=== PATIENT | male | born 1955 | race Asian ===

== ENCOUNTER 2017-01-16 12:06 | Inpatient (IN) | payer OTHER ==
--- NOTE | 2017-01-16 17:04 | HP ---
COWS - Scale Resting Pulse: 1= [place] 81-100 Sweatin= Chills/Flushing Restless Observation: 3= Extraneous Movement Pupil Size: 0= Normal to Room Light Bone or Joint Aches: 2= Severe Diffuse Aches Runny Nose/ Eye Tearin= Nasal Congestion GI Upset > 30mins: 2= Nausea/Diarrhea Tremor Observation: 2= Slight Tremor Visible Yawning Observation: 0= None Anxiety or Irritability: 2=Irritable/Anxious Goose Flesh Skin: 0=Smooth Skin COWS Score: 14 CIWA Score - CIWA Score Nausea/Vomitin-Mild Nausea/No Vomiting Muscle Tremors: 4-Moderate,w/Arms Extend Anxiety: 4-Mod. Anxious/Guarded Agitation: 4-Moderately Restless Paroxysmal Sweats: 1-Minimal Palms Moist Orientation: 3-Disoriented Date>2 days Tacttile Disturbances: 0-None Auditory Disturbances: 0-None Visual Disturbances: 0-None Headache: 1-Very Mild CIWA-Ar Total Score: 18 Admission [facility] - HPI Chief Complaint: withdrawal sx Allergies/Adverse Reactions: Allergies Allergy/AdvReac Type Severity Reaction Status Date / Time No Known Allergies Allergy Verified 01/16/17 17:03 History of Present Illness: 61 years old male with long history of alcohol, xanax, heroin, nicotine dependence hypertension copd and depression is admitted to detox Exam Limitations: No Limitations - Ebola screening Have you traveled outside of the country in the last 21 days: No Have you had contact with anyone from an Ebola affected area: No Have you been sick,other than usual withdrawal symptoms: No Do you have a fever: No - Review of Systems Constitutional: Chills, Changes in sleep, Weight Stable EENT: reports: Blurred Vision (need eye glasses), Other (retina detachment) Respiratory: reports: SOB with Exertion, Productive cough (yellowish greenish) Cardiac: reports: No Symptoms Reported GI: reports: Diarrhea, Nausea, Poor Fluid Intake, Abdominal cramping : reports: No Symptoms Reported Musculoskeletal: reports: Back Pain, Joint Pain, Muscle Pain, Muscle Weakness ( left knee), Neck Pain Integumentary: reports: No Symptoms Reported Neuro: reports: Tremors Endocrine: reports: No Symptoms Reported Hematology: reports: No Symptoms Reported Psychiatric: reports: Judgement Intact, Depressed Other Systems: Reviewed and Negative Patient History - Patient Medical History Hx Anemia: No Hx Asthma: No Hx Chronic Obstructive Pulmonary Disease (COPD): Yes Hx Cancer: No Hx Cardiac Disorders: No Hx Congestive Heart Failure: No Hx Hypertension: Yes Hx Hypercholesterolemia: No Hx Pacemaker: No HX Cerebrovascular Accident: Yes (2012) Hx Seizures: No Hx Dementia: No Hx Diabetes: No Hx Gastrointestinal Disorders: No Hx Liver Disease: No Hx Genitourinary Disorders: No Hx Sexually Transmitted Disorders: No Hx Renal Disease (ESRD): No Hx Thyroid Disease: No Hx Human Immunodeficiency Virus (HIV): No Hx Hepatitis C: Yes Hx Depression: Yes Hx Suicide Attempt: No Hx Bipolar Disorder: No Hx Schizophrenia: No - Patient Surgical History Past Surgical History: Yes Hx Neurologic Surgery: No Hx Cataract Extraction: No Hx Cardiac Surgery: No Hx Lung Surgery: No Hx Breast Surgery: No Hx Breast Biopsy: No Hx Abdominal Surgery: No Hx Appendectomy: No Hx Cholecystectomy: No Hx Genitourinary Surgery: No Hx Orthopedic Surgery: Yes (L knee replacement 2006) Other Surgical History: retinal detachment repair 1998 Anesthesia Reaction: No - PPD History Previous Implant?: Yes Documented Results: Negative w/o proof Implanted On Prior [facility] Admission?: No PPD to be Administered?: Yes - Smoking Cessation Smoking history: Current every day smoker Have you smoked in the past 12 months: Yes Aproximately how many cigarettes per day: 20 Cigars Per Day: 0 Hx Chewing Tobacco Use: No Initiated information on smoking cessation: Yes 'Breaking Loose' booklet given: 01/16/17 - Substance & Tx. History Hx Alcohol Use: Yes Hx Substance Use: Yes Substance Use Type: Alcohol, Heroin, Opiates, Tranquilizers - Substances Abused Heroin Route: Inhalation Frequency: Daily Amount used: 2 bags Age of first use: 28 Date of Last Use: 01/15/17 Alprazolam (Xanax) Route: Oral Frequency: Daily Amount used: 4mg Age of first use: 34 Date of Last Use: 01/15/17 Alcohol Route: Oral Frequency: Daily Amount used: 2 shots whiskey Age of first use: 18 Date of Last Use: 01/13/17 Family Disease History - Family Disease History Family Disease History: Heart Disease: Father (), Mother (), [place] : Brother (ceceased), Other: Father Admission Physical Exam [facility] - Physical General Appearance: Yes: Nourished, Appropriately Dressed, Mild Distress, Tremorous, Irritable, Sweating, Anxious HEENTM: Yes: Hearing grossly Normal, Normal ENT Inspection, Normocephalic, Normal Voice Respiratory: Yes: Chest Non-Tender, No Respiratory Distress, No Accessory Muscle Use, Hyperresonant, Inspiration Neck: Yes: Supple, Trachea in good position Breast: Yes: Breasts Symetrical Cardiology: Yes: Regular Rhythm, S1, S2, Tachycardia Abdominal: Yes: Within Normal Limits Genitourinary: Yes: Within Normal Limits Back: Yes: Normal Inspection Musculoskeletal: Yes: Gait Steady (cane), Back pain, Joint swelling (ankles), Muscle Pain Extremities: Yes: Non-Tender, Tremors, Swelling (both lower extremities) Neurological: Yes: Alert, Normal Response, Depressed Affect Integumentary: Yes: Warm, Clammy Lymphatic: Yes: Within Normal Limits - Diagnostic (1) Hepatitis C carrier Current Visit: Yes Status: Chronic Comment: schedule to treat (2) Low back pain Current Visit: Yes Status: Chronic Comment: referred for interventional evaluation, gentle stretches, topical (3) Nicotine dependence Current Visit: Yes Status: Chronic Comment: counseled cessation - using e cigarette (4) Alcohol dependence with uncomplicated withdrawal Current Visit: Yes Status: Acute (5) Opioid dependence with withdrawal Current Visit: Yes Status: Acute (6) Sedative, hypnotic or anxiolytic dependence with withdrawal, uncomplicated Current Visit: Yes Status: Acute (7) Use of cane as ambulatory aid Current Visit: Yes Status: Chronic (8) Status post stroke Current Visit: Yes Status: Chronic (9) Hypertension Current Visit: Yes Status: Chronic Qualifiers: Hypertension type: essential hypertension Qualified Code(s): I10 - Essential (primary) hypertension (10) COPD (chronic obstructive pulmonary disease) Current Visit: Yes Status: Chronic Qualifiers: COPD type: emphysema Emphysema type: unilateral Qualified Code(s ): J43.0 - 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] (11) BPH (benign prostatic hyperplasia) Current Visit: Yes Status: Acute Qualifiers: Prostatic enlargement morphology: non-nodular Lower urinary tract symptom presence: symptoms present Qualified Code(s): N40.1 - Benign prostatic hyperplasia with lower urinary tract symptoms Cleared for Admission S - Detox or Rehab S Level of Care: Medically Managed Detox Regimen/Protocol: Methadone/Valium
[2017-01-16 17:07] VITALS: BMI 35.4
[2017-01-16] MEDS ORDERED: MAGNESIUM HYDROX 2400MG/30ML ORAL SUSPENSION 30 ML CUP PO PRN (17:28)
[2017-01-16] MEDS ORDERED: diphenhydrAMINE HCL 50 MG CAPSULE PO PRN (17:28)
[2017-01-16] MEDS ORDERED: LOPERAMIDE HCL 2 MG CAPSULE PO PRN (17:28)
[2017-01-16] MEDS ORDERED: ACETAMINOPHEN 325 MG TABLET (FP) PO PRN (17:28)
[2017-01-16] MEDS ORDERED: MAGNESIUM CITRATE 300 ML BOTTLE PO PRN (17:28)
[2017-01-16] MEDS ORDERED: MENTHOL/PHENOL 1 EACH UD MM PRN (17:28)
[2017-01-16] MEDS ORDERED: P-EPHED 60MG/TRIPROLIDI 2.5MG TABLET PO PRN (17:28)
[2017-01-16] MEDS ORDERED: NICOTINE POLACRILEX 4 MG GUM BC PRN (17:28)
[2017-01-16] MEDS ORDERED: MAG HYDROX/AL HYDROX/SIMETH 30 ML UNIT-DOSE CUP PO PRN (17:28)
[2017-01-16] MEDS ORDERED: IBUPROFEN 400 MG TABLET (FP) PO PRN (17:28)
[2017-01-16] MEDS ORDERED: guaiFENesin/D-METHORPHAN HB 10 ML UNIT-DOSE CUPS PO PRN (17:28)
[2017-01-16] MEDS ORDERED: ALBUTEROL SO4 6.7 GM HFA INHALER IH PRN (17:32)
[2017-01-16] MEDS ORDERED: ALBUTEROL SO4 2.5/IPRATROPIUM 0.5 INH SOL 3 ML VIAL.NEB. NEB PRN (17:33)
[2017-01-16] MEDS ORDERED: diazePAM 5 MG TABLET PO ONE (18:00)
[2017-01-16] MEDS ORDERED: METHADONE HCL 10 MG TABLET (FOR DETOX USE ONLY) PO ONE ×2 (18:00→23:00)
[2017-01-16] MEDS: amLODIPine BESYLATE 10 MG TABLET (FP) PO SCH (19:03)
[2017-01-16] MEDS ORDERED: TAMSULOSIN HCL 0.4 MG CAP.ER.24H (FP) PO SCH (22:00)
[2017-01-16] MEDS ORDERED: THIAMINE HCL 100 MG TABLET (FP) PO SCH (22:00)
[2017-01-16] MEDS: cloNIDine HCL 0.1 MG TABLET PO PRN (22:30)
[2017-01-16] MEDS: diazePAM 5 MG TABLET PO SCH (22:30)
[2017-01-16] MEDS: BUDESONIDE/FORMETEROL FUMARATE 80/4.5 mcg INHALER IH SCH (22:32)
[2017-01-16 23:27] LABS: URINE APPEARANCE CLEAR; URINE BILIRUBIN NEGATIVE (NEGATIVE); URINE BLOOD NEGATIVE (NEGATIVE); URINE COLOR YELLOW; URINE GLUCOSE (UA) NEGATIVE (NEGATIVE); URINE KETONE TRACE (NEGATIVE); URINE LEUK ESTERASE NEGATIVE (NEGATIVE); URINE NITRITE NEGATIVE (NEGATIVE); URINE UROBILINOGEN NEGATIVE E.U./dl (0.2-1.0)
[2017-01-16 23:28] LABS: URINE PROTEIN 1+ (NEGATIVE)
[2017-01-16 23:31] LABS: URINE HYALINE CAST 1 /lpf; URINE MUCUS RARE; URINE RBC 5 /hpf (0-3); URINE WBC 1 /hpf (3-5)
[2017-01-17] MEDS: diazePAM 5 MG TABLET PO PRN ×3 (01:37→17:08)
[2017-01-17] MEDS: diazePAM 5 MG TABLET PO SCH ×2 (06:13→14:45)
[2017-01-17] MEDS ORDERED: PRENATAL VITAMINS W/ FOLIC ACID TABLET (FP) PO SCH (10:00)
[2017-01-17] MEDS ORDERED: METHADONE HCL 10 MG TABLET (FOR DETOX USE ONLY) PO SCH (10:00)
[2017-01-17] MEDS ORDERED: NICOTINE 21 MG/24 HOURS TOPICAL PATCH TD SCH (10:00)
[2017-01-17 10:13] LABS: MCH 31.9 pg (25.7-33.7); MCHC 33.8 g/dl (32.0-35.9); MEAN CELL VOLUME 94.6 fl (80-96); MEAN PLT VOLUME 8.9 fl (7.5-11.1); PLATELET COUNT 192 K/MM3 (134-434); RDW 13.7 % (11.9-15.9); WHITE BLOOD COUNT 8.2 K/mm3 (4.0-10.0)
--- NOTE | 2017-01-17 10:29 | PN ---
[facility] CIWA - CIWA Score Nausea/Vomitin Muscle Tremors: 3 Anxiety: 3 Agitation: 3 Paroxysmal Sweats: 3 Orientation: 0-Oriented Tacttile Disturbances: 2-Mild Itch/Numbness/Burn Auditory Disturbances: 0-None Visual Disturbances: 0-None Headache: 0-None Present CIWA-Ar Total Score: 17 [facility] COWS - Scale Resting Pulse: 1= [place] 81-100 Sweatin=Flushed/Facial Moisture Restless Observation: 1= Difficult to Sit Still Pupil Size: 1= Pupils >than Normal Bone or Joint Aches: 2= Severe Diffuse Aches Runny Nose/ Eye Tearin= Nasal Congestion GI Upset > 30mins: 1= Stomach Cramp Tremor Observation of Outstretched Hands: 1= Tremor [place], Not Seen Yawning Observation: 0= None Anxiety or Irritability: 2=Irritable/Anxious Goose Flesh Skin: 0=Smooth Skin COWS Score: 12 S Progress Note (SOAP) Subjective: interrupted sleep sweats, shakes jana knee pains Objective: 01/17/17 10:25 Vital Signs Temperature 98.2 F 01/17/17 09:47 Pulse Rate 81 01/17/17 09:47 Respiratory Rate 16 01/17/17 09:47 Blood Pressure 109/59 01/17/17 09:47 O2 Sat by Pulse Oximetry (%) Laboratory Tests 01/16/17 23:10 Urine Color Yellow Urine Appearance Clear Urine pH 5.0 Ur Specific [place] 1.025 Urine Protein 1+ H Urine Glucose (UA) Negative Urine Ketones Trace H Urine Blood Negative Urine Nitrite Negative Urine Bilirubin Negative Urine Urobilinogen Negative Ur Leukocyte Esterase Negative Urine RBC 5 Urine WBC 1 Ur Epithelial Cells Rare Hyaline Casts 1 Urine Mucus Rare pt aox3 in nad ambualting with cane rt upper ext. weakness jana knee well healed scars Assessment: 01/17/17 10:28 withdrawal sx's Plan: cont. detox increase fluids
[2017-01-17 10:53] LABS: ALBUMIN 4.1 g/dl (3.4-5.0); ANION GAP 8 (8-16); CO2 29 mmol/L (21-32); GLUCOSE,RANDOM 102 mg/dL (74-106); SGOT/AST 23 U/L (15-37); SGPT/ALT 24 U/L (12-78)
[2017-01-17 10:57] LABS: ALK PHOS 73 U/L (45-117); BILIRUBIN,TOTAL 0.5 mg/dL (0.2-1.0); CALCIUM 9.5 mg/dL (8.5-10.1); COCKROFT - GAULT 160.68; CREATININE 0.7 mg/dL (0.7-1.3); TOT PROT 7.2 g/dl (6.4-8.2)
[2017-01-17] MEDS: amLODIPine BESYLATE 10 MG TABLET (FP) PO SCH (10:57)
[2017-01-17] MEDS: cloNIDine HCL 0.1 MG TABLET PO PRN ×2 (10:57→17:08)
[2017-01-17] MEDS: BUDESONIDE/FORMETEROL FUMARATE 80/4.5 mcg INHALER IH SCH (10:58)
[2017-01-17 13:32] VITALS: BP 114/71; PULSE 80; TEMP 97.2
--- NOTE | 2017-01-17 14:03 | CONSULT ---
[facility] Psychiatric Consult - Data Date of interview: 01/17/17 Admission source: [facility] Identifying data: This is one of the multiple admissions to [facility] for this 61 y/o [place]-born male seeking detox treatment for heroin,alcohol and xanax dependence.Patient is ,a father of three,domiciled,unemployed (disabled) and supported on [facility] benefits. Substance Abuse History: - Smoking Cessation. Smoking history: Current every day smoker. Have you smoked in the past 12 months: Yes. Aproximately how many cigarettes per day: 20. Cigars Per Day: 0. Hx Chewing Tobacco Use: No. Initiated information on smoking cessation: Yes. 'Breaking Loose' booklet given : 01/16/17. - Substance & Tx. History. Hx Alcohol Use: Yes. Hx Substance Use : Yes. Substance Use Type: Alcohol, Heroin, Opiates, Tranquilizers. - Substances Abused. Heroin. Route: Inhalation. Frequency: Daily. Amount used: 2 bags. Age of first use: 28. Date of Last Use: 01/15/17. Alprazolam (Xanax). Route: Oral. Frequency: Daily. Amount used: 4mg. Age of first use: 34. Date of Last Use: 01/15/17. Alcohol. Route: Oral. Frequency: Daily. Amount used: 2 shots whiskey. Age of first use: 18. Date of Last Use: 01/13/17. Confirmed by patient. Medical History: Hypertension,BPH (benign prostatic hyperplasia),COPD,hepatitis C,obesity,CVA with right sided weakness (2012) and a history of surgeries ( left knee replacement in 2006 + retinal detachment in 1998). Psychiatric History: Patient reports a history of four psychiatric admissions to [facility].Diagnosed with Bipolar Disorder (self- report).Mr Pulido declares that he " never cares about talking to therapists, social workers or psychiatrists " and prefers to rely on his primary care doctor for scripts (seroquel and xanax).Patient has stopped going to his assigned mental health clinic (name not recalled) in [place], [place].He insists on the continuation of seroquel 200 mg/hs in this hospital course (confirmed by review of recent pharmacy claims : filled script on 12/21/16 @ [facility]).No reported history of suicide attempts. Physical/Sexual Abuse/Trauma History: Patient denies. Mental Status Exam - Mental Status Exam Alert and Oriented to: Time, Place, Person Cognitive Function: Good Patient Appearance: Well Groomed (obese ) Mood: Angry, Hostile, Irritable Affect: Labile Patient Behavior: Inappropriate (cursing at staff and peers; medication-seeking as evidenced by pressuring nurses for xanax and seroquel), Impulsive (can be loud,argumentative for no valid reasons) Speech Pattern: Clear (fluent in [place]; came to [place] age 12) Voice Loudness: Mildly Loud Thought Process: Goal Oriented Thought Disorder: Not Present Hallucinations: Denies Suicidal Ideation: Denies Homicidal Ideation: Denies Insight/Judgement: Poor Sleep: Poorly, Difficulty falling asleep (vociferous about getting seroquel at bedtime) Appetite: Good Gait/Station: Other (right-sided weakness; cane available but patient is seen moving around without that device) Psychiatric Findings - Problem List ([place] 1, 2,3) (1) Alcohol dependence with uncomplicated withdrawal Current Visit: Yes Status: Acute (2) Opioid dependence with withdrawal Current Visit: Yes Status: Acute (3) Sedative, hypnotic or anxiolytic dependence with withdrawal, uncomplicated Current Visit: Yes Status: Acute (4) Nicotine dependence Current Visit: Yes Status: Acute Comment: counseled cessation - using e cigarette (5) Substance induced mood disorder Current Visit: Yes Status: Acute (6) Bipolar disorder Current Visit: Yes Status: Acute Comment: Self-report. (7) BPH (benign prostatic hyperplasia) Current Visit: Yes Status: Chronic Qualifiers: Prostatic enlargement morphology: non-nodular Lower urinary tract symptom presence: symptoms present Qualified Code(s): N40.1 - Benign prostatic hyperplasia with lower urinary tract symptoms (8) COPD (chronic obstructive pulmonary disease) Current Visit: Yes Status: Chronic Qualifiers: COPD type: emphysema Emphysema type: unilateral Qualified Code(s ): J43.0 - 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] (9) Low back pain Current Visit: Yes Status: Chronic Comment: referred for interventional evaluation, gentle stretches, topical (10) degenerative disc disease Current Visit: Yes Status: Chronic Comment: antiinflamamatory diet counceeling done (11) osteoarthritis Current Visit: Yes Status: Chronic Comment: gentle ROM, stretches, topical (12) Hypertension Current Visit: Yes Status: Chronic Qualifiers: Hypertension type: essential hypertension Qualified Code(s): I10 - Essential (primary) hypertension (13) Use of cane as ambulatory aid Current Visit: Yes Status: Chronic - Initial Treatment Plan Initial Treatment Plan: Psychoeducation.Detoxification.Medication : seroquel 100 mg po hs (intentionally reduced as a precaution against oversedation/ accidental falls).Side effects/benefits discussed with the patient.This treatment strategy is presented to Mr Pulido.Made aware of risk for oversedation/ falls,cardiovascular adverse events,abnormal involuntary movements and metabolic syndrome.He reports past/current history of good tolerability and he agrees (verbally) with this careplan.Falls precautions.Observation.
--- NOTE | 2017-01-17 21:36 | DS ---
[facility] Detox Discharge Summary Admission Date: 01/16/17 Discharge Date: 01/17/17 - History Present History: Alcohol Dependence, Opioid Dependence, Sedative Dependence Additional Comments: patient insists to leave the unit refuses to wait face to face with the provider refuses e prescription agrees to follow up with primary care physician agrees to consider aftercare as per counselor arranged Pertinent Past History: WITHDRAWAL SX Laboratory Last Values WBC 8.2 K/mm3 (4.0-10.0) 01/17/17 06:00 RBC 4.49 M/mm3 (4.00-5.60) 01/17/17 06:00 Hgb 14.3 GM/dL (11.7-16.9) 01/17/17 06:00 Hct 42.5 % (35.4-49) 01/17/17 06:00 MCV 94.6 fl (80-96) 01/17/17 06:00 MCHC 33.8 g/dl (32.0-35.9) 01/17/17 06:00 RDW 13.7 % (11.9-15.9) 01/17/17 06:00 Plt Count 192 K/MM3 (134-434) 01/17/17 06:00 MPV 8.9 fl (7.5-11.1) 01/17/17 06:00 Sodium 142 mmol/L (136-145) 01/17/17 06:00 Potassium 3.9 mmol/L (3.5-5.1) 01/17/17 06:00 Chloride 105 mmol/L (98-107) 01/17/17 06:00 Carbon Dioxide 29 mmol/L (21-32) 01/17/17 06:00 Anion Gap 8 (8-16) 01/17/17 06:00 BUN 22 mg/dL (7-18) H 01/17/17 06:00 Creatinine 0.7 mg/dL (0.7-1.3) 01/17/17 06:00 Creat Clearance w eGFR > 60 (>60) 01/17/17 06:00 Random Glucose 102 mg/dL (74-106) 01/17/17 06:00 Calcium 9.5 mg/dL (8.5-10.1) 01/17/17 06:00 Total Bilirubin 0.5 mg/dL (0.2-1.0) 04/25/17 06:00 AST 23 U/L (15-37) D 01/17/17 06:00 ALT 24 U/L (12-78) 01/17/17 06:00 Alkaline Phosphatase 73 U/L (45-117) 01/17/17 06:00 Total Protein 7.2 g/dl (6.4-8.2) 01/17/17 06:00 Albumin 4.1 g/dl (3.4-5.0) 01/17/17 06:00 Urine Color Yellow 01/16/17 23:10 Urine Appearance Clear 01/16/17 23:10 Urine pH 5.0 (5.0-8.0) 01/16/17 23:10 Ur Specific [place] 1.025 (1.001-1.035) 01/16/17 23:10 Urine Protein 1+ (NEGATIVE) H 01/16/17 23:10 Urine Glucose (UA) Negative (NEGATIVE) 01/16/17 23:10 Urine Ketones Trace (NEGATIVE) H 01/16/17 23:10 Urine Blood Negative (NEGATIVE) 01/16/17 23:10 Urine Nitrite Negative (NEGATIVE) 01/16/17 23:10 Urine Bilirubin Negative (NEGATIVE) 01/16/17 23:10 Urine Urobilinogen Negative E.U./dl (0.2-1.0) 01/16/17 23:10 Ur Leukocyte Esterase Negative (NEGATIVE) 01/16/17 23:10 Urine RBC 5 /hpf (0-3) 01/16/17 23:10 Urine WBC 1 /hpf (3-5) 01/16/17 23:10 Ur Epithelial Cells Rare /hpf (FEW) 01/16/17 23:10 Hyaline Casts 1 /lpf 01/16/17 23:10 Urine Mucus Rare 01/16/17 23:10 RPR Titer Nonreactive (NONREACTIVE) 01/17/17 06:00 LAB NOTED - Physical Exam Results Vital Signs: Vital Signs Temperature 97.2 F L 01/17/17 13:32 Pulse Rate 80 01/17/17 13:32 Respiratory Rate 20 01/17/17 13:32 Blood Pressure 114/71 01/17/17 13:32 O2 Sat by Pulse Oximetry (%) Pertinent Admission Physical Exam Findings: WITHDRAWAL SX Laboratory Last Values WBC 8.2 K/mm3 (4.0-10.0) 01/17/17 06:00 RBC 4.49 M/mm3 (4.00-5.60) 01/17/17 06:00 Hgb 14.3 GM/dL (11.7-16.9) 01/17/17 06:00 Hct 42.5 % (35.4-49) 01/17/17 06:00 MCV 94.6 fl (80-96) 01/17/17 06:00 MCHC 33.8 g/dl (32.0-35.9) 01/17/17 06:00 RDW 13.7 % (11.9-15.9) 01/17/17 06:00 Plt Count 192 K/MM3 (134-434) 01/17/17 06:00 MPV 8.9 fl (7.5-11.1) 01/17/17 06:00 Sodium 142 mmol/L (136-145) 01/17/17 06:00 Potassium 3.9 mmol/L (3.5-5.1) 01/17/17 06:00 Chloride 105 mmol/L (98-107) 01/17/17 06:00 Carbon Dioxide 29 mmol/L (21-32) 01/17/17 06:00 Anion Gap 8 (8-16) 01/17/17 06:00 BUN 22 mg/dL (7-18) H 01/17/17 06:00 Creatinine 0.7 mg/dL (0.7-1.3) 01/17/17 06:00 Creat Clearance w eGFR > 60 (>60) 01/17/17 06:00 Random Glucose 102 mg/dL (74-106) 01/17/17 06:00 Calcium 9.5 mg/dL (8.5-10.1) 01/17/17 06:00 Total Bilirubin 0.5 mg/dL (0.2-1.0) 01/17/17 06:00 AST 23 U/L (15-37) D 01/17/17 06:00 ALT 24 U/L (12-78) 01/17/17 06:00 Alkaline Phosphatase 73 U/L (45-117) 01/17/17 06:00 Total Protein 7.2 g/dl (6.4-8.2) 01/17/17 06:00 Albumin 4.1 g/dl (3.4-5.0) 01/17/17 06:00 Urine Color Yellow 01/16/17 23:10 Urine Appearance Clear 01/16/17 23:10 Urine pH 5.0 (5.0-8.0) 01/16/17 23:10 Ur Specific [place] 1.025 (1.001-1.035) 01/16/17 23:10 Urine Protein 1+ (NEGATIVE) H 01/16/17 23:10 Urine Glucose (UA) Negative (NEGATIVE) 01/16/17 23:10 Urine Ketones Trace (NEGATIVE) H 01/16/17 23:10 Urine Blood Negative (NEGATIVE) 01/16/17 23:10 Urine Nitrite Negative (NEGATIVE) 01/16/17 23:10 Urine Bilirubin Negative (NEGATIVE) 01/16/17 23:10 Urine Urobilinogen Negative E.U./dl (0.2-1.0) 01/16/17 23:10 Ur Leukocyte Esterase Negative (NEGATIVE) 01/16/17 23:10 Urine RBC 5 /hpf (0-3) 01/16/17 23:10 Urine WBC 1 /hpf (3-5) 01/16/17 23:10 Ur Epithelial Cells Rare /hpf (FEW) 01/16/17 23:10 Hyaline Casts 1 /lpf 01/16/17 23:10 Urine Mucus Rare 01/16/17 23:10 RPR Titer Nonreactive (NONREACTIVE) 01/17/17 06:00 LAB NOTED - Treatment Hospital Course: Detox Protocol Followed, Responded well - Medication Discharge Medications: Ambulatory Orders Clonidine HCl [Catapres -] 0.2 mg PO BID 01/16/17 Quetiapine Fumarate [Seroquel -] 200 mg PO HS 01/16/17 Tamsulosin HCl [Flomax] 0.4 mg PO DAILY 01/16/17 Quetiapine Fumarate [Seroquel] 100 mg PO HS #30 tablet 01/17/17 - Diagnosis (1) Hepatitis C carrier Status: Chronic (2) Low back pain Status: Chronic (3) Nicotine dependence Status: Acute (4) Alcohol dependence with uncomplicated withdrawal Status: Acute (5) Opioid dependence with withdrawal Status: Acute (6) Sedative, hypnotic or anxiolytic dependence with withdrawal, uncomplicated Status: Acute (7) Use of cane as ambulatory aid Status: Chronic (8) Status post stroke Status: Chronic (9) Hypertension Status: Chronic Qualifiers: Hypertension type: essential hypertension Qualified Code(s): I10 - Essential (primary) hypertension (10) COPD (chronic obstructive pulmonary disease) Status: Chronic Qualifiers: COPD type: emphysema Emphysema type: unilateral Qualified Code(s ): J43.0 - 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] (11) BPH (benign prostatic hyperplasia) Status: Chronic Qualifiers: Prostatic enlargement morphology: non-nodular Lower urinary tract symptom presence: symptoms present Qualified Code(s): N40.1 - Benign prostatic hyperplasia with lower urinary tract symptoms - AMA Did Patient Leave Against Medical Advice: Yes
[2017-01-17] MEDS ORDERED: QUEtiapine FUMARATE 100 MG TABLET (FP) PO SCH (22:00)
--- NOTE | 2017-01-18 08:26 | EKG ---
Test Reason : Blood Pressure : / mmHG Vent. Rate : 088 BPM Atrial Rate : 088 BPM P-R Int : 140 ms QRS Dur : 090 ms QT Int : 352 ms P-R-T Axes : 064 015 011 degrees QTc Int : 425 ms SINUS RHYTHM WITH PREMATURE VENTRICULAR COMPLEXES OTHERWISE NORMAL ECG WHEN COMPARED WITH ECG OF 03-MAY-2012 12:10, PREMATURE VENTRICULAR COMPLEXES ARE NOW PRESENT Confirmed by OPAL WALDROP MD ([id number]) on 01/18/2017 8:26:19 AM Referred By: Confirmed By:OPAL WALDROP MD
[2017-01-18] MEDS ORDERED: diazePAM 5 MG TABLET PO SCH (10:00)
[2017-01-18] MEDS ORDERED: METHADONE HCL 5 MG TABLET (FOR DETOX USE ONLY) PO SCH (10:00)
[2017-01-20] MEDS ORDERED: METHADONE HCL 10 MG TABLET (FOR DETOX USE ONLY) PO SCH (10:00)
[2017-01-20] MEDS ORDERED: diazePAM 5 MG TABLET PO SCH (10:00)
[2017-01-21] MEDS ORDERED: METHADONE HCL 5 MG TABLET (FOR DETOX USE ONLY) PO SCH (06:00)
== END 2017-01-17 18:45 | disposition home or self-care (01) | DRG 773 ==
LOC: YASAS 12:06 → Y6N 17:43
PROVIDERS: ADMIT Internal Medicine Addiction Medicine; ATTEND Internal Medicine Addiction Medicine
PROC: HZ2ZZZZ Detoxification Services for Substance Abuse Treatment (ICD-10-PCS; principal; 2017-01-17)
DX: F11.23 Opioid dependence with withdrawal (principal); F13.230 Sedative, hypnotic or anxiolytic dependence with withdrawal, uncomplicated; F10.230 Alcohol dependence with withdrawal, uncomplicated; F17.210 Nicotine dependence, cigarettes, uncomplicated; I10 Essential (primary) hypertension; N40.0 Benign prostatic hyperplasia without lower urinary tract symptoms; M54.5 Low back pain; G89.29 Other chronic pain; M51.36 Other intervertebral disc degeneration, lumbar region; Z86.73 Personal history of transient ischemic attack (TIA), and cerebral infarction without residual deficits; R26.2 Difficulty in walking, not elsewhere classified; F91.8 Other conduct disorders
CPT/HCPCS: 36415; 80053; 81003; 81015; 85027; 86593; 93005; 93010

== ENCOUNTER 2017-05-11 12:06 | Emergency (ER) | payer OTHER ==
[2017-05-11 12:22] VITALS: TEMP 97.5; BMI 34.0
[2017-05-11 12:39] LABS: MCH 32.6 pg (25.7-33.7); MEAN CELL VOLUME 93.1 fl (80-96); MEAN PLT VOLUME 9.4 fl (7.5-11.1); PLATELET COUNT 244 K/MM3 (134-434); RDW 12.9 % (11.9-15.9); WHITE BLOOD COUNT 9.5 K/mm3 (4.0-10.0)
[2017-05-11 13:18] LABS: ALBUMIN 4.1 g/dl (3.4-5.0); ANION GAP 8 (8-16); BILIRUBIN,TOTAL 0.6 mg/dL (0.2-1.0); CALCIUM 8.9 mg/dL (8.5-10.1); CO2 25 mmol/L (21-32); GLUCOSE,RANDOM 160 mg/dL (74-106); SGPT/ALT 24 U/L (12-78); TOT PROT 7.1 g/dl (6.4-8.2)
[2017-05-11 13:21] LABS: ALK PHOS 60 U/L (45-117); TROPONIN I < 0.02 ng/ml (0.00-0.05)
[2017-05-11 13:25] LABS: CPK 261 IU/L (39-308); SGOT/AST 42 U/L (15-37)
--- NOTE | 2017-05-11 13:25 | PDOC ---
Attending Attestation - Resident Resident Name: Christina South - ED Attending Attestation I have performed the following: I have examined & evaluated the patient, The case was reviewed & discussed with the resident, I agree w/resident's findings & plan, Exceptions are as noted - HPI HPI: 05/11/17 15:20 61y M hx of cva, copd, substance abuse (no recent per patient), htn, sent by EMS for being nonresponsive. Per EMS the pt was found nonresponsive in a parkinglot. The pt was noted to be hypoxic, was nonresponsive and pt was give .4 of narcan with immediate improvement The pt endorses taking percocet, but denies taking anything else including etoh, ivdu. pt denies taking any benzos. pts evaluation unremarkble. vitals noted for mild tachycadia upon arrival and was hypoxic. suspect hypoxia secondary to his copd upon arrival th pt was immediately evaluated labs were obtained ct head was obtained pts labs reviewed an dunremarkable his CT is also negative throughout th stay, the pt was awake, alert, ambulating aruond without any complaints. after sever hours of obsevation, the pt requesting to go home, as we are now past the half life of narcan, I feel that the pt is safe to be discharged warned the apteitn against using opiates and benzos will have the pt fu with his PMD return precautis were discussed. - Physicial Exam PE: 05/11/17 15:25 GENERAL: The patient is awake, alert, and fully oriented, Nontoxic - in no acute distress. HEAD: Normocephalic, atraumatic. EYES: Pupils 3mm and symmetrically reactive, extraocular movements intact, sclera anicteric, conjunctiva clear. ENT: Normal voice, Moist mucous membranes. NECK: Normal range of motion, supple LUNGS: Breath sounds equal, clear to auscultation bilaterally. No wheezes, no rhonchi, no rales. HEART: slightly tachycardic ABDOMEN: Soft, nontender, normoactive bowel sounds. No guarding, no rebound. . No CVA tenderness EXTREMITIES: Normal range of motion, no edema. NEUROLOGICAL: No facial assymetry, Normal speech, moving all 4 extremities spontaneously and symmetrically PSYCH: Normal mood, normal affect. SKIN: Warm, Dry, normal turgor, - Medical Decision Making 05/13/17 16:25 see above Heart Score/ECG Review - ECG Impressions Comment:: 05/11/17 15:26 Twelve-lead EKG was performed and reviewed by me. There is normal sinus rhythm with a heart rate of [address] No ST changes suggestive of acute ischemia
--- NOTE | 2017-05-11 14:57 | PDOC ---
History of Present Illness - General History Source: Patient Exam Limitations: No Limitations <Christina South - Last Filed: 05/11/17 14:57> <Clarence Mckoy - Last Filed: 05/11/17 15:31> - General Chief Complaint: Syncope/Near Syncope Stated Complaint: AMS Time Seen by Provider: 05/11/17 12:08 Past History - Past Medical History Anemia: No Asthma: No Cancer: No Cardiac Disorders: No CVA: Yes (2012) COPD: Yes CHF: No Dementia: No Diabetes: No GI Disorders: No Disorders: No HTN: Yes Hypercholesterolemia: No Kidney Stones: No Liver Disease: No Suicide Attempt (Hx): No Seizures: No Thyroid Disease: No - Surgical History Abdominal Surgery: No Appendectomy: No Cardiac Surgery: No Cholecystectomy: No Lung Surgery: No Neurologic Surgery: No Orthopedic Surgery: Yes (L knee replacement 2006) - Reproductive History Testicular Surgery: No - Psycho/Social/Smoking Cessation Hx Anxiety: Yes Suicidal Ideation: No Smoking History: Current every day smoker Have you smoked in the past 12 months: Yes Number of Cigarettes Smoked Daily: 20 Cigars Per Day: 0 Information on smoking cessation initiated: Yes 'Breaking Loose' booklet given: 01/16/17 Hx Alcohol Use: No Drug/Substance Use Hx: No Substance Use Type: Alcohol, Heroin, Opiates, Tranquilizers Hx Substance Use Treatment: Yes <Christnia South - Last Filed: 05/11/17 14:57> <Clarence Mckoy - Last Filed: 05/11/17 15:31> - Past Medical History Allergies/Adverse Reactions: Allergies Allergy/AdvReac Type Severity Reaction Status Date / Time No Known Allergies Allergy Verified 05/11/17 12:19 Home Medications: Ambulatory Orders Clonidine HCl [Catapres -] 0.2 mg PO BID 01/16/17 Tamsulosin HCl [Flomax] 0.4 mg PO DAILY 01/16/17 Quetiapine Fumarate [Seroquel] 100 mg PO HS #30 tablet 01/17/17 *Physical Exam - Vital Signs Last Vital Signs Temp Pulse Resp BP Pulse Ox 97.5 F L 112 H 24 96/66 87 L 05/11/17 12:10 05/11/17 12:10 05/11/17 12:10 05/11/17 12:10 05/11/17 12:10 <S[place] - Last Filed: 05/11/17 14:57> - Vital Signs Last Vital Signs Temp Pulse Resp BP Pulse Ox 97.5 F L 112 H 24 96/66 87 L 05/11/17 12:10 05/11/17 12:10 05/11/17 12:10 05/11/17 12:10 05/11/17 12:10 <Clarence Mckoy - Last Filed: 05/11/17 15:31> ED Treatment Course - LABORATORY CBC & Chemistry Diagram: 05/11/17 12:22 05/11/17 12:22 - ADDITIONAL ORDERS Additional order review: Laboratory Results 05/11/17 12:22 Sodium 140 Potassium 4.7 D Chloride 107 Carbon Dioxide 25 Anion Gap 8 BUN 20 H Creatinine 1.0 D Creat Clearance w eGFR > 60 Random Glucose 160 H D Calcium 8.9 Total Bilirubin 0.6 AST 42 H D ALT 24 Alkaline Phosphatase 60 Creatine Kinase 261 Creatine Kinase Index 0.6 CK-MB (CK-2) 1.792 Troponin I < 0.02 Total Protein 7.1 Albumin 4.1 05/11/17 12:22 RBC 4.64 MCV 93.1 MCHC 35.0 RDW 12.9 MPV 9.4 - RADIOLOGY Radiology Studies Ordered: Category Date Time Status HEAD CT WITHOUT CONTRAST [CT] Stat CT Scan 05/11/17 12:09 Completed CHEST PA & LAT [RAD] Stat Radiology 05/11/17 12:26 Completed <Christina South - Last Filed: 05/11/17 14:57> - LABORATORY CBC & Chemistry Diagram: 05/11/17 12:22 05/11/17 12:22 - ADDITIONAL ORDERS Additional order review: Laboratory Results 05/11/17 05/11/17 12:22 12:22 Sodium 140 Potassium 4.7 D Chloride 107 Carbon Dioxide 25 Anion Gap 8 BUN 20 H Creatinine 1.0 D Creat Clearance w eGFR > 60 Random Glucose 160 H D Calcium 8.9 Total Bilirubin 0.6 AST 42 H D ALT 24 Alkaline Phosphatase 60 Creatine Kinase 261 Creatine Kinase Index 0.6 CK-MB (CK-2) 1.792 Troponin I < 0.02 Total Protein 7.1 Albumin 4.1 Methadone Screen Negative Barbiturate Screen Negative Phencyclidine Screen Negative Ur Amphetamines Screen Negative MDMA (Ecstasy) Screen Negative Cocaine Screen Negative U Marijuana (THC) Screen Negative 05/11/17 12:22 RBC 4.64 MCV 93.1 MCHC 35.0 RDW 12.9 MPV 9.4 <Clarence Mckoy - Last Filed: 05/11/17 15:31> *DC/Admit/Observation/Transfer <Christina South - Last Filed: 05/11/17 14:57> - Discharge Dispostion Admit: No <Clarence Mckoy - Last Filed: 05/11/17 15:31> Diagnosis at time of Disposition: Opioid dependence Qualifiers: Substance use status: uncomplicated Qualified Code(s): F11.20 - Opioid dependence, uncomplicated - Discharge Dispostion Disposition: HOME Condition at time of disposition: Improved - Referrals Referrals: Vicente Laureano MD [Primary Care Provider] - - Patient Instructions Printed Discharge Instructions: DI for Opioid Addiction Additional Instructions: Return to the emergency department immediately with ANY new, persistent or worsening symptoms. You MUST call and follow up with your doctor tomorrow for further evaluation of your symptoms. Results were discussed with you. Please make sure your doctor reviews the results of your emergency evaluation. If you had any xrays during your visit, it was read preliminarily by myself, a Radiologist will review it and if there are any additional findings we will call you.
--- NOTE | 2017-05-11 15:04 | EKG ---
Test Reason : Blood Pressure : / mmHG Vent. Rate : 113 BPM Atrial Rate : 113 BPM P-R Int : 150 ms QRS Dur : 084 ms QT Int : 328 ms P-R-T Axes : 043 -31 068 degrees QTc Int : 449 ms SINUS TACHYCARDIA LEFT AXIS DEVIATION ABNORMAL ECG WHEN COMPARED WITH ECG OF 16-JAN-2017 18:03, PREMATURE VENTRICULAR COMPLEXES ARE NO LONGER PRESENT QRS AXIS SHIFTED LEFT Confirmed by SHENA OLIVER, JAMES ([id number]) on 05/11/2017 3:03:36 PM Referred By: Confirmed By:JAMES CHATTERJEE MD
[2017-05-11 15:26] LABS: URINE MARIJUANA THC NEGATIVE ng/ml (CUTOFF=50)
[2017-05-11 15:49] VITALS: BP 90/66; PULSE 78
== END 2017-05-11 15:42 | disposition home or self-care (01) ==
LOC: JER 12:06
DX: F11.20 Opioid dependence, uncomplicated (principal); F17.210 Nicotine dependence, cigarettes, uncomplicated; J44.9 Chronic obstructive pulmonary disease, unspecified; I10 Essential (primary) hypertension; Z86.73 Personal history of transient ischemic attack (TIA), and cerebral infarction without residual deficits; Z96.652 Presence of left artificial knee joint
CPT/HCPCS: 36415; 70450-TC; 71020-TC; 80048; 80053; 80307; 82553; 84484; 85027; 93005; 93010; 99285-25

== ENCOUNTER 2018-02-12 11:46 | Observation (INO) | payer OTHER ==
[2018-02-12 12:10] VITALS: BMI 32.6
--- NOTE | 2018-02-12 12:12 | PDOC ---
Attending Attestation - Resident Resident Name: Eugene Sultana - HPI HPI: 02/16/18 01:22 Pt presents to the ED complaining of acute exacerbation of his chronic upper back pain. Patient is a chronic heroin abuser. Denies trauma or other new symptoms. Pain seems to be relieved by drinking large quantities of milk in the ED. - Physicial Exam PE: 02/16/18 01:23 Agree with resident exam. Patient is alert, oriented and ambulatory in the ED. No point tenderness over the spine. Neurologically intact. Abdomen is non tender and non distended. - Medical Decision Making 02/16/18 01:25 Pt presents to the ED complaining of his chronic back pain. Labs show evidence of dehydration with acute rise in his creatinine. Dr. Laureano, patient's PMD, prefers to treat as an outpatient. WIll give IV fluids and reassess.
[2018-02-12] MEDS ORDERED: MAG HYDROX/AL HYDROX/SIMETH -MYLANTA- ORAL SUSPENSION PO ONE (12:42)
--- NOTE | 2018-02-12 13:05 | PDOC ---
History of Present Illness - General Chief Complaint: Back Pain Stated Complaint: LOWER BACK PAIN Time Seen by Provider: 02/12/18 12:07 History Source: Patient Exam Limitations: No Limitations - History of Present Illness Initial Comments: 02/12/18 12:54 The patient is a 62M with a PMH of chronic back pain (on percocet), COPD, CVA, substance abuse who presents to the ER with back pain. The patient states that he has sharp, lumbosacral, sharp pain which does not radiate. The pain has been getting worse. The patient has taken percocet for his pain which he states helped "a little bit". He denies any trauma, saddle anesthesia, fever, chills, and IVDA. Past History - Past Medical History Allergies/Adverse Reactions: Allergies Allergy/AdvReac Type Severity Reaction Status Date / Time No Known Allergies Allergy Verified 02/12/18 12:07 Home Medications: Ambulatory Orders Tamsulosin HCl [Flomax -] 0.8 mg PO DAILY 01/16/17 cloNIDine HCL [Catapres -] 0.2 mg PO BID 01/16/17 Quetiapine Fumarate [Seroquel] 300 mg PO HS 01/14/18 Albuterol Sulfate Inhaler - [Ventolin HFA Inhaler -] 2 inh PO Q4H PRN 01/15/18 Alprazolam [Xanax] 2 mg PO TID 02/12/18 Lisinopril [Prinivil] 20 mg PO DAILY 02/12/18 Meloxicam 7.5 mg PO DAILY 02/12/18 Oxycodone HCl/Acetaminophen [Percocet 10-325 mg Tablet] 1 each PO Q8H PRN Ranitidine HCl [Zantac] 300 mg PO DAILY 02/12/18 Anemia: Yes Asthma: No Cancer: No Cardiac Disorders: No CVA: Yes (2012) COPD: Yes CHF: No Dementia: No Diabetes: No GI Disorders: No Disorders: Yes (BPH - on flomax) HTN: No Hypercholesterolemia: No Kidney Stones: No Liver Disease: No Seizures: No Thyroid Disease: No - Surgical History Abdominal Surgery: No Appendectomy: No Cardiac Surgery: No Cholecystectomy: No Lung Surgery: No Neurologic Surgery: No Orthopedic Surgery: Yes (L knee replacement 2006) - Reproductive History Testicular Surgery: No - Suicide/Smoking/Psychosocial Hx Smoking History: Current every day smoker Have you smoked in the past 12 months: Yes Number of Cigarettes Smoked Daily: 10 Cigars Per Day: 0 Information on smoking cessation initiated: No 'Breaking Loose' booklet given: 02/11/18 Hx Alcohol Use: No Drug/Substance Use Hx: No Substance Use Type: Prescribed (xanax, Percocet) Hx Substance Use Treatment: Yes Review of Systems - Review of Systems Able to Perform ROS?: Yes Comments:: 02/12/18 13:13 GENERAL/CONSTITUTIONAL: No fever or chills. No weakness. HEAD, EYES, EARS, NOSE AND THROAT: No change in vision. No ear pain or discharge. No sore throat. CARDIOVASCULAR: No chest pain, palpitations, or lightheadedness. RESPIRATORY: No cough, wheezing, shortness of breath, or hemoptysis. GASTROINTESTINAL: Positive for indigestion. No nausea, vomiting, diarrhea, constipation, or abdominal pain. GENITOURINARY: No dysuria, frequency, hematuria, or change in urination. MUSCULOSKELETAL: Positive for back pain. No joint or muscle swelling or pain. No neck pain. SKIN: No rash or lesions. NEUROLOGIC: No headache, numbness, tingling, weakness, loss of consciousness, or change in strength/sensation. ENDOCRINE: No increased thirst. No abnormal weight change. HEMATOLOGIC/LYMPHATIC: No anemia, easy bleeding, or history of blood clots. ALLERGIC/IMMUNOLOGIC: No hives or skin allergy. Is the patient limited Brazilian proficient: No *Physical Exam - Vital Signs Last Vital Signs Temp Pulse Resp BP Pulse Ox 97.5 F L 97 H 18 132/67 96 02/12/18 12:07 02/12/18 12:07 02/12/18 12:07 02/12/18 12:07 02/12/18 12:07 - Physical Exam Comments: 02/12/18 13:15 GENERAL: Well developed, well nourished. Awake and alert. No acute distress. HEENT: Normocephalic, atraumatic. Hearing grossly normal. Dry mucous membranes. PERRLA, EOMI. No conjunctival pallor. Sclera are non-icteric. Oropharynx is clear. NECK: Supple. Full ROM. No JVD. Carotid pulses 2+ and symmetric, without bruits. No thyromegaly. No lymphadenopathy. CARDIOVASCULAR: Regular rate and rhythm. No murmurs, rubs, or gallops. Distal pulses are 2+ and symmetric. PULMONARY: No evidence of respiratory distress. Lungs clear to auscultation bilaterally. No wheezing, rales or rhonchi. ABDOMINAL: Soft. Non-tender. Non-distended. No rebound or guarding. No organomegaly. Normoactive bowel sounds. GENITOURINARY: No CVA tenderness bilaterally. MUSCULOSKELETAL: Mild spinal tenderness over LS spine. Normal range of motion at all joints. No bony deformities or tenderness. EXTREMITIES: No cyanosis. No clubbing. No edema. No calf tenderness or swelling. SKIN: Warm and dry. Normal capillary refill. No rashes. No jaundice. NEUROLOGICAL: Alert, awake, appropriate. Cranial nerves 2-12 intact. Normal speech. Gait is ataxic. PSYCHIATRIC: Cooperative. Good eye contact. Appropriate mood and affect. Moderate Sedation - Procedure Monitoring Vital Signs: Vital Signs Temp Pulse Resp BP Pulse Ox 97.5 F L 97 H 18 132/67 96 02/12/18 12:07 02/12/18 12:07 02/12/18 12:07 02/12/18 12:07 02/12/18 12:07 Heart Score/ECG Review #1 General ECG Interpretation: Sinus Rhythm, Normal Rate, Normal Intervals, No acute ischemic changes Compared to previous ECG there are: No significant change 02/12/18 13:52 NSR Vent rate 86 AR 142 QRS 100 QTc 437 Incomplete RBBB No STD or EMILIA No sign of acute ischemic changes. ED Treatment Course - LABORATORY CBC & Chemistry Diagram: 02/12/18 13:50 02/12/18 13:50 - RADIOLOGY Radiology Studies Ordered: Category Date Time Status CHEST X-RAY PORTABLE* [RAD] Stat Radiology 02/12/18 12:45 Ordered SPINE-LUMBAR SACRAL [RAD] Stat Radiology 02/12/18 12:27 Ordered Medical Decision Making - Medical Decision Making 02/12/18 13:53 The patient is a 62M with a PMH of chronic back pain who presents with back pain and indigestion. Pt is requesting multiple cartons of milk. He is ambulating without problems in the ER with a chronic ataxic and wide-based gait. Pending labs and LS spine imaging to r/o occult fracture. 02/12/18 15:16 The patient has a Cr of 1.5 which is increased from 0.7 1 month ago. I have instructed the patient of this and he is requesting to AMA. The patient understands that his GAVI can lead to many comorbidities including . The patient has been ambulating around the ER and yelling at patients and other staff. Will print off AMA form. 02/12/18 15:50 Pt does not want to sign out AMA but is being verbally abusive to staff and other patients. I have instructed him that he needs to stay in his chair and in the hospital. Will add CKMB and renal u/s. 02/12/18 16:24 I have discussed the patient with Dr. Laureano. He knows the patient very well and I have informed him of his new onset GAVI. He states he will f/u outpatient with the patient. 02/12/18 19:31 Pending CK and CKMB. Pt is noted to be ambulating and raising his voice to patient and staff. I have instructed him to stay in his wheelchair. 02/12/18 20:32 Pt is requesting another PCP. Will admit to obs under Dr. Raymundo and I have endorsed the pt to her. *DC/Admit/Observation/Transfer Diagnosis at time of Disposition: Low back pain - Discharge Dispostion Disposition: HOME Condition at time of disposition: Stable Decision to Admit order: Yes - Referrals - Patient Instructions Printed Discharge Instructions: Low Back Pain Additional Instructions: Please follow up with your primary care physician in 2-3 days. Follow up with your pain management doctor. Please return to the ER if you have any signs or symptoms of chest pain, shortness of breath, uncontrollable fever, chills, nausea, vomiting, numbness, tingling, or weakness in any part of your body, changes in vision, or slurred speech. Please return to the ER if symptoms persist, worsen, or new symptoms arise. - Post Discharge Activity
[2018-02-12] MEDS ORDERED: MAG HYDROX/AL HYDROX/SIMETH 30 ML UNIT-DOSE CUP ONE (13:35)
[2018-02-12 13:58] LABS: BASO % 0.9 % (0-2.0); EOS % 0.7 % (0-4.5); HEMATOCRIT 47.6 % (35.4-49); HEMOGLOBIN 15.8 GM/dL (11.7-16.9); LYMPH % 17.3 % (8-40); MCH 31.2 pg (25.7-33.7); MCHC 33.3 g/dl (32.0-35.9); MEAN CELL VOLUME 93.8 fl (80-96); MEAN PLT VOLUME 8.3 fl (7.5-11.1); MONO % 12.6 % (3.8-10.2); NEUT % 68.5 % (42.8-82.8); PLATELET COUNT 190 K/MM3 (134-434); RBC 5.08 M/mm3 (4.00-5.60); RDW 13.7 % (11.9-15.9); WHITE BLOOD COUNT 10.4 K/mm3 (4.0-10.0)
[2018-02-12 14:19] LABS: URINE APPEARANCE SLCLOUDY; URINE BILIRUBIN NEGATIVE (<2.0 mg/dL); URINE COLOR DKYELLOW; URINE GLUCOSE (UA) NEGATIVE (NEGATIVE); URINE KETONE NEGATIVE (NEGATIVE); URINE LEUK ESTERASE NEGATIVE (NEGATIVE); URINE NITRITE NEGATIVE (NEGATIVE); URINE UROBILINOGEN NEGATIVE mg/dL (0.2-1.0)
[2018-02-12 14:23] LABS: URINE PROTEIN 2+ (NEGATIVE)
[2018-02-12 14:35] LABS: URINE HYALINE CAST 1 /lpf; URINE MUCUS RARE; WAXY CAST 3 /lpf
[2018-02-12 14:59] LABS: ALBUMIN 4.5 g/dl (3.4-5.0); ALK PHOS 56 U/L (45-117); ANION GAP 9 (8-16); BILIRUBIN,TOTAL 1.4 mg/dL (0.2-1.0); BLOOD UREA NITROGEN 34 mg/dL (7-18); CALCIUM 9.2 mg/dL (8.5-10.1); CHLORIDE 108 mmol/L (98-107); CO2 23 mmol/L (21-32); CREATININE 1.5 mg/dL (0.7-1.3); GLUCOSE,RANDOM 91 mg/dL (74-106); SGPT/ALT 78 U/L (12-78); SODIUM 140 mmol/L (136-145); TOT PROT 7.5 g/dl (6.4-8.2)
[2018-02-12 15:03] LABS: POTASSIUM 4.8 mmol/L (3.5-5.1)
[2018-02-12 15:04] LABS: SGOT/AST 267 U/L (15-37)
--- NOTE | 2018-02-12 18:04 | EKG ---
Test Reason : Blood Pressure : / mmHG Vent. Rate : 086 BPM Atrial Rate : 086 BPM P-R Int : 142 ms QRS Dur : 100 ms QT Int : 366 ms P-R-T Axes : 036 -35 000 degrees QTc Int : 437 ms NORMAL SINUS RHYTHM LEFT AXIS DEVIATION INCOMPLETE RIGHT BUNDLE BRANCH BLOCK SEPTAL INFARCT (CITED ON OR BEFORE 14-JAN-2018) ABNORMAL ECG WHEN COMPARED WITH ECG OF 14-JAN-2018 21:49, T WAVE VARIATION Confirmed by OPAL WALDROP MD ([id number]) on 02/12/2018 6:04:42 PM Referred By: Confirmed By:OPAL WALDROP MD
[2018-02-12] MEDS ORDERED: diazePAM 2 MG TABLET PO ONE (19:19)
[2018-02-12] MEDS ORDERED: diazePAM 2 MG TABLET ONE (19:54)
[2018-02-12] MEDS ORDERED: SODIUM CHLORIDE 0.9% 1000 ML INFUS.BAG IV ONE (20:22)
[2018-02-12 20:57] LABS: ANION GAP 4 (8-16); BLOOD UREA NITROGEN 31 mg/dL (7-18); CALCIUM 8.4 mg/dL (8.5-10.1); CHLORIDE 107 mmol/L (98-107); CO2 28 mmol/L (21-32); CREATININE 1.1 mg/dL (0.7-1.3); GLUCOSE,RANDOM 142 mg/dL (74-106); SODIUM 139 mmol/L (136-145)
--- NOTE | 2018-02-12 22:44 | HP ---
Admitting History and Physical - Primary Care Physician PCP: Denita Raymundo - Admission Chief Complaint: back pain History of Present Illness: 62M with a PMH of chronic back pain (on percocet), COPD, CVA, substance abuse who presents to the ER with back pain. The patient states that he has sharp, lumbosacral, sharp pain which does not radiate. The pain has been getting worse. The patient has taken percocet for his pain which he states helped "a little bit". 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 Cardiovascular: Yes: HTN Pulmonary: Yes: COPD Hepatobiliary: Yes: Hepatitis C Renal/: Yes: BPH Psych: Yes: Addictions (hx of heroin abuse, alcohol abuse, nicotine dependence) , Bipolar, Depression Musculoskeletal: Yes: Chronic low back pain - Past Surgical History Past Surgical History: Yes: Joint Replacement (b/l knees) - Smoking History Smoking history: Current every day smoker Have you smoked in the past 12 months: Yes Aproximately how many cigarettes per day: 10 - Alcohol/Substance Use Hx Alcohol Use: No Home Medications - Allergies Allergies/Adverse Reactions: Allergies Allergy/AdvReac Type Severity Reaction Status Date / Time No Known Allergies Allergy Verified 02/12/18 12:07 - Home Medications Home Medications: Ambulatory Orders Tamsulosin HCl [Flomax -] 0.8 mg PO DAILY 01/16/17 cloNIDine HCL [Catapres -] 0.2 mg PO BID 01/16/17 Quetiapine Fumarate [Seroquel] 300 mg PO HS 01/14/18 Albuterol Sulfate Inhaler - [Ventolin HFA Inhaler -] 2 inh PO Q4H PRN 01/15/18 Alprazolam [Xanax] 2 mg PO TID 02/12/18 Lisinopril [Prinivil] 20 mg PO DAILY 02/12/18 Meloxicam 7.5 mg PO DAILY 02/12/18 Oxycodone HCl/Acetaminophen [Percocet 10-325 mg Tablet] 1 each PO Q8H PRN Ranitidine HCl [Zantac] 300 mg PO DAILY 02/12/18 Family Disease History - Family Disease History Family Disease History: Heart Disease: Father (), Mother (), [place] : Brother (ceceased), Other: Father Review of Systems - Review of Systems Musculoskeletal: reports: Back Pain Physical Examination Vital Signs: Vital Signs Temperature 98.8 F 02/12/18 22:18 Pulse Rate 89 02/12/18 22:18 Respiratory Rate 15 02/12/18 22:18 Blood Pressure 128/97 02/12/18 22:18 O2 Sat by Pulse Oximetry (%) 95 02/12/18 22:18 Constitutional: Yes: No Distress HENT: Yes: Atraumatic Neck: Yes: Supple Cardiovascular: Yes: Regular Rate and Rhythm Respiratory: Yes: CTA Bilaterally Gastrointestinal: Yes: Normal Bowel Sounds Extremities: Yes: WNL Neurological: Yes: Alert, Oriented Labs: CBC, BMP 02/12/18 13:50 02/12/18 20:20 Imaging - Results X-ray: Report Reviewed Problem List - Problems (1) Rhabdomyolysis Assessment/Plan: on ivf renal consult Code(s): M62.82 - RHABDOMYOLYSIS (2) Low back pain Assessment/Plan: prn pain meds Code(s): M54.5 - LOW BACK PAIN Assessment/Plan Laboratory Tests 02/12/18 02/12/18 02/12/18 13:50 13:50 14:05 WBC 10.4 H D RBC 5.08 Hgb 15.8 D Hct 47.6 MCV 93.8 MCH 31.2 MCHC 33.3 RDW 13.7 Plt Count 190 MPV 8.3 Neutrophils % 68.5 Lymphocytes % 17.3 Monocytes % 12.6 H Eosinophils % 0.7 Basophils % 0.9 Nucleated RBC % 0 Sodium 140 Potassium 4.8 D Chloride 108 H Carbon Dioxide 23 D Anion Gap 9 BUN 34 H D Creatinine 1.5 H D Creat Clearance w eGFR 47.42 Random Glucose 91 D Calcium 9.2 Total Bilirubin 1.4 H D AST 267 H D ALT 78 D Alkaline Phosphatase 56 Creatine Kinase Creatine Kinase Index CK-MB (CK-2) Total Protein 7.5 D Albumin 4.5 D Urine Color Dkyellow Urine Appearance Slcloudy Urine pH 5.0 Ur Specific [place] 1.019 Urine Protein 2+ H Urine Glucose (UA) Negative Urine Ketones Negative Urine Blood 3+ H Urine Nitrite Negative Urine Bilirubin Negative Urine Urobilinogen Negative Ur Leukocyte Esterase Negative Urine WBC (Auto) 1 Urine RBC (Auto) 1 Hyaline Casts 1 Waxy Casts 3 Urine Mucus Rare 0502/12/18 02/12/18 15:27 19:00 20:20 WBC RBC Hgb Hct MCV MCH MCHC RDW Plt Count MPV Neutrophils % Lymphocytes % Monocytes % Eosinophils % Basophils % Nucleated RBC % Sodium 139 Potassium 4.0 Chloride 107 Carbon Dioxide 28 D Anion Gap 4 L BUN 31 H Creatinine 1.1 D Creat Clearance w eGFR Random Glucose 142 H D Calcium 8.4 L Total Bilirubin AST ALT Alkaline Phosphatase Creatine Kinase 13648 H Creatine Kinase Index 1.3 CK-MB (CK-2) Cancelled 176.072 H Total Protein Albumin Urine Color Urine Appearance Urine pH Ur Specific [place] Urine Protein Urine Glucose (UA) Urine Ketones Urine Blood Urine Nitrite Urine Bilirubin Urine Urobilinogen Ur Leukocyte Esterase Urine WBC (Auto) Urine RBC (Auto) Hyaline Casts Waxy Casts Urine Mucus Active Medications Generic Name Dose Route Start Last Admin Trade Name Freq PRN Reason Stop Dose Admin Alprazolam 2 mg 02/13/18 06:00 02/14/18 13:14 Xanax - PO 2 mg TID MATTHEW Administration Clonidine 0.2 mg 02/13/18 10:00 02/14/18 13:09 Catapres - PO 0.2 mg BID MATTHEW Administration Sodium Chloride 1,000 mls @ 100 mls/hr 02/14/18 16:15 02/14/18 17:25 Normal Saline - IV 100 mls/hr ASDIR MATTHEW Administration Lisinopril 20 mg 02/13/18 10:00 02/14/18 13:14 Prinivil PO 20 mg DAILY MATTHEW Administration Oxycodone HCl 10 mg 02/12/18 22:46 02/14/18 13:11 Roxicodone - PO 10 mg Q6H PRN Administration PAIN LEVEL 6-10 Quetiapine Fumarate 300 mg 02/13/18 22:00 02/13/18 21:12 Seroquel - PO 300 mg HS MATTHEW Administration Tamsulosin HCl 0.8 mg 02/13/18 10:00 02/14/18 13:11 Flomax - PO 0.8 mg DAILY MATTHEW Administration patient refusing ivf
[2018-02-13] MEDS: oxyCODONE HCL 5 MG TABLET PO PRN ×2 (06:55→21:12)
[2018-02-13] MEDS: ALPRAZolam 2 MG TABLET PO SCH ×4 (06:55→22:37)
[2018-02-13] MEDS ORDERED: ALPRAZolam 2 MG TABLET ONE ×2 (06:56→14:38)
[2018-02-13] MEDS ORDERED: oxyCODONE HCL 5 MG TABLET ONE (06:56)
[2018-02-13] MEDS ORDERED: SODIUM CHLORIDE 0.9% 1000 ML INFUS.BAG IV ONE ×2 (09:07→11:26)
[2018-02-13] MEDS ORDERED: HALOPERIDOL DECANOATE 100 MG/ML IM ONE (09:07)
[2018-02-13] MEDS ORDERED: HALOPERIDOL LACTATE 5 MG/ML ONE (09:21)
[2018-02-13] MEDS: cloNIDine HCL 0.1 MG TABLET PO SCH ×2 (12:13→22:37)
[2018-02-13] MEDS: LISINOPRIL 20 MG TABLET (FP) PO SCH (13:51)
[2018-02-13] MEDS: TAMSULOSIN HCL 0.4 MG CAP.ER.24H (FP) PO SCH (13:51)
--- NOTE | 2018-02-13 15:32 | PN ---
Progress Note, Physician - Current Medication List Current Medications: Active Medications Alprazolam (Xanax -) 2 mg PO TID [facility] Last Admin: 02/13/18 14:36 Dose: 2 mg Clonidine (Catapres -) 0.2 mg PO BID [facility] Last Admin: 02/13/18 12:13 Dose: 0.2 mg Lisinopril (Prinivil) 20 mg PO DAILY [facility] Last Admin: 02/13/18 13:51 Dose: 20 mg Oxycodone HCl (Roxicodone -) 10 mg PO Q6H PRN PRN Reason: PAIN LEVEL 6-10 Last Admin: 02/13/18 06:55 Dose: 10 mg Quetiapine Fumarate (Seroquel -) 300 mg PO [facility] Tamsulosin HCl (Flomax -) 0.8 mg PO DAILY [facility] Last Admin: 02/13/18 13:51 Dose: 0.8 mg - Objective Vital Signs: Vital Signs Temperature 98.8 F 02/12/18 22:18 Pulse Rate 95 H 02/13/18 04:50 Respiratory Rate 15 02/13/18 04:50 Blood Pressure 148/93 02/13/18 04:50 O2 Sat by Pulse Oximetry (%) 99 02/13/18 04:50 Constitutional: Yes: No Distress HENT: Yes: Atraumatic Neck: Yes: Supple Cardiovascular: Yes: Regular Rate and Rhythm Respiratory: Yes: CTA Bilaterally Gastrointestinal: Yes: Normal Bowel Sounds Extremities: Yes: WNL Edema: No Peripheral Pulses WNL: Yes Neurological: Yes: Alert, Oriented Labs: CBC, BMP 02/12/18 13:50 02/12/18 20:20 Problem List - Problems (1) Rhabdomyolysis Assessment/Plan: still high on ivf renal consult Code(s): M62.82 - RHABDOMYOLYSIS (2) Low back pain Assessment/Plan: prn pain meds Code(s): M54.5 - LOW BACK PAIN
[2018-02-13] MEDS: SODIUM CHLORIDE 1,000 ML IV SCH (16:07)
[2018-02-13] MEDS ORDERED: QUEtiapine FUMARATE 100 MG TABLET (FP) PO SCH (22:00)
[2018-02-14] MEDS: oxyCODONE HCL 5 MG TABLET PO PRN ×3 (06:38→19:01)
[2018-02-14] MEDS: ALPRAZolam 2 MG TABLET PO SCH ×2 (06:38→13:14)
[2018-02-14 07:07] VITALS: PULSE 68
[2018-02-14 11:13] LABS: BASO % 0.6 % (0-2.0); EOS % 3.3 % (0-4.5); HEMATOCRIT 41.8 % (35.4-49); HEMOGLOBIN 13.9 GM/dL (11.7-16.9); LYMPH % 20.7 % (8-40); MCH 31.1 pg (25.7-33.7); MCHC 33.2 g/dl (32.0-35.9); MEAN CELL VOLUME 93.9 fl (80-96); MEAN PLT VOLUME 8.6 fl (7.5-11.1); MONO % 12.7 % (3.8-10.2); NEUT % 62.7 % (42.8-82.8); PLATELET COUNT 143 K/MM3 (134-434); RBC 4.46 M/mm3 (4.00-5.60); RDW 13.9 % (11.9-15.9); WHITE BLOOD COUNT 5.7 K/mm3 (4.0-10.0)
[2018-02-14 11:34] LABS: ANION GAP 5 (8-16); BILIRUBIN,TOTAL 0.6 mg/dL (0.2-1.0); BLOOD UREA NITROGEN 17 mg/dL (7-18); CALCIUM 8.4 mg/dL (8.5-10.1); CHLORIDE 109 mmol/L (98-107); CO2 29 mmol/L (21-32); CREATININE 0.7 mg/dL (0.7-1.3); GLUCOSE,RANDOM 124 mg/dL (74-106); SGPT/ALT 80 U/L (12-78); SODIUM 143 mmol/L (136-145); TOT PROT 5.8 g/dl (6.4-8.2)
[2018-02-14 11:35] LABS: ALK PHOS 45 U/L (45-117)
[2018-02-14 11:45] LABS: POTASSIUM 4.1 mmol/L (3.5-5.1)
[2018-02-14 11:46] LABS: SGOT/AST 161 U/L (15-37)
[2018-02-14] MEDS: cloNIDine HCL 0.1 MG TABLET PO SCH (13:09)
[2018-02-14] MEDS: TAMSULOSIN HCL 0.4 MG CAP.ER.24H (FP) PO SCH (13:11)
[2018-02-14] MEDS: LISINOPRIL 20 MG TABLET (FP) PO SCH (13:14)
--- NOTE | 2018-02-14 13:32 | CONSULT ---
Consult Consult Specialty:: Nephrology Reason for Consultation:: rhabdo and GAVI - History of Present Illness Chief Complaint: back pain History of Present Illness: Pt is a 62 year old male with pmhx of chronic back pain, CVA, COPD, and substance abuse who presents to the ER with back pain. He says the pain was in the lumbosacral area. He was found to have rhabdo and be in GAVI. He says he takes percocet and xanax. He is on meloxicam at home. He is not a great historian. He denied pain in his legs or arms. He says that he takes the percocets and goes to sleep. He denies hematuria or dysuria. He refused to have IV fluids most of the night. I explained his renal failure and he now agrees. He denies shortness of breath. 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 CARE: Yes: CVA Cardio/Vascular: Yes: HTN Pulmonary: Yes: COPD Hepatobiliary: Yes: Hepatitis C Renal/: Yes: BPH Psych: Yes: Addictions (hx of heroin abuse, alcohol abuse, nicotine dependence) , Bipolar, Depression Musculoskeletal: Yes: Chronic low back pain - Past Surgical History Past Surgical History: Yes: Joint Replacement (b/l knees) - Alcohol/Substance Use Hx Alcohol Use: No - Smoking History Smoking history: Current every day smoker Have you smoked in the past 12 months: Yes Aproximately how many cigarettes per day: 10 Home Medications - Allergies Allergies/Adverse Reactions: Allergies Allergy/AdvReac Type Severity Reaction Status Date / Time No Known Allergies Allergy Verified 02/12/18 12:07 - Home Medications Home Medications: Ambulatory Orders Tamsulosin HCl [Flomax -] 0.8 mg PO DAILY 01/16/17 cloNIDine HCL [Catapres -] 0.2 mg PO BID 01/16/17 Quetiapine Fumarate [Seroquel] 300 mg PO HS 01/14/18 Albuterol Sulfate Inhaler - [Ventolin HFA Inhaler -] 2 inh PO Q4H PRN 01/15/18 Alprazolam [Xanax] 2 mg PO TID 02/12/18 Lisinopril [Prinivil] 20 mg PO DAILY 02/12/18 Meloxicam 7.5 mg PO DAILY 02/12/18 Oxycodone HCl/Acetaminophen [Percocet 10-325 mg Tablet] 1 each PO Q8H PRN Ranitidine HCl [Zantac] 300 mg PO DAILY 02/12/18 Family Disease History - Family Disease History Family Disease History: Heart Disease: Father (), Mother (), [place] : Brother (ceceased), Other: Father Review of Systems - Review of Systems Constitutional: reports: Malaise Eyes: reports: No Symptoms HENT: reports: No Symptoms Neck: reports: No Symptoms Cardiovascular: reports: No Symptoms Respiratory: reports: No Symptoms Gastrointestinal: reports: No Symptoms Genitourinary: reports: No Symptoms Musculoskeletal: reports: Back Pain Integumentary: reports: No Symptoms Neurological: reports: No Symptoms Endocrine: reports: No Symptoms Hematology/Lymphatic: reports: No Symptoms Psychiatric: reports: No Symptoms Physical Exam Vital Signs: Vital Signs Temperature 97.4 F L 02/14/18 09:51 Pulse Rate 68 02/14/18 09:51 Respiratory Rate 20 02/14/18 09:51 Blood Pressure 160/93 02/14/18 09:51 O2 Sat by Pulse Oximetry (%) 99 02/14/18 06:00 Constitutional: Yes: Calm Eyes: Yes: Conjunctiva Clear HENT: Yes: Atraumatic Neck: Yes: Supple Cardiovascular: Yes: S1, S2 Respiratory: Yes: CTA Bilaterally Gastrointestinal: Yes: Soft Renal/: Yes: WNL Musculoskeletal: Yes: WNL Edema: No Neurological: Yes: Oriented, Pre-Existing Deficit Labs: CBC, BMP 02/14/18 10:56 02/14/18 10:56 Imaging - Results Ultrasound: Report Reviewed Problem List - Problems (1) GAVI (acute kidney injury) Code(s): N17.9 - ACUTE KIDNEY FAILURE, UNSPECIFIED (2) Rhabdomyolysis Code(s): M62.82 - RHABDOMYOLYSIS (3) Low back pain Code(s): M54.5 - LOW BACK PAIN (4) Nicotine dependence Code(s): F17.200 - NICOTINE DEPENDENCE, UNSPECIFIED, UNCOMPLICATED (5) Opiate dependence Code(s): F11.20 - OPIOID DEPENDENCE, UNCOMPLICATED Qualifiers: Substance use status: uncomplicated Qualified Code(s): F11.20 - Opioid dependence, uncomplicated (6) COPD (chronic obstructive pulmonary disease) Code(s): J44.9 - CHRONIC OBSTRUCTIVE PULMONARY DISEASE, UNSPECIFIED Qualifiers: COPD type: emphysema Emphysema type: unilateral Qualified Code(s): J43.0 - 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] Assessment/Plan Current Medications Generic Name Dose Route Start Last Admin Trade Name Freq PRN Reason Stop Dose Admin Alprazolam 2 mg 02/13/18 06:00 02/14/18 13:14 Xanax - PO 2 mg TID MATTHEW Administration Clonidine 0.2 mg 02/13/18 10:00 02/14/18 13:09 Catapres - PO 0.2 mg BID MATTHEW Administration Sodium Chloride 1,000 mls @ 100 mls/hr 02/13/18 16:00 02/13/18 16:07 Normal Saline - IV 100 mls/hr ASDIR MATTHEW Administration Lisinopril 20 mg 02/13/18 10:00 02/14/18 13:14 Prinivil PO 20 mg DAILY MATTHEW Administration Oxycodone HCl 10 mg 02/12/18 22:46 02/14/18 13:11 Roxicodone - PO 10 mg Q6H PRN Administration PAIN LEVEL 6-10 Quetiapine Fumarate 300 mg 02/13/18 22:00 02/13/18 21:12 Seroquel - PO 300 mg HS MATTHEW Administration Tamsulosin HCl 0.8 mg 02/13/18 10:00 02/14/18 13:11 Flomax - PO 0.8 mg DAILY MATTHEW Administration Laboratory Tests 05/11/17 01/15/18 02/12/18 12:22 07:00 13:50 WBC 10.4 H D Hgb 15.8 D BUN Creatinine 1.0 D 0.7 D Creatine Kinase Urine Protein Urine Blood 02/12/18 02/12/18 02/12/18 13:50 14:05 19:00 WBC Hgb BUN Creatinine 1.5 H D Creatine Kinase 85873 H Urine Protein 2+ H Urine Blood 3+ H 02/12/18 02/13/18 02/14/18 20:20 13:20 10:56 WBC Hgb BUN 31 H 17 D Creatinine 1.1 D 0.7 D Creatine Kinase 20127 H 5416 H Urine Protein Urine Blood 02/14/18 10:56 WBC 5.7 D Hgb BUN Creatinine Creatine Kinase Urine Protein Urine Blood Impression 1. Rhabdo 2. GAVI 3. COPD 4. low back pain 5. arthritis 6. CVA Plan - pt agrees to restart fluids - renal function is improving - cpk is improving - repeat labs in am - repeat ua - unclear why he developed rhabdo, can consider rheum eval
[2018-02-14 15:22] VITALS: BP 131/69; TEMP 97.6
[2018-02-14] MEDS ORDERED: SODIUM CHLORIDE 1,000 ML IV SCH (16:15)
[2018-02-14] MEDS: SODIUM CHLORIDE 1,000 ML IV SCH (16:38)
--- NOTE | 2018-02-14 18:19 | PN ---
Progress Note, Physician - Current Medication List Current Medications: Active Medications Alprazolam (Xanax -) 2 mg PO TID [facility] Last Admin: 02/14/18 13:14 Dose: 2 mg Clonidine (Catapres -) 0.2 mg PO BID [facility] Last Admin: 02/14/18 13:09 Dose: 0.2 mg Sodium Chloride (Normal Saline -) 1,000 mls @ 100 mls/hr IV ASDIR [facility] Last Admin: 02/14/18 17:25 Dose: 100 mls/hr Lisinopril (Prinivil) 20 mg PO DAILY [facility] Last Admin: 02/14/18 13:14 Dose: 20 mg Oxycodone HCl (Roxicodone -) 10 mg PO Q6H PRN PRN Reason: PAIN LEVEL 6-10 Last Admin: 02/14/18 13:11 Dose: 10 mg Quetiapine Fumarate (Seroquel -) 300 mg PO HS [facility] Last Admin: 02/13/18 21:12 Dose: 300 mg Tamsulosin HCl (Flomax -) 0.8 mg PO DAILY [facility] Last Admin: 02/14/18 13:11 Dose: 0.8 mg - Objective Vital Signs: Vital Signs Temperature 97.6 F 02/14/18 15:21 Pulse Rate 68 02/14/18 15:21 Respiratory Rate 20 02/14/18 15:21 Blood Pressure 131/69 02/14/18 15:21 O2 Sat by Pulse Oximetry (%) 92 L 02/14/18 14:00 HENT: Yes: Atraumatic Neck: Yes: Supple Cardiovascular: Yes: Regular Rate and Rhythm Respiratory: Yes: CTA Bilaterally Gastrointestinal: Yes: Normal Bowel Sounds Extremities: Yes: WNL Neurological: Yes: Alert, Oriented Labs: CBC, BMP 02/14/18 10:56 02/14/18 10:56 Problem List - Problems (1) Rhabdomyolysis Assessment/Plan: on ivf renal consult Code(s): M62.82 - RHABDOMYOLYSIS (2) Low back pain Assessment/Plan: prn pain meds Code(s): M54.5 - LOW BACK PAIN
--- NOTE | 2018-02-14 21:32 | DS ---
Physical Examination Vital Signs: Vital Signs Temperature 97.6 F 02/14/18 15:21 Pulse Rate 68 02/14/18 15:21 Respiratory Rate 20 02/14/18 15:21 Blood Pressure 131/69 02/14/18 15:21 O2 Sat by Pulse Oximetry (%) 92 L 02/14/18 14:00 Labs: CBC, BMP 02/14/18 10:56 02/14/18 10:56 Discharge Summary Reason For Visit: LOW BACK PAIN,OPIOID DEPENDENCE Condition: Stable - Instructions Diet, Activity, Other Instructions: Please follow up with your primary care physician in 2-3 days. Follow up with your pain management doctor. Please return to the ER if you have any signs or symptoms of chest pain, shortness of breath, uncontrollable fever, chills, nausea, vomiting, numbness, tingling, or weakness in any part of your body, changes in vision, or slurred speech. Please return to the ER if symptoms persist, worsen, or new symptoms arise. Disposition: AGAINST MEDICAL ADVICE - Home Medications Comprehensive Discharge Medication List: Ambulatory Orders Tamsulosin HCl [Flomax -] 0.8 mg PO DAILY 01/16/17 cloNIDine HCL [Catapres -] 0.2 mg PO BID 01/16/17 Quetiapine Fumarate [Seroquel] 300 mg PO HS 01/14/18 Albuterol Sulfate Inhaler - [Ventolin HFA Inhaler -] 2 inh PO Q4H PRN 01/15/18 Alprazolam [Xanax] 2 mg PO TID 02/12/18 Lisinopril [Prinivil] 20 mg PO DAILY 02/12/18 Meloxicam 7.5 mg PO DAILY 02/12/18 Oxycodone HCl/Acetaminophen [Percocet 10-325 mg Tablet] 1 each PO Q8H PRN Ranitidine HCl [Zantac] 300 mg PO DAILY 02/12/18 ama
== END 2018-02-14 19:39 | disposition left against medical advice (07) ==
LOC: JER 11:46 → JERBED 20:33 → J8W 02-13 17:20
PROVIDERS: ADMIT Internal Medicine; ATTEND Internal Medicine
PROC: 3E023GC Introduction of Other Therapeutic Substance into Muscle, Percutaneous Approach (ICD-10-PCS; principal; 2018-02-12)
PROC: 3E0337Z Introduction of Electrolytic and Water Balance Substance into Peripheral Vein, Percutaneous Approach (ICD-10-PCS; 2018-02-12)
DX: M62.82 Rhabdomyolysis (principal); M54.5 Low back pain; G89.29 Other chronic pain; F11.20 Opioid dependence, uncomplicated; J44.9 Chronic obstructive pulmonary disease, unspecified; D64.9 Anemia, unspecified; N40.0 Benign prostatic hyperplasia without lower urinary tract symptoms; Z86.73 Personal history of transient ischemic attack (TIA), and cerebral infarction without residual deficits; Z96.652 Presence of left artificial knee joint; N17.9 Acute kidney failure, unspecified; F17.200 Nicotine dependence, unspecified, uncomplicated
CPT/HCPCS: 36415; 71045-TC-FY; 72100-TC-FY; 76775-TC; 80048; 80053; 81003; 81015; 82550; 82553; 85025; 93005; 93010; 96372; 97116-GP; 97161-GP; 99284-25; G0378; J0735; J7030

== ENCOUNTER 2018-04-12 12:42 | Emergency (ER) | payer OTHER ==
[2018-04-12 12:52] VITALS: BP 133/87; PULSE 78; TEMP 97.8; BMI 30.4
--- NOTE | 2018-04-12 12:59 | PDOC ---
Attending Attestation - Resident Resident Name: Eugene Sultana - HPI HPI: 04/12/18 13:54 Pt presents to the ED after brought in for apparent syncope in a convienience store. As per paramedics, the patient was conscious but confused on their arrival. He awoke en route to the ED. EMS does not report that they gave narcan or any other medications. Patient is now awake, alert and oriented x 3.
--- NOTE | 2018-04-12 13:03 | PDOC ---
History of Present Illness - General Chief Complaint: Syncope/Near Syncope Stated Complaint: SYNCOPE Time Seen by Provider: 04/12/18 12:59 History Source: Patient, EMS Exam Limitations: No Limitations - History of Present Illness Initial Comments: 04/12/18 13:02 The patient is a 62M with a PMH of chronic back pain (on percocet), COPD, CVA, substance abuse who presents to the ER after having a syncopal episode. The patient states that he went to a [employer]odega, asked for water to take his clonidine, and then had a hot dog and sat down. Per EMS, the patient took his bodega, then had a syncopal episode and was sitting down on the ground. When EMS arrived, he was unable to stand up and was altered. During the ride to the ER, he became alert and oriented. He denies any syncope, CP, SOB, headache, palpitations, nausea, vomiting, lightheadedness, abdominal pain. Past History - Past Medical History Allergies/Adverse Reactions: Allergies Allergy/AdvReac Type Severity Reaction Status Date / Time No Known Allergies Allergy Verified 04/12/18 12:54 Home Medications: Ambulatory Orders Tamsulosin HCl [Flomax -] 0.8 mg PO DAILY 01/16/17 cloNIDine HCL [Catapres -] 0.2 mg PO BID 01/16/17 Quetiapine Fumarate [Seroquel] 300 mg PO HS 01/14/18 Albuterol Sulfate Inhaler - [Ventolin HFA Inhaler -] 2 inh PO Q4H PRN 01/15/18 Alprazolam [Xanax] 2 mg PO TID 02/12/18 Lisinopril [Prinivil] 20 mg PO DAILY 02/12/18 Oxycodone HCl/Acetaminophen [Percocet 10-325 mg Tablet] 1 each PO Q8H PRN Ranitidine HCl [Zantac] 300 mg PO DAILY 02/12/18 Anemia: Yes Asthma: No Cancer: No Cardiac Disorders: No CVA: Yes (2012) COPD: Yes CHF: No Dementia: No Diabetes: No GI Disorders: No Disorders: Yes (BPH - on flomax) HTN: No Hypercholesterolemia: No Kidney Stones: No Liver Disease: No Seizures: No Thyroid Disease: No - Surgical History Abdominal Surgery: No Appendectomy: No Cardiac Surgery: No Cholecystectomy: No Lung Surgery: No Neurologic Surgery: No Orthopedic Surgery: Yes (L knee replacement 2006) - Reproductive History Testicular Surgery: No - Suicide/Smoking/Psychosocial Hx Smoking History: Current every day smoker Have you smoked in the past 12 months: Yes Number of Cigarettes Smoked Daily: 10 Cigars Per Day: 0 Information on smoking cessation initiated: No 'Breaking Loose' booklet given: 02/11/18 Hx Alcohol Use: No Drug/Substance Use Hx: No Substance Use Type: Prescribed (xanax, Percocet) Hx Substance Use Treatment: Yes Review of Systems - Review of Systems Able to Perform ROS?: Yes Comments:: 04/12/18 13:32 GENERAL/CONSTITUTIONAL: No fever or chills. No weakness. HEAD, EYES, EARS, NOSE AND THROAT: No change in vision. No ear pain or discharge. No sore throat. CARDIOVASCULAR: No chest pain, palpitations, or lightheadedness. RESPIRATORY: No cough, wheezing, shortness of breath, or hemoptysis. GASTROINTESTINAL: No nausea, vomiting, diarrhea, constipation, or abdominal pain. GENITOURINARY: No dysuria, frequency, hematuria, or change in urination. MUSCULOSKELETAL: No joint or muscle swelling or pain. No neck or back pain. SKIN: No rash or lesions. NEUROLOGIC: Positive for syncope (per EMS). No headache, numbness, tingling, weakness, or change in strength/sensation. ENDOCRINE: No increased thirst. No abnormal weight change. HEMATOLOGIC/LYMPHATIC: No anemia, easy bleeding, or history of blood clots. ALLERGIC/IMMUNOLOGIC: No hives or skin allergy. Is the patient limited Moldovan proficient: No *Physical Exam - Vital Signs Last Vital Signs Temp Pulse Resp BP Pulse Ox 97.8 F 78 18 133/87 97 04/12/18 12:50 04/12/18 12:50 04/12/18 12:50 04/12/18 12:50 04/12/18 12:50 - Physical Exam Comments: 04/12/18 13:35 GENERAL: Well developed, well nourished. Awake and alert. No acute distress. HEENT: Normocephalic, atraumatic. Hearing grossly normal. Moist mucous membranes. PERRLA, EOMI. No conjunctival pallor. Sclera are non-icteric. NECK: Supple. Full ROM. No JVD. CARDIOVASCULAR: Regular rate and rhythm. No murmurs, rubs, or gallops. Distal pulses are 2+ and symmetric. PULMONARY: No evidence of respiratory distress. Lungs clear to auscultation bilaterally. No wheezing, rales or rhonchi. ABDOMINAL: Soft. Non-tender. Non-distended. No rebound or guarding. GENITOURINARY: No CVA tenderness bilaterally. MUSCULOSKELETAL: Normal range of motion at all joints. No bony deformities or tenderness. EXTREMITIES: No cyanosis. No clubbing. No edema. No calf tenderness or swelling. SKIN: Warm and dry. Normal capillary refill. No rashes. No jaundice. NEUROLOGICAL: Alert, awake, appropriate. Cranial nerves 2-12 intact. No deficits to light touch and temperature in face, upper extremities and lower extremities. 5/5 strength in deltoids, biceps, triceps, quadriceps, hamstrings, and gastrocnemius. Normal speech. Gait is normal without ataxia. PSYCHIATRIC: Cooperative. Good eye contact. Appropriate mood and affect. Heart Score/ECG Review #1 General ECG Interpretation: Sinus Rhythm, Normal Rate, Normal Intervals, No acute ischemic changes Compared to previous ECG there are: No significant change 04/12/18 13:42 NSR vent rate 82 W[place] 146 QRS 96 QTc 427 No STD or EMILIA No signs of acute ischemia. Medical Decision Making - Medical Decision Making 04/12/18 13:43 The patient is a 62M with a PMH of substance abuse, CVA, who presents to the ER after having a possible syncopal episode. EKG does not reveal any signs of acute ischemia or arrhythmias. Will order basic labs including troponin to r/o causes of cardiac, neurogenic, and vascular origins of syncope. Pt signed AMA forms after discussing reasons that he could have syncopized. Pt still desires leaving AMA. *DC/Admit/Observation/Transfer Diagnosis at time of Disposition: Syncope and collapse - Discharge Dispostion Disposition: AGAINST MEDICAL ADVICE Decision to Admit order: No - Referrals - Patient Instructions - Post Discharge Activity
--- NOTE | 2018-04-12 16:33 | EKG ---
Test Reason : Blood Pressure : / mmHG Vent. Rate : 082 BPM Atrial Rate : 082 BPM P-R Int : 146 ms QRS Dur : 096 ms QT Int : 366 ms P-R-T Axes : 040 -33 012 degrees QTc Int : 427 ms NORMAL SINUS RHYTHM LEFT AXIS DEVIATION INCOMPLETE RIGHT BUNDLE BRANCH BLOCK ABNORMAL ECG WHEN COMPARED WITH ECG OF 12-FEB-2018 12:16, CRITERIA FOR SEPTAL INFARCT ARE NO LONGER PRESENT Confirmed by SHENA OLIVER, JAMES ([id number]) on 04/12/2018 4:33:00 PM Referred By: Confirmed By:JAMES CHATTERJEE MD
== END 2018-04-12 14:00 | disposition left against medical advice (07) ==
LOC: JER 12:42
DX: R55 Syncope and collapse (principal); M54.5 Low back pain; G89.29 Other chronic pain; J45.909 Unspecified asthma, uncomplicated; N40.0 Benign prostatic hyperplasia without lower urinary tract symptoms
CPT/HCPCS: 93005; 93010; 99282-25

== ENCOUNTER 2018-07-14 11:09 | Inpatient (IN) | payer OTHER ==
--- NOTE | 2018-07-14 12:28 | HP ---
COWS - Scale Resting Pulse: 1= IN 81-100 Sweatin= Chills/Flushing Restless Observation: 1= Difficult to Sit Still Pupil Size: 0= Normal to Room Light Bone or Joint Aches: 2= Severe Diffuse Aches Runny Nose/ Eye Tearin= Nasal Congestion GI Upset > 30mins: 1= Stomach Cramp Tremor Observation: 2= Slight Tremor Visible Yawning Observation: 2= >3x During Session Anxiety or Irritability: 2=Irritable/Anxious Goose Flesh Skin: 0=Smooth Skin COWS Score: 13 Admission ROS BHS - HPI Chief Complaint: I want to clean up, please help me, please, I need help Allergies/Adverse Reactions: Allergies Allergy/AdvReac Type Severity Reaction Status Date / Time No Known Allergies Allergy Verified 07/14/18 11:23 History of Present Illness: 63 yo gentleman here for detox from heroin - patient is prescribed percocet and xanax, history of overdose, history of syncope, denies seizures. Patient needed to be given narcan while here due to somnolence, became more alert. Denies drinking alcohol. Restless, pacing, yawning, irritable after given narcan by inhalation. Noted urine tox + methadone - states he took a 'sip' of a friends' methadone but does not do this usually. Exam Limitations: Clinical Condition - Ebola screening Have you traveled outside of the country in the last 21 days: No (N) Have you had contact with anyone from an Ebola affected area: No Have you been sick,other than usual withdrawal symptoms: No Do you have a fever: No - Review of Systems Constitutional: Changes in sleep, Weakness EENT: reports: Blurred Vision, Hearing Loss, Nose Congestion Respiratory: reports: No Symptoms reported Cardiac: reports: No Symptoms Reported GI: reports: Nausea, Poor Appetite, Indigestion : reports: Frequency Musculoskeletal: reports: Back Pain, Joint Pain, Muscle Pain Integumentary: reports: No Symptoms Reported Neuro: reports: Headache Endocrine: reports: No Symptoms Reported Hematology: reports: No Symptoms Reported Psychiatric: reports: Agitated, Anxious Other Systems: Reviewed and Negative Patient History - Patient Medical History Hx Anemia: Yes Hx Asthma: No Hx Chronic Obstructive Pulmonary Disease (COPD): Yes Hx Cancer: No Hx Cardiac Disorders: No Hx Congestive Heart Failure: No Hx Hypertension: Yes Hx Hypercholesterolemia: No Hx Pacemaker: No HX Cerebrovascular Accident: Yes (2012) Hx Seizures: No (syncope) Hx Dementia: No Hx Diabetes: No Hx Gastrointestinal Disorders: No Hx Liver Disease: No Hx Genitourinary Disorders: Yes (BPH) Hx Sexually Transmitted Disorders: No Hx Renal Disease (ESRD): No Hx Thyroid Disease: No Hx Human Immunodeficiency Virus (HIV): No Hx Hepatitis C: Yes Hx Depression: Yes (with anxiety - Rx xanax - sees psych) Hx Suicide Attempt: No Hx Bipolar Disorder: Yes Hx Schizophrenia: No Other Medical History: osteoarthritis, back pain - Patient Surgical History Past Surgical History: No Hx Neurologic Surgery: No Hx Cataract Extraction: No Hx Cardiac Surgery: No Hx Lung Surgery: No Hx Breast Surgery: No Hx Breast Biopsy: No Hx Abdominal Surgery: Yes (hernia repair) Hx Appendectomy: Yes (04/2018) Hx Cholecystectomy: No Hx Genitourinary Surgery: No Hx Orthopedic Surgery: Yes (bilateral knee replacement 2006, 2014) Other Surgical History: retinal detachment repair 1998 Anesthesia Reaction: No - PPD History Previous Implant?: Yes Documented Results: Negative w/proof Implanted On Prior [facility] Admission?: Yes Date: 01/16/18 PPD to be Administered?: No - Reproductive History Patient is a Female of Child Bearing Age (11 -55 yrs old): No (male) - Smoking Cessation Smoking history: Current every day smoker Have you smoked in the past 12 months: Yes Aproximately how many cigarettes per day: 20 Cigars Per Day: 0 Hx Chewing Tobacco Use: No Initiated information on smoking cessation: Yes 'Breaking Loose' booklet given: 07/14/18 (give on floor) - Substance & Tx. History Hx Alcohol Use: Yes Hx Substance Use: Yes Substance Use Type: Alcohol, Tranquilizers Hx Substance Use Treatment: Yes (detox, rehab) - Substances Abused Heroin Route: Inhalation Frequency: 3-6 times per week Amount used: 2 Bags Age of first use: 35 Date of Last Use: 07/14/18 Alprazolam (Xanax) Route: Oral Frequency: 3-6 times per week Amount used: 2-3 2MG TABLETS Age of first use: 35 (prescribed) Date of Last Use: 07/12/18 Oxycontin Route: Oral Frequency: Daily Amount used: 10 MG three times a day Age of first use: 34 (prescribed) Date of Last Use: 07/11/18 Family Disease History - Family Disease History Family Disease History: Heart Disease: Father (), Mother (), [place] : Brother (ceceased), Other: Father Admission Physical Exam S - Vital Signs Vital Signs: Vital Signs - 24 hr 07/14/18 11:21 Temperature 97.1 F L Pulse Rate 91 H Respiratory 20 Rate Blood Pressure 125/64 - Physical General Appearance: Yes: Nourished, Appropriately Dressed, Moderate Distress, Irritable, Anxious HEENTM: Yes: Normocephalic, Normal Voice, Pharynx Normal, Hearing Decreased, Nasal Congestion Respiratory: Yes: Normal Breath Sounds, No Respiratory Distress Neck: Yes: No masses,lesions,Nodules, Supple Breast: Yes: Breast Exam Deferred Cardiology: Yes: Regular Rhythm, Regular Rate Abdominal: Yes: Soft Genitourinary: Yes: Frequency Back: Yes: Normal Inspection, Other (mild kyphosis) Musculoskeletal: Yes: full range of Motion, Back pain, Muscle Pain, Other ( healed scars both knees) Extremities: Yes: Normal Inspection, Non-Tender, Other (right hand deformity - chronic arthritis) Neurological: Yes: Normal Mood/Affect, Other (mild right sided weakness) Integumentary: Yes: Normal Color, Warm Lymphatic: Yes: Within Normal Limits - Diagnostic (1) Opioid dependence with withdrawal Current Visit: Yes Status: Chronic (2) Nicotine dependence Current Visit: Yes Status: Chronic (3) Varicose veins of bilateral lower extremities with pain Current Visit: Yes Status: Chronic (4) BPH (benign prostatic hyperplasia) Current Visit: Yes Status: Chronic Qualifiers: Lower urinary tract symptom presence: symptoms present (5) COPD (chronic obstructive pulmonary disease) Current Visit: Yes Status: Chronic Qualifiers: COPD type: emphysema Emphysema type: unilateral Qualified Code(s): J43.0 - 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] (6) Hepatitis C carrier Current Visit: Yes Status: Chronic Comment: schedule to treat (7) Low back pain Current Visit: Yes Status: Chronic Comment: referred for interventional evaluation, gentle stretches, topical (8) Status post left knee replacement Current Visit: Yes Status: Chronic (9) Status post stroke Current Visit: Yes Status: Chronic (10) high blood pressure Current Visit: Yes Status: Chronic (11) osteoarthritis Current Visit: Yes Status: Chronic (12) Benzodiazepine dependence Current Visit: Yes Status: Chronic Comment: prescribed by psych Cleared for Admission [facility] - Detox or Rehab [facility] Level of Care: Medically Managed Detox Regimen/Protocol: Methadone [facility] Breath Alcohol Content Breath Alcohol Content: 0 Urine Drug Screen - Results Drug Screen Negative: Yes Urine Drug Screen Results: OPI-Opiates, BZO-Benzodiazepines, MTD-Methadone, OXY- Oxycodone, FEN-Fentanyl
[2018-07-14] MEDS ORDERED: MENTHOL/PHENOL 1 EACH UD MM PRN (12:49)
[2018-07-14] MEDS ORDERED: ACETAMINOPHEN 325 MG TABLET (FP) PO PRN (12:49)
[2018-07-14] MEDS ORDERED: guaiFENesin/D-METHORPHAN HB 10 ML UNIT-DOSE CUPS PO PRN (12:49)
[2018-07-14] MEDS ORDERED: MAG HYDROX/AL HYDROX/SIMETH 30 ML UNIT-DOSE CUP PO PRN (12:49)
[2018-07-14] MEDS ORDERED: P-EPHED 60MG/TRIPROLIDI 2.5MG TABLET PO PRN (12:49)
[2018-07-14] MEDS ORDERED: LOPERAMIDE HCL 2 MG CAPSULE PO PRN (12:49)
[2018-07-14] MEDS ORDERED: MAGNESIUM CITRATE 300 ML BOTTLE PO PRN (12:49)
[2018-07-14] MEDS ORDERED: ALBUTEROL SO4 8 GM HFA INHALER IH PRN (12:51)
[2018-07-14] MEDS ORDERED: NALOXONE IH STA ×2 (13:00→13:49)
[2018-07-14] MEDS: diazePAM 5 MG TABLET PO PRN ×2 (13:53→22:38)
[2018-07-14] MEDS: NICOTINE 21 MG/24 HOURS TOPICAL PATCH TD SCH (13:54)
[2018-07-14] MEDS ORDERED: METHADONE HCL 10 MG TABLET (FOR DETOX USE ONLY) PO ONE ×2 (14:00→23:00)
[2018-07-14 18:00] LABS: URINE APPEARANCE CLEAR; URINE BILIRUBIN NEGATIVE (<2.0 mg/dL); URINE COLOR YELLOW; URINE GLUCOSE (UA) NEGATIVE (NEGATIVE); URINE KETONE NEGATIVE (NEGATIVE); URINE LEUK ESTERASE NEGATIVE (NEGATIVE); URINE NITRITE NEGATIVE (NEGATIVE); URINE PROTEIN NEGATIVE (NEGATIVE); URINE UROBILINOGEN NEGATIVE mg/dL (0.2-1.0)
[2018-07-14 18:05] LABS: CALCIUM OXALATE CRYSTALS RARE /hpf (NONE SEEN); URINE MUCUS RARE
--- NOTE | 2018-07-14 18:08 | EKG ---
Test Reason : Blood Pressure : / mmHG Vent. Rate : 080 BPM Atrial Rate : 080 BPM P-R Int : 146 ms QRS Dur : 096 ms QT Int : 368 ms P-R-T Axes : 054 -32 024 degrees QTc Int : 424 ms SINUS RHYTHM WITH OCCASIONAL PREMATURE VENTRICULAR COMPLEXES LEFT AXIS DEVIATION SEPTAL INFARCT , AGE UNDETERMINED ABNORMAL ECG WHEN COMPARED WITH ECG OF 12-APR-2018 12:55, PREMATURE VENTRICULAR COMPLEXES ARE NOW PRESENT SEPTAL INFARCT IS NOW PRESENT Confirmed by JAMES CHATTERJEE MD ([id number]) on 07/14/2018 6:08:27 PM Referred By: Confirmed By:JAMES CHATTERJEE MD
[2018-07-14] MEDS: NICOTINE POLACRILEX 2 MG GUM BUC PRN (20:19)
[2018-07-14] MEDS ORDERED: MELATONIN 5 MG TABLETS PO PRN (22:00)
[2018-07-14] MEDS: THIAMINE HCL 100 MG TABLET (FP) PO SCH (22:38)
[2018-07-15] MEDS: hydrOXYzine PAMOATE 25 MG CAPSULE (FP) PO PRN ×2 (00:53→17:44)
[2018-07-15] MEDS: diazePAM 5 MG TABLET PO PRN ×5 (02:37→18:36)
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
[2018-07-15 09:53] LABS: HEMATOCRIT 40.8 % (35.4-49); HEMOGLOBIN 13.2 GM/dL (11.7-16.9); MCH 30.7 pg (25.7-33.7); MCHC 32.5 g/dl (32.0-35.9); MEAN CELL VOLUME 94.5 fl (80-96); MEAN PLT VOLUME 9.1 fl (7.5-11.1); PLATELET COUNT 153 K/MM3 (134-434); RBC 4.32 M/mm3 (4.00-5.60); RDW 13.8 % (11.9-15.9); WHITE BLOOD COUNT 6.6 K/mm3 (4.0-10.0)
[2018-07-15] MEDS ORDERED: METHADONE HCL 10 MG TABLET (FOR DETOX USE ONLY) PO ONE (10:00)
[2018-07-15] MEDS ORDERED: TAMSULOSIN HCL 0.4 MG CAP PO SCH (10:00)
[2018-07-15] MEDS: NICOTINE 21 MG/24 HOURS TOPICAL PATCH TD SCH (10:17)
[2018-07-15] MEDS: PRENATAL VITAMINS W/ FOLIC ACID TABLET (FP) PO SCH (10:17)
[2018-07-15] MEDS: TAMSULOSIN HCL 0.4 MG CAP PO SCH (10:18)
[2018-07-15 10:31] LABS: ALBUMIN 3.4 g/dl (3.4-5.0); ALK PHOS 93 U/L (45-117); ANION GAP 8 MMOL/L (8-16); BILIRUBIN,TOTAL 0.3 mg/dL (0.2-1); BLOOD UREA NITROGEN 20 mg/dL (7-18); CALCIUM 8.1 mg/dL (8.5-10.1); CHLORIDE 107 mmol/L (98-107); CO2 26 mmol/L (21-32); CREATININE 0.6 mg/dL (0.55-1.3); GLUCOSE,RANDOM 134 mg/dL (74-106); POTASSIUM 3.7 mmol/L (3.5-5.1); SGOT/AST 12 U/L (15-37); SGPT/ALT 16 U/L (13-61); SODIUM 142 mmol/L (136-145)
[2018-07-15] MEDS: LISINOPRIL 20 MG TABLET (FP) PO SCH (10:52)
[2018-07-15] MEDS ORDERED: PNEUMOC 13-VAL CONJ-DIP CRM/PF 0.5 ML DISP.SYRIN IM ONE (12:00)
[2018-07-15] MEDS ORDERED: FLU VACCINE QUAD 60 MCG/0.5 ML (MDV 18-19) IM ONE (14:00)
[2018-07-15] MEDS: MAGNESIUM HYDROX 2400MG/30ML ORAL SUSPENSION 30 ML CUP PO PRN (15:20)
--- NOTE | 2018-07-15 17:11 | PN ---
BHS COWS - Scale Resting Pulse: 0= IN 80 or Below Sweatin= Chills/Flushing Restless Observation: 3= Extraneous Movement Pupil Size: 1= Pupils >than Normal Bone or Joint Aches: 2= Severe Diffuse Aches Runny Nose/ Eye Tearin= Runny Nose/Eyes GI Upset > 30mins: 2= Nausea/Diarrhea Tremor Observation of Outstretched Hands: 2= Slight Tremor Visible Yawning Observation: 1= 1-2x During Session Anxiety or Irritability: 2=Irritable/Anxious Goose Flesh Skin: 0=Smooth Skin COWS Score: 16 S Progress Note (SOAP) Subjective: Nausea, interrupted sleep, sweating Objective: 07/15/18 17:07 Last Vital Signs Temp Pulse Resp BP Pulse Ox 97.7 F 75 18 144/75 07/15/18 13:08 07/15/18 13:08 07/15/18 13:08 07/15/18 13:08 Laboratory Tests 07/14/18 07/15/18 07/15/18 15:59 07:30 07:30 WBC 6.6 RBC 4.32 Hgb 13.2 Hct 40.8 MCV 94.5 MCH 30.7 MCHC 32.5 RDW 13.8 Plt Count 153 MPV 9.1 Sodium 142 Potassium 3.7 Chloride 107 Carbon Dioxide 26 Anion Gap 8 BUN 20 H Creatinine 0.6 Creat Clearance w eGFR > 60 Random Glucose 134 H Calcium 8.1 L Total Bilirubin 0.3 AST 12 L ALT 16 Alkaline Phosphatase 93 Total Protein 6.0 L Albumin 3.4 Urine Color Yellow Urine Appearance Clear Urine pH 5.0 Ur Specific [place] 1.017 Urine Protein Negative Urine Glucose (UA) Negative Urine Ketones Negative Urine Blood 1+ H Urine Nitrite Negative Urine Bilirubin Negative Urine Urobilinogen Negative Ur Leukocyte Esterase Negative Urine WBC (Auto) 2 Urine RBC (Auto) 1 Calcium Oxalate Crystal Rare Urine Mucus Rare RPR Titer 07/15/18 07:30 WBC RBC Hgb Hct MCV MCH MCHC RDW Plt Count MPV Sodium Potassium Chloride Carbon Dioxide Anion Gap BUN Creatinine Creat Clearance w eGFR Random Glucose Calcium Total Bilirubin AST ALT Alkaline Phosphatase Total Protein Albumin Urine Color Urine Appearance Urine pH Ur Specific [place] Urine Protein Urine Glucose (UA) Urine Ketones Urine Blood Urine Nitrite Urine Bilirubin Urine Urobilinogen Ur Leukocyte Esterase Urine WBC (Auto) Urine RBC (Auto) Calcium Oxalate Crystal Urine Mucus RPR Titer Nonreactive Labs reviewed: bun 20, serum glucose 134, abnormal UA Assessment: 07/15/18 17:08 Withdrawal symptoms Noted with azotemia, hyperglycemia and abnormal UA Plan: Continue detox Azotemia: encouraged PO water intake, repeat bun Hyperglycemia: repeat fasting glucose, send HbA1c Abnormal UA: encouraged PO water intake, repeat UA
[2018-07-15] MEDS: QUEtiapine FUMARATE 300 MG TABLET PO SCH (21:55)
[2018-07-15] MEDS: THIAMINE HCL 100 MG TABLET (FP) PO SCH (21:55)
[2018-07-15] MEDS: ZOLPIDEM TARTRATE 5 MG TABLET PO PRN (21:55)
[2018-07-16] MEDS: diazePAM 5 MG TABLET PO PRN ×4 (04:02→20:13)
[2018-07-16] MEDS ORDERED: METHADONE HCL 5 MG TABLET (FOR DETOX USE ONLY) PO ONE (10:00)
[2018-07-16] MEDS: TAMSULOSIN HCL 0.4 MG CAP PO SCH (10:30)
[2018-07-16] MEDS: LISINOPRIL 20 MG TABLET (FP) PO SCH (10:30)
[2018-07-16] MEDS: PRENATAL VITAMINS W/ FOLIC ACID TABLET (FP) PO SCH (10:30)
[2018-07-16] MEDS: NICOTINE 21 MG/24 HOURS TOPICAL PATCH TD SCH (10:31)
[2018-07-16 11:06] LABS: BLOOD UREA NITROGEN 21 mg/dL (7-18); GLUCOSE,FASTING 131 mg/dL (74-106)
--- NOTE | 2018-07-16 13:52 | PN ---
BHS COWS - Scale Resting Pulse: 1= OR 81-100 Sweatin= Chills/Flushing Restless Observation: 3= Extraneous Movement Pupil Size: 0= Normal to Room Light Bone or Joint Aches: 2= Severe Diffuse Aches Runny Nose/ Eye Tearin= Runny Nose/Eyes GI Upset > 30mins: 1= Stomach Cramp Tremor Observation of Outstretched Hands: 2= Slight Tremor Visible Yawning Observation: 0= None Anxiety or Irritability: 2=Irritable/Anxious Goose Flesh Skin: 0=Smooth Skin COWS Score: 14 BHS Progress Note (SOAP) Subjective: Weakness, agitation, constipation, anxious Objective: 07/16/18 13:47 Last Vital Signs Temp Pulse Resp BP Pulse Ox 97.6 F 89 20 117/66 07/16/18 13:15 07/16/18 13:15 07/16/18 13:15 07/16/18 13:15 Laboratory Tests 07/14/18 07/15/18 07/15/18 15:59 07:30 07:30 WBC 6.6 RBC 4.32 Hgb 13.2 Hct 40.8 MCV 94.5 MCH 30.7 MCHC 32.5 RDW 13.8 Plt Count 153 MPV 9.1 Sodium 142 Potassium 3.7 Chloride 107 Carbon Dioxide 26 Anion Gap 8 BUN 20 H Creatinine 0.6 Creat Clearance w eGFR > 60 Random Glucose 134 H Fasting Glucose Hemoglobin A1c % Calcium 8.1 L Total Bilirubin 0.3 AST 12 L ALT 16 Alkaline Phosphatase 93 Total Protein 6.0 L Albumin 3.4 Urine Color Yellow Urine Appearance Clear Urine pH 5.0 Ur Specific [place] 1.017 Urine Protein Negative Urine Glucose (UA) Negative Urine Ketones Negative Urine Blood 1+ H Urine Nitrite Negative Urine Bilirubin Negative Urine Urobilinogen Negative Ur Leukocyte Esterase Negative Urine WBC (Auto) 2 Urine RBC (Auto) 1 Calcium Oxalate Crystal Rare Urine Mucus Rare RPR Titer 07/15/18 07/16/18 07/16/18 07:30 07:00 07:00 WBC RBC Hgb Hct MCV MCH MCHC RDW Plt Count MPV Sodium Potassium Chloride Carbon Dioxide Anion Gap BUN 21 H Creatinine Creat Clearance w eGFR Random Glucose Fasting Glucose 131 H Hemoglobin A1c % 6.0 Calcium Total Bilirubin AST ALT Alkaline Phosphatase Total Protein Albumin Urine Color Urine Appearance Urine pH Ur Specific [place] Urine Protein Urine Glucose (UA) Urine Ketones Urine Blood Urine Nitrite Urine Bilirubin Urine Urobilinogen Ur Leukocyte Esterase Urine WBC (Auto) Urine RBC (Auto) Calcium Oxalate Crystal Urine Mucus RPR Titer Nonreactive Labs reviewed: noted with azotemia, hyperglycemia and abnormal UA Assessment: 07/16/18 13:52 Withdrawal symptoms Noted with azotemia, hyperglycemia and abnormal UA Plan: Continue detox Azotemia: encouraged PO water intake Hyperglycemia: due to prediabetes, limits sugary and starchy intake and exercise as tolerated to lose weight Abnormal UA: encouraged PO water intake, follow up on repeated UA
[2018-07-16] MEDS: MAGNESIUM HYDROX 2400MG/30ML ORAL SUSPENSION 30 ML CUP PO PRN (18:28)
[2018-07-16] MEDS: THIAMINE HCL 100 MG TABLET (FP) PO SCH (22:12)
[2018-07-16] MEDS: QUEtiapine FUMARATE 300 MG TABLET PO SCH (22:12)
[2018-07-16] MEDS: ZOLPIDEM TARTRATE 5 MG TABLET PO PRN (22:12)
[2018-07-16] MEDS ORDERED: SENNOSIDES 8.6MG TABLET (FP) PO PRN (23:36)
[2018-07-17] MEDS: diazePAM 5 MG TABLET PO PRN ×2 (05:57→10:43)
[2018-07-17] MEDS: IBUPROFEN 400 MG TABLET (FP) PO PRN ×2 (06:10→13:47)
[2018-07-17] MEDS ORDERED: METHADONE HCL 5 MG TABLET (FOR DETOX USE ONLY) PO ONE (10:00)
[2018-07-17] MEDS: PRENATAL VITAMINS W/ FOLIC ACID TABLET (FP) PO SCH (10:43)
[2018-07-17] MEDS: NICOTINE 21 MG/24 HOURS TOPICAL PATCH TD SCH (10:44)
[2018-07-17] MEDS: TAMSULOSIN HCL 0.4 MG CAP PO SCH (10:44)
[2018-07-17] MEDS: LISINOPRIL 20 MG TABLET (FP) PO SCH (10:44)
[2018-07-17] MEDS: MAGNESIUM HYDROX 2400MG/30ML ORAL SUSPENSION 30 ML CUP PO PRN (10:45)
[2018-07-17] MEDS: hydrOXYzine PAMOATE 25 MG CAPSULE (FP) PO PRN ×2 (13:47→17:18)
--- NOTE | 2018-07-17 15:12 | PN ---
BHS Progress Note (SOAP) Subjective: Anxious, agitated, interrupted sleep Objective: 07/17/18 15:11 Last Vital Signs Temp Pulse Resp BP Pulse Ox 98.0 F 88 20 140/79 07/17/18 13:24 07/17/18 13:24 07/17/18 13:24 07/17/18 13:24 Laboratory Tests 07/14/18 07/15/18 07/15/18 15:59 07:30 07:30 WBC 6.6 RBC 4.32 Hgb 13.2 Hct 40.8 MCV 94.5 MCH 30.7 MCHC 32.5 RDW 13.8 Plt Count 153 MPV 9.1 Sodium 142 Potassium 3.7 Chloride 107 Carbon Dioxide 26 Anion Gap 8 BUN 20 H Creatinine 0.6 Creat Clearance w eGFR > 60 Random Glucose 134 H Fasting Glucose Hemoglobin A1c % Calcium 8.1 L Total Bilirubin 0.3 AST 12 L ALT 16 Alkaline Phosphatase 93 Total Protein 6.0 L Albumin 3.4 Urine Color Yellow Urine Appearance Clear Urine pH 5.0 Ur Specific [place] 1.017 Urine Protein Negative Urine Glucose (UA) Negative Urine Ketones Negative Urine Blood 1+ H Urine Nitrite Negative Urine Bilirubin Negative Urine Urobilinogen Negative Ur Leukocyte Esterase Negative Urine WBC (Auto) 2 Urine RBC (Auto) 1 Calcium Oxalate Crystal Rare Urine Mucus Rare RPR Titer 07/15/18 07/16/18 07/16/18 07:30 07:00 07:00 WBC RBC Hgb Hct MCV MCH MCHC RDW Plt Count MPV Sodium Potassium Chloride Carbon Dioxide Anion Gap BUN 21 H Creatinine Creat Clearance w eGFR Random Glucose Fasting Glucose 131 H Hemoglobin A1c % 6.0 Calcium Total Bilirubin AST ALT Alkaline Phosphatase Total Protein Albumin Urine Color Urine Appearance Urine pH Ur Specific [place] Urine Protein Urine Glucose (UA) Urine Ketones Urine Blood Urine Nitrite Urine Bilirubin Urine Urobilinogen Ur Leukocyte Esterase Urine WBC (Auto) Urine RBC (Auto) Calcium Oxalate Crystal Urine Mucus RPR Titer Nonreactive Labs reviewed Assessment: 07/17/18 15:11 Withdrawal symptoms Plan: Continue detox Encouraged PO water intake for hydration
[2018-07-17] MEDS: QUEtiapine FUMARATE 300 MG TABLET PO SCH (22:24)
[2018-07-17] MEDS: THIAMINE HCL 100 MG TABLET (FP) PO SCH (22:24)
[2018-07-17] MEDS: ZOLPIDEM TARTRATE 5 MG TABLET PO PRN (22:25)
--- NOTE | 2018-07-18 02:04 | PN ---
[facility] Progress Note Note: FAMILY DAY CARE WORKER called to the unit to assess the pt. He was found on the floor by the patient tech. Pt. reports he was standing barefoot in his room and fell while putting on his pants. Pt. noted to be ambulating with no signs of pain or discomfort noted or reported. FAMILY DAY CARE WORKER attempted to assess the pt. He denied pain but became irate when the board writer was asking further questions regarding his fall. Pt. was refusing to get dressed and stated he did not want to go to the ER. Security called. Fall protocol 1 initiated. Pt. was transported [facility] ER via [facility]. Report given to Dr. Kebede.
[2018-07-18] MEDS ORDERED: METHADONE HCL 10 MG TABLET (FOR DETOX USE ONLY) PO ONE (10:00)
[2018-07-18] MEDS: hydrOXYzine PAMOATE 25 MG CAPSULE (FP) PO PRN (10:36)
[2018-07-18] MEDS: TAMSULOSIN HCL 0.4 MG CAP PO SCH (10:36)
[2018-07-18] MEDS: PRENATAL VITAMINS W/ FOLIC ACID TABLET (FP) PO SCH (10:36)
[2018-07-18] MEDS: NICOTINE 21 MG/24 HOURS TOPICAL PATCH TD SCH (10:36)
[2018-07-18] MEDS: LISINOPRIL 20 MG TABLET (FP) PO SCH (10:36)
[2018-07-18] MEDS: MAGNESIUM HYDROX 2400MG/30ML ORAL SUSPENSION 30 ML CUP PO PRN (10:38)
--- NOTE | 2018-07-18 13:47 | PN ---
BHS Progress Note (SOAP) Subjective: Patient denies any symptoms; noted to be agitated, anxious Objective: 07/18/18 13:46 Last Vital Signs Temp Pulse Resp BP Pulse Ox 97.7 F 87 18 115/72 07/18/18 11:45 07/18/18 11:45 07/18/18 11:45 07/18/18 11:45 Laboratory Tests 07/14/18 07/15/18 07/15/18 15:59 07:30 07:30 WBC 6.6 RBC 4.32 Hgb 13.2 Hct 40.8 MCV 94.5 MCH 30.7 MCHC 32.5 RDW 13.8 Plt Count 153 MPV 9.1 Sodium 142 Potassium 3.7 Chloride 107 Carbon Dioxide 26 Anion Gap 8 BUN 20 H Creatinine 0.6 Creat Clearance w eGFR > 60 Random Glucose 134 H Fasting Glucose Hemoglobin A1c % Calcium 8.1 L Total Bilirubin 0.3 AST 12 L ALT 16 Alkaline Phosphatase 93 Total Protein 6.0 L Albumin 3.4 Urine Color Yellow Urine Appearance Clear Urine pH 5.[address] 1.017 Urine Protein Negative Urine Glucose (UA) Negative Urine Ketones Negative Urine Blood 1+ H Urine Nitrite Negative Urine Bilirubin Negative Urine Urobilinogen Negative Ur Leukocyte Esterase Negative Urine WBC (Auto) 2 Urine RBC (Auto) 1 Calcium Oxalate Crystal Rare Urine Mucus Rare RPR Titer 07/15/18 07/16/18 07/16/18 07:30 07:00 07:00 WBC RBC Hgb Hct MCV MCH MCHC RDW Plt Count MPV Sodium Potassium Chloride Carbon Dioxide Anion Gap BUN 21 H Creatinine Creat Clearance w eGFR Random Glucose Fasting Glucose 131 H Hemoglobin A1c % 6.0 Calcium Total Bilirubin AST ALT Alkaline Phosphatase Total Protein Albumin Urine Color Urine Appearance Urine pH Ur Specific [address] Urine Protein Urine Glucose (UA) Urine Ketones Urine Blood Urine Nitrite Urine Bilirubin Urine Urobilinogen Ur Leukocyte Esterase Urine WBC (Auto) Urine RBC (Auto) Calcium Oxalate Crystal Urine Mucus RPR Titer Nonreactive Labs reviewed: azotemia and abnormal UA Assessment: 07/18/18 13:46 Withdrawal symptoms Noted with azotemia and abnormal UA Plan: Continue detox Azotemia: encouraged PO water intake for hydration Abnormal UA: repeat ordered but patient refused, instructed to follow up with PCP for further evaluation
[2018-07-18] MEDS: NICOTINE POLACRILEX 2 MG GUM BUC PRN (19:26)
[2018-07-18] MEDS: QUEtiapine FUMARATE 300 MG TABLET PO SCH (22:31)
[2018-07-18] MEDS: THIAMINE HCL 100 MG TABLET (FP) PO SCH (22:31)
[2018-07-18] MEDS: ZOLPIDEM TARTRATE 5 MG TABLET PO PRN (22:32)
[2018-07-19] MEDS ORDERED: METHADONE HCL 5 MG TABLET (FOR DETOX USE ONLY) PO ONE (06:00)
[2018-07-19 06:53] VITALS: BP 123/78; PULSE 70; TEMP 98.2
--- NOTE | 2018-07-19 11:37 | DS ---
[facility] Detox Discharge Summary Admission Date: 07/14/18 Discharge Date: 07/19/18 - History Present History: Opioid Dependence, Sedative Dependence Pertinent Past History: COPD Varicose veins Hepatitis C LBP BPH CVA Nicotine dependence - Physical Exam Results Vital Signs: Vital Signs Temperature 98.2 F 07/19/18 06:52 Pulse Rate 70 07/19/18 06:52 Respiratory Rate 18 07/19/18 06:52 Blood Pressure 123/78 07/19/18 06:52 O2 Sat by Pulse Oximetry (%) Pertinent Admission Physical Exam Findings: Withdrawal symptoms Laboratory Tests 07/14/18 07/15/18 07/15/18 15:59 07:30 07:30 WBC 6.6 RBC 4.32 Hgb 13.2 Hct 40.8 MCV 94.5 MCH 30.7 MCHC 32.5 RDW 13.8 Plt Count 153 MPV 9.1 Sodium 142 Potassium 3.7 Chloride 107 Carbon Dioxide 26 Anion Gap 8 BUN 20 H Creatinine 0.6 Creat Clearance w eGFR > 60 Random Glucose 134 H Fasting Glucose Hemoglobin A1c % Calcium 8.1 L Total Bilirubin 0.3 AST 12 L ALT 16 Alkaline Phosphatase 93 Total Protein 6.0 L Albumin 3.4 Urine Color Yellow Urine Appearance Clear Urine pH 5.0 Ur Specific [place] 1.017 Urine Protein Negative Urine Glucose (UA) Negative Urine Ketones Negative Urine Blood 1+ H Urine Nitrite Negative Urine Bilirubin Negative Urine Urobilinogen Negative Ur Leukocyte Esterase Negative Urine WBC (Auto) 2 Urine RBC (Auto) 1 Calcium Oxalate Crystal Rare Urine Mucus Rare RPR Titer 07/15/18 07/16/18 07/16/18 07:30 07:00 07:00 WBC RBC Hgb Hct MCV MCH MCHC RDW Plt Count MPV Sodium Potassium Chloride Carbon Dioxide Anion Gap BUN 21 H Creatinine Creat Clearance w eGFR Random Glucose Fasting Glucose 131 H Hemoglobin A1c % 6.0 Calcium Total Bilirubin AST ALT Alkaline Phosphatase Total Protein Albumin Urine Color Urine Appearance Urine pH Ur Specific [place] Urine Protein Urine Glucose (UA) Urine Ketones Urine Blood Urine Nitrite Urine Bilirubin Urine Urobilinogen Ur Leukocyte Esterase Urine WBC (Auto) Urine RBC (Auto) Calcium Oxalate Crystal Urine Mucus RPR Titer Nonreactive Labs reviewed: encouraged to drink more water and to follow up with PCP for further UA evaluation - Treatment Hospital Course: Detox Protocol Followed, Detoxed Safely, Responded well, Discharged Condition Good - Medication Discharge Medications: Ambulatory Orders Tamsulosin HCl [Flomax -] 0.4 mg PO DAILY 01/16/17 cloNIDine HCL [Catapres -] 0.2 mg PO BID 01/16/17 Quetiapine Fumarate [Seroquel] 300 mg PO HS 01/14/18 Albuterol Sulfate Inhaler - [Ventolin HFA Inhaler -] 2 inh PO Q4H PRN 01/15/18 Alprazolam [Xanax] 2 mg PO TID 02/12/18 Lisinopril [Prinivil] 20 mg PO DAILY 02/12/18 Oxycodone HCl/Acetaminophen [Percocet 10-325 mg Tablet] 1 each PO Q8H PRN Ranitidine HCl [Zantac] 300 mg PO DAILY 02/12/18 - Diagnosis (1) Azotemia Status: Acute (2) Hyperglycemia Status: Chronic (3) Abnormal finding on urinalysis Status: Acute (4) CVA (cerebral vascular accident) Status: Chronic (5) Opioid dependence with withdrawal Status: Acute (6) BPH (benign prostatic hyperplasia) Status: Chronic Qualifiers: Lower urinary tract symptom presence: symptoms present (7) Benzodiazepine dependence Status: Acute (8) COPD (chronic obstructive pulmonary disease) Status: Chronic Qualifiers: COPD type: emphysema Emphysema type: unilateral Qualified Code(s): J43.0 - 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] (9) Hepatitis C carrier Status: Chronic (10) Low back pain Status: Chronic (11) Nicotine dependence Status: Chronic (12) Varicose veins of bilateral lower extremities with pain Status: Chronic (13) Prediabetes Status: Acute - AMA Did Patient Leave Against Medical Advice: No (F/U with your PCP within 1-2 weeks )
== END 2018-07-19 10:13 | disposition home or self-care (01) | DRG 773 ==
LOC: YASAS 11:09 → Y3N 12:41
PROC: HZ2ZZZZ Detoxification Services for Substance Abuse Treatment (ICD-10-PCS; principal; 2018-07-14)
DX: F11.23 Opioid dependence with withdrawal (principal); F13.20 Sedative, hypnotic or anxiolytic dependence, uncomplicated; F17.210 Nicotine dependence, cigarettes, uncomplicated; F31.9 Bipolar disorder, unspecified; F19.282 Other psychoactive substance dependence with psychoactive substance-induced sleep disorder; E66.9 Obesity, unspecified; Z68.30 Body mass index [BMI] 30.0-30.9, adult; I10 Essential (primary) hypertension; R79.89 Other specified abnormal findings of blood chemistry; R73.9 Hyperglycemia, unspecified; N40.0 Benign prostatic hyperplasia without lower urinary tract symptoms; J43.0 Unilateral pulmonary emphysema [MacLeod's syndrome]; B18.2 Chronic viral hepatitis C; M54.5 Low back pain; G89.29 Other chronic pain; I83.93 Asymptomatic varicose veins of bilateral lower extremities; R73.03 Prediabetes; R82.90 Unspecified abnormal findings in urine; Z86.73 Personal history of transient ischemic attack (TIA), and cerebral infarction without residual deficits; Z96.652 Presence of left artificial knee joint; W18.30XA Fall on same level, unspecified, initial encounter; Y93.89 Activity, other specified; Y92.238 Other place in hospital as the place of occurrence of the external cause
CPT/HCPCS: 36415; 80053; 81003; 81015; 82947; 83036; 84520; 85027; 86593; 90670; 90688; 93005; 93010; G0008; G0009

== ENCOUNTER 2018-07-18 02:36 | Emergency (ER) | payer OTHER ==
[2018-07-18 03:06] VITALS: BP 100/52; PULSE 89; TEMP 97.3
--- NOTE | 2018-07-18 03:37 | PDOC ---
History of Present Illness - General Chief Complaint: Injury Stated Complaint: FALL History Source: Patient - History of Present Illness Initial Comments: 07/18/18 03:33 63yoM sent from [facility] for unwitnessed fall tonight. pt is a&O x 3. States he got up to use the bathroom in the middle of the night and took of his PJ pants. Affter using the restroom, he went to sit on a chair to put his pants back on and slid off the chair onto the floor. The chair had a towel on it. No head strike, no loc, no cp/sob, pt feels well in the ER. Ambulating w/ steady gati, A&O x 3. Past History - Past Medical History Allergies/Adverse Reactions: Allergies Allergy/AdvReac Type Severity Reaction Status Date / Time No Known Allergies Allergy Verified 07/18/18 03:07 Home Medications: Ambulatory Orders Tamsulosin HCl [Flomax -] 0.4 mg PO DAILY 01/16/17 cloNIDine HCL [Catapres -] 0.2 mg PO BID 01/16/17 Quetiapine Fumarate [Seroquel] 300 mg PO HS 01/14/18 Albuterol Sulfate Inhaler - [Ventolin HFA Inhaler -] 2 inh PO Q4H PRN 01/15/18 Alprazolam [Xanax] 2 mg PO TID 02/12/18 Lisinopril [Prinivil] 20 mg PO DAILY 02/12/18 Oxycodone HCl/Acetaminophen [Percocet 10-325 mg Tablet] 1 each PO Q8H PRN Ranitidine HCl [Zantac] 300 mg PO DAILY 02/12/18 Anemia: Yes Asthma: No Cancer: No Cardiac Disorders: No CVA: Yes (2012) COPD: Yes CHF: No Dementia: No Diabetes: No GI Disorders: No Disorders: Yes (BPH) HTN: Yes Hypercholesterolemia: No Kidney Stones: Yes (1994) Liver Disease: No Seizures: No (syncope) Thyroid Disease: No - Surgical History Abdominal Surgery: Yes (hernia repair) Appendectomy: Yes (04/2018) Cardiac Surgery: No Cholecystectomy: No Lung Surgery: No Neurologic Surgery: No Orthopedic Surgery: Yes (bilateral knee replacement 2006, 2014) - Reproductive History Testicular Surgery: No - Suicide/Smoking/Psychosocial Hx Smoking History: Current some day smoker Have you smoked in the past 12 months: No Number of Cigarettes Smoked Daily: 20 Cigars Per Day: 0 Information on smoking cessation initiated: No 'Breaking Loose' booklet given: 07/14/18 (give on floor) Hx Alcohol Use: Yes (Occasional) Drug/Substance Use Hx: No Substance Use Type: Alcohol, Tranquilizers Hx Substance Use Treatment: Yes (detox, rehab) Review of Systems - Review of Systems All Other Systems: Reviewed and Negative *Physical Exam - Vital Signs Last Vital Signs Temp Pulse Resp BP Pulse Ox 97.3 F L 89 19 100/52 L 96 07/18/18 02:45 07/18/18 02:45 07/18/18 02:45 07/18/18 02:45 07/18/18 02:45 - Physical Exam Comments: 07/18/18 03:35 NAD well appearing EOMI, SAEID NCAT RRR CTABL soft NTND A&O x 3 ambulating w/ steady gait Medical Decision Making - Medical Decision Making 07/18/18 03:35 63yoM w/ minor fall onto buttocks tonight. No head trauma, no LOC, clear mechanical story. - [facility]. *DC/Admit/Observation/Transfer Diagnosis at time of Disposition: Low back pain - Discharge Dispostion Disposition: HOME Condition at time of disposition: Good Decision to Admit order: No - Referrals - Patient Instructions Additional Instructions: Mr. Pulido is cleared for return to [facility]. Continue all current medications. - Post Discharge Activity
== END 2018-07-18 03:55 | disposition home or self-care (01) ==
LOC: JER 02:36
DX: M54.5 Low back pain (principal); W07.XXXA Fall from chair, initial encounter; Y93.89 Activity, other specified; Y92.230 Patient room in hospital as the place of occurrence of the external cause; Y99.8 Other external cause status; I10 Essential (primary) hypertension; J44.9 Chronic obstructive pulmonary disease, unspecified; F17.210 Nicotine dependence, cigarettes, uncomplicated; F10.10 Alcohol abuse, uncomplicated; F13.10 Sedative, hypnotic or anxiolytic abuse, uncomplicated; N40.0 Benign prostatic hyperplasia without lower urinary tract symptoms; Z86.73 Personal history of transient ischemic attack (TIA), and cerebral infarction without residual deficits; Z86.2 Personal history of diseases of the blood and blood-forming organs and certain disorders involving the immune mechanism; Z87.442 Personal history of urinary calculi
CPT/HCPCS: 99281-25

== ENCOUNTER 2018-08-26 13:28 | Inpatient (IN) | payer OTHER ==
--- NOTE | 2018-08-26 18:31 | HP ---
COWS - Scale Resting Pulse: 0= SD 80 or Below Sweatin= Beads of Sweat on Face Restless Observation: 3= Extraneous Movement Pupil Size: 0= Normal to Room Light Bone or Joint Aches: 1= Mild Discomfort Runny Nose/ Eye Tearin= None GI Upset > 30mins: 1= Stomach Cramp Tremor Observation: 2= Slight Tremor Visible Yawning Observation: 1= 1-2x During Session Anxiety or Irritability: 2=Irritable/Anxious Goose Flesh Skin: 0=Smooth Skin COWS Score: 13 CIWA Score - Admission Criteria [facility] Guidelines: Admission for Medically Managed Detox: Requires at least one of the followin. CIWA greater than 12 2. Seizures within the past 24 hours 3. Delirium tremens within the past 24 hours 4. Hallucinations within the past 24 hours 5. Acute intervention needed for co occurring medical disorder 6. Acute intervention needed for co occurring psychiatric disorder 7. Severe withdrawal that cannot be handled at a lower level of care (continued vomiting, continued diarrhea, abnormal vital signs) requiring intravenous medication and/or fluids 8. Admission ROS [facility] Chief Complaint: "i need detox" Allergies/Adverse Reactions: Allergies Allergy/AdvReac Type Severity Reaction Status Date / Time No Known Allergies Allergy Verified 08/26/18 16:26 History of Present Illness: 63 y/o male with a long hx of heroin addiction presents for detox. Pt's utox is positive for xanax and oxy because pt is prescribed both. Pt was last here in june and completed detox. He said this will be different because "I will do outpatient rehab". Endorses an 18 month sober period "years ago". Denies withdrawal induced seizures. Denies SI now or previously pt not a great historian, irritable and answers questions reluctantly. Others' Prescriptions Patient Name: Gaudencio Pulido Date: 1955 Address: [address] [place] [address] Sex: Male Rx Written Rx Dispensed Drug Quantity Days Supply Prescriber Name 08/22/2018 08/24/2018 endocet 10-325 mg tablet 90 30 Fernando Encinas MD 07/31/2018 08/09/2018 alprazolam 2 mg tablet 90 30 Kayleen Jameson MD 08/08/2018 08/09/2018 endocet 10-325 mg tablet 45 15 Giwah, Sannitta T ([facility] ) 07/24/2018 07/24/2018 endocet 10-325 mg tablet 45 15 Brandon Sarkara T ([facility] ) 07/06/2018 07/09/2018 endocet 10-325 mg tablet 45 15 Lala Sarkar T ([facility] ) 07/05/2018 07/09/2018 alprazolam 2 mg tablet 90 30 JamesonKayleen caraballo MD 05/22/2018 06/09/2018 alprazolam 2 mg tablet 90 30 JamesonKayleen caraballo MD 06/06/2018 06/09/2018 endocet 10-325 mg tablet 90 30 Lala Sarkar T ([facility] ) 05/24/2018 05/25/2018 endocet 10-325 mg tablet 60 15 Georgi, Ammir S 05/21/2018 05/21/2018 endocet 10-325 mg tablet 12 3 Georgi, Ammir S 04/24/2018 05/09/2018 alprazolam 2 mg tablet 90 30 JamesonKayleen caraballo MD 04/18/2018 04/19/2018 endocet 10-325 mg tablet 120 30 Eitan Lindsey M 03/26/2018 04/09/2018 alprazolam 2 mg tablet 90 30 Kayleen Jameson MD 03/06/2018 03/20/2018 endocet 10-325 mg tablet 120 30 EltonioholEitan elizalde 02/26/2018 03/10/2018 alprazolam 2 mg tablet 90 30 JamesonKayleen caraballo MD 02/09/2018 02/17/2018 endocet 10-325 mg tablet 120 30 ElzholEitan elizalde 01/29/2018 02/08/2018 alprazolam 2 mg tablet 90 30 Kayleen Jameson MD 01/10/2018 01/18/2018 endocet 10-325 mg tablet 120 30 Eitan Lindsey 01/01/2018 01/09/2018 alprazolam 2 mg tablet 90 30 Kayleen Jameson MD 12/14/2017 12/15/2017 endocet 10-325 mg tablet 120 30 ElEitan orozco 12/04/2017 12/09/2017 alprazolam 2 mg tablet 90 30 Kayleen Jameson MD 11/03/2017 11/11/2017 alprazolam 2 mg tablet 90 30 Kayleen Jameson MD 11/01/2017 11/09/2017 oxycodone-acetaminophen 10-325 mg tab 120 30 Eitan Lindsey 10/05/2017 10/11/2017 alprazolam 2 mg tablet 90 30 Kayleen Jameson MD 10/04/2017 10/09/2017 endocet 10-325 mg tablet 120 30 Eitan Lindsey 09/05/2017 09/13/2017 alprazolam 2 mg tablet 60 30 Kayleen Jameson MD 09/06/2017 09/08/2017 endocet 10-325 mg tablet 120 30 Eitan Lindsey Med hx - HTN (clonidine), Stroke 2013 (ambulates with a cane), Constipation, b/ l knee replacement (percocet), Inguinal hernia repair - 2 months ago, BPH Psych hx - Depression/Anxiety, Bipolar (seroquel, xanax) - Ebola screening Have you traveled outside of the country in the last 21 days: No Have you had contact with anyone from an Ebola affected area: No Have you been sick,other than usual withdrawal symptoms: No Do you have a fever: No - Review of Systems Constitutional: Night Sweats, Changes in sleep, Unintentional Wgt. Loss EENT: reports: Blurred Vision (wears glasses), Dental Problems (no teeth) Respiratory: reports: SOB with Exertion Cardiac: reports: No Symptoms Reported GI: reports: Nausea Musculoskeletal: reports: Joint Pain ( ambulates with a cane) Integumentary: reports: No Symptoms Reported Neuro: reports: No Symptoms reported Endocrine: reports: No Symptoms Reported Hematology: reports: No Symptoms Reported Psychiatric: reports: Orientated x3, Agitated, Anxious Other Systems: Reviewed and Negative Patient History - Patient Medical History Hx Anemia: Yes Hx Asthma: No Hx Chronic Obstructive Pulmonary Disease (COPD): No Hx Cancer: No Hx Cardiac Disorders: No Hx Congestive Heart Failure: No Hx Hypertension: No Hx Hypercholesterolemia: No Hx Pacemaker: No HX Cerebrovascular Accident: Yes (2013 with residual R sided weakness ) Hx Seizures: No Hx Dementia: No Hx Diabetes: No Hx Gastrointestinal Disorders: No Hx Liver Disease: No Hx Genitourinary Disorders: Yes (BPH) Hx Sexually Transmitted Disorders: No Hx Renal Disease (ESRD): No Hx Thyroid Disease: No Hx Human Immunodeficiency Virus (HIV): No Hx Hepatitis C: Yes Hx Depression: Yes (with anxiety - Rx xanax - sees psych) Hx Suicide Attempt: No (denies) Hx Bipolar Disorder: Yes Hx Schizophrenia: No - Patient Surgical History Past Surgical History: No Hx Neurologic Surgery: No Hx Cataract Extraction: No Hx Cardiac Surgery: No Hx Lung Surgery: No Hx Breast Surgery: No Hx Breast Biopsy: No Hx Abdominal Surgery: Yes (hernia repair) Hx Appendectomy: Yes (04/2018) Hx Cholecystectomy: No Hx Genitourinary Surgery: No Hx Orthopedic Surgery: Yes (bilateral knee replacement 2006, 2014) Other Surgical History: retinal detachment repair 1998 Anesthesia Reaction: No - PPD History Date: 01/16/18 - Smoking Cessation Smoking history: Current some day smoker Have you smoked in the past 12 months: Yes Aproximately how many cigarettes per day: 20 Cigars Per Day: 0 Hx Chewing Tobacco Use: No Initiated information on smoking cessation: Yes 'Breaking Loose' booklet given: 08/26/18 - Substances Abused Heroin Route: SNIFFING Frequency: Daily Amount used: 2 BAGS Age of first use: 25 Date of Last Use: 08/26/18 Alprazolam (Xanax) Route: Smoking Frequency: Daily Amount used: 1/2MG Age of first use: 40 Date of Last Use: 08/26/18 PERCOCET Route: Oral Frequency: Daily Amount used: 3/10MG Age of first use: 44 Date of Last Use: 08/26/18 Family Disease History - Family Disease History Family Disease History: Heart Disease: Father (), Mother (), [place] : Brother (ceceased), Other: Father Admission Physical Exam S - Vital Signs Vital Signs: Vital Signs - 24 hr 08/26/18 14:04 Temperature 97 F L Pulse Rate 80 Respiratory 18 Rate Blood Pressure 143/75 - Physical General Appearance: Yes: Moderate Distress, Irritable HEENTM: Yes: Nasal Congestion Respiratory: Yes: Lungs Clear, No Respiratory Distress, No Accessory Muscle Use Neck: Yes: Trachea in good position Breast: Yes: Breast Exam Deferred Cardiology: Yes: Regular Rate Abdominal: Yes: Within Normal Limits, Non Tender Genitourinary: Yes: Hesitency Back: Yes: Normal Inspection Musculoskeletal: Yes: Joint Stiffness (sh[place], hands, knees) Extremities: Yes: Normal Capillary Refill, Normal Inspection Neurological: Yes: Fully Oriented, Alert, Numbness (both hands) Integumentary: Yes: Within Normal Limits, Warm Lymphatic: Yes: Within Normal Limits - Diagnostic (1) Opioid dependence with withdrawal Current Visit: Yes Status: Acute (2) Status post bilateral knee replacements Current Visit: Yes Status: Acute (3) Constipation Current Visit: Yes Status: Chronic Qualifiers: Constipation type: slow transit constipation Qualified Code(s): K59.01 - Slow transit constipation (4) Substance induced mood disorder Current Visit: Yes Status: Chronic (5) BPH (benign prostatic hyperplasia) Current Visit: Yes Status: Chronic Qualifiers: Lower urinary tract symptom presence: symptoms present (6) Bipolar disorder Current Visit: Yes Status: Chronic Comment: By history. (7) Hepatitis C carrier Current Visit: No Status: Chronic Comment: schedule to treat (8) Nicotine dependence Current Visit: Yes Status: Chronic (9) Status post stroke Current Visit: Yes Status: Chronic (10) Use of cane as ambulatory aid Current Visit: Yes Status: Chronic (11) high blood pressure Current Visit: No Status: Chronic (12) osteoarthritis Current Visit: Yes Status: Chronic Cleared for Admission S - Detox or Rehab [facility] Level of Care: Medically Managed Detox Regimen/Protocol: Methadone S Breath Alcohol Content Breath Alcohol Content: 0 Urine Drug Screen - Results Drug Screen Negative: No Urine Drug Screen Results: OPI-Opiates, MTD-Methadone, OXY-Oxycodone, BUP- Suboxone
[2018-08-26] MEDS ORDERED: ALBUTEROL SO4 8 GM HFA INHALER IH PRN (19:08)
[2018-08-26] MEDS ORDERED: ALBUTEROL SO4 0.083% IH SOL 2.5 MG/3 ML VIAL.NEB. NEB PRN (19:09)
[2018-08-26] MEDS ORDERED: ACETAMINOPHEN 325 MG TABLET (FP) PO PRN (19:10)
[2018-08-26] MEDS ORDERED: LOPERAMIDE HCL 2 MG CAPSULE PO PRN (19:10)
[2018-08-26] MEDS ORDERED: guaiFENesin/D-METHORPHAN HB 10 ML UNIT-DOSE CUPS PO PRN (19:10)
[2018-08-26] MEDS ORDERED: METHADONE HCL 10 MG TABLET (FOR DETOX USE ONLY) PO ONE ×2 (19:10→23:00)
[2018-08-26] MEDS ORDERED: P-EPHED 60MG/TRIPROLIDI 2.5MG TABLET PO PRN (19:10)
[2018-08-26] MEDS ORDERED: MENTHOL/PHENOL 1 EACH UD MM PRN (19:10)
[2018-08-26] MEDS ORDERED: MAG HYDROX/AL HYDROX/SIMETH 30 ML UNIT-DOSE CUP PO PRN (19:10)
[2018-08-26] MEDS ORDERED: MAGNESIUM CITRATE 300 ML BOTTLE PO PRN (19:10)
[2018-08-26] MEDS ORDERED: MAGNESIUM HYDROX 2400MG/30ML ORAL SUSPENSION 30 ML CUP PO PRN (19:10)
[2018-08-26] MEDS: LISINOPRIL 20 MG TABLET (FP) PO SCH (19:36)
[2018-08-26] MEDS: diazePAM 5 MG TABLET PO PRN ×2 (19:36→23:23)
[2018-08-26] MEDS: NICOTINE 21 MG/24 HOURS TOPICAL PATCH TD SCH (19:38)
[2018-08-26] MEDS ORDERED: MELATONIN 5 MG TABLETS PO PRN (22:00)
[2018-08-26] MEDS: THIAMINE HCL 100 MG TABLET (FP) PO SCH (22:03)
[2018-08-27 01:31] LABS: URINE APPEARANCE CLEAR; URINE BILIRUBIN NEGATIVE (<2.0 mg/dL); URINE COLOR YELLOW; URINE GLUCOSE (UA) NEGATIVE (NEGATIVE); URINE KETONE NEGATIVE (NEGATIVE); URINE LEUK ESTERASE NEGATIVE (NEGATIVE); URINE NITRITE NEGATIVE (NEGATIVE); URINE PROTEIN 1+ (NEGATIVE); URINE UROBILINOGEN NEGATIVE mg/dL (0.2-1.0)
[2018-08-27 01:55] LABS: URINE MUCUS FEW
[2018-08-27] MEDS: diazePAM 5 MG TABLET PO PRN ×4 (03:52→21:19)
[2018-08-27] MEDS: LISINOPRIL 20 MG TABLET (FP) PO SCH (10:00)
[2018-08-27] MEDS: NICOTINE 21 MG/24 HOURS TOPICAL PATCH TD SCH (10:00)
[2018-08-27] MEDS: PRENATAL VITAMINS W/ FOLIC ACID TABLET (FP) PO SCH (10:00)
[2018-08-27] MEDS ORDERED: METHADONE HCL 10 MG TABLET (FOR DETOX USE ONLY) PO ONE (10:00)
--- NOTE | 2018-08-27 10:21 | PN ---
S Progress Note Note: fleet enema ordered for pt's constipation because pt state the other things don' t work,I have had this all my life and the enema is what i use.. MOM and Mag waite d/elodia
[2018-08-27 10:30] LABS: ALBUMIN 3.6 g/dl (3.4-5.0); ALK PHOS 77 U/L (45-117); ANION GAP 7 MMOL/L (8-16); BILIRUBIN,TOTAL 0.3 mg/dL (0.2-1); BLOOD UREA NITROGEN 24 mg/dL (7-18); CALCIUM 8.8 mg/dL (8.5-10.1); CHLORIDE 104 mmol/L (98-107); CO2 29 mmol/L (21-32); CREATININE 0.8 mg/dL (0.55-1.3); GLUCOSE,RANDOM 119 mg/dL (74-106); POTASSIUM 4.1 mmol/L (3.5-5.1); SGOT/AST 15 U/L (15-37); SGPT/ALT 17 U/L (13-61); SODIUM 140 mmol/L (136-145); TOT PROT 6.2 g/dl (6.4-8.2)
[2018-08-27 10:40] LABS: HEMATOCRIT 44.5 % (35.4-49); HEMOGLOBIN 14.4 GM/dL (11.7-16.9); MCH 30.3 pg (25.7-33.7); MCHC 32.3 g/dl (32.0-35.9); MEAN CELL VOLUME 93.7 fl (80-96); MEAN PLT VOLUME 9.7 fl (7.5-11.1); PLATELET COUNT 183 K/MM3 (134-434); RBC 4.75 M/mm3 (4.00-5.60); RDW 13.8 % (11.9-15.9); WHITE BLOOD COUNT 7.4 K/mm3 (4.0-10.0)
--- NOTE | 2018-08-27 13:26 | CONSULT ---
[facility] Psychiatric Consult - Data Date of interview: 08/27/18 Admission source: [facility] Identifying data: This is one of multiple admissions to [facility] for this 63 y/ o [place]-born male seeking detox treatment for opioid and benzodiazepine ( xanax) dependence. Patient is , a father of three, domiciled, unemployed (disabled) and supported on [facility] benefits. Substance Abuse History: Discussed in this interview. Patient confirms abuse of opioid analgesics + xanax (admits to sporadic use of heroin) as per current [facility] report : Smoking history: Current some day smoker. Have you smoked in the past 12 months: Yes. Aproximately how many cigarettes per day: 20. Cigars Per Day: 0. Hx Chewing Tobacco Use: No. Initiated information on smoking cessation: Yes. 'Breaking Loose' booklet given: 08/26/18. - Substances Abused. Heroin. Route: SNIFFING. Frequency: Daily. Amount used: 2 BAGS. Age of first use: 25. Date of Last Use: 08/26/18. Alprazolam (Xanax). Route: Smoking. Frequency: Daily. Amount used: 1/2MG. Age of first use: 40. Date of Last Use: 08/26/18. PERCOCET. Route: Oral. Frequency: Daily. Amount used: 3/10MG. Age of first use: 44. Date of Last Use: 08/26/18 Medical History: Multiple medical co-morbidities : chronic constipation, anemia , osteoarthritis, hypertension, BPH (benign prostatic hyperplasia), COPD, hepatitis C, obesity, antecedent of CVA with right sided weakness (2012) and a history of surgeries ( left knee replacement in 2006 + retinal detachment in 1998). Patient ambulates with cane. Psychiatric History: Extensive history of psychiatric illness. Patient endorses a history of multiple psychiatric hospitalizations ([facility], [facility]). Diagnosed with Bipolar Disorder. Onset of psychiatric disturbances : 1994. History of chronic non-adherence to psychiatric aftercare. Patient reports that he is prescribed xanax and seroquel 300 mg/hs. Mr Pulido is still seeing a psychiatrist at the [facility] in [place] (will miss his appointment of 08/29/18 but plans to call for re -scheduling).Patient denies history of suicide attempts. Physical/Sexual Abuse/Trauma History: Patient denies. Additional Comment: Urine Drug Screen Results: OPI-Opiates, MTD-Methadone, OXY- Oxycodone, BUP-Suboxone. Noted. Mental Status Exam - Mental Status Exam Alert and Oriented to: Time, Place, Person Cognitive Function: Good Patient Appearance: Well Groomed Mood: Anxious (mildly anxious), Hopeful Affect: Appropriate, Normal Range Patient Behavior: Fatigued, Appropriate, Cooperative Speech Pattern: Clear Voice Loudness: Normal Thought Process: Goal Oriented Thought Disorder: Not Present Hallucinations: Denies Suicidal Ideation: Denies Homicidal Ideation: Denies Insight/Judgement: Poor Sleep: Poorly, Difficulty falling asleep Appetite: Good Muscle strength/Tone: Normal Gait/Station: Other (ambulates with a cane) Psychiatric Findings - Problem List ([place] 1, 2,3) (1) Opioid dependence with withdrawal Current Visit: Yes Status: Acute (2) Sedative, hypnotic or anxiolytic dependence with withdrawal, uncomplicated Current Visit: Yes Status: Acute (3) Nicotine dependence Current Visit: Yes Status: Chronic (4) Substance induced mood disorder Current Visit: Yes Status: Chronic (5) Bipolar disorder Current Visit: Yes Status: Chronic Comment: By history. (6) Insomnia Current Visit: Yes Status: Acute (7) Non-compliant patient Current Visit: Yes Status: Chronic - Initial Treatment Plan Initial Treatment Plan: Psychoeducation. Sleep hygiene. Detoxification. NA meetings. Group + supportive therapy. Motivational sessions. Resumed : seroquel 200 mg po hs (reduced for prevention of oversedation that could lead to falls/ physical injuries). Will titrate back to 300 mg/hs in next 24/48 hours if no report of sedation or unsteady gait. Side effects/benefits discussed with the patient. Mr Pulido is in agreement with this careplan. Falls precautions. Observation.
--- NOTE | 2018-08-27 13:31 | PN ---
BHS COWS - Scale Resting Pulse: 0= [place] 80 or Below Sweatin= Chills/Flushing Restless Observation: 3= Extraneous Movement Pupil Size: 0= Normal to Room Light Bone or Joint Aches: 1= Mild Discomfort Runny Nose/ Eye Tearin= Nasal Congestion GI Upset > 30mins: 0= None Tremor Observation of Outstretched Hands: 2= Slight Tremor Visible Yawning Observation: 1= 1-2x During Session Anxiety or Irritability: 2=Irritable/Anxious Goose Flesh Skin: 0=Smooth Skin COWS Score: 11 S Progress Note (SOAP) Subjective: shakes constipation Objective: 08/27/18 13:29 Anxious restless Vital Signs Temperature 98.9 F 08/27/18 09:28 Pulse Rate 75 08/27/18 09:28 Respiratory Rate 20 08/27/18 09:28 Blood Pressure 128/79 08/27/18 09:28 O2 Sat by Pulse Oximetry (%) Laboratory Last Values WBC 7.4 K/mm3 (4.0-10.0) 08/27/18 06:30 RBC 4.75 M/mm3 (4.00-5.60) 08/27/18 06:30 Hgb 14.4 GM/dL (11.7-16.9) 08/27/18 06:30 Hct 44.5 % (35.4-49) 08/27/18 06:30 MCV 93.7 fl (80-96) 08/27/18 06:30 MCH 30.3 pg (25.7-33.7) 08/27/18 06:30 MCHC 32.3 g/dl (32.0-35.9) 08/27/18 06:30 RDW 13.8 % (11.9-15.9) 08/27/18 06:30 Plt Count 183 K/MM3 (134-434) 08/27/18 06:30 MPV 9.7 fl (7.5-11.1) 08/27/18 06:30 Sodium 140 mmol/L (136-145) 08/27/18 06:30 Potassium 4.1 mmol/L (3.5-5.1) 08/27/18 06:30 Chloride 104 mmol/L (98-107) 08/27/18 06:30 Carbon Dioxide 29 mmol/L (21-32) 08/27/18 06:30 Anion Gap 7 MMOL/L (8-16) L 08/27/18 06:30 BUN 24 mg/dL (7-18) H 08/27/18 06:30 Creatinine 0.8 mg/dL (0.55-1.3) 08/27/18 06:30 Creat Clearance w eGFR > 60 (>60) 08/27/18 06:30 Random Glucose 119 mg/dL (74-106) H 08/27/18 06:30 Calcium 8.8 mg/dL (8.5-10.1) 08/27/18 06:30 Total Bilirubin 0.3 mg/dL (0.2-1) 08/27/18 06:30 AST 15 U/L (15-37) 08/27/18 06:30 ALT 17 U/L (13-61) 08/27/18 06:30 Alkaline Phosphatase 77 U/L (45-117) 08/27/18 06:30 Total Protein 6.2 g/dl (6.4-8.2) L 08/27/18 06:30 Albumin 3.6 g/dl (3.4-5.0) 08/27/18 06:30 Urine Color Yellow 08/27/18 00:05 Urine Appearance Clear 08/27/18 00:05 Urine pH 5.0 (5.0-8.0) 08/27/18 00:05 Ur Specific [place] 1.024 (1.010-1.035) 08/27/18 00:05 Urine Protein 1+ (NEGATIVE) H 08/27/18 00:05 Urine Glucose (UA) Negative (NEGATIVE) 08/27/18 00:05 Urine Ketones Negative (NEGATIVE) 08/27/18 00:05 Urine Blood Negative (NEGATIVE) 08/27/18 00:05 Urine Nitrite Negative (NEGATIVE) 08/27/18 00:05 Urine Bilirubin Negative (<2.0 mg/dL) 08/27/18 00:05 Urine Urobilinogen Negative mg/dL (0.2-1.0) 08/27/18 00:05 Ur Leukocyte Esterase Negative (NEGATIVE) 08/27/18 00:05 Urine WBC (Auto) 1 /hpf (3-5) 08/27/18 00:05 Urine RBC (Auto) 1 /hpf (0-3) 08/27/18 00:05 Urine Mucus Few 08/27/18 00:05 RPR Titer Nonreactive (NONREACTIVE) 08/27/18 06:30 noted Assessment: 08/27/18 13:29 withdrawal sx Plan: continue detox increase hydration Fleet enema for chronic constipation lots of fruits and vegaetables in diet
[2018-08-27] MEDS: SODIUM PHOSPHATE/NA BIPHOS 133 ML ENEMA PR ONE ×2 (17:29→18:04)
[2018-08-27] MEDS: QUEtiapine FUMARATE 200 MG TABLET PO SCH (21:18)
[2018-08-27] MEDS: THIAMINE HCL 100 MG TABLET (FP) PO SCH (21:18)
[2018-08-27] MEDS ORDERED: QUEtiapine FUMARATE 300 MG TABLET PO SCH (22:00)
[2018-08-28] MEDS: diazePAM 5 MG TABLET PO PRN ×4 (05:28→22:04)
[2018-08-28] MEDS ORDERED: METHADONE HCL 5 MG TABLET (FOR DETOX USE ONLY) PO ONE (10:00)
[2018-08-28] MEDS: NICOTINE 21 MG/24 HOURS TOPICAL PATCH TD SCH (10:39)
[2018-08-28] MEDS: LISINOPRIL 20 MG TABLET (FP) PO SCH (10:39)
[2018-08-28] MEDS: PRENATAL VITAMINS W/ FOLIC ACID TABLET (FP) PO SCH (10:39)
--- NOTE | 2018-08-28 13:44 | PN ---
BHS COWS - Scale Resting Pulse: 0= [place] 80 or Below Sweatin= Chills/Flushing Pupil Size: 1= Pupils >than Normal Bone or Joint Aches: 1= Mild Discomfort Runny Nose/ Eye Tearin= Nasal Congestion GI Upset > 30mins: 0= None Tremor Observation of Outstretched Hands: 0= None Yawning Observation: 0= None Anxiety or Irritability: 0= None Goose Flesh Skin: 0=Smooth Skin BHS Progress Note (SOAP) Subjective: Pt states he is getting percocets as an outpt and now only getting methadone low dose detox protocol O: Vital Signs - 24 hr 08/27/18 08/27/18 08/28/18 14:12 21:46 03:30 Temperature 98.6 F 98.6 F Pulse Rate 79 80 Respiratory 18 18 20 Rate Blood Pressure 140/86 149/84 08/28/18 08/28/18 06:19 10:53 Temperature 96.4 F L 97.4 F L Pulse Rate 70 62 Respiratory 18 18 Rate Blood Pressure 130/78 132/68 Laboratory Tests 08/27/18 08/27/18 08/27/18 00:05 06:30 06:30 WBC 7.4 RBC 4.75 Hgb 14.4 Hct 44.5 MCV 93.7 MCH 30.3 MCHC 32.3 RDW 13.8 Plt Count 183 MPV 9.7 Sodium 140 Potassium 4.1 Chloride 104 Carbon Dioxide 29 Anion Gap 7 L BUN 24 H Creatinine 0.8 Creat Clearance w eGFR > 60 Random Glucose 119 H Calcium 8.8 Total Bilirubin 0.3 AST 15 ALT 17 Alkaline Phosphatase 77 Total Protein 6.2 L Albumin 3.6 Urine Color Yellow Urine Appearance Clear Urine pH 5.0 Ur Specific [place] 1.024 Urine Protein 1+ H Urine Glucose (UA) Negative Urine Ketones Negative Urine Blood Negative Urine Nitrite Negative Urine Bilirubin Negative Urine Urobilinogen Negative Ur Leukocyte Esterase Negative Urine WBC (Auto) 1 Urine RBC (Auto) 1 Urine Mucus Few RPR Titer 08/27/18 06:30 WBC RBC Hgb Hct MCV MCH MCHC RDW Plt Count MPV Sodium Potassium Chloride Carbon Dioxide Anion Gap BUN Creatinine Creat Clearance w eGFR Random Glucose Calcium Total Bilirubin AST ALT Alkaline Phosphatase Total Protein Albumin Urine Color Urine Appearance Urine pH Ur Specific [place] Urine Protein Urine Glucose (UA) Urine Ketones Urine Blood Urine Nitrite Urine Bilirubin Urine Urobilinogen Ur Leukocyte Esterase Urine WBC (Auto) Urine RBC (Auto) Urine Mucus RPR Titer Nonreactive a/p: methadone based detox protocol for opioids: pt doing well. Also on xanax 6mg/day as an outpt- here valium prn.
[2018-08-28] MEDS: QUEtiapine FUMARATE 200 MG TABLET PO SCH (22:04)
[2018-08-28] MEDS: IBUPROFEN 400 MG TABLET (FP) PO PRN (22:04)
[2018-08-28] MEDS: THIAMINE HCL 100 MG TABLET (FP) PO SCH (22:51)
[2018-08-29] MEDS: diazePAM 5 MG TABLET PO PRN ×3 (04:14→17:27)
[2018-08-29] MEDS: PRENATAL VITAMINS W/ FOLIC ACID TABLET (FP) PO SCH (09:12)
[2018-08-29] MEDS: LISINOPRIL 20 MG TABLET (FP) PO SCH (09:12)
[2018-08-29] MEDS: IBUPROFEN 400 MG TABLET (FP) PO PRN (09:12)
[2018-08-29] MEDS: NICOTINE 21 MG/24 HOURS TOPICAL PATCH TD SCH (09:12)
[2018-08-29] MEDS ORDERED: METHADONE HCL 5 MG TABLET (FOR DETOX USE ONLY) PO ONE (10:00)
[2018-08-29] MEDS ORDERED: ALBUTEROL SO4 0.083% IH SOL 2.5 MG/3 ML VIAL.NEB. NEB PRN (10:03)
[2018-08-29] MEDS ORDERED: AZITHROMYCIN 250 MG TABLET PO ONE (10:15)
--- NOTE | 2018-08-29 13:09 | PN ---
BHS Progress Note (SOAP) Subjective: Back pain, congestion/cough with a little sob (patient is chronic cigarette smoker x 47 years), shoulders hurting, agitated, anxious, yawning Objective: 08/29/18 13:06 Last Vital Signs Temp Pulse Resp BP Pulse Ox 99.6 F 94 H 18 175/96 H 08/29/18 09:07 08/29/18 09:07 08/29/18 09:07 08/29/18 09:07 Elevated b/p (h/o htn, on med) PE: Chest: congested, cough (sounds moist) Resp: lungs clear with mild scattered coarse breath sounds posteriorly CV: rrr,s1s2+ Skin: warm to touch, turgor good Laboratory Tests 08/27/18 08/27/18 08/27/18 00:05 06:30 06:30 WBC 7.4 RBC 4.75 Hgb 14.4 Hct 44.5 MCV 93.7 MCH 30.3 MCHC 32.3 RDW 13.8 Plt Count 183 MPV 9.7 Sodium 140 Potassium 4.1 Chloride 104 Carbon Dioxide 29 Anion Gap 7 L BUN 24 H Creatinine 0.8 Creat Clearance w eGFR > 60 Random Glucose 119 H Calcium 8.8 Total Bilirubin 0.3 AST 15 ALT 17 Alkaline Phosphatase 77 Total Protein 6.2 L Albumin 3.6 Urine Color Yellow Urine Appearance Clear Urine pH 5.0 Ur Specific [place] 1.024 Urine Protein 1+ H Urine Glucose (UA) Negative Urine Ketones Negative Urine Blood Negative Urine Nitrite Negative Urine Bilirubin Negative Urine Urobilinogen Negative Ur Leukocyte Esterase Negative Urine WBC (Auto) 1 Urine RBC (Auto) 1 Urine Mucus Few RPR Titer 08/27/18 06:30 WBC RBC Hgb Hct MCV MCH MCHC RDW Plt Count MPV Sodium Potassium Chloride Carbon Dioxide Anion Gap BUN Creatinine Creat Clearance w eGFR Random Glucose Calcium Total Bilirubin AST ALT Alkaline Phosphatase Total Protein Albumin Urine Color Urine Appearance Urine pH Ur Specific [place] Urine Protein Urine Glucose (UA) Urine Ketones Urine Blood Urine Nitrite Urine Bilirubin Urine Urobilinogen Ur Leukocyte Esterase Urine WBC (Auto) Urine RBC (Auto) Urine Mucus RPR Titer Nonreactive Labs reviewed: bun 24, UA 1+ protein Chest xray: negative for PNA Assessment: 08/29/18 13:08 Withdrawal symptoms Noted with azotemia and proteinuria Noted with acute bronchitis r/t nicotine dependence Plan: Continue detox Azotemia: encouraged PO water intake for hydration Proteinuria: repeat UA Acute bronchitis secondary to nicotine dependence: chest xray to rule out PNA, start Z Jack, continue respiratory treatment prn, cough syrup prn, encouraged to drink adequate amount of water HTN: continue htn regimen
[2018-08-29] MEDS: QUEtiapine FUMARATE 200 MG TABLET PO SCH (22:09)
[2018-08-29] MEDS: THIAMINE HCL 100 MG TABLET (FP) PO SCH (22:09)
[2018-08-29] MEDS: hydrOXYzine PAMOATE 50 MG CAPSULE (FP) PO PRN (22:10)
[2018-08-30] MEDS: IBUPROFEN 400 MG TABLET (FP) PO PRN (02:09)
[2018-08-30] MEDS: hydrOXYzine PAMOATE 50 MG CAPSULE (FP) PO PRN ×2 (05:34→11:06)
[2018-08-30] MEDS ORDERED: METHADONE HCL 10 MG TABLET (FOR DETOX USE ONLY) PO ONE (10:00)
[2018-08-30] MEDS: LISINOPRIL 20 MG TABLET (FP) PO SCH (11:03)
[2018-08-30] MEDS: PRENATAL VITAMINS W/ FOLIC ACID TABLET (FP) PO SCH (11:03)
[2018-08-30] MEDS: NICOTINE 21 MG/24 HOURS TOPICAL PATCH TD SCH (11:04)
[2018-08-30] MEDS: AZITHROMYCIN 250 MG TABLET PO SCH (11:04)
--- NOTE | 2018-08-30 15:27 | PN ---
BHS Progress Note (SOAP) Subjective: feeling better no body ache no tremor less sweat Objective: 08/30/18 15:26 Vital Signs Temperature 98.4 F 08/30/18 13:41 Pulse Rate 81 08/30/18 13:41 Respiratory Rate 20 08/30/18 13:41 Blood Pressure 140/73 08/30/18 13:41 O2 Sat by Pulse Oximetry (%) Laboratory Last Values WBC 7.4 K/mm3 (4.0-10.0) 08/27/18 06:30 RBC 4.75 M/mm3 (4.00-5.60) 08/27/18 06:30 Hgb 14.4 GM/dL (11.7-16.9) 08/27/18 06:30 Hct 44.5 % (35.4-49) 08/27/18 06:30 MCV 93.7 fl (80-96) 08/27/18 06:30 MCH 30.3 pg (25.7-33.7) 08/27/18 06:30 MCHC 32.3 g/dl (32.0-35.9) 08/27/18 06:30 RDW 13.8 % (11.9-15.9) 08/27/18 06:30 Plt Count 183 K/MM3 (134-434) 08/27/18 06:30 MPV 9.7 fl (7.5-11.1) 08/27/18 06:30 Sodium 140 mmol/L (136-145) 08/27/18 06:30 Potassium 4.1 mmol/L (3.5-5.1) 08/27/18 06:30 Chloride 104 mmol/L (98-107) 08/27/18 06:30 Carbon Dioxide 29 mmol/L (21-32) 08/27/18 06:30 Anion Gap 7 MMOL/L (8-16) L 08/27/18 06:30 BUN 24 mg/dL (7-18) H 08/27/18 06:30 Creatinine 0.8 mg/dL (0.55-1.3) 08/27/18 06:30 Creat Clearance w eGFR > 60 (>60) 08/27/18 06:30 Random Glucose 119 mg/dL (74-106) H 08/27/18 06:30 Calcium 8.8 mg/dL (8.5-10.1) 08/27/18 06:30 Total Bilirubin 0.3 mg/dL (0.2-1) 08/27/18 06:30 AST 15 U/L (15-37) 08/27/18 06:30 ALT 17 U/L (13-61) 08/27/18 06:30 Alkaline Phosphatase 77 U/L (45-117) 08/27/18 06:30 Total Protein 6.2 g/dl (6.4-8.2) L 08/27/18 06:30 Albumin 3.6 g/dl (3.4-5.0) 08/27/18 06:30 Urine Color Yellow 08/27/18 00:05 Urine Appearance Clear 08/27/18 00:05 Urine pH 5.0 (5.0-8.0) 08/27/18 00:05 Ur Specific [place] 1.024 (1.010-1.035) 08/27/18 00:05 Urine Protein 1+ (NEGATIVE) H 08/27/18 00:05 Urine Glucose (UA) Negative (NEGATIVE) 08/27/18 00:05 Urine Ketones Negative (NEGATIVE) 08/27/18 00:05 Urine Blood Negative (NEGATIVE) 08/27/18 00:05 Urine Nitrite Negative (NEGATIVE) 08/27/18 00:05 Urine Bilirubin Negative (<2.0 mg/dL) 08/27/18 00:05 Urine Urobilinogen Negative mg/dL (0.2-1.0) 08/27/18 00:05 Ur Leukocyte Esterase Negative (NEGATIVE) 08/27/18 00:05 Urine WBC (Auto) 1 /hpf (3-5) 08/27/18 00:05 Urine RBC (Auto) 1 /hpf (0-3) 08/27/18 00:05 Urine Mucus Few 08/27/18 00:05 RPR Titer Nonreactive (NONREACTIVE) 08/27/18 06:30 lab noted Assessment: 08/30/18 15:26 mild withdrawal sx Plan: medically supervised detox
[2018-08-30] MEDS ORDERED: TAMSULOSIN HCL 0.4 MG CAP PO ONE (19:45)
[2018-08-30] MEDS ORDERED: NICOTINE POLACRILEX 2 MG GUM BUC PRN (20:09)
[2018-08-30] MEDS: QUEtiapine FUMARATE 200 MG TABLET PO SCH (22:45)
[2018-08-30] MEDS: THIAMINE HCL 100 MG TABLET (FP) PO SCH (22:46)
[2018-08-31] MEDS ORDERED: METHADONE HCL 5 MG TABLET (FOR DETOX USE ONLY) PO ONE (06:00)
[2018-08-31 09:37] VITALS: BP 110/75; PULSE 99; TEMP 96.8
[2018-08-31 09:41] LABS: URINE APPEARANCE CLOUDY; URINE BILIRUBIN NEGATIVE (<2.0 mg/dL); URINE COLOR STRAW; URINE GLUCOSE (UA) NEGATIVE (NEGATIVE); URINE KETONE NEGATIVE (NEGATIVE); URINE LEUK ESTERASE 2+ (NEGATIVE); URINE NITRITE NEGATIVE (NEGATIVE); URINE PROTEIN NEGATIVE (NEGATIVE); URINE UROBILINOGEN NEGATIVE mg/dL (0.2-1.0)
[2018-08-31] MEDS: PRENATAL VITAMINS W/ FOLIC ACID TABLET (FP) PO SCH (10:07)
[2018-08-31] MEDS: AZITHROMYCIN 250 MG TABLET PO SCH (10:07)
[2018-08-31] MEDS: LISINOPRIL 20 MG TABLET (FP) PO SCH (10:07)
[2018-08-31] MEDS: NICOTINE 21 MG/24 HOURS TOPICAL PATCH TD SCH (10:08)
[2018-08-31 10:15] LABS: EPI CELLS FEW /HPF (FEW); URINE BACTERIA RARE /hpf (NONE SEEN)
--- NOTE | 2018-08-31 12:14 | DS ---
[facility] Detox Discharge Summary Admission Date: 08/26/18 Discharge Date: 08/31/18 - History Present History: Opioid Dependence - Physical Exam Results Vital Signs: Vital Signs Temperature 96.8 F L 08/31/18 09:37 Pulse Rate 99 H 08/31/18 09:37 Respiratory Rate 20 08/31/18 09:37 Blood Pressure 110/75 08/31/18 09:37 O2 Sat by Pulse Oximetry (%) Pertinent Admission Physical Exam Findings: PATIENT D/C HOME TODAY. TOLERATED DETOX WITHOUT ADVERSE EVENT. PATIENT MEDICALLY STABLE.DENIES SI/HI. ENCOURAGED TO ATTEND GROUP MEETINGS, NA TO PREVENT RELAPSE. D/C INSTRUCTIONS PROVIDED TO PATIENT BY STAFF. - Treatment Hospital Course: Detox Protocol Followed, Detoxed Safely, Responded well, Discharged Condition Good - Medication Discharge Medications: Ambulatory Orders Quetiapine Fumarate [Seroquel] 300 mg PO HS 01/14/18 Ranitidine HCl [Zantac] 300 mg PO DAILY 02/12/18 Albuterol Sulfate Inhaler - [Ventolin HFA Inhaler -] 2 inh PO Q4H PRN #1 inhaler 08/30/18 Lisinopril [Prinivil] 20 mg PO DAILY #14 tablet 08/30/18 Tamsulosin HCl [Flomax -] 0.4 mg PO DAILY #14 cap.er.24h 08/30/18 - AMA Did Patient Leave Against Medical Advice: No
== END 2018-08-31 10:18 | disposition home or self-care (01) | DRG 773 ==
LOC: YASAS 13:28 → Y3N 17:54
PROC: HZ2ZZZZ Detoxification Services for Substance Abuse Treatment (ICD-10-PCS; principal; 2018-08-26)
DX: F11.23 Opioid dependence with withdrawal (principal); F13.230 Sedative, hypnotic or anxiolytic dependence with withdrawal, uncomplicated; F17.200 Nicotine dependence, unspecified, uncomplicated; F31.9 Bipolar disorder, unspecified; F19.24 Other psychoactive substance dependence with psychoactive substance-induced mood disorder; G47.00 Insomnia, unspecified; I10 Essential (primary) hypertension; J20.9 Acute bronchitis, unspecified; K59.01 Slow transit constipation; N40.0 Benign prostatic hyperplasia without lower urinary tract symptoms; M19.90 Unspecified osteoarthritis, unspecified site; B18.2 Chronic viral hepatitis C; R79.89 Other specified abnormal findings of blood chemistry; R80.9 Proteinuria, unspecified; R26.89 Other abnormalities of gait and mobility; Z99.89 Dependence on other enabling machines and devices; Z91.19 Patient's noncompliance with other medical treatment and regimen
CPT/HCPCS: 36415; 71046-TC-FY; 80053; 81003; 81015; 85027; 86593

== ENCOUNTER 2020-04-22 18:31 | Emergency (ER) | payer OTHER ==
[2020-04-22 18:44] VITALS: TEMP 98; BMI 28.1
--- NOTE | 2020-04-22 18:44 | PDOC ---
Rapid Medical Evaluation Chief Complaint: Injury Time Seen by Provider: 04/22/20 18:43 Medical Evaluation: Allergies Allergy/AdvReac Type Severity Reaction Status Date / Time No Known Allergies Allergy Verified 04/22/20 09:43 04/22/20 18:44 I have performed a brief in-person evaluation of this patient. CC: sent from [facility] for evaluation s/p fall PE: No focal findings Orders: CTH, c-spine, Xray left shoulder Patient to proceed to ED for further evaluation. Discharge Disposition - Diagnosis Fall - Referrals Referrals: Vicente Laureano MD [Primary Care Provider] - - Patient Instructions - Post Discharge Activity
--- NOTE | 2020-04-22 19:12 | PDOC ---
History of Present Illness - General Chief Complaint: Injury Stated Complaint: FALL Time Seen by Provider: 04/22/20 18:43 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 ) COPD: No CHF: No Dementia: No Diabetes: No GI Disorders: No Disorders: Yes (BPH) HTN: No Hypercholesterolemia: No Kidney Stones: No Liver Disease: No Seizures: No Thyroid Disease: No - Surgical History Abdominal Surgery: Yes (hernia repair) Appendectomy: Yes (04/2018) Cardiac Surgery: No Cholecystectomy: No Lung Surgery: No Neurologic Surgery: No Orthopedic Surgery: Yes (bilateral knee replacement 2006, 2014) - Reproductive History Testicular Surgery: No - Psycho-Social/Smoking History Smoking History: Current every day smoker Have you smoked in the past 12 months: Yes Number of Cigarettes Smoked Daily: 12 Cigars Per Day: 0 Information on smoking cessation initiated: No 'Breaking Loose' booklet given: 04/22/20 - Substance Abuse Hx (Audit-C & DAST Scrn) In the last yr the pt used illegal drug/Rx for NonMed reason: Yes Score: Yes response is considered Positive: 1 Screen Result (Positive result requires Nsg. DAST-10): Positive *Physical Exam - Vital Signs Last Vital Signs Temp Pulse Resp BP Pulse Ox 98 F 92 H 18 108/72 98 04/22/20 18:39 04/22/20 18:39 04/22/20 18:39 04/22/20 18:39 04/22/20 18:39 Discharge - Discharge Information Clinical Impression/Diagnosis: Fall - Follow up/Referral Referrals: Vicente Laureano MD [Staff Physician] - - Patient Discharge Instructions - Post Discharge Activity
--- NOTE | 2020-04-22 20:10 | PDOC ---
History of Present Illness - General Chief Complaint: Injury Stated Complaint: FALL Time Seen by Provider: 04/22/20 18:43 History Source: Patient Exam Limitations: No Limitations - History of Present Illness Initial Comments: 04/22/20 20:07 64-year-old male past medical history of opioid abuse sent from [facility] status post fall. Patient states that he went to go sit in a chair missed the chair falling on his bottom as well as his shoulder and hitting his head. Patient did not lose consciousness, does not have a headache no vomiting no nausea no dizziness. Patient is actively walking around the ED requesting cigarettes and a soda. States that there is nothing wrong and that he wants to go back to [facility] and does not need to be evaluated. Pt otherwise denies: fevers, chills, syncope, lightheadedness, dizziness, headaches, neck pain, chest pain, shortness of breath, palpitations, back pain, abdominal pain, nausea, vomiting, diarrhea, constipation. 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 ) COPD: No CHF: No Dementia: No Diabetes: No GI Disorders: No Disorders: Yes (BPH) HTN: No Hypercholesterolemia: No Kidney Stones: No Liver Disease: No Seizures: No Thyroid Disease: No - Surgical History Abdominal Surgery: Yes (hernia repair) Appendectomy: Yes (04/2018) Cardiac Surgery: No Cholecystectomy: No Lung Surgery: No Neurologic Surgery: No Orthopedic Surgery: Yes (bilateral knee replacement 2006, 2014) - Reproductive History Testicular Surgery: No - Psycho-Social/Smoking History Smoking History: Current every day smoker Have you smoked in the past 12 months: Yes Number of Cigarettes Smoked Daily: 12 Cigars Per Day: 0 Information on smoking cessation initiated: No 'Breaking Loose' booklet given: 04/22/20 - Substance Abuse Hx (Audit-C & DAST Scrn) In the last yr the pt used illegal drug/Rx for NonMed reason: Yes Score: Yes response is considered Positive: 1 Screen Result (Positive result requires Nsg. DAST-10): Positive *Physical Exam - Vital Signs Last Vital Signs Temp Pulse Resp BP Pulse Ox 98 F 92 H 18 108/72 98 04/22/20 18:39 04/22/20 18:39 04/22/20 18:39 04/22/20 18:39 04/22/20 18:39 - Physical Exam 04/22/20 20:08 Gen: AAOx 3, no acute distress, comfortable, no signs of respiratory distress HENT: atraumatic, normocephalic with no laceration or contusion. Nasal mucosa without erythema. Oropharynx without erythema or exudates. Mucous membranes moist. EYES: PERRL, EOM intact, conjunctiva pink NECK: supple; trachea midline; no JVD, no lymphadenopathy, or thyromegaly CV: RRR no murmurs, gallops, or rubs. CHEST: CTA b/l no wheezing, rales or rhonchi ABD: +BS/ND. no TTP; soft, no rebound, no guarding EXTREMITY: no cyanosis or erythema. 2+ dorsalis pedis, posterior tibial, and radial pulse. No pedal edema; no calf swelling or tenderness SKIN: no rash, warm and dry, no diaphoresis HEME: no purpura or ecchymosis NEURO: normal speech, CN II-XII intact, sensation intact, normal gait, no cerebellar deficits MS: 5/5 strength in all extremities, FROM intact in all extremities. Medical Decision Making - Medical Decision Making 04/22/20 20:08 64-year-old male status post fall Vital signs stable Neuro exam benign Will obtain x-ray shoulder CT head and cervical as precaution Will reassess based on results CT head cervical spine and x-ray shoulder negative for any acute findings Patient is safe and stable for discharge strict return precautions given Supportive care instructions explained and given to pt. Reasons to return emergently to ER explained and given. Importance of follow up with PMD and other specialists as indicated stressed to pt. Pt verbalized understanding of instru ctions. Pt to follow up with PMD in 2 days. 04/22/20 20:35 Discharge - Discharge Information Problems reviewed: Yes Clinical Impression/Diagnosis: Fall Qualifiers: Encounter type: initial encounter Qualified Code(s): W19.XXXA - Unspecified fall, initial encounter Condition: Stable Disposition: RETIREMENT FACILITY - Admission No - Follow up/Referral Referrals: Vicente Laureano MD [Staff Physician] - - Patient Discharge Instructions Patient Printed Discharge Instructions: DI for Closed Head Injury - Post Discharge Activity
[2020-04-22] MEDS ORDERED: QUEtiapine FUMARATE 400 MG TABLET PO ONE (22:12)
[2020-04-22] MEDS ORDERED: diazePAM 5 MG TABLET ONE (22:15)
[2020-04-22] MEDS ORDERED: QUEtiapine FUMARATE 100 MG TABLET (FP) ONE (22:16)
--- NOTE | 2020-04-22 22:16 | PDOC ---
*Physical Exam - Vital Signs Last Vital Signs Temp Pulse Resp BP Pulse Ox 98 F 92 H 18 108/72 98 04/22/20 18:39 04/22/20 18:39 04/22/20 18:39 04/22/20 18:39 04/22/20 18:39 - Physical Exam 04/22/20 22:13 gen: aao3, walking around, anxious, angry, yelling at staff Medical Decision Making - Medical Decision Making 04/22/20 22:14 a/p: 64yo male sent from [facility] for eval of a fall -imaging done per the fall protocol -pt ambulating around the ER yelling at staff and other patients -pt states he needs his meds -states he is due from Seroquel and valium -will dose in the Er -pt has been dc but is waiting for an ambulance back to [facility] Discharge - Discharge Information Problems reviewed: Yes Clinical Impression/Diagnosis: Opioid dependence with withdrawal, Bipolar disorder Fall Qualifiers: Encounter type: initial encounter Qualified Code(s): W19.XXXA - Unspecified fall, initial encounter Condition: Stable Disposition: NURSING HOME FACILITY - Follow up/Referral Referrals: Vicente Laureano MD [Staff Physician] - - Patient Discharge Instructions Patient Printed Discharge Instructions: DI for Closed Head Injury - Post Discharge Activity
[2020-04-22] MEDS ORDERED: diazePAM 5 MG TABLET PO ONE (22:52)
[2020-04-22 23:38] VITALS: BP 105/74; PULSE 85
[2020-04-23] MEDS ORDERED: diazePAM 5 MG TABLET PO ONE (22:12)
== END 2020-04-22 23:38 ==
LOC: JER 18:31
DX: F11.23 Opioid dependence with withdrawal (principal); F31.9 Bipolar disorder, unspecified
CPT/HCPCS: 70450-TC; 72125-TC; 73030-TC-LT-FY; 99284-25

== ENCOUNTER 2020-05-15 22:49 | Emergency (ER) | payer OTHER ==
[2020-05-15 23:42] VITALS: BP 145/99; PULSE 85; TEMP 98.7; BMI 32.5
--- NOTE | 2020-05-16 01:09 | PDOC ---
Attending Attestation - Resident Resident Name: Larissa Marshall - ED Attending Attestation I have performed the following: I have examined & evaluated the patient, The case was reviewed & discussed with the resident, I agree w/resident's findings & plan - HPI HPI: 05/16/20 01:39 Pt comes requesting detox from the street klonopin that he has been taking on top of his seroquel and other meds for anxiety, Pt is refusing blood tests and refuaing to return home. Pt is requesting hydration with water and juices. Pt has no other complaints. - Physicial Exam PE: 05/16/20 01:40 Agree with resident exam - Medical Decision Making 05/16/20 01:40 Pt will go to [facility] detox later this AM, as they have beds at 8AM that ought to open up. Discharge - Discharge Information Problems reviewed: Yes Clinical Impression/Diagnosis: Desire for detoxification Condition: Stable Disposition: HOME - Admission No - Follow up/Referral Referrals: Lucas Summers MD [Primary Care Provider] - - Patient Discharge Instructions Additional Instructions: You were seen in the ED seeking detox. In the ED you were evaluated and found to be alert and oriented to person place and time [facility] was called and they have a bed available for you. You are advised to follow up with your Primary Care Physician within 1 week. You are being sent to Return to the ED immediately if you experience - Post Discharge Activity
--- NOTE | 2020-05-16 01:12 | PDOC ---
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 He has no other complaints. ROS GENERAL/CONSTITUTIONAL: No fever or chills. No weakness. HEAD, EYES, EARS, NOSE AND THROAT: No change in vision. No ear pain or discharge. No sore throat. CARDIOVASCULAR: No chest pain or shortness of breath RESPIRATORY: No cough, wheezing, or hemoptysis. GASTROINTESTINAL: No nausea, vomiting, diarrhea or constipation. GENITOURINARY: No dysuria, frequency, or change in urination. MUSCULOSKELETAL: No joint or muscle swelling or pain. No neck or back pain. SKIN: No rash NEUROLOGIC: No headache, vertigo, loss of consciousness, or change in strength/sensation. ENDOCRINE: No increased thirst. No abnormal weight change HEMATOLOGIC/LYMPHATIC: No anemia, easy bleeding, or history of blood clots. ALLERGIC/IMMUNOLOGIC: No hives or skin allergy. PE GENERAL: Awake, alert, and fully oriented, in no acute distress HEAD: No signs of trauma, normocephalic, atraumatic EYES: EOMI, sclera anicteric, conjunctiva clear ENT: oropharynx clear without exudates. Moist mucosa NECK: Normal ROM, supple LUNGS: No distress, speaks full sentences, clear to auscultation bilaterally HEART: Regular rate and rhythm, normal S1 and S2, no murmurs, rubs or gallops, peripheral pulses normal and equal bilaterally. ABDOMEN: Soft, nontender. No guarding, no rebound. No masses EXTREMITIES : Normal inspection, Normal range of motion, no edema. No clubbing or cyanosis. NEUROLOGICAL: Cranial nerves II through XII grossly intact. 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 Patient AOx3 repeatedly walking around to go have a smoke [facility] called, recommend sending pt in the AM Will send pt to [facility] in he AM. 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 ) COPD: No CHF: No Dementia: No Diabetes: No GI Disorders: No Disorders: Yes (BPH) HTN: No Hypercholesterolemia: No Kidney Stones: No Liver Disease: No Seizures: No Thyroid Disease: No - Surgical History Abdominal Surgery: Yes (hernia repair) Appendectomy: Yes (04/2018) Cardiac Surgery: No Cholecystectomy: No Lung Surgery: No Neurologic Surgery: No Orthopedic Surgery: Yes (bilateral knee replacement 2006, 2014) - Reproductive History Testicular Surgery: No - Immunization History Immunization Up to Date: Yes - Psycho-Social/Smoking History Smoking History: Current every day smoker Have you smoked in the past 12 months: Yes Number of Cigarettes Smoked Daily: 20 Cigars Per Day: 0 Information on smoking cessation initiated: No 'Breaking Loose' booklet given: 04/22/20 - Substance Abuse Hx (Audit-C & DAST Scrn) How often the patient has a drink containing alcohol: Never Score: In Men: 4 or > Positive; In Women: 3 or > Positive: 0 Screen Result (Pos requires Nsg. Audit-10AR): Negative In the last yr the pt used illegal drug/Rx for NonMed reason: No Score: Yes response is considered Positive: 0 Screen Result (Positive result requires Nsg. DAST-10): Negative *Physical Exam - Vital Signs Last Vital Signs Temp Pulse Resp BP Pulse Ox 98.7 F 85 17 145/99 95 05/15/20 23:37 05/15/20 23:37 05/15/20 23:37 05/15/20 23:37 05/15/20 23:37 Discharge - Discharge Information Problems reviewed: Yes Clinical Impression/Diagnosis: Desire for detoxification - Follow up/Referral Referrals: Lucas Summers MD [Primary Care Provider] - - Patient Discharge Instructions Additional Instructions: You were seen in the ED seeking detox. In the ED you were evaluated and found to be alert and oriented to person place and time [facility] was called and they have a bed available for you. You are advised to follow up with your Primary Care Physician within 1 week. You are being sent to Return to the ED immediately if you experience - Post Discharge Activity
== END 2020-05-16 07:27 | disposition home or self-care (01) ==
LOC: JER 22:49
DX: F19.10 Other psychoactive substance abuse, uncomplicated (principal)
CPT/HCPCS: 99283-25

== ENCOUNTER 2020-05-16 08:36 | Inpatient (IN) | payer OTHER ==
--- NOTE | 2020-05-16 09:41 | BHS.RME ---
Substance Use & Tx History - Substance Use History Heroin Substance amount: 5 bags Frequency of use: Daily Substance route: Inhalation (ex: sniffing or snorting) Date of Last Use: 05/15/20 OxyContin Substance amount: 7 tabs Frequency of use: More than 3 times per week Substance route: Oral Date of Last Use: 05/14/20 Xanax Substance amount: 18 tabs Frequency of use: More than 3 times per week Substance route: Oral Date of Last Use: 05/15/20 Buprenorphine Substance amount: 1 Frequency of use: Less than 3 times per week Substance route: Oral - Last Treatment Date of last treatment: 04/22/2020 Where was last treatment: Detox Physical/Psych/Mental Status - Behavior General Behavior: Increased activity (restlessness, agitation) Eye Contact: Normal Other Behaviors: Mannerisms - Cooperativeness Cooperativeness: Cooperative - Thinking Thought Processes: Tight Thought content: Future oriented - Physical Health Problems Is patient presently having any pain?: Yes Does patient presently have any injuries (include location): Yes Does patient currently have a fever: No COWS - Scale Resting Pulse: 1= [place] 81-100 Sweatin= Chills/Flushing Restless Observation: 3= Extraneous Movement Pupil Size: 0= Normal to Room Light Bone or Joint Aches: 2= Severe Diffuse Aches Runny Nose/ Eye Tearin= Nasal Congestion GI Upset > 30mins: 1= Stomach Cramp Tremor Observation: 1= Tremor [place], Not Seen Yawning Observation: 0= None Anxiety or Irritability: 2=Irritable/Anxious Goose Flesh Skin: 0=Smooth Skin COWS Score: 12 CIWA Nausea/Vomitin-Mild Nausea/No Vomiting Muscle Tremors: 1-None Visible, but [place] Anxiety: 3 Agitation: 3 Paroxysmal Sweats: 1-Minimal Palms Moist Orientation: 0-Oriented Tacttile Disturbances: 2-Mild Itch/Numbness/Burn Auditory Disturbances: 0-None Visual Disturbances: 0-None Headache: 1-Very Mild CIWA-Ar Total Score: 12
--- NOTE | 2020-05-16 09:42 | HP ---
"COWS - Scale Resting Pulse: 1= CT 81-100 Sweatin= Chills/Flushing Restless Observation: 3= Extraneous Movement Pupil Size: 0= Normal to Room Light Bone or Joint Aches: 2= Severe Diffuse Aches Runny Nose/ Eye Tearin= Nasal Congestion GI Upset > 30mins: 1= Stomach Cramp Tremor Observation: 1= Tremor [place], Not Seen Yawning Observation: 0= None Anxiety or Irritability: 2=Irritable/Anxious Goose Flesh Skin: 0=Smooth Skin COWS Score: 12 CIWA Score Nausea/Vomitin-Mild Nausea/No Vomiting Muscle Tremors: 1-None Visible, but [place] Anxiety: 3 Agitation: 3 Paroxysmal Sweats: 1-Minimal Palms Moist Orientation: 0-Oriented Tacttile Disturbances: 2-Mild Itch/Numbness/Burn Auditory Disturbances: 0-None Visual Disturbances: 0-None Headache: 1-Very Mild CIWA-Ar Total Score: 12 - Admission Criteria OASAS Guidelines: Admission for Medically Managed Detox: Requires at least one of the followin. CIWA greater than 12 2. Seizures within the past 24 hours 3. Delirium tremens within the past 24 hours 4. Hallucinations within the past 24 hours 5. Acute intervention needed for co occurring medical disorder 6. Acute intervention needed for co occurring psychiatric disorder 7. Severe withdrawal that cannot be handled at a lower level of care (continued vomiting, continued diarrhea, abnormal vital signs) requiring intravenous medication and/or fluids 8. Patient presents the following: CIWA greater than 12 Admission Criteria Met: Admission criteria met Admitting History and Physical - Past Medical History PROCESS TECH: Yes: CVA Cardiovascular: Yes: HTN Pulmonary: Yes: COPD Hepatobiliary: Yes: Hepatitis C Renal/: Yes: BPH Psych: Yes: Addictions (hx of heroin abuse, alcohol abuse, nicotine dependence), Bipolar, Depression Musculoskeletal: Yes: Chronic low back pain - Past Surgical History Past Surgical History: Yes: Joint Replacement (b/l knees) - Smoking History Smoking history: Current every day smoker Have you smoked in the past 12 months: Yes Aproximately how many cigarettes per day: 20 - Alcohol/Substance Use Hx Alcohol Use: Yes (Occasional) Admission ROS [facility]HS - HPI Chief Complaint: I need detox Allergies/Adverse Reactions: Allergies Allergy/AdvReac Type Severity Reaction Status Date / Time No Known Allergies Allergy Verified 05/16/20 10:28 History of Present Illness: Patient is a 64 years old man who is sent from [facility] where he was observed overnight after he presented for detox following an argument with his . Patient was last admitted for detox on 04/22/20, he fell the same day and was evaluated and cleared in the ED, he was discharged from detox on 04/27/2020. Patient has history of CVA with residual right sided weakness, HTN, opiate abuse, uses street xanax and abuses his prescriptions for seroquel. Search Terms: pete carver, 1955Search Date: 05/16/2020 10:08:03 AM The Drug Utilization Report below displays all of the controlled substance prescriptions, if any, that your patient has filled in the last twelve months. The information displayed on this report is compiled from pharmacy submissions to the Department, and accurately reflects the information as submitted by the pharmacies. This report was requested by: Nesha Rodriguez | Reference #: [id number] There are no results for the search terms that you entered. Exam Limitations: Other (irritable) - Ebola screening Have you traveled outside of the country in the last 21 days: No Have you had contact with anyone from an Ebola affected area: No Have you been sick,other than usual withdrawal symptoms: No Do you have a fever: No - Review of Systems Constitutional: Changes in sleep, Weakness EENT: reports: Blurred Vision Respiratory: reports: SOB with Exertion Cardiac: reports: No Symptoms Reported GI: reports: Poor Fluid Intake, Abdominal cramping : reports: Frequency, Urgency Musculoskeletal: reports: Joint Pain, Muscle Pain, Muscle Weakness Integumentary: reports: Bruising Neuro: reports: Headache, Numbness, Weakness, Unsteady Gait Endocrine: reports: No Symptoms Reported Hematology: reports: No Symptoms Reported Psychiatric: reports: Agitated, Anxious Other Systems: Reviewed and Negative Patient History - Patient Medical History Hx Anemia: Yes Hx Asthma: No Hx Chronic Obstructive Pulmonary Disease (COPD): No Hx Cancer: No Hx Cardiac Disorders: No Hx Congestive Heart Failure: No Hx Hypertension: Yes Hx Hypercholesterolemia: No Hx Pacemaker: No HX Cerebrovascular Accident: Yes (2014 with residual R sided weakness ) Hx Seizures: No Hx Dementia: No Hx Diabetes: No Hx Gastrointestinal Disorders: No Hx Liver Disease: No Hx Genitourinary Disorders: Yes (BPH) Hx Sexually Transmitted Disorders: No Hx Renal Disease (ESRD): No Hx Thyroid Disease: No Hx Human Immunodeficiency Virus (HIV): No Hx Hepatitis C: Yes Hx Depression: Yes Hx Suicide Attempt: No Hx Bipolar Disorder: Yes Hx Schizophrenia: No - Patient Surgical History Past Surgical History: No Hx Neurologic Surgery: No Hx Cataract Extraction: No Hx Cardiac Surgery: No Hx Lung Surgery: No Hx Breast Surgery: No Hx Breast Biopsy: No Hx Abdominal Surgery: Yes (hernia repair) Hx Appendectomy: Yes (04/2018) Hx Cholecystectomy: No Hx Genitourinary Surgery: No Hx Orthopedic Surgery: Yes (bilateral knee replacement 2006, 2014) Other Surgical History: retinal detachment repair 1998 Anesthesia Reaction: No - PPD History Previous Implant?: Yes Documented Results: Negative w/proof Implanted On Prior [facility] Admission?: Yes Date: 04/24/20 Results: 0mm PPD to be Administered?: No - Smoking Cessation Smoking history: Current every day smoker Have you smoked in the past 12 months: Yes Aproximately how many cigarettes per day: 20 Cigars Per Day: 0 Hx Chewing Tobacco Use: No Initiated information on smoking cessation: Yes 'Breaking Loose' booklet given: 05/16/20 - Substances abused Heroin Substance route: Inhalation Amount used: 2 , $10 bags a week Age of first use: 35 Alprazolam (Xanax) Other (specify): Xanax 2mg Substance route: Oral Frequency: Daily Amount used: 6-10mg Age of first use: 35 Date of last use: 05/15/20 Other Substance route: Oral Frequency: 1-3 times last 30 days Amount used: 1-3 sticks Age of first use: 36 Date of last use: 05/14/20 Admission Physical Exam [facility] - Physical General Appearance: Yes: Irritable, Anxious HEENTM: Yes: Hearing grossly Normal, Normocephalic, Normal Voice, Other (edentulous) Respiratory: Yes: Chest Non-Tender, Lungs Clear, Normal Breath Sounds, No Respiratory Distress, No Accessory Muscle Use Neck: Yes: No masses,lesions,Nodules, Supple Breast: Yes: Breast Exam Deferred Cardiology: Yes: Regular Rhythm, Regular Rate Abdominal: Yes: Normal Bowel Sounds, Non Tender Genitourinary: Yes: Frequency Back: Yes: Normal Inspection Musculoskeletal: Yes: Back pain, Muscle Pain, Muscle weakness, Other (unsteady gait) Extremities: Yes: Other (decreased ROM) Neurological: Yes: Fully Oriented, Alert, Normal Response, Numbness, Other (right sided weakness) Integumentary: Yes: Clammy, Other (left knee bruise) Lymphatic: Yes: Within Normal Limits - Diagnostic (1) H/O fall Current Visit: Yes Status: Acute (2) Benzodiazepine dependence Current Visit: Yes Status: Acute (3) Nicotine dependence Current Visit: Yes Status: Acute (4) Opioid dependence with withdrawal Current Visit: Yes Status: Acute (5) BPH (benign prostatic hyperplasia) Current Visit: Yes Status: Chronic Qualifiers: Lower urinary tract symptom presence: symptoms present Lower urinary tract symptom detail: urinary frequency Qualified Code(s): N40.1 - Benign prostatic hyperplasia with lower urinary tract symptoms; R35.0 - Frequency of micturition (6) CVA (cerebral vascular accident) Current Visit: Yes Status: Chronic Qualifiers: Laterality of affected vessel: right Cleared for Admission [facility] - Detox or Rehab [facility] Level of Care: Medically Managed Detox Regimen/Protocol: Clonidine/Valium Claeared for Rehab Admission: No Breathalyzer - Breathalyzer Breathalyzer: 0 Urine Drug Screen - Test Device Lot number: [id number] Expiration date: 12/31/21 - Control Is test valid?: Yes - Results Drug screen NEGATIVE: No Urine drug screen results: MOP-Opiates, OXY-Oxycodone, MTD-Methadone, BZO- Benzodiazepines, BUP-Suboxone Inpatient Rehab Admission - Rehab Decision to Admit Inpatient rehab admission?: No"
[2020-05-16] MEDS ORDERED: BISMUTH SUBSALICYLATE 524 MG/30 ML UD PO PRN (10:14)
[2020-05-16] MEDS ORDERED: NALOXONE HCL 0.4 MG/ML VIAL IM PRN (10:14)
[2020-05-16] MEDS ORDERED: MAGNESIUM HYDROX 2400MG/30ML ORAL SUSPENSION 30 ML CUP PO PRN (10:14)
[2020-05-16] MEDS ORDERED: MAG HYDROX/AL HYDROX/SIMETH 30 ML UNIT-DOSE CUP PO PRN (10:14)
[2020-05-16] MEDS ORDERED: MENTHOL/PHENOL 1 EACH UD MM PRN (10:14)
[2020-05-16] MEDS ORDERED: METHOCARBAMOL 500 MG TABLET PO PRN (10:14)
[2020-05-16] MEDS ORDERED: ACETAMINOPHEN 325 MG TABLET (FP) PO PRN ×2 (10:14)
[2020-05-16] MEDS ORDERED: METHADONE HCL 10 MG TABLET (FOR DETOX USE ONLY) PO ONE (10:14)
[2020-05-16] MEDS ORDERED: IBUPROFEN 400 MG TABLET (FP) PO PRN (10:14)
[2020-05-16] MEDS ORDERED: MAGNESIUM CITRATE 300 ML BOTTLE PO PRN (10:14)
[2020-05-16] MEDS ORDERED: cloNIDine HCL 0.1 MG TABLET PO PRN (10:14)
[2020-05-16 10:51] VITALS: BMI 33.8
[2020-05-16] MEDS ORDERED: ALBUTEROL SO4 HFA INHALER IH PRN (12:03)
[2020-05-16 12:26] LABS: ALBUMIN 4.1 g/dl (3.4-5.0); BILIRUBIN,TOTAL 0.5 mg/dL (0.2-1); BLOOD UREA NITROGEN 24.4 mg/dL (7-18); CALCIUM 9.3 mg/dL (8.5-10.1); CREATININE 0.9 mg/dL (0.55-1.3); HEMATOCRIT 41.8 % (35.4-49); HEMOGLOBIN 14.1 GM/dL (11.7-16.9); MCH 31.8 pg (25.7-33.7); MCHC 33.8 g/dl (32.0-35.9); MEAN CELL VOLUME 94.3 fl (80-96); MEAN PLT VOLUME 9.2 fl (7.5-11.1); PLATELET COUNT 178 K/MM3 (134-434); RBC 4.43 M/mm3 (4.00-5.60); RDW 13.2 % (11.9-15.9); TOT PROT 7.2 g/dl (6.4-8.2); WHITE BLOOD COUNT 7.7 K/mm3 (4.0-10.0)
[2020-05-16] MEDS: NICOTINE POLACRILEX 2 MG GUM BUC PRN (12:52)
[2020-05-16] MEDS: diazePAM 5 MG TABLET PO SCH ×2 (13:37→22:18)
[2020-05-16] MEDS: diazePAM 5 MG TABLET PO PRN (18:17)
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
[2020-05-16] MEDS: MELATONIN 5 MG TABLETS PO SCH (22:18)
[2020-05-16] MEDS: THIAMINE HCL 100 MG TABLET (FP) PO SCH (22:20)
[2020-05-16] MEDS: BACITRACIN 15 GM TUBE TOPICAL OINTMENT TP SCH (22:20)
[2020-05-17] MEDS ORDERED: BACITRACIN 0.9 GM PACKET ONE (01:07)
[2020-05-17] MEDS: diazePAM 5 MG TABLET PO PRN ×2 (01:10→20:09)
[2020-05-17] MEDS: diazePAM 5 MG TABLET PO SCH ×3 (05:44→21:17)
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
[2020-05-17] MEDS ORDERED: SODIUM PHOSPHATE/NA BIPHOS 133 ML ENEMA PR ONE (09:32)
--- NOTE | 2020-05-17 09:36 | PN ---
S CIWA - CIWA Score Nausea/Vomitin-Mild Nausea/No Vomiting Muscle Tremors: 2 Anxiety: 2 Agitation: 3 Paroxysmal Sweats: No Perspiration Orientation: 0-Oriented Tacttile Disturbances: 0-None Auditory Disturbances: 0-None Visual Disturbances: 0-None Headache: 0-None Present CIWA-Ar Total Score: 8 [facility] COWS - Scale Resting Pulse: 0= [place] 80 or Below Sweatin= No chills or Flushing Restless Observation: 0= Sits Still Pupil Size: 1= Pupils >than Normal Bone or Joint Aches: 1= Mild Discomfort Runny Nose/ Eye Tearin= None GI Upset > 30mins: 2= Nausea/Diarrhea Tremor Observation of Outstretched Hands: 2= Slight Tremor Visible Yawning Observation: 0= None Anxiety or Irritability: 2=Irritable/Anxious Goose Flesh Skin: 0=Smooth Skin COWS Score: 8 [facility] Progress Note (SOAP) Subjective: Patient Name: Gaudencio Freeman Date: 1955 Address: [address] [place] [address] Sex: Male Rx Written Rx Dispensed Drug Quantity Days Supply Prescriber Name Payment Method Dispenser 05/14/2020 05/14/2020 alprazolam 2 mg tablet 45 30 Porter, Jadon [facility] 05/12/2020 05/12/2020 oxycodone-acetaminophen 10-325 mg tab 90 30 Valeria Reese C [facility] 04/16/2020 04/16/2020 alprazolam 2 mg tablet 45 30 Porter, Jadon [facility] 03/25/2020 03/25/2020 oxycodone-acetaminophen 10-325 mg tab 45 15 Fernando Encinas MD [facility] 03/19/2020 03/19/2020 alprazolam 2 mg tablet 45 30 Porter, [facility] 02/24/2020 02/24/2020 oxycodone-acetaminophen 10-325 mg tab 90 30 Mague Zambrano [facility] 02/18/2020 02/18/2020 alprazolam 2 mg tablet 45 30 Porter, Jadon [facility] 01/01/2020 01/24/2020 alp[facility]am 2 mg tablet 39 [facility]2020 01/24/2020 oxycodone-acetaminophen 10-325 mg tab 90 30 Rahul Alvarez P [facility] 12/18/2019 01/08/2020 alprazolam 2 mg tablet 21 14 [facility] 12[facility]25/2019 12/25/2019 oxycodone-acetaminophen 10-325 mg tab 90 30 Fernando Encinas MD [facility] 12/11/2019 12/19/2019 alprazolam 1 mg tablet 34 9 Hakan Li MD [facility] 12/18/2019 12/19/2019 oxycodone-acetaminophen 10-325 mg tab 30 7 Fernando Encinas MD [facility] 11/27/2019 12/06/2019 alprazolam 2 mg tablet 56 28 Hakan Li MD [facility] 11/27/2019 12/04/2019 alprazolam 0.5 mg tablet 30 30 Hakan Li MD [facility] 64 years old male was admitted on 05/16/20 for benzo and opiate withdrawal sx management treating with valium and methadone detox regiment mr freeman reports small hard stool has chronic constipation treated with enema at home fleet enema x 1 mr freeman denies right elbow and left knee and hip pain skin intact no bruises noted health teaching on negative effects of banzo mixed with opiate Objective: 05/17/20 12:29 Vital Signs - 24 hr 05/16/20 05/16/20 05/16/20 12:36 16:30 20:45 Temperature 97.3 F L 97.1 F L 97.8 F Pulse Rate 78 76 70 Respiratory 18 18 18 Rate Blood Pressure 134/72 143/90 137/89 O2 Sat by Pulse 96 Oximetry (%) 05/16/20 05/16/20 05/16/20 21:05 21:33 22:45 Temperature 97.3 F L 97.8 F Pulse Rate 79 83 72 Respiratory 18 18 18 Rate Blood Pressure 179/104 H 132/89 129/87 O2 Sat by Pulse 98 Oximetry (%) 05/17/20 05/17/20 05/17/20 00:45 01:34 02:45 Temperature 97.2 F L 97.2 F L Pulse Rate 74 74 70 Respiratory 18 18 16 Rate Blood Pressure 155/83 155/83 142/76 O2 Sat by Pulse 98 Oximetry (%) 05/17/20 05/17/20 05/17/20 04:45 06:45 08:45 Temperature 97.3 F L 97.2 F L 97.4 F L Pulse Rate 61 64 74 Respiratory 16 16 18 Rate Blood Pressure 116/69 130/82 151/84 O2 Sat by Pulse 94 L Oximetry (%) Laboratory Tests 05/16/20 05/16/20 05/16/20 10:20 10:20 10:30 WBC 7.7 RBC 4.43 Hgb 14.1 Hct 41.8 MCV 94.3 MCH 31.8 MCHC 33.8 RDW 13.2 Plt Count 178 MPV 9.2 Sodium Potassium Chloride Carbon Dioxide Anion Gap BUN Creatinine Est GFR (CKD-EPI)AfAm Est GFR (CKD-EPI)NonAf Random Glucose Calcium Total Bilirubin AST ALT Alkaline Phosphatase Total Protein Albumin Syphilis Serology Non-reactive COVID-19 ([facility]) Not detected 05/16/20 10:30 WBC RBC Hgb Hct MCV MCH MCHC RDW Plt Count MPV Sodium 141 Potassium 4.0 Chloride 106 Carbon Dioxide 27 Anion Gap 7 L BUN 24.4 H Creatinine 0.9 Est GFR (CKD-EPI)AfAm 104.24 Est GFR (CKD-EPI)NonAf 89.94 Random Glucose 116 H Calcium 9.3 Total Bilirubin 0.5 AST 24 ALT 20 Alkaline Phosphatase 68 Total Protein 7.2 Albumin 4.1 Syphilis Serology COVID-19 ([facility]) lab noted Assessment: 05/17/20 12:29 benzo and opiate withdrawal Plan: valium and methadone regiments
[2020-05-17] MEDS ORDERED: METHADONE HCL 5 MG TABLET (FOR DETOX USE ONLY) PO ONE (10:00)
[2020-05-17] MEDS: LISINOPRIL 20 MG TABLET (FP) PO SCH (10:04)
[2020-05-17] MEDS: TAMSULOSIN HCL 0.4 MG CAP PO SCH (10:04)
[2020-05-17] MEDS: PRENATAL VITAMINS W/ FOLIC ACID TABLET (FP) PO SCH (10:05)
[2020-05-17] MEDS: BACITRACIN 15 GM TUBE TOPICAL OINTMENT TP SCH (10:05)
[2020-05-17] MEDS: NICOTINE 7 MG/24 HOURS TOPICAL PATCH TD SCH (10:49)
[2020-05-17] MEDS: DOCUSATE SODIUM 100 MG CAPSULE (FP) PO SCH ×2 (14:11→21:17)
[2020-05-17] MEDS: BACITRACIN 0.9 GM PACKET TP SCH (21:17)
[2020-05-17] MEDS: QUEtiapine FUMARATE 100 MG TABLET (FP) PO SCH (21:17)
[2020-05-17] MEDS: MELATONIN 5 MG TABLETS PO SCH (21:17)
[2020-05-17] MEDS: THIAMINE HCL 100 MG TABLET (FP) PO SCH (21:18)
[2020-05-18] MEDS: diazePAM 5 MG TABLET PO PRN ×3 (01:40→19:32)
[2020-05-18] MEDS: DOCUSATE SODIUM 100 MG CAPSULE (FP) PO SCH ×3 (06:02→22:31)
[2020-05-18] MEDS: diazePAM 5 MG TABLET PO SCH ×2 (06:02→17:29)
[2020-05-18] MEDS: TAMSULOSIN HCL 0.4 MG CAP PO SCH (09:08)
[2020-05-18] MEDS: PRENATAL VITAMINS W/ FOLIC ACID TABLET (FP) PO SCH (09:08)
[2020-05-18] MEDS: LISINOPRIL 20 MG TABLET (FP) PO SCH (09:08)
[2020-05-18] MEDS: NICOTINE 7 MG/24 HOURS TOPICAL PATCH TD SCH (09:09)
[2020-05-18] MEDS: BACITRACIN 0.9 GM PACKET TP SCH (09:09)
[2020-05-18] MEDS: NICOTINE POLACRILEX 2 MG GUM BUC PRN ×2 (09:10→19:34)
[2020-05-18] MEDS ORDERED: BACITRACIN 0.9 GM PACKET TP PRN (09:32)
--- NOTE | 2020-05-18 09:41 | PN ---
[facility] CIWA - CIWA Score Nausea/Vomitin-No Nausea/No Vomiting Muscle Tremors: 1-None Visible, but [place] Anxiety: 1-Mildly Anxious Agitation: 3 Paroxysmal Sweats: No Perspiration Orientation: 0-Oriented Tacttile Disturbances: 0-None Auditory Disturbances: 0-None Visual Disturbances: 0-None Headache: 0-None Present CIWA-Ar Total Score: 5 S COWS - Scale Resting Pulse: 0= [place] 80 or Below Sweatin= No chills or Flushing Restless Observation: 0= Sits Still Pupil Size: 0= Normal to Room Light Bone or Joint Aches: 0= None Runny Nose/ Eye Tearin= None GI Upset > 30mins: 1= Stomach Cramp Tremor Observation of Outstretched Hands: 1= Tremor [place], Not Seen Yawning Observation: 1= 1-2x During Session Anxiety or Irritability: 2=Irritable/Anxious Goose Flesh Skin: 0=Smooth Skin COWS Score: 5 [facility] Progress Note (SOAP) Subjective: 64 YEARS OLD MALE WAS ADMITTED ON 05/16/20 FOR BENZO AND OPIATE WITHDRAWAL SX MANAGEMENT TREATING WITH VALIUM AND METHADONE DETOX REGIMENTS FEELS BETTER TODAY LESS TREMOR MILD ANXIETY DENIES CONSTIPATION TODAY STATES THAT LEFT KNEE REPLACEMENT "YEARS AGO" AND RECENT SCRAPPED LEFT LATER AND INFERIOR KNEE 2CM X 3 CM REDNESS SUPERFICIAL SKIN ABRASION NO BLEED NOR SWELL DENIES PAIN MR JONES DENIES ABRASION DUE TO FALL MR JONES REQUESTS NEOSPORIN OINTMENT WHICH HE USE AT HOME "ALL THE TIME" AND WORKS FOR HIM NEOSPORIN OINTMENT TO LEFT KNEE SKIN ABRASION STRONG RECOMMEND USE CANE FOR AMBULATION mr jones wants returning to his xanax and precocet provider after discharged fro detox Objective: 05/18/20 09:41 Vital Signs - 24 hr 05/17/20 05/17/20 05/17/20 12:45 16:45 17:34 Temperature 97.3 F L 96.9 F L 96.9 F L Pulse Rate 77 76 76 Respiratory 18 18 16 Rate Blood Pressure 151/87 149/84 149/84 O2 Sat by Pulse 96 Oximetry (%) 05/17/20 05/17/20 05/18/20 20:13 20:45 05:58 Temperature 97.3 F L 97.3 F L 98.1 F Pulse Rate 76 76 72 Respiratory 18 18 20 Rate Blood Pressure 174/96 H 174/96 H 147/89 O2 Sat by Pulse 97 98 Oximetry (%) 05/18/20 08:53 Temperature 99 F Pulse Rate 59 L Respiratory 18 Rate Blood Pressure 129/75 O2 Sat by Pulse Oximetry (%) Laboratory Tests 05/16/20 05/16/20 05/16/20 10:20 10:20 10:30 WBC 7.7 RBC 4.43 Hgb 14.1 Hct 41.8 MCV 94.3 MCH 31.8 MCHC 33.8 RDW 13.2 Plt Count 178 MPV 9.2 Sodium Potassium Chloride Carbon Dioxide Anion Gap BUN Creatinine Est GFR (CKD-EPI)AfAm Est GFR (CKD-EPI)NonAf Random Glucose Calcium Total Bilirubin AST ALT Alkaline Phosphatase Total Protein Albumin Syphilis Serology Non-reactive COVID-19 ([facility]) Not detected 05/16/20 10:30 WBC RBC Hgb Hct MCV MCH MCHC RDW Plt Count MPV Sodium 141 Potassium 4.0 Chloride 106 Carbon Dioxide 27 Anion Gap 7 L BUN 24.4 H Creatinine 0.9 Est GFR (CKD-EPI)AfAm 104.24 Est GFR (CKD-EPI)NonAf 89.94 Random Glucose 116 H Calcium 9.3 Total Bilirubin 0.5 AST 24 ALT 20 Alkaline Phosphatase 68 Total Protein 7.2 Albumin 4.1 Syphilis Serology COVID-19 ([facility]) LAB NOTED Assessment: 05/18/20 09:41 BENZO AND OPIATE WITHDRAWAL 05/18/20 11:03 left knee skin abrasion Plan: VALIUM AND METHADONE REGIMENTS x ray of the left knee
[2020-05-18] MEDS ORDERED: METHADONE HCL 10 MG TABLET (FOR DETOX USE ONLY) PO ONE (10:00)
[2020-05-18] MEDS: NEOMYCIN/POLYMYXIN/BACITRACIN (TRIPLE ANTIBIOTIC) 28 GM OINTMENT TP SCH ×2 (13:58→22:31)
[2020-05-18] MEDS: QUEtiapine FUMARATE 100 MG TABLET (FP) PO SCH (22:31)
[2020-05-18] MEDS: THIAMINE HCL 100 MG TABLET (FP) PO SCH (22:31)
[2020-05-18] MEDS: MELATONIN 5 MG TABLETS PO SCH (22:32)
[2020-05-18] MEDS ORDERED: MASKS NR ONE (22:48)
[2020-05-19] MEDS ORDERED: METHADONE HCL 5 MG TABLET (FOR DETOX USE ONLY) PO ONE (06:00)
[2020-05-19] MEDS ORDERED: diazePAM 5 MG TABLET PO ONE (06:00)
[2020-05-19] MEDS: DOCUSATE SODIUM 100 MG CAPSULE (FP) PO SCH (06:08)
[2020-05-19] MEDS: NEOMYCIN/POLYMYXIN/BACITRACIN (TRIPLE ANTIBIOTIC) 28 GM OINTMENT TP SCH (06:19)
[2020-05-19 09:13] VITALS: BP 142/86; PULSE 80; TEMP 97.5
--- NOTE | 2020-05-19 11:01 | DS ---
[facility] Detox Discharge Summary Admission Date: 05/16/20 Discharge Date: 05/19/20 - History Present History: Opioid Dependence, Sedative Dependence Additional Comments: 64 years old male was admitted on 05/16/20 for benzo and opiate withdrawal sx management treated with valium and methadone regiments seen by psychiatrist radha tarango mr freeman has completed the valium and methadone regiments and is tolerated well General Appearance: Yes: not Irritable, mild Anxious HEENTM: Yes: Hearing grossly Normal, Normocephalic, Normal Voice, Other (edentulous) Respiratory: Yes: Chest Non-Tender, Lungs Clear, Normal Breath Sounds, No Respiratory Distress, No Accessory Muscle Use Neck: Yes: No masses,lesions,Nodules, Supple Breast: Yes: Breast Exam Deferred Cardiology: Yes: Regular Rhythm, Regular Rate Abdominal: Yes: Normal Bowel Sounds, Non Tender Genitourinary: Yes: Frequency Back: Yes: Normal Inspection Musculoskeletal: Yes: Back pain, Muscle Pain, Muscle weakness, Other (unsteady gait) Extremities: Yes: Other (decreased ROM) Neurological: Yes: Fully Oriented, Alert, Normal Response, Numbness, Other (right sided weakness) Integumentary: Yes: Clammy, Other (left knee bruise) Lymphatic: Yes: Within Normal Limits Pertinent Past History: time for discharge 34 minutes - Physical Exam Results Vital Signs: Vital Signs Temperature 97.5 F L 05/19/20 05:45 Pulse Rate 80 05/19/20 05:45 Respiratory Rate 18 05/19/20 05:45 Blood Pressure 142/86 05/19/20 05:45 O2 Sat by Pulse Oximetry (%) 100 05/19/20 05:45 Pertinent Admission Physical Exam Findings: benzo and opiate withdrawal Vital Signs - 24 hr 05/18/20 05/18/20 05/18/20 12:34 16:38 20:30 Temperature 97.1 F L 98.1 F 97.7 F Pulse Rate 72 88 90 Respiratory 18 18 18 Rate Blood Pressure 130/69 141/83 148/85 O2 Sat by Pulse 97 97 96 Oximetry (%) 05/19/20 05:45 Temperature 97.5 F L Pulse Rate 80 Respiratory 18 Rate Blood Pressure 142/86 O2 Sat by Pulse 100 Oximetry (%) Laboratory Tests 05/16/20 05/16/20 05/16/20 10:20 10:20 10:30 WBC 7.7 RBC 4.43 Hgb 14.1 Hct 41.8 MCV 94.3 MCH 31.8 MCHC 33.8 RDW 13.2 Plt Count 178 MPV 9.2 Sodium Potassium Chloride Carbon Dioxide Anion Gap BUN Creatinine Est GFR (CKD-EPI)AfAm Est GFR (CKD-EPI)NonAf Random Glucose Calcium Total Bilirubin AST ALT Alkaline Phosphatase Total Protein Albumin Syphilis Serology Non-reactive COVID-19 ([facility]) Not detected 05/16/20 10:30 WBC RBC Hgb Hct MCV MCH MCHC RDW Plt Count MPV Sodium 141 Potassium 4.0 Chloride 106 Carbon Dioxide 27 Anion Gap 7 L BUN 24.4 H Creatinine 0.9 Est GFR (CKD-EPI)AfAm 104.24 Est GFR (CKD-EPI)NonAf 89.94 Random Glucose 116 H Calcium 9.3 Total Bilirubin 0.5 AST 24 ALT 20 Alkaline Phosphatase 68 Total Protein 7.2 Albumin 4.1 Syphilis Serology COVID-19 ([facility]) lab noted mr freeman wants to return to xanax / percocet provider for random glucose elevation - Treatment Hospital Course: Detox Protocol Followed, Detoxed Safely, Responded well, Discharged Condition Good, Rehab Referral Accepted Patient has Accepted a Rehab Referral to: [facility] - Medication Discharge Medications: Ambulatory Orders Quetiapine Fumarate [Seroquel -] 400 mg PO HS 01/14/18 Albuterol Sulfate Inhaler - [Ventolin HFA Inhaler -] 2 inh PO Q4H PRN #1 inhaler 08/30/18 Lisinopril [Prinivil] 20 mg PO DAILY #14 tablet 08/30/18 Tamsulosin HCl [Flomax -] 0.4 mg PO DAILY #14 cap.er.24h 08/30/18 - Diagnosis (1) Sedative hypnotic or anxiolytic dependence Current Visit: Yes Status: Acute (2) Substance induced mood disorder Current Visit: Yes Status: Suspected (3) Uncomplicated opioid dependence Current Visit: Yes Status: Acute (4) BPH (benign prostatic hyperplasia) Current Visit: Yes Status: Chronic Qualifiers: Lower urinary tract symptom presence: symptoms present Lower urinary tract symptom detail: urinary frequency Qualified Code(s): N40.1 - Benign prostatic hyperplasia with lower urinary tract symptoms; R35.0 - Frequency of micturition (5) Nicotine dependence Current Visit: Yes Status: Acute (6) CVA (cerebral vascular accident) Current Visit: Yes Status: Inactive Qualifiers: Laterality of affected vessel: right (7) Sedative, hypnotic or anxiolytic dependence with withdrawal, uncomplicated Current Visit: Yes Status: Acute (8) Ambulates with cane Current Visit: Yes Status: Chronic (9) COPD (chronic obstructive pulmonary disease) Current Visit: Yes Status: Chronic Qualifiers: COPD type: emphysema Emphysema type: unilateral Qualified Code(s): J43.0 - 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] (10) HTN (hypertension), benign Current Visit: Yes Status: Chronic (11) Hepatitis C carrier Current Visit: Yes Status: Chronic (12) Hyperglycemia Current Visit: Yes Status: Chronic (13) Use of cane as ambulatory aid Current Visit: Yes Status: Chronic (14) high blood pressure Current Visit: Yes Status: Chronic (15) Substance induced mood disorder Current Visit: Yes Status: Suspected (16) Status post bilateral knee replacements Current Visit: Yes Status: Resolved - AMA Did Patient Leave Against Medical Advice: No CIWA Score - CIWA Score Nausea/Vomitin-No Nausea/No Vomiting Muscle Tremors: None Anxiety: 0-No Anxiety, at Ease Agitation: 2 Paroxysmal Sweats: No Perspiration Orientation: 0-Oriented Tacttile Disturbances: 0-None Auditory Disturbances: 0-None Visual Disturbances: 0-None Headache: 0-None Present CIWA-Ar Total Score: 2 COWS (PN) - Opiate Withdrawal Resting Pulse: 0= OR 80 or Below Sweatin= No chills or Flushing Restless Observation: 0= Sits Still Pupil Size: 0= Normal to Room Light Bone or Joint Aches: 1= Mild Discomfort Runny Nose/ Eye Tearin= None GI Upset > 30mins: 0= None Tremor Observation of Outstretched Hands: 0= None Yawning Observation: 0= None Anxiety or Irritability: 1=Feels Anxious/Irritable Goose Flesh Skin: 0=Smooth Skin COWS Score: 2
[2020-05-19] MEDS: NICOTINE 7 MG/24 HOURS TOPICAL PATCH TD SCH (11:17)
[2020-05-19] MEDS: PRENATAL VITAMINS W/ FOLIC ACID TABLET (FP) PO SCH (11:17)
[2020-05-19] MEDS: TAMSULOSIN HCL 0.4 MG CAP PO SCH (11:17)
[2020-05-19] MEDS: LISINOPRIL 20 MG TABLET (FP) PO SCH (11:18)
== END 2020-05-19 09:01 | disposition home or self-care (01) | DRG 773 ==
LOC: YASAS 08:36 → Y3N 11:06
PROVIDERS: ADMIT Allergy & Immunology; ATTEND Allergy & Immunology
PROC: HZ2ZZZZ Detoxification Services for Substance Abuse Treatment (ICD-10-PCS; principal; 2020-05-16)
DX: F11.23 Opioid dependence with withdrawal (principal); F13.230 Sedative, hypnotic or anxiolytic dependence with withdrawal, uncomplicated; F17.210 Nicotine dependence, cigarettes, uncomplicated; F31.9 Bipolar disorder, unspecified; F19.24 Other psychoactive substance dependence with psychoactive substance-induced mood disorder; F19.282 Other psychoactive substance dependence with psychoactive substance-induced sleep disorder; I10 Essential (primary) hypertension; I69.851 Hemiplegia and hemiparesis following other cerebrovascular disease affecting right dominant side; J43.0 Unilateral pulmonary emphysema [MacLeod's syndrome]; K59.04 Chronic idiopathic constipation; K00.0 Anodontia; D64.9 Anemia, unspecified; M19.90 Unspecified osteoarthritis, unspecified site; N40.1 Benign prostatic hyperplasia with lower urinary tract symptoms; R35.0 Frequency of micturition; M25.521 Pain in right elbow; M25.562 Pain in left knee; Z62.810 Personal history of physical and sexual abuse in childhood; R26.89 Other abnormalities of gait and mobility; Z96.653 Presence of artificial knee joint, bilateral; Z99.89 Dependence on other enabling machines and devices; E66.9 Obesity, unspecified; Z68.33 Body mass index [BMI] 33.0-33.9, adult; Z98.890 Other specified postprocedural states; W19.XXXA Unspecified fall, initial encounter; Y93.89 Activity, other specified; Y92.231 Patient bathroom in hospital as the place of occurrence of the external cause; Y99.8 Other external cause status
CPT/HCPCS: 36415; 73560-TC-LT-FY; 80053; 85027; 86780; J0735; U0003

== ENCOUNTER 2020-09-25 16:48 | Inpatient (IN) | payer OTHER ==
[2020-09-25 17:41] VITALS: BMI 32.8
[2020-09-25] MEDS ORDERED: guaiFENesin 200 MG/10 ML 10 ML UNIT-DOSE CUPS PO PRN (19:03)
[2020-09-25] MEDS ORDERED: MENTHOL/PHENOL 1 EACH UD MM PRN (19:03)
[2020-09-25] MEDS ORDERED: BISMUTH SUBSALICYLATE 524 MG/30 ML PO PRN (19:03)
[2020-09-25] MEDS ORDERED: ACETAMINOPHEN 325 MG TABLET (FP) PO PRN ×2 (19:03)
[2020-09-25] MEDS ORDERED: MAGNESIUM CITRATE 300 ML BOTTLE PO PRN (19:03)
[2020-09-25] MEDS ORDERED: NICOTINE POLACRILEX 2 MG GUM BUC PRN (19:03)
[2020-09-25] MEDS ORDERED: ONDANSETRON *ODT* 4 MG TABLET SL PRN (19:03)
[2020-09-25] MEDS ORDERED: diazePAM 5 MG TABLET PO ONE (19:03)
[2020-09-25] MEDS ORDERED: MAGNESIUM HYDROX 2400MG/30ML ORAL SUSPENSION 30 ML CUP PO PRN (19:03)
[2020-09-25] MEDS ORDERED: MAG HYDROX/AL HYDROX/SIMETH 30 ML UNIT-DOSE CUP PO PRN (19:03)
[2020-09-25] MEDS ORDERED: ALBUTEROL SO4 HFA INHALER IH PRN (19:36)
[2020-09-25] MEDS ORDERED: BUPRENORPHINE/NALOXONE 8 MG/2 MG FILM PACKET SL ONE (22:00)
[2020-09-25] MEDS ORDERED: MELATONIN 5 MG TABLETS PO SCH (22:00)
[2020-09-25] MEDS ORDERED: BUPRENORPHINE/NALOXONE 4 MG/1 MG FILM PACKET SL SCH (22:00)
[2020-09-25] MEDS: diazePAM 5 MG TABLET PO SCH (22:21)
[2020-09-25] MEDS: MELATONIN 5 MG TABLETS PO PRN (22:21)
[2020-09-25] MEDS: THIAMINE HCL 100 MG TABLET (FP) PO SCH (22:22)
[2020-09-26] MEDS: METHOCARBAMOL 500 MG TABLET PO PRN (01:49)
[2020-09-26] MEDS: IBUPROFEN 400 MG TABLET (FP) PO PRN (01:49)
[2020-09-26] MEDS: diazePAM 5 MG TABLET PO SCH ×4 (04:10→22:25)
[2020-09-26] MEDS: BUPRENORPHINE/NALOXONE 4 MG/1 MG FILM PACKET SL SCH ×3 (05:36→22:25)
[2020-09-26] MEDS ORDERED: BUPRENORPHINE/NALOXONE 2 MG/0.5 MG FILM PACKET SL ONE (06:00)
[2020-09-26] MEDS: TAMSULOSIN HCL 0.4 MG CAP PO SCH (09:06)
[2020-09-26] MEDS: PRENATAL VITAMINS W/ FOLIC ACID TABLET (FP) PO SCH (10:12)
[2020-09-26] MEDS: NICOTINE 14 MG/24 HOURS TOPICAL PATCH TD SCH (10:13)
[2020-09-26] MEDS: PANTOPRAZOLE 40 MG TABLET PO SCH (10:13)
[2020-09-26] MEDS: LISINOPRIL 20 MG TABLET PO SCH (10:13)
[2020-09-26 17:23] LABS: ALBUMIN 4.2 g/dl (3.4-5.0)
[2020-09-26 17:25] LABS: MEAN PLT VOLUME 8.7 fl (7.5-11.1)
[2020-09-26 17:28] LABS: BILIRUBIN,TOTAL 0.9 mg/dL (0.2-1); HEMATOCRIT 41.1 % (35.4-49); MCH 31.5 pg (25.7-33.7); MCHC 34.1 g/dl (32.0-35.9); MEAN CELL VOLUME 92.3 fl (80-96); PLATELET COUNT 214 K/MM3 (134-434); RBC 4.45 M/mm3 (4.00-5.60); RDW 13.6 % (11.9-15.9); TOT PROT 7.3 g/dl (6.4-8.2); WHITE BLOOD COUNT 9.2 K/mm3 (4.0-10.0)
[2020-09-26] MEDS: QUEtiapine FUMARATE 200 MG TABLET PO SCH (22:25)
[2020-09-26] MEDS: THIAMINE HCL 100 MG TABLET (FP) PO SCH (22:25)
[2020-09-26] MEDS: MELATONIN 5 MG TABLETS PO PRN (22:26)
[2020-09-27] MEDS: diazePAM 5 MG TABLET PO SCH ×3 (06:44→21:33)
[2020-09-27] MEDS: BUPRENORPHINE/NALOXONE 4 MG/1 MG FILM PACKET SL SCH ×2 (07:45→21:38)
[2020-09-27] MEDS: PANTOPRAZOLE 40 MG TABLET PO SCH (09:08)
[2020-09-27] MEDS: TAMSULOSIN HCL 0.4 MG CAP PO SCH (09:08)
[2020-09-27] MEDS: LISINOPRIL 20 MG TABLET PO SCH (09:08)
[2020-09-27] MEDS: NICOTINE 14 MG/24 HOURS TOPICAL PATCH TD SCH (09:09)
[2020-09-27] MEDS: PRENATAL VITAMINS W/ FOLIC ACID TABLET (FP) PO SCH (09:10)
[2020-09-27] MEDS ORDERED: SODIUM PHOSPHATE/NA BIPHOS 133 ML ENEMA RC ONE (10:49)
[2020-09-27] MEDS ORDERED: BUPRENORPHINE/NALOXONE 2 MG/0.5 MG FILM PACKET SL ONE (14:00)
[2020-09-27] MEDS: QUEtiapine FUMARATE 200 MG TABLET PO SCH (21:33)
[2020-09-27] MEDS: THIAMINE HCL 100 MG TABLET (FP) PO SCH (21:33)
[2020-09-28] MEDS: diazePAM 5 MG TABLET PO SCH ×2 (05:50→17:34)
[2020-09-28] MEDS: BUPRENORPHINE/NALOXONE 4 MG/1 MG FILM PACKET SL SCH ×2 (05:50→22:02)
[2020-09-28] MEDS ORDERED: BUPRENORPHINE/NALOXONE 4 MG/1 MG FILM PACKET SL SCH ×2 (06:00→22:00)
[2020-09-28] MEDS: TAMSULOSIN HCL 0.4 MG CAP PO SCH (09:45)
[2020-09-28] MEDS: PRENATAL VITAMINS W/ FOLIC ACID TABLET (FP) PO SCH (09:45)
[2020-09-28] MEDS: LISINOPRIL 20 MG TABLET PO SCH (09:45)
[2020-09-28] MEDS: NICOTINE 14 MG/24 HOURS TOPICAL PATCH TD SCH (09:45)
[2020-09-28] MEDS: PANTOPRAZOLE 40 MG TABLET PO SCH (09:45)
[2020-09-28] MEDS: IBUPROFEN 400 MG TABLET (FP) PO PRN (13:09)
[2020-09-28] MEDS: METHOCARBAMOL 500 MG TABLET PO PRN ×2 (13:10→22:02)
[2020-09-28] MEDS: THIAMINE HCL 100 MG TABLET (FP) PO SCH (22:02)
[2020-09-28] MEDS: QUEtiapine FUMARATE 200 MG TABLET PO SCH (22:02)
[2020-09-29] MEDS ORDERED: BUPRENORPHINE/NALOXONE 4 MG/1 MG FILM PACKET SL ONE (06:00)
[2020-09-29] MEDS ORDERED: diazePAM 5 MG TABLET PO ONE (06:00)
[2020-09-29 06:07] VITALS: TEMP 97.1
[2020-09-29 10:08] VITALS: BP 133/78; PULSE 89
[2020-09-29] MEDS ORDERED: BUPRENORPHINE/NALOXONE 2 MG/0.5 MG FILM PACKET SL ONE (22:00)
[2020-09-30] MEDS ORDERED: BUPRENORPHINE/NALOXONE 2 MG/0.5 MG FILM PACKET SL SCH (06:00)
[2020-10-01] MEDS ORDERED: BUPRENORPHINE/NALOXONE 2 MG/0.5 MG FILM PACKET SL ONE (06:00)
== END 2020-09-29 09:17 | disposition home or self-care (01) | DRG 897 ==
LOC: YASAS 16:48 → Y3N 18:36
PROVIDERS: ADMIT Allergy & Immunology; ATTEND Allergy & Immunology
PROC: HZ2ZZZZ Detoxification Services for Substance Abuse Treatment (ICD-10-PCS; principal; 2020-09-25)
DX: F11.23 Opioid dependence with withdrawal (principal); I69.851 Hemiplegia and hemiparesis following other cerebrovascular disease affecting right dominant side; F13.230 Sedative, hypnotic or anxiolytic dependence with withdrawal, uncomplicated; F17.210 Nicotine dependence, cigarettes, uncomplicated; F19.24 Other psychoactive substance dependence with psychoactive substance-induced mood disorder; F31.9 Bipolar disorder, unspecified; I10 Essential (primary) hypertension; I83.813 Varicose veins of bilateral lower extremities with pain; J43.0 Unilateral pulmonary emphysema [MacLeod's syndrome]; K59.09 Other constipation; M19.90 Unspecified osteoarthritis, unspecified site; D64.9 Anemia, unspecified; N40.1 Benign prostatic hyperplasia with lower urinary tract symptoms; R35.0 Frequency of micturition; M54.5 Low back pain; G89.29 Other chronic pain; B18.2 Chronic viral hepatitis C; R79.89 Other specified abnormal findings of blood chemistry; Z99.89 Dependence on other enabling machines and devices; Z96.652 Presence of left artificial knee joint; Z91.81 History of falling; W07.XXXA Fall from chair, initial encounter; Y93.89 Activity, other specified; Y92.232 Corridor of hospital as the place of occurrence of the external cause; Y99.8 Other external cause status
CPT/HCPCS: 36415; 80053; 84520; 85027; 86780; C9803; U0003

== ENCOUNTER 2020-11-15 13:10 | Inpatient (IN) | payer OTHER ==
[2020-11-15 16:16] VITALS: BMI 31.6
[2020-11-15] MEDS ORDERED: METHADONE HCL 10 MG TABLET (FOR DETOX USE ONLY) PO ONE (17:10)
[2020-11-15] MEDS ORDERED: cloNIDine HCL 0.1 MG TABLET PO PRN (17:10)
[2020-11-15] MEDS ORDERED: ACETAMINOPHEN 325 MG TABLET (FP) PO PRN (17:10)
[2020-11-15] MEDS ORDERED: MAGNESIUM HYDROX 2400MG/30ML ORAL SUSPENSION 30 ML CUP PO PRN (17:10)
[2020-11-15] MEDS ORDERED: BISMUTH SUBSALICYLATE 524 MG/30 ML UD PO PRN (17:10)
[2020-11-15] MEDS ORDERED: NICOTINE POLACRILEX 2 MG GUM BUC PRN (17:10)
[2020-11-15] MEDS ORDERED: IBUPROFEN 400 MG TABLET (FP) PO PRN (17:10)
[2020-11-15] MEDS ORDERED: MAG HYDROX/AL HYDROX/SIMETH 30 ML UNIT-DOSE CUP PO PRN (17:10)
[2020-11-15] MEDS ORDERED: MENTHOL/PHENOL 1 EACH UD MM PRN (17:10)
[2020-11-15] MEDS ORDERED: MAGNESIUM CITRATE 300 ML BOTTLE PO PRN (17:10)
[2020-11-15] MEDS ORDERED: ALBUTEROL SO4 HFA INHALER IH PRN (18:28)
[2020-11-15] MEDS: diazePAM 5 MG TABLET PO PRN (19:53)
[2020-11-15] MEDS: diazePAM 5 MG TABLET PO SCH (22:16)
[2020-11-15] MEDS: THIAMINE HCL 100 MG TABLET (FP) PO SCH (22:16)
[2020-11-15] MEDS: MELATONIN 5 MG TABLETS PO SCH (22:16)
[2020-11-16] MEDS: diazePAM 5 MG TABLET PO PRN (01:55)
[2020-11-16] MEDS: ACETAMINOPHEN 325 MG TABLET (FP) PO PRN ×2 (01:57→17:25)
[2020-11-16] MEDS: METHOCARBAMOL 500 MG TABLET PO PRN (01:59)
[2020-11-16] MEDS: diazePAM 5 MG TABLET PO SCH ×4 (05:34→22:07)
[2020-11-16] MEDS ORDERED: METHADONE HCL 10 MG TABLET (FOR DETOX USE ONLY) ONE (08:52)
[2020-11-16] MEDS ORDERED: METHADONE HCL 5 MG TABLET (FOR DETOX USE ONLY) ONE (08:53)
[2020-11-16] MEDS ORDERED: METHADONE (DETOX) 20 MG, METHADONE (DETOX) 5 MG PO ONE (10:00)
[2020-11-16] MEDS: TAMSULOSIN HCL 0.4 MG CAP PO SCH (10:03)
[2020-11-16] MEDS: PRENATAL VITAMINS W/ FOLIC ACID TABLET (FP) PO SCH (10:04)
[2020-11-16] MEDS: LISINOPRIL 20 MG TABLET PO SCH (10:04)
[2020-11-16] MEDS: NICOTINE 7 MG/24 HOURS TOPICAL PATCH TD SCH (10:07)
[2020-11-16 12:15] LABS: POTASSIUM 4.1 mmol/L (3.5-5.1)
[2020-11-16 12:17] LABS: CALCIUM 9.3 mg/dL (8.5-10.1)
[2020-11-16 12:18] LABS: BLOOD UREA NITROGEN 18.9 mg/dL (7-18)
[2020-11-16 12:22] LABS: BILIRUBIN,TOTAL 0.2 mg/dL (0.2-1); CREATININE 0.8 mg/dL (0.55-1.3); TOT PROT 7.1 g/dl (6.4-8.2)
[2020-11-16 12:25] LABS: HEMATOCRIT 40.3 % (35.4-49); HEMOGLOBIN 13.7 GM/dL (11.7-16.9); MCH 31.6 pg (25.7-33.7); MCHC 33.9 g/dl (32.0-35.9); MEAN PLT VOLUME 8.9 fl (7.5-11.1); PLATELET COUNT 171 K/MM3 (134-434); RBC 4.34 M/mm3 (4.00-5.60); WHITE BLOOD COUNT 5.7 K/mm3 (4.0-10.0)
[2020-11-16] MEDS ORDERED: AMMONIUM LACTATE 12% LOTION 225 GM BOTTLE TP PRN (15:25)
[2020-11-16] MEDS ORDERED: QUEtiapine FUMARATE 100 MG TABLET (FP) PO SCH (22:00)
[2020-11-16] MEDS: QUEtiapine FUMARATE 400 MG TABLET PO SCH (22:07)
[2020-11-16] MEDS: THIAMINE HCL 100 MG TABLET (FP) PO SCH (22:08)
[2020-11-16] MEDS: MELATONIN 5 MG TABLETS PO SCH (22:08)
[2020-11-17] MEDS: diazePAM 5 MG TABLET PO SCH ×3 (06:02→22:41)
[2020-11-17] MEDS ORDERED: METHADONE HCL 10 MG TABLET (FOR DETOX USE ONLY) PO ONE (10:00)
[2020-11-17] MEDS: LISINOPRIL 20 MG TABLET PO SCH (10:24)
[2020-11-17] MEDS: TAMSULOSIN HCL 0.4 MG CAP PO SCH (10:24)
[2020-11-17] MEDS: PRENATAL VITAMINS W/ FOLIC ACID TABLET (FP) PO SCH (10:24)
[2020-11-17] MEDS: NICOTINE 7 MG/24 HOURS TOPICAL PATCH TD SCH (10:25)
[2020-11-17] MEDS: diazePAM 5 MG TABLET PO PRN ×2 (10:27→20:28)
[2020-11-17] MEDS: ACETAMINOPHEN 325 MG TABLET (FP) PO PRN ×2 (12:43→20:28)
[2020-11-17] MEDS: METHOCARBAMOL 500 MG TABLET PO PRN (12:45)
[2020-11-17] MEDS ORDERED: SODIUM PHOSPHATE/NA BIPHOS 133 ML ENEMA RC ONE (14:03)
[2020-11-17] MEDS: THIAMINE HCL 100 MG TABLET (FP) PO SCH (22:40)
[2020-11-17] MEDS: QUEtiapine FUMARATE 400 MG TABLET PO SCH (22:40)
[2020-11-17] MEDS: DOCUSATE SODIUM 100 MG CAPSULE (FP) PO SCH (22:42)
[2020-11-17] MEDS: MELATONIN 5 MG TABLETS PO SCH (22:42)
[2020-11-18] MEDS: diazePAM 5 MG TABLET PO PRN ×2 (03:05→09:51)
[2020-11-18] MEDS: ACETAMINOPHEN 325 MG TABLET (FP) PO PRN ×2 (07:22→22:24)
[2020-11-18] MEDS: METHOCARBAMOL 500 MG TABLET PO PRN ×2 (07:22→22:24)
[2020-11-18] MEDS: diazePAM 5 MG TABLET PO SCH ×2 (07:23→18:23)
[2020-11-18] MEDS: DOCUSATE SODIUM 100 MG CAPSULE (FP) PO SCH ×3 (07:23→22:24)
[2020-11-18] MEDS ORDERED: METHADONE HCL 10 MG TABLET (FOR DETOX USE ONLY) ONE (08:38)
[2020-11-18] MEDS ORDERED: METHADONE HCL 5 MG TABLET (FOR DETOX USE ONLY) ONE (08:38)
[2020-11-18] MEDS: TAMSULOSIN HCL 0.4 MG CAP PO SCH (09:24)
[2020-11-18] MEDS: LISINOPRIL 20 MG TABLET PO SCH (09:51)
[2020-11-18] MEDS: PRENATAL VITAMINS W/ FOLIC ACID TABLET (FP) PO SCH (09:51)
[2020-11-18] MEDS: NICOTINE 7 MG/24 HOURS TOPICAL PATCH TD SCH (09:53)
[2020-11-18] MEDS ORDERED: METHADONE (DETOX) 10 MG, METHADONE (DETOX) 5 MG PO ONE (10:00)
[2020-11-18] MEDS: QUEtiapine FUMARATE 400 MG TABLET PO SCH (22:24)
[2020-11-18] MEDS: MELATONIN 5 MG TABLETS PO SCH (22:24)
[2020-11-18] MEDS: THIAMINE HCL 100 MG TABLET (FP) PO SCH (22:26)
[2020-11-19] MEDS ORDERED: diazePAM 5 MG TABLET PO ONE (06:00)
[2020-11-19] MEDS: DOCUSATE SODIUM 100 MG CAPSULE (FP) PO SCH (06:35)
[2020-11-19] MEDS: PRENATAL VITAMINS W/ FOLIC ACID TABLET (FP) PO SCH (09:36)
[2020-11-19] MEDS: TAMSULOSIN HCL 0.4 MG CAP PO SCH (09:36)
[2020-11-19] MEDS: NICOTINE 7 MG/24 HOURS TOPICAL PATCH TD SCH (09:36)
[2020-11-19] MEDS: LISINOPRIL 20 MG TABLET PO SCH (09:36)
[2020-11-19 10:00] VITALS: BP 136/84; PULSE 93; TEMP 97.8
[2020-11-19] MEDS ORDERED: METHADONE HCL 10 MG TABLET (FOR DETOX USE ONLY) PO ONE (10:00)
[2020-11-20] MEDS ORDERED: METHADONE HCL 5 MG TABLET (FOR DETOX USE ONLY) PO ONE (06:00)
== END 2020-11-19 11:43 | disposition home or self-care (01) | DRG 896 ==
LOC: YASAS 13:10 → Y3N 17:38
PROVIDERS: ADMIT Allergy & Immunology; ATTEND Allergy & Immunology
PROC: HZ2ZZZZ Detoxification Services for Substance Abuse Treatment (ICD-10-PCS; principal; 2020-11-15)
DX: F11.23 Opioid dependence with withdrawal (principal); U07.1 COVID-19; F19.282 Other psychoactive substance dependence with psychoactive substance-induced sleep disorder; I69.851 Hemiplegia and hemiparesis following other cerebrovascular disease affecting right dominant side; F13.230 Sedative, hypnotic or anxiolytic dependence with withdrawal, uncomplicated; F10.10 Alcohol abuse, uncomplicated; F17.210 Nicotine dependence, cigarettes, uncomplicated; F19.24 Other psychoactive substance dependence with psychoactive substance-induced mood disorder; F31.9 Bipolar disorder, unspecified; G47.30 Sleep apnea, unspecified; I10 Essential (primary) hypertension; I83.813 Varicose veins of bilateral lower extremities with pain; J43.0 Unilateral pulmonary emphysema [MacLeod's syndrome]; K59.00 Constipation, unspecified; J20.9 Acute bronchitis, unspecified; L85.3 Xerosis cutis; M54.5 Low back pain; G89.29 Other chronic pain; N40.0 Benign prostatic hyperplasia without lower urinary tract symptoms; R29.6 Repeated falls; Z62.810 Personal history of physical and sexual abuse in childhood; Z96.652 Presence of left artificial knee joint; E66.9 Obesity, unspecified; Z68.31 Body mass index [BMI] 31.0-31.9, adult; Z99.89 Dependence on other enabling machines and devices
CPT/HCPCS: 36415; 80053; 85027; 86780; C9803; J0735; U0003

== ENCOUNTER 2021-02-15 18:13 | Inpatient (IN) | payer OTHER ==
[2021-02-15 18:53] VITALS: BMI 31.1
[2021-02-15] MEDS ORDERED: NALOXONE (NARCAN) HCL 4 MG/0.1 ML SPRAY NS PRN (19:55)
[2021-02-15] MEDS ORDERED: NALOXONE HCL 0.4 MG/ML VIAL IM PRN (19:55)
[2021-02-15] MEDS ORDERED: IBUPROFEN 400 MG TABLET (FP) PO PRN (19:55)
[2021-02-15] MEDS ORDERED: MENTHOL/PHENOL 1 EACH UD MM PRN (19:55)
[2021-02-15] MEDS ORDERED: MAGNESIUM HYDROX 2400MG/30ML ORAL SUSPENSION 30 ML CUP PO PRN (19:55)
[2021-02-15] MEDS ORDERED: cloNIDine HCL 0.1 MG TABLET PO PRN (19:55)
[2021-02-15] MEDS ORDERED: MAGNESIUM CITRATE 300 ML BOTTLE PO PRN (19:55)
[2021-02-15] MEDS ORDERED: ACETAMINOPHEN 325 MG TABLET (FP) PO PRN ×2 (19:55)
[2021-02-15] MEDS ORDERED: BISMUTH SUBSALICYLATE 524 MG/30 ML PO PRN (19:55)
[2021-02-15] MEDS ORDERED: guaiFENesin 200 MG/10 ML 10 ML UNIT-DOSE CUPS PO PRN (19:55)
[2021-02-15] MEDS ORDERED: METHOCARBAMOL 500 MG TABLET PO PRN (19:55)
[2021-02-15] MEDS ORDERED: P-EPHED 60MG/TRIPROLIDI 2.5MG TABLET PO PRN (19:55)
[2021-02-15] MEDS ORDERED: MAG HYDROX/AL HYDROX/SIMETH 30 ML UNIT-DOSE CUP PO PRN (19:55)
[2021-02-15] MEDS ORDERED: DICYCLOMINE HCL 10 MG CAPSULE PO PRN (19:55)
[2021-02-15] MEDS ORDERED: NICOTINE POLACRILEX 2 MG GUM BUC PRN (19:55)
[2021-02-15] MEDS ORDERED: METHADONE HCL 10 MG TABLET (FOR DETOX USE ONLY) PO ONE (21:15)
[2021-02-15] MEDS: DOCUSATE SODIUM 100 MG CAPSULE (FP) PO SCH (23:08)
[2021-02-15] MEDS: MELATONIN 5 MG TABLETS PO SCH (23:09)
[2021-02-15] MEDS: THIAMINE HCL 100 MG TABLET (FP) PO SCH (23:11)
[2021-02-15] MEDS: diazePAM 5 MG TABLET PO SCH (23:16)
[2021-02-16] MEDS: diazePAM 5 MG TABLET PO PRN ×3 (02:58→20:25)
[2021-02-16] MEDS: diazePAM 5 MG TABLET PO SCH ×4 (05:23→22:12)
[2021-02-16] MEDS ORDERED: METHADONE HCL 5 MG TABLET (FOR DETOX USE ONLY) ONE (09:12)
[2021-02-16] MEDS ORDERED: METHADONE HCL 10 MG TABLET (FOR DETOX USE ONLY) ONE (09:13)
[2021-02-16] MEDS ORDERED: METHADONE (DETOX) 20 MG, METHADONE (DETOX) 5 MG PO ONE (10:00)
[2021-02-16 10:25] LABS: HEMATOCRIT 39.9 % (35.4-49); HEMOGLOBIN 13.6 GM/dL (11.7-16.9); MCH 32.1 pg (25.7-33.7); MEAN CELL VOLUME 94.4 fl (80-96); MEAN PLT VOLUME 8.7 fl (7.5-11.1); PLATELET COUNT 171 K/MM3 (134-434); RBC 4.23 M/mm3 (4.00-5.60); RDW 14.9 % (11.9-15.9); WHITE BLOOD COUNT 9.2 K/mm3 (4.0-10.0)
[2021-02-16 10:45] LABS: CALCIUM 8.7 mg/dL (8.5-10.1)
[2021-02-16 10:46] LABS: ALBUMIN 3.6 g/dl (3.4-5.0); BLOOD UREA NITROGEN 17.7 mg/dL (7-18)
[2021-02-16 10:49] LABS: BILIRUBIN,TOTAL 0.6 mg/dL (0.2-1); CREATININE 0.8 mg/dL (0.55-1.3)
[2021-02-16 10:51] LABS: TOT PROT 6.4 g/dl (6.4-8.2)
[2021-02-16] MEDS: PRENATAL VITAMINS W/ FOLIC ACID TABLET (FP) PO SCH (11:10)
[2021-02-16] MEDS: NICOTINE 14 MG/24 HOURS TOPICAL PATCH TD SCH (11:10)
[2021-02-16] MEDS ORDERED: ALBUTEROL SO4 HFA INHALER IH PRN (12:17)
[2021-02-16] MEDS ORDERED: MINERAL OIL ENEMA 133 ML ENEMA PR ONE (16:54)
[2021-02-16] MEDS ORDERED: SODIUM PHOSPHATE/NA BIPHOS 133 ML ENEMA PR ONE (18:44)
[2021-02-16] MEDS: QUEtiapine FUMARATE 400 MG TABLET PO SCH (22:12)
[2021-02-16] MEDS: THIAMINE HCL 100 MG TABLET (FP) PO SCH (22:12)
[2021-02-16] MEDS: DOCUSATE SODIUM 100 MG CAPSULE (FP) PO SCH (22:15)
[2021-02-16] MEDS: MELATONIN 5 MG TABLETS PO SCH (22:15)
[2021-02-17] MEDS: diazePAM 5 MG TABLET PO PRN ×3 (02:57→17:43)
[2021-02-17] MEDS: diazePAM 5 MG TABLET PO SCH ×3 (05:45→22:22)
[2021-02-17] MEDS: TAMSULOSIN HCL 0.4 MG CAP PO SCH (08:30)
[2021-02-17] MEDS ORDERED: METHADONE HCL 10 MG TABLET (FOR DETOX USE ONLY) PO ONE (10:00)
[2021-02-17] MEDS: NICOTINE 14 MG/24 HOURS TOPICAL PATCH TD SCH (10:09)
[2021-02-17] MEDS: PRENATAL VITAMINS W/ FOLIC ACID TABLET (FP) PO SCH (10:10)
[2021-02-17] MEDS: LISINOPRIL 20 MG TABLET PO SCH (10:10)
[2021-02-17] MEDS: QUEtiapine FUMARATE 400 MG TABLET PO SCH (22:20)
[2021-02-17] MEDS: DOCUSATE SODIUM 100 MG CAPSULE (FP) PO SCH (22:20)
[2021-02-17] MEDS: THIAMINE HCL 100 MG TABLET (FP) PO SCH (22:21)
[2021-02-17] MEDS: SENNOSIDES 8.6MG TABLET (FP) PO SCH (22:21)
[2021-02-17] MEDS: MELATONIN 5 MG TABLETS PO SCH (22:21)
[2021-02-18] MEDS: diazePAM 5 MG TABLET PO SCH ×2 (07:22→17:29)
[2021-02-18] MEDS ORDERED: METHADONE HCL 5 MG TABLET (FOR DETOX USE ONLY) ONE (09:05)
[2021-02-18] MEDS ORDERED: METHADONE HCL 10 MG TABLET (FOR DETOX USE ONLY) ONE (09:05)
[2021-02-18] MEDS ORDERED: METHADONE (DETOX) 10 MG, METHADONE (DETOX) 5 MG PO ONE (10:00)
[2021-02-18] MEDS: TAMSULOSIN HCL 0.4 MG CAP PO SCH (10:47)
[2021-02-18] MEDS: PRENATAL VITAMINS W/ FOLIC ACID TABLET (FP) PO SCH (10:47)
[2021-02-18] MEDS: NICOTINE 14 MG/24 HOURS TOPICAL PATCH TD SCH (10:48)
[2021-02-18] MEDS: LISINOPRIL 20 MG TABLET PO SCH (10:48)
[2021-02-18] MEDS: diazePAM 5 MG TABLET PO PRN ×3 (10:48→19:32)
[2021-02-18] MEDS: QUEtiapine FUMARATE 400 MG TABLET PO SCH (22:12)
[2021-02-18] MEDS: THIAMINE HCL 100 MG TABLET (FP) PO SCH (22:12)
[2021-02-18] MEDS: MELATONIN 5 MG TABLETS PO SCH (22:12)
[2021-02-18] MEDS: DOCUSATE SODIUM 100 MG CAPSULE (FP) PO SCH (22:12)
[2021-02-18] MEDS: SENNOSIDES 8.6MG TABLET (FP) PO SCH (22:13)
[2021-02-19] MEDS ORDERED: diazePAM 5 MG TABLET PO ONE (06:00)
[2021-02-19 09:55] VITALS: BP 139/70; PULSE 87; TEMP 98.7
[2021-02-19] MEDS ORDERED: METHADONE HCL 10 MG TABLET (FOR DETOX USE ONLY) PO ONE (10:00)
[2021-02-20] MEDS ORDERED: METHADONE HCL 5 MG TABLET (FOR DETOX USE ONLY) PO ONE (06:00)
== END 2021-02-19 10:33 | disposition left against medical advice (07) | DRG 894 ==
LOC: YASAS 18:13 → Y3N 21:04 → Y6N 22:21
PROVIDERS: ADMIT Allergy & Immunology; ATTEND Allergy & Immunology
PROC: HZ2ZZZZ Detoxification Services for Substance Abuse Treatment (ICD-10-PCS; principal; 2021-02-15)
DX: F11.23 Opioid dependence with withdrawal (principal); I69.851 Hemiplegia and hemiparesis following other cerebrovascular disease affecting right dominant side; F10.230 Alcohol dependence with withdrawal, uncomplicated; F13.230 Sedative, hypnotic or anxiolytic dependence with withdrawal, uncomplicated; F17.210 Nicotine dependence, cigarettes, uncomplicated; F31.9 Bipolar disorder, unspecified; F19.24 Other psychoactive substance dependence with psychoactive substance-induced mood disorder; F10.282 Alcohol dependence with alcohol-induced sleep disorder; I10 Essential (primary) hypertension; J44.9 Chronic obstructive pulmonary disease, unspecified; K59.03 Drug induced constipation; M54.5 Low back pain; M19.90 Unspecified osteoarthritis, unspecified site; N40.0 Benign prostatic hyperplasia without lower urinary tract symptoms; Z96.653 Presence of artificial knee joint, bilateral; Z62.810 Personal history of physical and sexual abuse in childhood; Z98.890 Other specified postprocedural states; Z91.81 History of falling
CPT/HCPCS: 36415; 80053; 85027; 86780; C9803; J0735; U0003; U0005

== ENCOUNTER 2021-06-28 13:03 | Inpatient (IN) | payer OTHER ==
[2021-06-28] MEDS ORDERED: MENTHOL/PHENOL 1 EACH UD MM PRN (15:19)
[2021-06-28] MEDS ORDERED: MAGNESIUM CITRATE 300 ML BOTTLE PO PRN (15:19)
[2021-06-28] MEDS ORDERED: MAGNESIUM HYDROX 2400MG/30ML ORAL SUSPENSION 30 ML CUP PO PRN (15:19)
[2021-06-28] MEDS ORDERED: NALOXONE (NARCAN) HCL 4 MG/0.1 ML SPRAY NS PRN (15:19)
[2021-06-28] MEDS ORDERED: BISMUTH SUBSALICYLATE 524 MG/30 ML PO PRN (15:19)
[2021-06-28] MEDS ORDERED: ACETAMINOPHEN 325 MG TABLET (FP) PO PRN ×2 (15:19)
[2021-06-28] MEDS ORDERED: methaDONE HCL 10 MG TABLET (FOR DETOX USE ONLY) PO ONE (15:19)
[2021-06-28] MEDS ORDERED: ONDANSETRON *ODT* 4 MG TABLET SL PRN (15:19)
[2021-06-28] MEDS ORDERED: METHOCARBAMOL 500 MG TABLET PO PRN (15:19)
[2021-06-28] MEDS ORDERED: MAG HYDROX/AL HYDROX/SIMETH 30 ML UNIT-DOSE CUP PO PRN (15:19)
[2021-06-28] MEDS ORDERED: ARTIFICIAL TEARS (POLYVINYL ALCOHOL) OPTH DROPS OU PRN (15:25)
[2021-06-28 15:52] VITALS: BMI 33.7
[2021-06-28] MEDS: hydrOXYzine PAMOATE 25 MG CAPSULE (FP) PO SCH ×2 (18:08→22:30)
[2021-06-28] MEDS: NICOTINE 21 MG/24 HOURS TOPICAL PATCH TD SCH (18:08)
[2021-06-28] MEDS: cloNIDine HCL 0.1 MG TABLET PO PRN (18:09)
[2021-06-28] MEDS: THIAMINE HCL 100 MG TABLET (FP) PO SCH (22:30)
[2021-06-28] MEDS: MELATONIN 5 MG TABLETS PO SCH (22:30)
[2021-06-28] MEDS ORDERED: DOCUSATE SODIUM 100 MG CAPSULE (FP) PO ONE (22:44)
[2021-06-28] MEDS ORDERED: MINERAL OIL ENEMA 133 ML ENEMA PR ONE (22:44)
[2021-06-29] MEDS: hydrOXYzine PAMOATE 25 MG CAPSULE (FP) PO SCH ×5 (07:08→22:08)
[2021-06-29] MEDS ORDERED: ALBUTEROL SO4 HFA INHALER IH PRN (08:28)
[2021-06-29] MEDS ORDERED: methaDONE HCL 10 MG TABLET (FOR DETOX USE ONLY) ONE (09:37)
[2021-06-29] MEDS: NICOTINE 21 MG/24 HOURS TOPICAL PATCH TD SCH (10:08)
[2021-06-29] MEDS: LISINOPRIL 20 MG TABLET PO SCH (10:09)
[2021-06-29] MEDS: TAMSULOSIN HCL 0.4 MG CAP PO SCH (10:09)
[2021-06-29 10:22] LABS: HEMATOCRIT 41.5 % (35.4-49); MCH 31.1 pg (25.7-33.7); MCHC 33.8 g/dl (32.0-35.9); MEAN PLT VOLUME 8.5 fl (7.5-11.1); PLATELET COUNT 199 10^3/uL (134-434); RBC 4.51 M/mm3 (4.00-5.60); RDW 14.1 % (11.9-15.9); WHITE BLOOD COUNT 7.1 K/mm3 (4.0-10.0)
[2021-06-29 10:44] LABS: CALCIUM 9.4 mg/dL (8.5-10.1)
[2021-06-29] MEDS ORDERED: diazePAM 5 MG TABLET PO PRN (11:04)
[2021-06-29 11:21] LABS: BLOOD UREA NITROGEN 27.2 mg/dL (7-18)
[2021-06-29 11:22] LABS: ALBUMIN 3.9 g/dl (3.4-5.0)
[2021-06-29 11:25] LABS: CREATININE 0.8 mg/dL (0.55-1.3)
[2021-06-29 11:26] LABS: BILIRUBIN,TOTAL 0.4 mg/dL (0.2-1)
[2021-06-29] MEDS: NICOTINE 10 MG CARTRIDGE (INHALER) IH PRN (14:58)
[2021-06-29] MEDS: diazePAM 5 MG TABLET PO PRN ×2 (17:14→22:08)
[2021-06-29] MEDS: MELATONIN 5 MG TABLETS PO SCH (22:07)
[2021-06-29] MEDS: QUEtiapine FUMARATE 400 MG TABLET PO SCH (22:07)
[2021-06-29] MEDS: THIAMINE HCL 100 MG TABLET (FP) PO SCH (22:07)
[2021-06-30] MEDS: hydrOXYzine PAMOATE 25 MG CAPSULE (FP) PO SCH ×5 (06:23→22:13)
[2021-06-30] MEDS: NICOTINE 10 MG CARTRIDGE (INHALER) IH PRN ×3 (06:42→22:31)
[2021-06-30] MEDS ORDERED: methaDONE HCL 10 MG TABLET (FOR DETOX USE ONLY) PO ONE (10:00)
[2021-06-30] MEDS: TAMSULOSIN HCL 0.4 MG CAP PO SCH (10:13)
[2021-06-30] MEDS: LISINOPRIL 20 MG TABLET PO SCH (10:13)
[2021-06-30] MEDS: NICOTINE 21 MG/24 HOURS TOPICAL PATCH TD SCH (10:16)
[2021-06-30] MEDS: diazePAM 5 MG TABLET PO PRN ×3 (11:21→22:11)
[2021-06-30] MEDS: cloNIDine HCL 0.1 MG TABLET PO PRN ×2 (17:21→22:12)
[2021-06-30] MEDS ORDERED: BISACODYL 5 MG TABLET.DR (FP) PO PRN (19:18)
[2021-06-30] MEDS ORDERED: DOCUSATE SODIUM 100 MG CAPSULE (FP) PO ONE (19:25)
[2021-06-30] MEDS ORDERED: BISACODYL 10 MG SUPP.RECT PR ONE (19:25)
[2021-06-30] MEDS: MELATONIN 5 MG TABLETS PO SCH (22:12)
[2021-06-30] MEDS: THIAMINE HCL 100 MG TABLET (FP) PO SCH (22:12)
[2021-06-30] MEDS: QUEtiapine FUMARATE 400 MG TABLET PO SCH (22:12)
[2021-06-30] MEDS: SENNOSIDES 8.6MG TABLET (FP) PO SCH (22:12)
[2021-07-01] MEDS: diazePAM 5 MG TABLET PO PRN ×5 (04:51→23:04)
[2021-07-01] MEDS: hydrOXYzine PAMOATE 25 MG CAPSULE (FP) PO SCH ×5 (05:05→22:20)
[2021-07-01] MEDS: IBUPROFEN 400 MG TABLET (FP) PO PRN (06:45)
[2021-07-01] MEDS ORDERED: methaDONE HCL 10 MG TABLET (FOR DETOX USE ONLY) ONE (10:17)
[2021-07-01] MEDS: NICOTINE 21 MG/24 HOURS TOPICAL PATCH TD SCH (10:20)
[2021-07-01] MEDS: TAMSULOSIN HCL 0.4 MG CAP PO SCH (10:21)
[2021-07-01] MEDS: LISINOPRIL 20 MG TABLET PO SCH (10:21)
[2021-07-01] MEDS: MELATONIN 5 MG TABLETS PO SCH (22:20)
[2021-07-01] MEDS: SENNOSIDES 8.6MG TABLET (FP) PO SCH (22:21)
[2021-07-01] MEDS: THIAMINE HCL 100 MG TABLET (FP) PO SCH (22:21)
[2021-07-01] MEDS: QUEtiapine FUMARATE 400 MG TABLET PO SCH (22:22)
[2021-07-02] MEDS: hydrOXYzine PAMOATE 25 MG CAPSULE (FP) PO SCH ×6 (06:04→23:15)
[2021-07-02] MEDS: diazePAM 5 MG TABLET PO PRN ×3 (06:04→14:43)
[2021-07-02] MEDS: NICOTINE 10 MG CARTRIDGE (INHALER) IH PRN ×2 (06:06→18:08)
[2021-07-02] MEDS: TAMSULOSIN HCL 0.4 MG CAP PO SCH (07:54)
[2021-07-02] MEDS ORDERED: methaDONE HCL 10 MG TABLET (FOR DETOX USE ONLY) PO ONE (10:00)
[2021-07-02] MEDS: LISINOPRIL 20 MG TABLET PO SCH (10:02)
[2021-07-02] MEDS: NICOTINE 21 MG/24 HOURS TOPICAL PATCH TD SCH (10:04)
[2021-07-02] MEDS: SENNOSIDES 8.6MG TABLET (FP) PO SCH (23:14)
[2021-07-02] MEDS: MELATONIN 5 MG TABLETS PO SCH (23:14)
[2021-07-02] MEDS: THIAMINE HCL 100 MG TABLET (FP) PO SCH (23:15)
[2021-07-02] MEDS: QUEtiapine FUMARATE 400 MG TABLET PO SCH (23:15)
[2021-07-03] MEDS: NICOTINE 10 MG CARTRIDGE (INHALER) IH PRN (00:40)
[2021-07-03] MEDS: diazePAM 5 MG TABLET PO PRN (00:40)
[2021-07-03] MEDS: IBUPROFEN 400 MG TABLET (FP) PO PRN (01:49)
[2021-07-03] MEDS ORDERED: QUEtiapine FUMARATE 400 MG TABLET PO ONE (01:52)
[2021-07-03] MEDS ORDERED: SENNOSIDES 8.6MG TABLET (FP) PO ONE (02:58)
[2021-07-03] MEDS: hydrOXYzine PAMOATE 25 MG CAPSULE (FP) PO SCH (06:05)
[2021-07-03 06:18] VITALS: BP 135/59; PULSE 70
[2021-07-03 07:15] VITALS: TEMP 97.7
[2021-07-03] MEDS: TAMSULOSIN HCL 0.4 MG CAP PO SCH (07:58)
== END 2021-07-03 08:52 | disposition home or self-care (01) | DRG 897 ==
LOC: YASAS 13:03 → Y3N 16:25 → Y6N 07-03 00:37
PROVIDERS: ADMIT Allergy & Immunology; ATTEND Allergy & Immunology
PROC: HZ2ZZZZ Detoxification Services for Substance Abuse Treatment (ICD-10-PCS; principal; 2021-06-28)
DX: F11.23 Opioid dependence with withdrawal (principal); F13.20 Sedative, hypnotic or anxiolytic dependence, uncomplicated; F19.282 Other psychoactive substance dependence with psychoactive substance-induced sleep disorder; I69.851 Hemiplegia and hemiparesis following other cerebrovascular disease affecting right dominant side; F17.210 Nicotine dependence, cigarettes, uncomplicated; F19.24 Other psychoactive substance dependence with psychoactive substance-induced mood disorder; F31.9 Bipolar disorder, unspecified; E78.5 Hyperlipidemia, unspecified; I10 Essential (primary) hypertension; J43.9 Emphysema, unspecified; M19.90 Unspecified osteoarthritis, unspecified site; N40.0 Benign prostatic hyperplasia without lower urinary tract symptoms; S49.82XA Other specified injuries of left shoulder and upper arm, initial encounter; S09.90XA Unspecified injury of head, initial encounter; Y04.2XXA Assault by strike against or bumped into by another person, initial encounter; Y92.239 Unspecified place in hospital as the place of occurrence of the external cause; Z62.810 Personal history of physical and sexual abuse in childhood; Z96.653 Presence of artificial knee joint, bilateral; Z99.89 Dependence on other enabling machines and devices
CPT/HCPCS: 36415; 80053; 84520; 85027; 86780; C9803; J0735; U0003; U0005

== ENCOUNTER 2021-07-02 19:28 | Emergency (ER) | payer OTHER ==
[2021-07-02 19:38] VITALS: BP 160/84; PULSE 77; TEMP 98; BMI 32.5
== END 2021-07-02 23:33 | disposition home or self-care (01) ==
LOC: JER 19:28
DX: S53.402A Unspecified sprain of left elbow, initial encounter (principal); S09.90XA Unspecified injury of head, initial encounter
CPT/HCPCS: 70450-TC; 73030-TC-LT-FY; 99284-25

== ENCOUNTER 2021-09-10 17:39 | Inpatient (IN) | payer OTHER ==
[2021-09-10 19:56] VITALS: BMI 32.5
[2021-09-10] MEDS ORDERED: cloNIDine HCL 0.1 MG TABLET PO PRN (20:31)
[2021-09-10] MEDS ORDERED: ACETAMINOPHEN 325 MG TABLET (FP) PO PRN (20:31)
[2021-09-10] MEDS ORDERED: MENTHOL/PHENOL 1 EACH UD MM PRN (20:31)
[2021-09-10] MEDS ORDERED: MAG HYDROX/AL HYDROX/SIMETH 30 ML UNIT-DOSE CUP PO PRN (20:31)
[2021-09-10] MEDS ORDERED: NALOXONE HCL 0.4 MG/ML VIAL IM PRN (20:31)
[2021-09-10] MEDS ORDERED: methaDONE HCL 10 MG TABLET (FOR DETOX USE ONLY) PO ONE (20:31)
[2021-09-10] MEDS ORDERED: MAGNESIUM HYDROX 2400MG/30ML ORAL SUSPENSION 30 ML CUP PO PRN (20:31)
[2021-09-10] MEDS ORDERED: P-EPHED 60MG/TRIPROLIDI 2.5MG TABLET PO PRN (20:31)
[2021-09-10] MEDS ORDERED: MAGNESIUM CITRATE 300 ML BOTTLE PO PRN (20:31)
[2021-09-10] MEDS ORDERED: NALOXONE (NARCAN) HCL 4 MG/0.1 ML SPRAY NS PRN (20:31)
[2021-09-10] MEDS ORDERED: DICYCLOMINE HCL 10 MG CAPSULE PO PRN (20:31)
[2021-09-10] MEDS ORDERED: guaiFENesin 200 MG/10 ML 10 ML UNIT-DOSE CUPS PO PRN (20:31)
[2021-09-10] MEDS ORDERED: BISMUTH SUBSALICYLATE 524 MG/30 ML PO PRN (20:31)
[2021-09-10] MEDS ORDERED: MELATONIN 5 MG TABLETS PO SCH (22:00)
[2021-09-10] MEDS: DOCUSATE SODIUM 100 MG CAPSULE (FP) PO SCH (22:34)
[2021-09-10] MEDS: THIAMINE HCL 100 MG TABLET (FP) PO SCH (22:34)
[2021-09-10] MEDS: diazePAM 5 MG TABLET PO SCH (22:35)
[2021-09-11] MEDS: ACETAMINOPHEN 325 MG TABLET (FP) PO PRN (00:05)
[2021-09-11] MEDS: diazePAM 5 MG TABLET PO PRN ×3 (01:45→20:05)
[2021-09-11] MEDS: diazePAM 5 MG TABLET PO SCH ×4 (05:52→22:28)
[2021-09-11] MEDS: IBUPROFEN 400 MG TABLET (FP) PO PRN (05:55)
[2021-09-11] MEDS ORDERED: methaDONE HCL 10 MG TABLET (FOR DETOX USE ONLY) PO ONE (10:00)
[2021-09-11] MEDS: PRENATAL VITAMINS W/ FOLIC ACID TABLET (FP) PO SCH (10:41)
[2021-09-11] MEDS: LISINOPRIL 20 MG TABLET PO SCH (10:42)
[2021-09-11] MEDS: TAMSULOSIN HCL 0.4 MG CAP PO SCH (10:43)
[2021-09-11] MEDS: METHOCARBAMOL 500 MG TABLET PO PRN (10:43)
[2021-09-11] MEDS: NICOTINE 21 MG/24 HOURS TOPICAL PATCH TD SCH (10:49)
[2021-09-11] MEDS: NICOTINE 10 MG CARTRIDGE (INHALER) IH PRN (15:23)
[2021-09-11] MEDS ORDERED: ALBUTEROL SO4 HFA INHALER IH PRN (17:41)
[2021-09-11] MEDS: PATIENT'S OWN MEDICATION (NON-FORMULARY) (Prednisolone 1% Ophthalmic [Pred Forte 1% -] 1 D OU SCH ×2 (19:07→22:28)
[2021-09-11] MEDS: DOCUSATE SODIUM 100 MG CAPSULE (FP) PO SCH (22:27)
[2021-09-11] MEDS: PATIENT'S OWN MEDICATION (NON-FORMULARY) (Brimonidine Tartrate/Timolol [Combigan 0.2%-0.5% OD SCH (22:28)
[2021-09-11] MEDS: THIAMINE HCL 100 MG TABLET (FP) PO SCH (22:28)
[2021-09-11] MEDS ORDERED: QUEtiapine FUMARATE 200 MG TABLET PO ONE (23:50)
[2021-09-12] MEDS: diazePAM 5 MG TABLET PO SCH ×3 (06:57→22:15)
[2021-09-12] MEDS ORDERED: methaDONE HCL 10 MG TABLET (FOR DETOX USE ONLY) PO ONE (10:00)
[2021-09-12] MEDS: TAMSULOSIN HCL 0.4 MG CAP PO SCH (10:15)
[2021-09-12] MEDS: METHOCARBAMOL 500 MG TABLET PO PRN (10:15)
[2021-09-12] MEDS: LISINOPRIL 20 MG TABLET PO SCH (10:15)
[2021-09-12] MEDS: diazePAM 5 MG TABLET PO PRN (10:15)
[2021-09-12] MEDS: PRENATAL VITAMINS W/ FOLIC ACID TABLET (FP) PO SCH (10:15)
[2021-09-12] MEDS: PATIENT'S OWN MEDICATION (NON-FORMULARY) (Brimonidine Tartrate/Timolol [Combigan 0.2%-0.5% OD SCH ×2 (10:16→22:16)
[2021-09-12] MEDS: PATIENT'S OWN MEDICATION (NON-FORMULARY) (Prednisolone 1% Ophthalmic [Pred Forte 1% -] 1 D OU SCH ×4 (10:16→22:16)
[2021-09-12] MEDS: NICOTINE 21 MG/24 HOURS TOPICAL PATCH TD SCH (10:16)
[2021-09-12] MEDS ORDERED: methaDONE HCL 10 MG TABLET (FOR DETOX USE ONLY) ONE (11:03)
[2021-09-12] MEDS: NICOTINE 10 MG CARTRIDGE (INHALER) IH PRN ×2 (12:56→16:26)
[2021-09-12] MEDS ORDERED: QUEtiapine FUMARATE 200 MG TABLET PO ONE (22:00)
[2021-09-12] MEDS: DOCUSATE SODIUM 100 MG CAPSULE (FP) PO SCH (22:14)
[2021-09-12] MEDS: THIAMINE HCL 100 MG TABLET (FP) PO SCH (22:14)
[2021-09-13] MEDS: diazePAM 5 MG TABLET PO SCH ×2 (06:11→17:29)
[2021-09-13] MEDS ORDERED: methaDONE HCL 10 MG TABLET (FOR DETOX USE ONLY) ONE (09:03)
[2021-09-13] MEDS ORDERED: SODIUM PHOSPHATE/NA BIPHOS 133 ML ENEMA RC ONE (09:53)
[2021-09-13 10:07] LABS: CALCIUM 9.4 mg/dL (8.5-10.1)
[2021-09-13 10:08] LABS: ALBUMIN 3.9 g/dl (3.4-5.0); BLOOD UREA NITROGEN 25.1 mg/dL (7-18)
[2021-09-13 10:11] LABS: CREATININE 0.7 mg/dL (0.55-1.3)
[2021-09-13 10:12] LABS: BILIRUBIN,TOTAL 0.6 mg/dL (0.2-1)
[2021-09-13] MEDS: PRENATAL VITAMINS W/ FOLIC ACID TABLET (FP) PO SCH (10:48)
[2021-09-13] MEDS: TAMSULOSIN HCL 0.4 MG CAP PO SCH (10:48)
[2021-09-13] MEDS: LISINOPRIL 20 MG TABLET PO SCH (10:49)
[2021-09-13] MEDS: IBUPROFEN 400 MG TABLET (FP) PO PRN ×2 (10:56→22:13)
[2021-09-13] MEDS: diazePAM 5 MG TABLET PO PRN (10:56)
[2021-09-13] MEDS: PATIENT'S OWN MEDICATION (NON-FORMULARY) (Prednisolone 1% Ophthalmic [Pred Forte 1% -] 1 D OU SCH ×4 (11:02→22:11)
[2021-09-13] MEDS: NICOTINE 21 MG/24 HOURS TOPICAL PATCH TD SCH (11:03)
[2021-09-13] MEDS: PATIENT'S OWN MEDICATION (NON-FORMULARY) (Brimonidine Tartrate/Timolol [Combigan 0.2%-0.5% OD SCH ×2 (11:03→22:11)
[2021-09-13 11:19] LABS: HEMATOCRIT 42.9 % (35.4-49); HEMOGLOBIN 14.5 GM/dL (11.7-16.9); MCH 31.4 pg (25.7-33.7); MCHC 33.9 g/dl (32.0-35.9); MEAN CELL VOLUME 92.8 fl (80-96); PLATELET COUNT 185 10^3/uL (134-434); RBC 4.63 M/mm3 (4.00-5.60); WHITE BLOOD COUNT 6.7 K/mm3 (4.0-10.0)
[2021-09-13] MEDS: NICOTINE 10 MG CARTRIDGE (INHALER) IH PRN ×2 (12:11→19:04)
[2021-09-13] MEDS: THIAMINE HCL 100 MG TABLET (FP) PO SCH (22:11)
[2021-09-13] MEDS: DOCUSATE SODIUM 100 MG CAPSULE (FP) PO SCH (22:11)
[2021-09-13] MEDS: QUEtiapine FUMARATE 200 MG TABLET PO SCH (22:11)
[2021-09-13] MEDS: METHOCARBAMOL 500 MG TABLET PO PRN (22:14)
[2021-09-14] MEDS: IBUPROFEN 400 MG TABLET (FP) PO PRN ×2 (05:16→17:52)
[2021-09-14] MEDS: METHOCARBAMOL 500 MG TABLET PO PRN (05:17)
[2021-09-14] MEDS ORDERED: diazePAM 5 MG TABLET PO ONE (06:00)
[2021-09-14] MEDS: NICOTINE 10 MG CARTRIDGE (INHALER) IH PRN ×2 (06:34→09:38)
[2021-09-14] MEDS: NICOTINE 21 MG/24 HOURS TOPICAL PATCH TD SCH (09:35)
[2021-09-14] MEDS: PATIENT'S OWN MEDICATION (NON-FORMULARY) (Brimonidine Tartrate/Timolol [Combigan 0.2%-0.5% OD SCH ×2 (09:35→23:43)
[2021-09-14] MEDS: TAMSULOSIN HCL 0.4 MG CAP PO SCH (09:36)
[2021-09-14] MEDS: LISINOPRIL 20 MG TABLET PO SCH ×2 (09:37→09:42)
[2021-09-14] MEDS: PRENATAL VITAMINS W/ FOLIC ACID TABLET (FP) PO SCH (09:37)
[2021-09-14] MEDS: ACETAMINOPHEN 325 MG TABLET (FP) PO PRN (09:42)
[2021-09-14] MEDS: PATIENT'S OWN MEDICATION (NON-FORMULARY) (Prednisolone 1% Ophthalmic [Pred Forte 1% -] 1 D OU SCH ×4 (09:42→23:43)
[2021-09-14] MEDS ORDERED: methaDONE HCL 10 MG TABLET (FOR DETOX USE ONLY) PO ONE (10:00)
[2021-09-14] MEDS: hydrOXYzine PAMOATE 25 MG CAPSULE (FP) PO PRN ×2 (17:50→22:29)
[2021-09-14] MEDS: THIAMINE HCL 100 MG TABLET (FP) PO SCH (22:29)
[2021-09-14] MEDS: QUEtiapine FUMARATE 200 MG TABLET PO SCH (22:29)
[2021-09-14] MEDS: DOCUSATE SODIUM 100 MG CAPSULE (FP) PO SCH (22:30)
[2021-09-15] MEDS ORDERED: ALBUTEROL SO4 HFA INHALER IH ONE (03:26)
[2021-09-15] MEDS: hydrOXYzine PAMOATE 25 MG CAPSULE (FP) PO PRN (06:02)
[2021-09-15 09:17] VITALS: BP 153/90; PULSE 73; TEMP 97.5
[2021-09-15] MEDS: NICOTINE 21 MG/24 HOURS TOPICAL PATCH TD SCH (10:14)
[2021-09-15] MEDS: PRENATAL VITAMINS W/ FOLIC ACID TABLET (FP) PO SCH (10:14)
[2021-09-15] MEDS: PATIENT'S OWN MEDICATION (NON-FORMULARY) (Brimonidine Tartrate/Timolol [Combigan 0.2%-0.5% OD SCH (10:14)
[2021-09-15] MEDS: TAMSULOSIN HCL 0.4 MG CAP PO SCH (10:14)
[2021-09-15] MEDS: PATIENT'S OWN MEDICATION (NON-FORMULARY) (Prednisolone 1% Ophthalmic [Pred Forte 1% -] 1 D OU SCH (10:15)
[2021-09-15] MEDS: LISINOPRIL 20 MG TABLET PO SCH (10:15)
== END 2021-09-15 10:19 | disposition home or self-care (01) | DRG 897 ==
LOC: YASAS 17:39 → Y6N 20:54
PROVIDERS: ADMIT Allergy & Immunology; ATTEND Allergy & Immunology
PROC: HZ2ZZZZ Detoxification Services for Substance Abuse Treatment (ICD-10-PCS; principal; 2021-09-10)
DX: F11.23 Opioid dependence with withdrawal (principal); F19.282 Other psychoactive substance dependence with psychoactive substance-induced sleep disorder; F13.230 Sedative, hypnotic or anxiolytic dependence with withdrawal, uncomplicated; F17.210 Nicotine dependence, cigarettes, uncomplicated; F19.24 Other psychoactive substance dependence with psychoactive substance-induced mood disorder; F31.9 Bipolar disorder, unspecified; I10 Essential (primary) hypertension; N40.0 Benign prostatic hyperplasia without lower urinary tract symptoms; J43.9 Emphysema, unspecified; B18.2 Chronic viral hepatitis C; H40.9 Unspecified glaucoma; K21.9 Gastro-esophageal reflux disease without esophagitis; M19.90 Unspecified osteoarthritis, unspecified site; K59.03 Drug induced constipation; M54.59 Other low back pain; G89.29 Other chronic pain; I83.93 Asymptomatic varicose veins of bilateral lower extremities; R26.2 Difficulty in walking, not elsewhere classified; Z99.89 Dependence on other enabling machines and devices; Z91.19 Patient's noncompliance with other medical treatment and regimen; Z62.810 Personal history of physical and sexual abuse in childhood; Z96.653 Presence of artificial knee joint, bilateral; Z86.73 Personal history of transient ischemic attack (TIA), and cerebral infarction without residual deficits; Z56.0 Unemployment, unspecified
CPT/HCPCS: 36415; 80053; 85027; 86780; 87811; C9803; J0735; U0003; U0005

== ENCOUNTER 2021-11-11 12:22 | Inpatient (IN) | payer OTHER ==
[2021-11-11] MEDS ORDERED: MENTHOL/PHENOL 1 EACH UD MM PRN (14:15)
[2021-11-11] MEDS ORDERED: ONDANSETRON *ODT* 4 MG TABLET SL PRN (14:15)
[2021-11-11] MEDS ORDERED: ACETAMINOPHEN 325 MG TABLET (FP) PO PRN ×2 (14:15)
[2021-11-11] MEDS ORDERED: MAGNESIUM CITRATE 300 ML BOTTLE PO PRN (14:15)
[2021-11-11] MEDS ORDERED: BISMUTH SUBSALICYLATE 262 MG/15 ML BTL PO PRN (14:15)
[2021-11-11] MEDS ORDERED: LOPERAMIDE HCL 2 MG CAPSULE PO PRN (14:15)
[2021-11-11] MEDS ORDERED: MAG HYDROX/AL HYDROX/SIMETH 30 ML UNIT-DOSE CUP PO PRN (14:15)
[2021-11-11] MEDS ORDERED: IBUPROFEN 400 MG TABLET (FP) PO PRN (14:15)
[2021-11-11] MEDS ORDERED: ALBUTEROL SO4 HFA INHALER IH PRN (14:18)
[2021-11-11 15:30] VITALS: BMI 32.3
[2021-11-11] MEDS ORDERED: MELATONIN 5 MG TABLETS PO SCH (22:00)
[2021-11-11] MEDS: THIAMINE HCL 100 MG TABLET (FP) PO SCH (23:10)
[2021-11-11] MEDS: LISINOPRIL 10 MG TABLET PO SCH (23:11)
[2021-11-11] MEDS: hydrOXYzine PAMOATE 25 MG CAPSULE (FP) PO PRN (23:13)
[2021-11-11] MEDS: PRENATAL VITAMINS W/ FOLIC ACID TABLET (FP) PO SCH (23:16)
[2021-11-11] MEDS: NICOTINE 14 MG/24 HOURS TOPICAL PATCH TD SCH (23:17)
[2021-11-12] MEDS: prednisoLONE ACETATE 1% OPHTH SUSP 5 ML BOTTLE OU SCH ×3 (00:08→13:11)
[2021-11-12] MEDS ORDERED: methaDONE HCL 10 MG TABLET (FOR DETOX USE ONLY) PO ONE (09:56)
[2021-11-12] MEDS: NICOTINE 14 MG/24 HOURS TOPICAL PATCH TD SCH (10:15)
[2021-11-12] MEDS: LISINOPRIL 10 MG TABLET PO SCH (10:15)
[2021-11-12] MEDS: TAMSULOSIN HCL 0.4 MG CAP PO SCH (10:16)
[2021-11-12] MEDS: diazePAM 5 MG TABLET PO PRN ×3 (10:31→22:30)
[2021-11-12] MEDS: PRENATAL VITAMINS W/ FOLIC ACID TABLET (FP) PO SCH (10:32)
[2021-11-12] MEDS: PATIENT'S OWN MEDICATION (NON-FORMULARY) (Brimonidine Tartrate/Timolol [Combigan 0.2%-0.5% OD SCH ×2 (11:17→11:18)
[2021-11-12 12:36] LABS: HEMATOCRIT 42.2 % (35.4-49); HEMOGLOBIN 14.4 GM/dL (11.7-16.9); MCH 31.1 pg (25.7-33.7); MCHC 34.1 g/dl (32.0-35.9); MEAN CELL VOLUME 91.3 fl (80-96); MEAN PLT VOLUME 8.5 fl (7.5-11.1); PLATELET COUNT 198 10^3/uL (134-434); RBC 4.63 M/mm3 (4.00-5.60); RDW 14.1 % (11.9-15.9); WHITE BLOOD COUNT 7.8 K/mm3 (4.0-10.0)
[2021-11-12 12:46] LABS: ALBUMIN 4.1 g/dl (3.4-5.0); BLOOD UREA NITROGEN 22.9 mg/dL (7-18); CALCIUM 9.2 mg/dL (8.5-10.1)
[2021-11-12 12:49] LABS: CREATININE 0.9 mg/dL (0.55-1.3)
[2021-11-12 12:50] LABS: BILIRUBIN,TOTAL 0.6 mg/dL (0.2-1)
[2021-11-12 12:51] LABS: TOT PROT 7.2 g/dl (6.4-8.2)
[2021-11-12] MEDS: NICOTINE 10 MG CARTRIDGE (INHALER) IH PRN (16:05)
[2021-11-12] MEDS: ASPIRIN COATED 81 MG TABLET.EC PO SCH (18:25)
[2021-11-12] MEDS: MOXIFLOXACIN HCL 0.5% OPHTHALMIC 3 ML BOTTLE OS SCH ×2 (18:30→22:31)
[2021-11-12] MEDS: prednisoLONE ACETATE 1% OPHTH SUSP 5 ML BOTTLE OS SCH ×2 (18:30→22:31)
[2021-11-12] MEDS ORDERED: MINERAL OIL ENEMA 133 ML ENEMA PR ONE (18:51)
[2021-11-12] MEDS: QUEtiapine FUMARATE 200 MG TABLET PO SCH (22:30)
[2021-11-12] MEDS: THIAMINE HCL 100 MG TABLET (FP) PO SCH (22:30)
[2021-11-13] MEDS ORDERED: MINERAL OIL ENEMA 133 ML ENEMA PR ONE (05:17)
[2021-11-13] MEDS: diazePAM 5 MG TABLET PO PRN ×4 (06:03→22:26)
[2021-11-13] MEDS: NICOTINE 10 MG CARTRIDGE (INHALER) IH PRN ×2 (07:22→12:07)
[2021-11-13] MEDS ORDERED: methaDONE HCL 10 MG TABLET (FOR DETOX USE ONLY) ONE (09:27)
[2021-11-13] MEDS: PRENATAL VITAMINS W/ FOLIC ACID TABLET (FP) PO SCH (10:44)
[2021-11-13] MEDS: TAMSULOSIN HCL 0.4 MG CAP PO SCH (12:08)
[2021-11-13] MEDS: ASPIRIN COATED 81 MG TABLET.EC PO SCH (12:09)
[2021-11-13] MEDS: prednisoLONE ACETATE 1% OPHTH SUSP 5 ML BOTTLE OS SCH ×4 (12:10→22:25)
[2021-11-13] MEDS: MOXIFLOXACIN HCL 0.5% OPHTHALMIC 3 ML BOTTLE OS SCH ×4 (12:10→22:25)
[2021-11-13] MEDS: NICOTINE 14 MG/24 HOURS TOPICAL PATCH TD SCH (12:10)
[2021-11-13] MEDS: LISINOPRIL 10 MG TABLET PO SCH (12:10)
[2021-11-13 16:11] LABS: SARS-CoV-2 NAA Not Detected (Not Detected)
[2021-11-13] MEDS: THIAMINE HCL 100 MG TABLET (FP) PO SCH (22:25)
[2021-11-13] MEDS: QUEtiapine FUMARATE 200 MG TABLET PO SCH (22:25)
[2021-11-13] MEDS: MAGNESIUM HYDROX 2400MG/30ML ORAL SUSPENSION 30 ML CUP PO PRN (22:27)
[2021-11-13] MEDS: METHOCARBAMOL 500 MG TABLET PO PRN (22:27)
[2021-11-14] MEDS: diazePAM 5 MG TABLET PO PRN (05:40)
[2021-11-14] MEDS: METHOCARBAMOL 500 MG TABLET PO PRN (07:24)
[2021-11-14] MEDS ORDERED: methaDONE HCL 10 MG TABLET (FOR DETOX USE ONLY) PO ONE (10:00)
[2021-11-14] MEDS: LISINOPRIL 10 MG TABLET PO SCH (10:39)
[2021-11-14] MEDS: MOXIFLOXACIN HCL 0.5% OPHTHALMIC 3 ML BOTTLE OS SCH ×4 (10:41→22:36)
[2021-11-14] MEDS: ASPIRIN COATED 81 MG TABLET.EC PO SCH (10:41)
[2021-11-14] MEDS: NICOTINE 14 MG/24 HOURS TOPICAL PATCH TD SCH (10:41)
[2021-11-14] MEDS: prednisoLONE ACETATE 1% OPHTH SUSP 5 ML BOTTLE OS SCH ×4 (10:41→22:36)
[2021-11-14] MEDS: TAMSULOSIN HCL 0.4 MG CAP PO SCH (10:41)
[2021-11-14] MEDS: PRENATAL VITAMINS W/ FOLIC ACID TABLET (FP) PO SCH (10:41)
[2021-11-14] MEDS: NICOTINE 10 MG CARTRIDGE (INHALER) IH PRN ×2 (11:31→21:48)
[2021-11-14] MEDS ORDERED: diazePAM 5 MG TABLET PO ONE ×2 (19:00→23:00)
[2021-11-14] MEDS: QUEtiapine FUMARATE 200 MG TABLET PO SCH (22:35)
[2021-11-14] MEDS: THIAMINE HCL 100 MG TABLET (FP) PO SCH (22:35)
[2021-11-14] MEDS: MAGNESIUM HYDROX 2400MG/30ML ORAL SUSPENSION 30 ML CUP PO PRN (22:37)
[2021-11-15] MEDS ORDERED: diazePAM 5 MG TABLET PO ONE (06:00)
[2021-11-15] MEDS: NICOTINE 10 MG CARTRIDGE (INHALER) IH PRN ×2 (09:30→18:57)
[2021-11-15] MEDS ORDERED: methaDONE HCL 10 MG TABLET (FOR DETOX USE ONLY) ONE (09:49)
[2021-11-15] MEDS: LISINOPRIL 10 MG TABLET PO SCH (10:17)
[2021-11-15] MEDS: NICOTINE 14 MG/24 HOURS TOPICAL PATCH TD SCH (10:17)
[2021-11-15] MEDS: ASPIRIN COATED 81 MG TABLET.EC PO SCH (10:17)
[2021-11-15] MEDS: TAMSULOSIN HCL 0.4 MG CAP PO SCH (10:17)
[2021-11-15] MEDS: prednisoLONE ACETATE 1% OPHTH SUSP 5 ML BOTTLE OS SCH ×4 (10:17→22:47)
[2021-11-15] MEDS: MOXIFLOXACIN HCL 0.5% OPHTHALMIC 3 ML BOTTLE OS SCH ×4 (10:18→22:47)
[2021-11-15] MEDS: PRENATAL VITAMINS W/ FOLIC ACID TABLET (FP) PO SCH (10:18)
[2021-11-15] MEDS: hydrOXYzine PAMOATE 25 MG CAPSULE (FP) PO PRN ×2 (14:04→22:22)
[2021-11-15] MEDS: THIAMINE HCL 100 MG TABLET (FP) PO SCH (22:22)
[2021-11-15] MEDS: QUEtiapine FUMARATE 200 MG TABLET PO SCH (22:22)
[2021-11-15] MEDS: MAGNESIUM HYDROX 2400MG/30ML ORAL SUSPENSION 30 ML CUP PO PRN (22:23)
[2021-11-16] MEDS: NICOTINE 10 MG CARTRIDGE (INHALER) IH PRN ×2 (07:27→09:40)
[2021-11-16] MEDS: LISINOPRIL 10 MG TABLET PO SCH (09:37)
[2021-11-16] MEDS: TAMSULOSIN HCL 0.4 MG CAP PO SCH (09:37)
[2021-11-16] MEDS: METHOCARBAMOL 500 MG TABLET PO PRN ×2 (09:37→16:31)
[2021-11-16] MEDS: ASPIRIN COATED 81 MG TABLET.EC PO SCH (09:37)
[2021-11-16] MEDS: NICOTINE 14 MG/24 HOURS TOPICAL PATCH TD SCH (09:38)
[2021-11-16] MEDS: MOXIFLOXACIN HCL 0.5% OPHTHALMIC 3 ML BOTTLE OS SCH ×4 (09:38→22:19)
[2021-11-16] MEDS: PRENATAL VITAMINS W/ FOLIC ACID TABLET (FP) PO SCH (09:38)
[2021-11-16] MEDS: prednisoLONE ACETATE 1% OPHTH SUSP 5 ML BOTTLE OS SCH ×4 (09:57→23:02)
[2021-11-16] MEDS ORDERED: methaDONE HCL 10 MG TABLET (FOR DETOX USE ONLY) PO ONE (10:00)
[2021-11-16] MEDS: hydrOXYzine PAMOATE 25 MG CAPSULE (FP) PO PRN ×2 (16:32→22:19)
[2021-11-16] MEDS ORDERED: NICOTINE POLACRILEX 2 MG GUM BUC PRN (18:57)
[2021-11-16] MEDS: THIAMINE HCL 100 MG TABLET (FP) PO SCH (22:19)
[2021-11-16] MEDS: MAGNESIUM HYDROX 2400MG/30ML ORAL SUSPENSION 30 ML CUP PO PRN (22:54)
[2021-11-16] MEDS: QUEtiapine FUMARATE 200 MG TABLET PO SCH (23:02)
[2021-11-17 08:42] VITALS: BP 100/66; PULSE 91; TEMP 97.1
== END 2021-11-17 09:15 | disposition home or self-care (01) | DRG 897 ==
LOC: YASAS 12:22 → Y3N 17:42
PROVIDERS: ADMIT Allergy & Immunology; ATTEND Allergy & Immunology
PROC: HZ2ZZZZ Detoxification Services for Substance Abuse Treatment (ICD-10-PCS; principal; 2021-11-11)
DX: F11.23 Opioid dependence with withdrawal (principal); F13.20 Sedative, hypnotic or anxiolytic dependence, uncomplicated; I69.851 Hemiplegia and hemiparesis following other cerebrovascular disease affecting right dominant side; F17.210 Nicotine dependence, cigarettes, uncomplicated; F31.9 Bipolar disorder, unspecified; F19.24 Other psychoactive substance dependence with psychoactive substance-induced mood disorder; I10 Essential (primary) hypertension; J44.9 Chronic obstructive pulmonary disease, unspecified; K21.9 Gastro-esophageal reflux disease without esophagitis; K59.00 Constipation, unspecified; M54.50 Low back pain, unspecified; G89.29 Other chronic pain; N40.0 Benign prostatic hyperplasia without lower urinary tract symptoms; B18.2 Chronic viral hepatitis C; R79.89 Other specified abnormal findings of blood chemistry; Z62.810 Personal history of physical and sexual abuse in childhood; Z96.653 Presence of artificial knee joint, bilateral; Z86.2 Personal history of diseases of the blood and blood-forming organs and certain disorders involving the immune mechanism
CPT/HCPCS: 36415; 80053; 85027; 86780; 87811; C9803; U0003; U0005

== ENCOUNTER 2021-12-12 13:25 | Inpatient (IN) | payer OTHER ==
[2021-12-12 14:21] VITALS: BMI 33.2
[2021-12-12] MEDS ORDERED: ALBUTEROL SO4 HFA INHALER IH PRN (14:33)
[2021-12-12] MEDS ORDERED: ACETAMINOPHEN 325 MG TABLET (FP) PO PRN (14:34)
[2021-12-12] MEDS ORDERED: BISMUTH SUBSALICYLATE 524 MG/30 ML PO PRN (14:34)
[2021-12-12] MEDS ORDERED: LOPERAMIDE HCL 2 MG CAPSULE PO PRN (14:34)
[2021-12-12] MEDS ORDERED: ONDANSETRON *ODT* 4 MG TABLET SL PRN (14:34)
[2021-12-12] MEDS ORDERED: MAG HYDROX/AL HYDROX/SIMETH 30 ML UNIT-DOSE CUP PO PRN (14:34)
[2021-12-12] MEDS ORDERED: MAGNESIUM CITRATE 300 ML BOTTLE PO PRN (14:34)
[2021-12-12] MEDS ORDERED: MENTHOL/PHENOL 1 EACH UD MM PRN (14:34)
[2021-12-12] MEDS ORDERED: SODIUM PHOSPHATE/NA BIPHOS 133 ML ENEMA RC PRN (14:36)
[2021-12-12] MEDS: diazePAM 5 MG TABLET PO PRN ×2 (15:53→20:02)
[2021-12-12] MEDS: NICOTINE 10 MG CARTRIDGE (INHALER) IH PRN (18:14)
[2021-12-12] MEDS ORDERED: methaDONE HCL 10 MG TABLET (FOR DETOX USE ONLY) PO ONE (22:00)
[2021-12-12] MEDS: THIAMINE HCL 100 MG TABLET (FP) PO SCH (22:36)
[2021-12-12] MEDS: MELATONIN 5 MG TABLETS PO PRN (22:37)
[2021-12-12] MEDS: MAGNESIUM HYDROX 2400MG/30ML ORAL SUSPENSION 30 ML CUP PO PRN (22:38)
[2021-12-12] MEDS ORDERED: hydrOXYzine PAMOATE 25 MG CAPSULE (FP) PO ONE (22:42)
[2021-12-13] MEDS: diazePAM 5 MG TABLET PO PRN ×4 (02:11→22:37)
[2021-12-13] MEDS: PRENATAL VITAMINS W/ FOLIC ACID TABLET (FP) PO SCH (09:34)
[2021-12-13] MEDS: LISINOPRIL 10 MG TABLET PO SCH (09:37)
[2021-12-13] MEDS: hydrOXYzine PAMOATE 25 MG CAPSULE (FP) PO PRN ×2 (09:37→22:37)
[2021-12-13] MEDS: TAMSULOSIN HCL 0.4 MG CAP PO SCH (09:37)
[2021-12-13] MEDS ORDERED: methaDONE HCL 10 MG TABLET (FOR DETOX USE ONLY) PO ONE (10:00)
[2021-12-13 10:24] LABS: HEMATOCRIT 38.1 % (35.4-49); HEMOGLOBIN 12.9 GM/dL (11.7-16.9); MCH 31.6 pg (25.7-33.7); MCHC 33.8 g/dl (32.0-35.9); MEAN CELL VOLUME 93.4 fl (80-96); PLATELET COUNT 159 10^3/uL (134-434); RBC 4.08 M/mm3 (4.00-5.60); RDW 14.3 % (11.9-15.9); WHITE BLOOD COUNT 6.3 K/mm3 (4.0-10.0)
[2021-12-13 10:46] LABS: ALBUMIN 3.4 g/dl (3.4-5.0); CALCIUM 8.9 mg/dL (8.5-10.1)
[2021-12-13 10:47] LABS: BLOOD UREA NITROGEN 30.1 mg/dL (7-18)
[2021-12-13 10:48] LABS: CREATININE 0.8 mg/dL (0.55-1.3)
[2021-12-13 10:49] LABS: BILIRUBIN,TOTAL 0.4 mg/dL (0.2-1); TOT PROT 6.6 g/dl (6.4-8.2)
[2021-12-13] MEDS: NICOTINE 10 MG CARTRIDGE (INHALER) IH PRN ×2 (10:53→18:01)
[2021-12-13] MEDS: CLOTRIMAZOLE 10 MG TROCHE PO SCH ×3 (13:29→22:40)
[2021-12-13] MEDS: ACETAMINOPHEN 325 MG TABLET (FP) PO PRN ×2 (16:05→22:42)
[2021-12-13] MEDS: MELATONIN 5 MG TABLETS PO PRN (22:32)
[2021-12-13] MEDS: THIAMINE HCL 100 MG TABLET (FP) PO SCH (22:32)
[2021-12-13] MEDS: DOCUSATE SODIUM 100 MG CAPSULE (FP) PO PRN (22:36)
[2021-12-13] MEDS: MAGNESIUM HYDROX 2400MG/30ML ORAL SUSPENSION 30 ML CUP PO PRN (22:39)
[2021-12-14] MEDS: diazePAM 5 MG TABLET PO PRN ×3 (06:42→22:11)
[2021-12-14] MEDS: NICOTINE 10 MG CARTRIDGE (INHALER) IH PRN ×2 (06:43→22:13)
[2021-12-14] MEDS: CLOTRIMAZOLE 10 MG TROCHE PO SCH ×5 (06:44→22:10)
[2021-12-14] MEDS: TAMSULOSIN HCL 0.4 MG CAP PO SCH (09:39)
[2021-12-14] MEDS: LISINOPRIL 10 MG TABLET PO SCH (09:39)
[2021-12-14] MEDS: PRENATAL VITAMINS W/ FOLIC ACID TABLET (FP) PO SCH (09:45)
[2021-12-14] MEDS: NICOTINE POLACRILEX 2 MG GUM BUC PRN (15:38)
[2021-12-14] MEDS: hydrOXYzine PAMOATE 25 MG CAPSULE (FP) PO PRN (17:34)
[2021-12-14] MEDS: IBUPROFEN 400 MG TABLET (FP) PO PRN (17:34)
[2021-12-14] MEDS: THIAMINE HCL 100 MG TABLET (FP) PO SCH (22:10)
[2021-12-14] MEDS: MELATONIN 5 MG TABLETS PO PRN (22:10)
[2021-12-14] MEDS: QUEtiapine FUMARATE 200 MG TABLET PO SCH (22:10)
[2021-12-14] MEDS: DOCUSATE SODIUM 100 MG CAPSULE (FP) PO PRN (22:11)
[2021-12-14] MEDS: MAGNESIUM HYDROX 2400MG/30ML ORAL SUSPENSION 30 ML CUP PO PRN (22:14)
[2021-12-15] MEDS: diazePAM 5 MG TABLET PO PRN ×4 (03:27→23:50)
[2021-12-15] MEDS: CLOTRIMAZOLE 10 MG TROCHE PO SCH ×5 (06:10→22:05)
[2021-12-15] MEDS: NICOTINE 10 MG CARTRIDGE (INHALER) IH PRN ×5 (06:34→23:48)
[2021-12-15] MEDS: ACETAMINOPHEN 325 MG TABLET (FP) PO PRN (07:49)
[2021-12-15] MEDS ORDERED: methaDONE HCL 10 MG TABLET (FOR DETOX USE ONLY) ONE (08:52)
[2021-12-15] MEDS: PRENATAL VITAMINS W/ FOLIC ACID TABLET (FP) PO SCH (10:27)
[2021-12-15] MEDS: LISINOPRIL 10 MG TABLET PO SCH (10:27)
[2021-12-15] MEDS: TAMSULOSIN HCL 0.4 MG CAP PO SCH (10:27)
[2021-12-15] MEDS: IBUPROFEN 400 MG TABLET (FP) PO PRN (10:29)
[2021-12-15] MEDS ORDERED: diazePAM 5 MG TABLET PO ONE (15:49)
[2021-12-15] MEDS: hydrOXYzine PAMOATE 25 MG CAPSULE (FP) PO PRN (19:44)
[2021-12-15] MEDS: THIAMINE HCL 100 MG TABLET (FP) PO SCH (22:03)
[2021-12-15] MEDS: QUEtiapine FUMARATE 200 MG TABLET PO SCH (22:03)
[2021-12-15] MEDS: MELATONIN 5 MG TABLETS PO PRN (22:03)
[2021-12-15] MEDS: MAGNESIUM HYDROX 2400MG/30ML ORAL SUSPENSION 30 ML CUP PO PRN (22:55)
[2021-12-15] MEDS: DOCUSATE SODIUM 100 MG CAPSULE (FP) PO PRN (22:55)
[2021-12-16] MEDS: diazePAM 5 MG TABLET PO PRN ×5 (05:53→22:44)
[2021-12-16] MEDS: CLOTRIMAZOLE 10 MG TROCHE PO SCH ×5 (05:53→22:44)
[2021-12-16] MEDS: NICOTINE 10 MG CARTRIDGE (INHALER) IH PRN ×3 (07:14→22:46)
[2021-12-16] MEDS: TAMSULOSIN HCL 0.4 MG CAP PO SCH (09:16)
[2021-12-16] MEDS ORDERED: methaDONE HCL 10 MG TABLET (FOR DETOX USE ONLY) PO ONE (10:00)
[2021-12-16] MEDS: LISINOPRIL 10 MG TABLET PO SCH (10:29)
[2021-12-16] MEDS: PRENATAL VITAMINS W/ FOLIC ACID TABLET (FP) PO SCH (10:30)
[2021-12-16] MEDS: NICOTINE POLACRILEX 2 MG GUM BUC PRN (14:43)
[2021-12-16] MEDS: IBUPROFEN 400 MG TABLET (FP) PO PRN (15:35)
[2021-12-16] MEDS: MELATONIN 5 MG TABLETS PO PRN (22:43)
[2021-12-16] MEDS: QUEtiapine FUMARATE 200 MG TABLET PO SCH (22:44)
[2021-12-16] MEDS: THIAMINE HCL 100 MG TABLET (FP) PO SCH (22:44)
[2021-12-16] MEDS: MAGNESIUM HYDROX 2400MG/30ML ORAL SUSPENSION 30 ML CUP PO PRN (22:44)
[2021-12-16] MEDS: DOCUSATE SODIUM 100 MG CAPSULE (FP) PO PRN (22:46)
[2021-12-17] MEDS: diazePAM 5 MG TABLET PO PRN (06:47)
[2021-12-17] MEDS: CLOTRIMAZOLE 10 MG TROCHE PO SCH ×2 (07:30→09:10)
[2021-12-17 09:06] VITALS: BP 112/77; PULSE 64; TEMP 98.3
[2021-12-17] MEDS: TAMSULOSIN HCL 0.4 MG CAP PO SCH (09:10)
[2021-12-17] MEDS: LISINOPRIL 10 MG TABLET PO SCH (09:10)
== END 2021-12-17 09:30 | disposition home or self-care (01) | DRG 897 ==
LOC: YASAS 13:25 → Y3N 15:01
PROVIDERS: ADMIT Allergy & Immunology; ATTEND Allergy & Immunology
PROC: HZ2ZZZZ Detoxification Services for Substance Abuse Treatment (ICD-10-PCS; principal; 2021-12-12)
DX: F11.23 Opioid dependence with withdrawal (principal); F13.20 Sedative, hypnotic or anxiolytic dependence, uncomplicated; I69.851 Hemiplegia and hemiparesis following other cerebrovascular disease affecting right dominant side; F17.210 Nicotine dependence, cigarettes, uncomplicated; F31.9 Bipolar disorder, unspecified; F19.24 Other psychoactive substance dependence with psychoactive substance-induced mood disorder; I10 Essential (primary) hypertension; J44.9 Chronic obstructive pulmonary disease, unspecified; K21.9 Gastro-esophageal reflux disease without esophagitis; K59.00 Constipation, unspecified; N40.0 Benign prostatic hyperplasia without lower urinary tract symptoms; B18.2 Chronic viral hepatitis C; Z62.810 Personal history of physical and sexual abuse in childhood; Z96.653 Presence of artificial knee joint, bilateral; Z99.89 Dependence on other enabling machines and devices
CPT/HCPCS: 36415; 80053; 84520; 85027; 86780; 87811; C9803-CS; U0003; U0005

== ENCOUNTER 2021-12-27 06:48 | Inpatient (IN) | payer OTHER ==
[2021-12-27 07:15] VITALS: BMI 33.2
[2021-12-27] MEDS ORDERED: PROPOFOL 20 ML ONE (07:29)
[2021-12-27] MEDS ORDERED: SUCCINYLCHOLINE CHLORIDE 200 MG/10 ML SYRINGE ONE (07:30)
[2021-12-27] MEDS ORDERED: VANCOMYCIN 1,000 MG VIAL (RESTRICTED TO ID ONLY) ONE ×2 (07:35→08:36)
[2021-12-27] MEDS ORDERED: TRANEXAMIC ACID 1000 MG/10 ML VIAL ONE (07:36)
[2021-12-27] MEDS ORDERED: ceFAZolin SODIUM 1 GM VIAL ONE ×3 (08:36→23:31)
[2021-12-27] MEDS ORDERED: ONDANSETRON 4 MG/2 ML VIAL ONE ×2 (08:36→10:47)
[2021-12-27] MEDS ORDERED: DEXAMETHASONE SOD PHOSPHATE 4 MG/1 ML VIAL ONE (08:36)
[2021-12-27] MEDS ORDERED: BUPIVACAINE HCL 50 ML ONE (08:42)
[2021-12-27] MEDS ORDERED: MIDAZOLAM HCL 2 MG/2 ML SINGLE DOSE VIAL ONE (08:42)
[2021-12-27] MEDS ORDERED: BUPIVACAINE LIPOSOME/PF (EXPAREL) 266 MG/20 ML VIAL ONE (08:42)
[2021-12-27] MEDS ORDERED: SEVOFLURANE 250 ML BTL ONE (09:09)
[2021-12-27] MEDS ORDERED: VASOPRESSIN 20 UNITS/ML VIAL IV ONE (09:43)
[2021-12-27] MEDS ORDERED: ONDANSETRON 4 MG/2 ML VIAL IVPUSH PRN ×2 (11:07→11:18)
[2021-12-27] MEDS ORDERED: MAG HYDROX/AL HYDROX/SIMETH 30 ML UNIT-DOSE CUP PO PRN (11:07)
[2021-12-27] MEDS ORDERED: MAGNESIUM HYDROX 2400MG/30ML ORAL SUSPENSION 30 ML CUP PO PRN (11:07)
[2021-12-27] MEDS ORDERED: LACTATED RINGERS SOLUTION 1,000 ML IV SCH ×2 (11:15→11:30)
[2021-12-27] MEDS ORDERED: oxyCODONE HCL 5 MG TABLET PO PRN ×3 (11:18→13:44)
[2021-12-27] MEDS ORDERED: ACETAMINOPHEN 1000 MG/100 ML BAG IVPB ONE (12:00)
[2021-12-27] MEDS ORDERED: ALPRAZolam 2 MG TABLET PO SCH (13:30)
[2021-12-27] MEDS ORDERED: ACETAMINOPHEN 1000 MG/100 ML BAG IVPB SCH ×2 (13:45→18:00)
[2021-12-27] MEDS ORDERED: NICOTINE 21 MG/24 HOURS TOPICAL PATCH TD SCH (14:12)
[2021-12-27] MEDS ORDERED: NEOMYCIN/POLYMYXIN/BACITRACIN (TRIPLE ANTIBIOTIC) 28 GM OINTMENT TP PRN (14:30)
[2021-12-27] MEDS: ALPRAZolam 2 MG TABLET PO SCH (14:36)
[2021-12-27] MEDS ORDERED: CEFAZOLIN 2 GM in DEXTROSE 5%-WATER - 50 ML IVPB SCH (17:00)
[2021-12-27] MEDS ORDERED: DEXTROSE 5%-WATER - 50 ML IVPB ONE ×2 (17:00→23:31)
[2021-12-27] MEDS: CEFAZOLIN 2 GM in DEXTROSE 5%-WATER - 50 ML IVPB SCH ×2 (17:04→23:38)
[2021-12-27] MEDS ORDERED: ACETAMINOPHEN 500 MG TABLET (FP) PO SCH (18:00)
[2021-12-27] MEDS: ACETAMINOPHEN 1000 MG/100 ML BAG IVPB SCH (18:02)
[2021-12-27] MEDS ORDERED: VANCOMYCIN 1 GM in D5W (PRE-DOCKED) 1,000 MG/250 ML IVPB ONE (21:00)
[2021-12-27] MEDS ORDERED: FINASTERIDE 5 MG TABLET (FP) PO SCH (22:00)
[2021-12-27] MEDS ORDERED: oxyCODONE HCL 10 MG SUSTAINED ACTING TABLET PO SCH (22:00)
[2021-12-27] MEDS ORDERED: TAMSULOSIN HCL 0.4 MG CAP PO SCH (22:00)
[2021-12-27] MEDS ORDERED: ESCITALOPRAM OXALATE 10 MG TABLET PO SCH (22:00)
[2021-12-27] MEDS: SENNOSIDES/DOCUSATE COMBO (SENNA PLUS) TABLET (UD) PO SCH (22:01)
[2021-12-27] MEDS ORDERED: CALCIUM CARBONATE 650 MG TABLET PO PRN (23:12)
[2021-12-27] MEDS ORDERED: QUEtiapine FUMARATE 400 MG TABLET PO SCH (23:45)
[2021-12-28] MEDS: ACETAMINOPHEN 1000 MG/100 ML BAG IVPB SCH ×2 (00:48→06:47)
[2021-12-28] MEDS: ALPRAZolam 2 MG TABLET PO SCH ×2 (00:49→08:26)
[2021-12-28 06:51] VITALS: BP 147/78
[2021-12-28] MEDS ORDERED: ASPIRIN 325 MG TABLET PO SCH (08:00)
[2021-12-28] MEDS ORDERED: DEXTROSE 5%-WATER - 50 ML IVPB ONE (08:33)
[2021-12-28] MEDS ORDERED: ceFAZolin SODIUM 1 GM VIAL ONE (08:33)
[2021-12-28] MEDS: CEFAZOLIN 2 GM in DEXTROSE 5%-WATER - 50 ML IVPB SCH (08:35)
[2021-12-28] MEDS: SENNOSIDES/DOCUSATE COMBO (SENNA PLUS) TABLET (UD) PO SCH (09:12)
[2021-12-28 09:47] VITALS: PULSE 88; TEMP 98.9
[2021-12-28] MEDS ORDERED: PANTOPRAZOLE 40 MG TABLET PO SCH (10:00)
[2021-12-28] MEDS ORDERED: PSYLLIUM 5.85 GM PACKET PO PRN (10:00)
[2021-12-28] MEDS ORDERED: LISINOPRIL 20 MG TABLET PO SCH (10:00)
[2021-12-28] MEDS ORDERED: NICOTINE 21 MG/24 HOURS TOPICAL PATCH TD SCH (10:00)
[2021-12-28] MEDS ORDERED: QUEtiapine FUMARATE 200 MG TABLET PO SCH (22:00)
== END 2021-12-28 10:08 | disposition home or self-care (01) | DRG 483 ==
LOC: FM/S 06:48
PROVIDERS: ADMIT Orthopaedic Surgery; ATTEND Nurse Practitioner Acute Care
PROC: 0RPK0J6 Removal of Synthetic Substitute from Left Shoulder Joint, Humeral Surface, Open Approach (ICD-10-PCS; 2021-12-27)
PROC: 0LS40ZZ Reposition Left Upper Arm Tendon, Open Approach (ICD-10-PCS; 2021-12-27)
PROC: 0RRK0J6 Replacement of Left Shoulder Joint with Synthetic Substitute, Humeral Surface, Open Approach (ICD-10-PCS; principal; 2021-12-27 08:53)
DX: M19.012 Primary osteoarthritis, left shoulder (principal); M75.22 Bicipital tendinitis, left shoulder; F11.20 Opioid dependence, uncomplicated; M75.102 Unspecified rotator cuff tear or rupture of left shoulder, not specified as traumatic; I10 Essential (primary) hypertension; J44.9 Chronic obstructive pulmonary disease, unspecified; F17.210 Nicotine dependence, cigarettes, uncomplicated; F10.10 Alcohol abuse, uncomplicated; N40.0 Benign prostatic hyperplasia without lower urinary tract symptoms; F31.9 Bipolar disorder, unspecified
CPT/HCPCS: 73030-TC-LT-FY; 88304-TC; 88311-TC; 94760; 97116-GP

== ENCOUNTER 2022-01-15 17:11 | Inpatient (IN) | payer OTHER ==
[2022-01-15 18:29] VITALS: BMI 39.0
[2022-01-15] MEDS ORDERED: ONDANSETRON *ODT* 4 MG TABLET SL PRN (20:17)
[2022-01-15] MEDS ORDERED: ACETAMINOPHEN 325 MG TABLET (FP) PO PRN (20:17)
[2022-01-15] MEDS ORDERED: BENZOCAINE/MENTHOL (CHLORASEPTIC ) LOZENGE MM PRN (20:17)
[2022-01-15] MEDS ORDERED: MAGNESIUM CITRATE 300 ML BOTTLE PO PRN (20:17)
[2022-01-15] MEDS ORDERED: MAGNESIUM HYDROX 2400MG/30ML ORAL SUSPENSION 30 ML CUP PO PRN (20:17)
[2022-01-15] MEDS ORDERED: BISMUTH SUBSALICYLATE 524 MG/30 ML PO PRN (20:17)
[2022-01-15] MEDS ORDERED: DICYCLOMINE HCL 10 MG CAPSULE PO PRN (20:17)
[2022-01-15] MEDS ORDERED: LOPERAMIDE HCL 2 MG CAPSULE PO PRN (20:17)
[2022-01-15] MEDS ORDERED: MAG HYDROX/AL HYDROX/SIMETH 30 ML UNIT-DOSE CUP PO PRN (20:17)
[2022-01-15] MEDS ORDERED: methaDONE HCL 10 MG TABLET (FOR DETOX USE ONLY) PO ONE (20:21)
[2022-01-15] MEDS ORDERED: MELATONIN 5 MG TABLETS PO SCH (22:00)
[2022-01-15] MEDS: METHOCARBAMOL 500 MG TABLET PO PRN (22:31)
[2022-01-15] MEDS: cloNIDine HCL 0.1 MG TABLET PO PRN (22:31)
[2022-01-15] MEDS: THIAMINE HCL 100 MG TABLET (FP) PO SCH (22:31)
[2022-01-16] MEDS: NICOTINE 10 MG CARTRIDGE (INHALER) IH PRN ×3 (00:41→20:48)
[2022-01-16] MEDS: IBUPROFEN 400 MG TABLET (FP) PO PRN ×2 (05:19→16:44)
[2022-01-16] MEDS: cloNIDine HCL 0.1 MG TABLET PO PRN ×2 (05:19→10:38)
[2022-01-16] MEDS: METHOCARBAMOL 500 MG TABLET PO PRN (05:19)
[2022-01-16] MEDS ORDERED: methaDONE HCL 10 MG TABLET (FOR DETOX USE ONLY) ONE (09:35)
[2022-01-16] MEDS: PRENATAL VITAMINS W/ FOLIC ACID TABLET (FP) PO SCH (10:35)
[2022-01-16] MEDS: NICOTINE 21 MG/24 HOURS TOPICAL PATCH TD SCH (10:43)
[2022-01-16] MEDS: diazePAM 5 MG TABLET PO PRN ×3 (11:00→21:36)
[2022-01-16 12:40] LABS: HEMATOCRIT 36.2 % (35.4-49); HEMOGLOBIN 11.9 GM/dL (11.7-16.9); MCH 31.1 pg (25.7-33.7); MEAN CELL VOLUME 94.2 fl (80-96); MEAN PLT VOLUME 8.7 fl (7.5-11.1); PLATELET COUNT 196 10^3/uL (134-434); RBC 3.84 M/mm3 (4.00-5.60); RDW 14.7 % (11.9-15.9); WHITE BLOOD COUNT 5.9 K/mm3 (4.0-10.0)
[2022-01-16 13:02] LABS: CALCIUM 8.6 mg/dL (8.5-10.1)
[2022-01-16 13:03] LABS: ALBUMIN 3.4 g/dl (3.4-5.0); BLOOD UREA NITROGEN 33.5 mg/dL (7-18)
[2022-01-16 13:06] LABS: CREATININE 0.8 mg/dL (0.55-1.3)
[2022-01-16 13:07] LABS: BILIRUBIN,TOTAL 0.7 mg/dL (0.2-1)
[2022-01-16 13:08] LABS: TOT PROT 6.1 g/dl (6.4-8.2)
[2022-01-16] MEDS: QUEtiapine FUMARATE 100 MG TABLET (FP) PO SCH (21:35)
[2022-01-16] MEDS: THIAMINE HCL 100 MG TABLET (FP) PO SCH (21:36)
[2022-01-17] MEDS: IBUPROFEN 400 MG TABLET (FP) PO PRN (06:19)
[2022-01-17] MEDS: METHOCARBAMOL 500 MG TABLET PO PRN (06:20)
[2022-01-17] MEDS: diazePAM 5 MG TABLET PO PRN ×4 (06:20→17:53)
[2022-01-17] MEDS ORDERED: SODIUM PHOSPHATE/NA BIPHOS 133 ML ENEMA RC ONE (09:38)
[2022-01-17] MEDS ORDERED: methaDONE HCL 10 MG TABLET (FOR DETOX USE ONLY) PO ONE (10:00)
[2022-01-17] MEDS: PRENATAL VITAMINS W/ FOLIC ACID TABLET (FP) PO SCH (10:20)
[2022-01-17] MEDS: NICOTINE 21 MG/24 HOURS TOPICAL PATCH TD SCH (10:22)
[2022-01-17] MEDS: LISINOPRIL 20 MG TABLET PO SCH (10:33)
[2022-01-17] MEDS: NICOTINE 10 MG CARTRIDGE (INHALER) IH PRN ×3 (10:55→21:54)
[2022-01-17] MEDS: DOCUSATE SODIUM 100 MG CAPSULE (FP) PO SCH ×2 (14:18→21:52)
[2022-01-17] MEDS: ACETAMINOPHEN 325 MG TABLET (FP) PO PRN (19:32)
[2022-01-17] MEDS: TAMSULOSIN HCL 0.4 MG CAP PO SCH (21:52)
[2022-01-17] MEDS: QUEtiapine FUMARATE 100 MG TABLET (FP) PO SCH (21:52)
[2022-01-17] MEDS: THIAMINE HCL 100 MG TABLET (FP) PO SCH (21:52)
[2022-01-17] MEDS: FINASTERIDE 5 MG TABLET (FP) PO SCH (21:53)
[2022-01-17] MEDS: cloNIDine HCL 0.1 MG TABLET PO PRN (21:54)
[2022-01-17] MEDS ORDERED: DOCUSATE SODIUM 100 MG CAPSULE (FP) PO SCH (22:00)
[2022-01-18 00:06] LABS: SARS-CoV-2 NAA Not Detected (Not Detected)
[2022-01-18] MEDS: NICOTINE 10 MG CARTRIDGE (INHALER) IH PRN ×6 (03:32→22:46)
[2022-01-18] MEDS: IBUPROFEN 400 MG TABLET (FP) PO PRN (06:31)
[2022-01-18] MEDS: DOCUSATE SODIUM 100 MG CAPSULE (FP) PO SCH ×3 (06:31→22:41)
[2022-01-18] MEDS: diazePAM 5 MG TABLET PO PRN ×4 (06:32→22:43)
[2022-01-18] MEDS: METHOCARBAMOL 500 MG TABLET PO PRN ×2 (06:32→18:30)
[2022-01-18] MEDS ORDERED: methaDONE HCL 10 MG TABLET (FOR DETOX USE ONLY) ONE (09:04)
[2022-01-18] MEDS: PRENATAL VITAMINS W/ FOLIC ACID TABLET (FP) PO SCH (10:27)
[2022-01-18] MEDS: LISINOPRIL 20 MG TABLET PO SCH (10:27)
[2022-01-18] MEDS: NICOTINE 21 MG/24 HOURS TOPICAL PATCH TD SCH (10:36)
[2022-01-18] MEDS: ASPIRIN 325 MG TABLET PO SCH (10:40)
[2022-01-18] MEDS: ACETAMINOPHEN 325 MG TABLET (FP) PO PRN ×2 (18:30→22:44)
[2022-01-18] MEDS: TAMSULOSIN HCL 0.4 MG CAP PO SCH (22:41)
[2022-01-18] MEDS: FINASTERIDE 5 MG TABLET (FP) PO SCH (22:41)
[2022-01-18] MEDS: QUEtiapine FUMARATE 100 MG TABLET (FP) PO SCH (22:41)
[2022-01-18] MEDS: THIAMINE HCL 100 MG TABLET (FP) PO SCH (22:41)
[2022-01-19] MEDS: diazePAM 5 MG TABLET PO PRN ×4 (05:58→22:38)
[2022-01-19] MEDS: METHOCARBAMOL 500 MG TABLET PO PRN (05:58)
[2022-01-19] MEDS: DOCUSATE SODIUM 100 MG CAPSULE (FP) PO SCH ×3 (05:58→22:37)
[2022-01-19] MEDS: IBUPROFEN 400 MG TABLET (FP) PO PRN ×2 (06:16→18:04)
[2022-01-19] MEDS: ASPIRIN 325 MG TABLET PO SCH (07:14)
[2022-01-19] MEDS ORDERED: methaDONE HCL 10 MG TABLET (FOR DETOX USE ONLY) PO ONE (10:00)
[2022-01-19] MEDS: PRENATAL VITAMINS W/ FOLIC ACID TABLET (FP) PO SCH (10:39)
[2022-01-19] MEDS: NICOTINE 21 MG/24 HOURS TOPICAL PATCH TD SCH (10:39)
[2022-01-19] MEDS: LISINOPRIL 20 MG TABLET PO SCH (10:39)
[2022-01-19] MEDS: cloNIDine HCL 0.1 MG TABLET PO SCH ×2 (12:28→22:37)
[2022-01-19] MEDS: NICOTINE 10 MG CARTRIDGE (INHALER) IH PRN (16:06)
[2022-01-19] MEDS: QUEtiapine FUMARATE 100 MG TABLET (FP) PO SCH (22:36)
[2022-01-19] MEDS: THIAMINE HCL 100 MG TABLET (FP) PO SCH (22:37)
[2022-01-19] MEDS: FINASTERIDE 5 MG TABLET (FP) PO SCH (22:37)
[2022-01-19] MEDS: TAMSULOSIN HCL 0.4 MG CAP PO SCH (22:40)
[2022-01-20] MEDS: diazePAM 5 MG TABLET PO PRN ×3 (06:47→14:10)
[2022-01-20] MEDS: DOCUSATE SODIUM 100 MG CAPSULE (FP) PO SCH ×2 (06:47→14:12)
[2022-01-20] MEDS: METHOCARBAMOL 500 MG TABLET PO PRN ×2 (06:47→14:10)
[2022-01-20] MEDS: IBUPROFEN 400 MG TABLET (FP) PO PRN ×2 (06:48→14:10)
[2022-01-20] MEDS: ASPIRIN 325 MG TABLET PO SCH (07:19)
[2022-01-20] MEDS: cloNIDine HCL 0.1 MG TABLET PO SCH (10:07)
[2022-01-20] MEDS: PRENATAL VITAMINS W/ FOLIC ACID TABLET (FP) PO SCH (10:07)
[2022-01-20] MEDS: NICOTINE 21 MG/24 HOURS TOPICAL PATCH TD SCH (10:07)
[2022-01-20] MEDS: LISINOPRIL 20 MG TABLET PO SCH (10:07)
[2022-01-20 12:44] VITALS: BP 118/68; PULSE 66; TEMP 98.2
== END 2022-01-20 15:41 | disposition home or self-care (01) | DRG 897 ==
LOC: YASAS 17:11 → Y3N 20:19
PROVIDERS: ADMIT Allergy & Immunology; ATTEND Allergy & Immunology
PROC: HZ2ZZZZ Detoxification Services for Substance Abuse Treatment (ICD-10-PCS; principal; 2022-01-15)
DX: F11.23 Opioid dependence with withdrawal (principal); I69.851 Hemiplegia and hemiparesis following other cerebrovascular disease affecting right dominant side; F13.230 Sedative, hypnotic or anxiolytic dependence with withdrawal, uncomplicated; F17.210 Nicotine dependence, cigarettes, uncomplicated; F31.9 Bipolar disorder, unspecified; F19.24 Other psychoactive substance dependence with psychoactive substance-induced mood disorder; D64.9 Anemia, unspecified; I10 Essential (primary) hypertension; K21.9 Gastro-esophageal reflux disease without esophagitis; J44.9 Chronic obstructive pulmonary disease, unspecified; M54.50 Low back pain, unspecified; N40.0 Benign prostatic hyperplasia without lower urinary tract symptoms; Z62.810 Personal history of physical and sexual abuse in childhood; Z96.653 Presence of artificial knee joint, bilateral; E66.9 Obesity, unspecified; Z68.39 Body mass index [BMI] 39.0-39.9, adult; Z99.89 Dependence on other enabling machines and devices
CPT/HCPCS: 36415; 80053; 82947; 83036; 84520; 85027; 86780; 87811; 93005; 93010; C9803-CS; J0735; U0003; U0005

== ENCOUNTER 2022-01-24 12:09 | Inpatient (IN) | payer OTHER ==
[2022-01-24] MEDS ORDERED: DICYCLOMINE HCL 10 MG CAPSULE PO PRN (13:22)
[2022-01-24] MEDS ORDERED: ACETAMINOPHEN 325 MG TABLET (FP) PO PRN ×2 (13:22)
[2022-01-24] MEDS ORDERED: ONDANSETRON *ODT* 4 MG TABLET SL PRN (13:22)
[2022-01-24] MEDS ORDERED: BENZOCAINE/MENTHOL (CHLORASEPTIC ) LOZENGE MM PRN (13:22)
[2022-01-24] MEDS ORDERED: NALOXONE HCL (KLOXXADO) 8 MG SPRAY NS PRN (13:22)
[2022-01-24] MEDS ORDERED: MAG HYDROX/AL HYDROX/SIMETH 30 ML UNIT-DOSE CUP PO PRN (13:22)
[2022-01-24] MEDS ORDERED: MAGNESIUM HYDROX 2400MG/30ML ORAL SUSPENSION 30 ML CUP PO PRN (13:22)
[2022-01-24] MEDS ORDERED: BISMUTH SUBSALICYLATE 262 MG/15 ML BTL PO PRN (13:22)
[2022-01-24] MEDS ORDERED: MAGNESIUM CITRATE 300 ML BOTTLE PO PRN (13:22)
[2022-01-24] MEDS ORDERED: LOPERAMIDE HCL 2 MG CAPSULE PO PRN (13:22)
[2022-01-24 14:00] VITALS: BMI 31.0
[2022-01-24] MEDS ORDERED: LISINOPRIL 10 MG TABLET ONE ×2 (14:55→15:03)
[2022-01-24] MEDS ORDERED: hydrOXYzine PAMOATE 25 MG CAPSULE (FP) PO ONE (14:55)
[2022-01-24] MEDS: hydrOXYzine PAMOATE 25 MG CAPSULE (FP) PO PRN ×3 (15:01→22:19)
[2022-01-24] MEDS: LISINOPRIL 20 MG TABLET PO SCH (15:01)
[2022-01-24] MEDS: NICOTINE 10 MG CARTRIDGE (INHALER) IH PRN (16:51)
[2022-01-24] MEDS: ASPIRIN COATED 81 MG TABLET.EC PO SCH (18:15)
[2022-01-24] MEDS: PSYLLIUM 5.85 GM PACKET PO SCH ×2 (18:16→22:21)
[2022-01-24] MEDS: IBUPROFEN 400 MG TABLET (FP) PO PRN (18:19)
[2022-01-24] MEDS ORDERED: MELATONIN 5 MG TABLETS PO SCH (22:00)
[2022-01-24] MEDS ORDERED: TAMSULOSIN HCL 0.4 MG CAP PO SCH (22:00)
[2022-01-24] MEDS ORDERED: THIAMINE HCL 100 MG TABLET (FP) PO SCH (22:00)
[2022-01-24] MEDS ORDERED: DOCUSATE SODIUM 100 MG CAPSULE (FP) PO SCH (22:00)
[2022-01-24] MEDS ORDERED: SENNOSIDES 8.6MG TABLET (FP) PO SCH (22:00)
[2022-01-24] MEDS ORDERED: FINASTERIDE 5 MG TABLET (FP) PO SCH (22:00)
[2022-01-24] MEDS: cloNIDine HCL 0.1 MG TABLET PO SCH (22:19)
[2022-01-24] MEDS: METHOCARBAMOL 500 MG TABLET PO PRN (22:20)
[2022-01-25] MEDS: NICOTINE 10 MG CARTRIDGE (INHALER) IH PRN ×2 (06:10→13:57)
[2022-01-25] MEDS: cloNIDine HCL 0.1 MG TABLET PO SCH (09:47)
[2022-01-25] MEDS: METHOCARBAMOL 500 MG TABLET PO PRN (09:47)
[2022-01-25] MEDS: LISINOPRIL 20 MG TABLET PO SCH (09:47)
[2022-01-25] MEDS: ASPIRIN COATED 81 MG TABLET.EC PO SCH (09:48)
[2022-01-25] MEDS: PSYLLIUM 5.85 GM PACKET PO SCH (09:50)
[2022-01-25] MEDS: IBUPROFEN 400 MG TABLET (FP) PO PRN (09:51)
[2022-01-25] MEDS ORDERED: PRENATAL VITAMINS W/ FOLIC ACID TABLET (FP) PO SCH (10:00)
[2022-01-25 13:42] VITALS: BP 130/74; PULSE 58; TEMP 96.8
[2022-01-25 15:22] LABS: HEMATOCRIT 39.4 % (35.4-49); HEMOGLOBIN 13.1 GM/dL (11.7-16.9); MCH 30.7 pg (25.7-33.7); MCHC 33.3 g/dl (32.0-35.9); MEAN CELL VOLUME 92.3 fl (80-96); MEAN PLT VOLUME 9.4 fl (7.5-11.1); PLATELET COUNT 232 10^3/uL (134-434); RBC 4.27 M/mm3 (4.00-5.60); RDW 13.8 % (11.9-15.9); WHITE BLOOD COUNT 5.2 K/mm3 (4.0-10.0)
[2022-01-25 15:37] LABS: CALCIUM 9.5 mg/dL (8.5-10.1)
[2022-01-25 15:38] LABS: BLOOD UREA NITROGEN 22.2 mg/dL (7-18)
[2022-01-25 15:40] LABS: CREATININE 0.8 mg/dL (0.55-1.3)
[2022-01-25 15:42] LABS: BILIRUBIN,TOTAL 0.6 mg/dL (0.2-1); TOT PROT 7.2 g/dl (6.4-8.2)
[2022-01-25 15:43] LABS: ALBUMIN 4.2 g/dl (3.4-5.0)
[2022-01-25] MEDS ORDERED: QUEtiapine FUMARATE 400 MG TABLET PO SCH (22:00)
[2022-01-26 13:07] LABS: SARS-CoV-2 NAA Not Detected (Not Detected)
== END 2022-01-25 14:50 | disposition other institution (70) | DRG 897 ==
LOC: YASAS 12:09 → Y6N 15:13
PROVIDERS: ADMIT Allergy & Immunology; ATTEND Allergy & Immunology
PROC: HZ2ZZZZ Detoxification Services for Substance Abuse Treatment (ICD-10-PCS; principal; 2022-01-24)
DX: F11.23 Opioid dependence with withdrawal (principal); F13.20 Sedative, hypnotic or anxiolytic dependence, uncomplicated; F19.280 Other psychoactive substance dependence with psychoactive substance-induced anxiety disorder; F19.282 Other psychoactive substance dependence with psychoactive substance-induced sleep disorder; I69.851 Hemiplegia and hemiparesis following other cerebrovascular disease affecting right dominant side; F17.210 Nicotine dependence, cigarettes, uncomplicated; F31.9 Bipolar disorder, unspecified; F19.24 Other psychoactive substance dependence with psychoactive substance-induced mood disorder; I10 Essential (primary) hypertension; J43.8 Other emphysema; B18.2 Chronic viral hepatitis C; M54.50 Low back pain, unspecified; N40.0 Benign prostatic hyperplasia without lower urinary tract symptoms; Z62.810 Personal history of physical and sexual abuse in childhood; Z86.2 Personal history of diseases of the blood and blood-forming organs and certain disorders involving the immune mechanism; Z99.89 Dependence on other enabling machines and devices
CPT/HCPCS: 36415; 80053; 85027; 86780; C9803-CS; J0735; U0003; U0005

== ENCOUNTER 2022-01-25 14:51 | Inpatient (IN) | payer OTHER ==
[2022-01-25] MEDS ORDERED: P-EPHED 60MG/TRIPROLIDI 2.5MG TABLET PO PRN (15:29)
[2022-01-25] MEDS ORDERED: BENZOCAINE/MENTHOL (CHLORASEPTIC ) LOZENGE MM PRN (15:29)
[2022-01-25] MEDS ORDERED: LOPERAMIDE HCL 2 MG CAPSULE PO PRN (15:29)
[2022-01-25] MEDS ORDERED: MAGNESIUM CITRATE 300 ML BOTTLE PO PRN (15:29)
[2022-01-25] MEDS ORDERED: guaiFENesin 200 MG/10 ML 10 ML UNIT-DOSE CUPS PO PRN (15:29)
[2022-01-25] MEDS ORDERED: PATIENT'S OWN MEDICATION (NON-FORMULARY) (Clonidine Hcl [Clonidine Hcl] 0.2 MG Tablet) PO PRN (15:30)
[2022-01-25] MEDS: NICOTINE 10 MG CARTRIDGE (INHALER) IH PRN ×2 (17:59→21:17)
[2022-01-25] MEDS: IBUPROFEN 400 MG TABLET (FP) PO PRN (19:27)
[2022-01-25] MEDS: METHOCARBAMOL 500 MG TABLET PO PRN (19:28)
[2022-01-25] MEDS: TAMSULOSIN HCL 0.4 MG CAP PO SCH (21:15)
[2022-01-25] MEDS: DOCUSATE SODIUM 100 MG CAPSULE (FP) PO SCH (21:15)
[2022-01-25] MEDS: cloNIDine HCL 0.1 MG TABLET PO PRN (21:16)
[2022-01-25] MEDS: THIAMINE HCL 100 MG TABLET (FP) PO SCH (21:16)
[2022-01-25] MEDS: MELATONIN 5 MG TABLETS PO SCH (21:16)
[2022-01-25] MEDS ORDERED: QUEtiapine FUMARATE 400 MG TABLET PO SCH (22:00)
[2022-01-26] MEDS: ASPIRIN COATED 81 MG TABLET.EC PO SCH (10:58)
[2022-01-26] MEDS: LISINOPRIL 20 MG TABLET PO SCH (10:58)
[2022-01-26] MEDS: PRENATAL VITAMINS W/ FOLIC ACID TABLET (FP) PO SCH (10:58)
[2022-01-26] MEDS: METHOCARBAMOL 500 MG TABLET PO PRN (10:59)
[2022-01-26] MEDS: IBUPROFEN 400 MG TABLET (FP) PO PRN (11:00)
[2022-01-26] MEDS: NICOTINE 7 MG/24 HOURS TOPICAL PATCH TD SCH (11:02)
[2022-01-26] MEDS: NICOTINE 10 MG CARTRIDGE (INHALER) IH PRN ×2 (13:30→16:13)
[2022-01-26] MEDS: cloNIDine HCL 0.1 MG TABLET PO PRN ×2 (15:15→21:35)
[2022-01-26] MEDS: MELATONIN 5 MG TABLETS PO SCH (21:35)
[2022-01-26] MEDS: TAMSULOSIN HCL 0.4 MG CAP PO SCH (21:35)
[2022-01-26] MEDS: QUEtiapine FUMARATE 100 MG TABLET (FP) PO SCH (21:35)
[2022-01-26] MEDS: DOCUSATE SODIUM 100 MG CAPSULE (FP) PO SCH (21:35)
[2022-01-26] MEDS: THIAMINE HCL 100 MG TABLET (FP) PO SCH (21:36)
[2022-01-27] MEDS: METHOCARBAMOL 500 MG TABLET PO PRN ×2 (03:44→15:43)
[2022-01-27] MEDS: hydrOXYzine PAMOATE 25 MG CAPSULE (FP) PO PRN (03:44)
[2022-01-27] MEDS: cloNIDine HCL 0.1 MG TABLET PO PRN ×2 (07:21→21:29)
[2022-01-27] MEDS: LISINOPRIL 20 MG TABLET PO SCH (10:48)
[2022-01-27] MEDS: PRENATAL VITAMINS W/ FOLIC ACID TABLET (FP) PO SCH (10:48)
[2022-01-27] MEDS: IBUPROFEN 400 MG TABLET (FP) PO PRN ×2 (10:48→18:49)
[2022-01-27] MEDS: ASPIRIN COATED 81 MG TABLET.EC PO SCH (10:48)
[2022-01-27] MEDS: NICOTINE 7 MG/24 HOURS TOPICAL PATCH TD SCH (11:25)
[2022-01-27] MEDS: NICOTINE 10 MG CARTRIDGE (INHALER) IH PRN ×2 (11:25→20:05)
[2022-01-27] MEDS: ACETAMINOPHEN 325 MG TABLET (FP) PO PRN (15:43)
[2022-01-27] MEDS: MELATONIN 5 MG TABLETS PO SCH (21:28)
[2022-01-27] MEDS: THIAMINE HCL 100 MG TABLET (FP) PO SCH (21:28)
[2022-01-27] MEDS: DOCUSATE SODIUM 100 MG CAPSULE (FP) PO SCH (21:29)
[2022-01-27] MEDS: TAMSULOSIN HCL 0.4 MG CAP PO SCH (21:29)
[2022-01-27] MEDS: QUEtiapine FUMARATE 100 MG TABLET (FP) PO SCH (21:29)
[2022-01-27] MEDS: MAGNESIUM HYDROX 2400MG/30ML ORAL SUSPENSION 30 ML CUP PO PRN (21:31)
[2022-01-28] MEDS: cloNIDine HCL 0.1 MG TABLET PO PRN ×2 (06:07→21:46)
[2022-01-28] MEDS: IBUPROFEN 400 MG TABLET (FP) PO PRN (06:08)
[2022-01-28] MEDS: NICOTINE 10 MG CARTRIDGE (INHALER) IH PRN ×4 (06:53→21:47)
[2022-01-28] MEDS ORDERED: SODIUM PHOSPHATE/NA BIPHOS 133 ML ENEMA PR ONE (09:29)
[2022-01-28] MEDS ORDERED: SODIUM PHOSPHATE/NA BIPHOS 133 ML ENEMA RC ONE (09:54)
[2022-01-28] MEDS: LISINOPRIL 20 MG TABLET PO SCH (11:42)
[2022-01-28] MEDS: ASPIRIN COATED 81 MG TABLET.EC PO SCH (11:42)
[2022-01-28] MEDS: PRENATAL VITAMINS W/ FOLIC ACID TABLET (FP) PO SCH (11:44)
[2022-01-28] MEDS: NICOTINE 7 MG/24 HOURS TOPICAL PATCH TD SCH (11:45)
[2022-01-28] MEDS: DOCUSATE SODIUM 100 MG CAPSULE (FP) PO SCH (21:46)
[2022-01-28] MEDS: TAMSULOSIN HCL 0.4 MG CAP PO SCH (21:46)
[2022-01-28] MEDS: THIAMINE HCL 100 MG TABLET (FP) PO SCH (21:46)
[2022-01-28] MEDS: MELATONIN 5 MG TABLETS PO SCH (21:46)
[2022-01-28] MEDS: QUEtiapine FUMARATE 200 MG TABLET PO SCH (21:47)
[2022-01-28] MEDS: MAGNESIUM HYDROX 2400MG/30ML ORAL SUSPENSION 30 ML CUP PO PRN (21:54)
[2022-01-29] MEDS: NICOTINE 10 MG CARTRIDGE (INHALER) IH PRN ×3 (04:47→20:16)
[2022-01-29] MEDS: IBUPROFEN 400 MG TABLET (FP) PO PRN ×2 (06:45→18:56)
[2022-01-29] MEDS: NICOTINE 7 MG/24 HOURS TOPICAL PATCH TD SCH (11:02)
[2022-01-29] MEDS: PRENATAL VITAMINS W/ FOLIC ACID TABLET (FP) PO SCH (11:02)
[2022-01-29] MEDS: LISINOPRIL 20 MG TABLET PO SCH (11:02)
[2022-01-29] MEDS: ASPIRIN COATED 81 MG TABLET.EC PO SCH (11:02)
[2022-01-29] MEDS: PSYLLIUM 5.85 GM PACKET PO SCH (15:01)
[2022-01-29] MEDS: MAG HYDROX/AL HYDROX/SIMETH 30 ML UNIT-DOSE CUP PO PRN (20:53)
[2022-01-29] MEDS: TAMSULOSIN HCL 0.4 MG CAP PO SCH (21:50)
[2022-01-29] MEDS: MELATONIN 5 MG TABLETS PO SCH (21:50)
[2022-01-29] MEDS: DOCUSATE SODIUM 100 MG CAPSULE (FP) PO SCH (21:50)
[2022-01-29] MEDS: cloNIDine HCL 0.1 MG TABLET PO PRN (21:51)
[2022-01-29] MEDS: QUEtiapine FUMARATE 200 MG TABLET PO SCH (21:51)
[2022-01-29] MEDS: THIAMINE HCL 100 MG TABLET (FP) PO SCH (21:51)
[2022-01-30] MEDS: IBUPROFEN 400 MG TABLET (FP) PO PRN (06:14)
[2022-01-30] MEDS: NICOTINE 10 MG CARTRIDGE (INHALER) IH PRN ×2 (06:15→17:40)
[2022-01-30] MEDS: ASPIRIN COATED 81 MG TABLET.EC PO SCH (10:19)
[2022-01-30] MEDS: PRENATAL VITAMINS W/ FOLIC ACID TABLET (FP) PO SCH (10:19)
[2022-01-30] MEDS: NICOTINE 7 MG/24 HOURS TOPICAL PATCH TD SCH (10:19)
[2022-01-30] MEDS: LISINOPRIL 20 MG TABLET PO SCH (10:19)
[2022-01-30] MEDS: PSYLLIUM 5.85 GM PACKET PO SCH (10:20)
[2022-01-30] MEDS: ACETAMINOPHEN 325 MG TABLET (FP) PO PRN (14:37)
[2022-01-30] MEDS: hydrOXYzine PAMOATE 25 MG CAPSULE (FP) PO PRN ×2 (17:16→22:12)
[2022-01-30] MEDS: METHOCARBAMOL 500 MG TABLET PO PRN (20:08)
[2022-01-30] MEDS: TAMSULOSIN HCL 0.4 MG CAP PO SCH (22:09)
[2022-01-30] MEDS: DOCUSATE SODIUM 100 MG CAPSULE (FP) PO SCH (22:09)
[2022-01-30] MEDS: QUEtiapine FUMARATE 200 MG TABLET PO SCH (22:09)
[2022-01-30] MEDS: THIAMINE HCL 100 MG TABLET (FP) PO SCH (22:09)
[2022-01-30] MEDS: MELATONIN 5 MG TABLETS PO SCH (22:10)
[2022-01-30] MEDS: MAGNESIUM HYDROX 2400MG/30ML ORAL SUSPENSION 30 ML CUP PO PRN (22:13)
[2022-01-31] MEDS: IBUPROFEN 400 MG TABLET (FP) PO PRN ×2 (02:28→08:18)
[2022-01-31] MEDS: LISINOPRIL 20 MG TABLET PO SCH (10:46)
[2022-01-31] MEDS: PRENATAL VITAMINS W/ FOLIC ACID TABLET (FP) PO SCH (10:46)
[2022-01-31] MEDS: METHOCARBAMOL 500 MG TABLET PO PRN ×2 (10:47→21:37)
[2022-01-31] MEDS: ASPIRIN COATED 81 MG TABLET.EC PO SCH (10:47)
[2022-01-31] MEDS: PSYLLIUM 5.85 GM PACKET PO SCH (10:48)
[2022-01-31] MEDS: NICOTINE 7 MG/24 HOURS TOPICAL PATCH TD SCH (10:48)
[2022-01-31] MEDS: NICOTINE 10 MG CARTRIDGE (INHALER) IH PRN ×2 (10:48→21:37)
[2022-01-31] MEDS ORDERED: NICOTINE POLACRILEX 2 MG GUM BUC PRN (15:53)
[2022-01-31] MEDS: MAG HYDROX/AL HYDROX/SIMETH 30 ML UNIT-DOSE CUP PO PRN (16:59)
[2022-01-31] MEDS: QUEtiapine FUMARATE 200 MG TABLET PO SCH (21:37)
[2022-01-31] MEDS: DOCUSATE SODIUM 100 MG CAPSULE (FP) PO SCH (21:37)
[2022-01-31] MEDS: TAMSULOSIN HCL 0.4 MG CAP PO SCH (21:37)
[2022-01-31] MEDS: THIAMINE HCL 100 MG TABLET (FP) PO SCH (21:37)
[2022-01-31] MEDS: MELATONIN 5 MG TABLETS PO SCH (21:37)
[2022-01-31] MEDS: cloNIDine HCL 0.1 MG TABLET PO PRN (21:38)
[2022-02-01] MEDS: hydrOXYzine PAMOATE 25 MG CAPSULE (FP) PO PRN ×2 (03:59→21:26)
[2022-02-01] MEDS: IBUPROFEN 400 MG TABLET (FP) PO PRN ×2 (03:59→11:35)
[2022-02-01] MEDS: NICOTINE 10 MG CARTRIDGE (INHALER) IH PRN (06:57)
[2022-02-01] MEDS: PSYLLIUM 5.85 GM PACKET PO SCH (10:00)
[2022-02-01] MEDS: NICOTINE 7 MG/24 HOURS TOPICAL PATCH TD SCH (10:01)
[2022-02-01] MEDS: PRENATAL VITAMINS W/ FOLIC ACID TABLET (FP) PO SCH (10:01)
[2022-02-01] MEDS: ASPIRIN COATED 81 MG TABLET.EC PO SCH (10:01)
[2022-02-01] MEDS: LISINOPRIL 20 MG TABLET PO SCH (10:02)
[2022-02-01] MEDS: METHOCARBAMOL 500 MG TABLET PO PRN ×2 (10:03→21:25)
[2022-02-01] MEDS: DOCUSATE SODIUM 100 MG CAPSULE (FP) PO SCH (21:24)
[2022-02-01] MEDS: THIAMINE HCL 100 MG TABLET (FP) PO SCH (21:25)
[2022-02-01] MEDS: MELATONIN 5 MG TABLETS PO SCH (21:25)
[2022-02-01] MEDS: TAMSULOSIN HCL 0.4 MG CAP PO SCH (21:25)
[2022-02-01] MEDS: cloNIDine HCL 0.1 MG TABLET PO PRN (21:25)
[2022-02-01] MEDS: QUEtiapine FUMARATE 200 MG TABLET PO SCH (21:25)
[2022-02-02] MEDS: IBUPROFEN 400 MG TABLET (FP) PO PRN ×2 (01:45→14:09)
[2022-02-02] MEDS: METHOCARBAMOL 500 MG TABLET PO PRN ×2 (01:45→10:34)
[2022-02-02] MEDS: NICOTINE 7 MG/24 HOURS TOPICAL PATCH TD SCH (10:34)
[2022-02-02] MEDS: PSYLLIUM 5.85 GM PACKET PO SCH (10:34)
[2022-02-02] MEDS: LISINOPRIL 20 MG TABLET PO SCH (10:34)
[2022-02-02] MEDS: PRENATAL VITAMINS W/ FOLIC ACID TABLET (FP) PO SCH (10:34)
[2022-02-02] MEDS: ASPIRIN COATED 81 MG TABLET.EC PO SCH (10:34)
[2022-02-02] MEDS: NICOTINE 10 MG CARTRIDGE (INHALER) IH PRN (14:09)
[2022-02-02] MEDS: cloNIDine HCL 0.1 MG TABLET PO PRN (21:23)
[2022-02-02] MEDS: DOCUSATE SODIUM 100 MG CAPSULE (FP) PO SCH (21:23)
[2022-02-02] MEDS: QUEtiapine FUMARATE 200 MG TABLET PO SCH (21:23)
[2022-02-02] MEDS: THIAMINE HCL 100 MG TABLET (FP) PO SCH (21:23)
[2022-02-02] MEDS: TAMSULOSIN HCL 0.4 MG CAP PO SCH (21:23)
[2022-02-02] MEDS ORDERED: SUVOREXANT 10 MG TABLET PO PRN (22:00)
[2022-02-03 07:10] VITALS: BP 104/63; PULSE 107; TEMP 97.8
== END 2022-02-03 08:25 | disposition home or self-care (01) | DRG 895 ==
LOC: YASAS 14:51 → Y3W 14:53
PROVIDERS: ADMIT Allergy & Immunology; ATTEND Allergy & Immunology
PROC: HZ42ZZZ Group Counseling for Substance Abuse Treatment, Cognitive-Behavioral (ICD-10-PCS; principal; 2022-01-25)
DX: F11.20 Opioid dependence, uncomplicated (principal); F13.20 Sedative, hypnotic or anxiolytic dependence, uncomplicated; F19.280 Other psychoactive substance dependence with psychoactive substance-induced anxiety disorder; I69.851 Hemiplegia and hemiparesis following other cerebrovascular disease affecting right dominant side; F17.210 Nicotine dependence, cigarettes, uncomplicated; F19.24 Other psychoactive substance dependence with psychoactive substance-induced mood disorder; F31.9 Bipolar disorder, unspecified; I10 Essential (primary) hypertension; J44.9 Chronic obstructive pulmonary disease, unspecified; K59.00 Constipation, unspecified; M54.50 Low back pain, unspecified; G89.29 Other chronic pain; Z99.89 Dependence on other enabling machines and devices
CPT/HCPCS: 73030-TC-LT-FY; C9803-CS; J0735; U0003; U0005

== ENCOUNTER 2022-05-06 11:13 | Emergency (ER) | payer OTHER ==
[2022-05-06 11:35] VITALS: BP 118/81; PULSE 89; RESP 18; TEMP 99; BMI 32.1
[2022-05-06 12:05] LABS: HEMATOCRIT 42.8 % (35.4-49); HEMOGLOBIN 14.8 G/dL (11.7-16.9); MCH 31.8 pg (25.7-33.7); MCHC 34.6 g/dl (32.0-35.9); MEAN CELL VOLUME 91.7 fl (80-96); MEAN PLT VOLUME 8.1 fl (7.5-11.1); RBC 4.67 10^6/uL (4.00-5.60); RDW 14.7 % (11.9-15.9); WHITE BLOOD COUNT 7.3 10^3/uL (4.0-10.8)
[2022-05-06 12:06] LABS: PLATELET ESTIMATE ADEQUATE
[2022-05-06 12:11] LABS: ALBUMIN 4.1 g/dl (3.4-5.0); BILIRUBIN,TOTAL 0.8 mg/dl (0.2-1); CALCIUM 9.4 mg/dl (8.5-10); CREATININE 0.8 mg/dl (0.55-1.3); TOT PROT 6.7 g/dl (6.4-8.2)
[2022-05-06] MEDS ORDERED: KETOROLAC TROMETHAMINE 30 MG/1 ML VIAL ONE (12:16)
== END 2022-05-06 12:57 ==
LOC: FER 11:13
DX: U07.1 COVID-19 (principal)
CPT/HCPCS: 36415; 71045-TC-FY; 80053; 84484; 85027; 93005; 99285-25; C9803-CS; U0003; U0005

== ENCOUNTER 2022-08-07 22:53 | Inpatient (IN) | payer OTHER ==
[2022-08-07] MEDS ORDERED: LOPERAMIDE HCL 2 MG CAPSULE PO PRN (23:53)
[2022-08-07] MEDS ORDERED: ACETAMINOPHEN 325 MG TABLET (FP) PO PRN (23:53)
[2022-08-07] MEDS ORDERED: IBUPROFEN 600 MG TABLET (FP) PO PRN (23:53)
[2022-08-07] MEDS ORDERED: DICYCLOMINE HCL 10 MG CAPSULE PO PRN (23:53)
[2022-08-07] MEDS ORDERED: NICOTINE POLACRILEX 2 MG GUM BUC PRN (23:53)
[2022-08-07] MEDS ORDERED: BENZOCAINE/MENTHOL (CHLORASEPTIC ) LOZENGE MM PRN (23:53)
[2022-08-07] MEDS ORDERED: MAG HYDROX/AL HYDROX/SIMETH 30 ML UNIT-DOSE CUP PO PRN (23:53)
[2022-08-07] MEDS ORDERED: IBUPROFEN 400 MG TABLET (FP) PO PRN (23:53)
[2022-08-07] MEDS ORDERED: NALOXONE HCL (KLOXXADO) 8 MG SPRAY NS PRN (23:53)
[2022-08-07] MEDS ORDERED: METHOCARBAMOL 500 MG TABLET PO PRN (23:53)
[2022-08-07] MEDS ORDERED: BISMUTH SUBSALICYLATE 524 MG/30 ML PO PRN (23:53)
[2022-08-07] MEDS ORDERED: ONDANSETRON *ODT* 4 MG TABLET SL PRN (23:53)
[2022-08-07] MEDS ORDERED: guaiFENesin 200 MG/10 ML 10 ML UNIT-DOSE CUPS PO PRN (23:53)
[2022-08-07] MEDS ORDERED: P-EPHED 60MG/TRIPROLIDI 2.5MG TABLET PO PRN (23:53)
[2022-08-08 00:53] VITALS: BMI 29.0
[2022-08-08] MEDS: hydrOXYzine PAMOATE 25 MG CAPSULE (FP) PO PRN (11:09)
[2022-08-08] MEDS: LISINOPRIL 20 MG TABLET PO SCH (11:09)
[2022-08-08] MEDS: ASPIRIN COATED 81 MG TABLET.EC PO SCH (11:10)
[2022-08-08] MEDS: PRENATAL VITAMINS W/ FOLIC ACID TABLET (FP) PO SCH (11:10)
[2022-08-08] MEDS: NICOTINE 14 MG/24 HOURS TOPICAL PATCH TD SCH (11:16)
[2022-08-08 12:41] LABS: HEMATOCRIT 38.4 % (35.4-49); HEMOGLOBIN 13.2 GM/dL (11.7-16.9); MCH 31.4 pg (25.7-33.7); MCHC 34.4 g/dl (32.0-35.9); MEAN CELL VOLUME 91.3 fl (80-96); MEAN PLT VOLUME 8.5 fl (7.5-11.1); PLATELET COUNT 184 10^3/uL (134-434); RBC 4.21 M/mm3 (4.00-5.60); RDW 14.8 % (11.9-15.9); WHITE BLOOD COUNT 6.6 K/mm3 (4.0-10.0)
[2022-08-08 13:09] LABS: CALCIUM 9.3 mg/dL (8.5-10.1)
[2022-08-08 13:10] LABS: ALBUMIN 3.6 g/dl (3.4-5.0); BLOOD UREA NITROGEN 24.7 mg/dL (7-18)
[2022-08-08 13:13] LABS: CREATININE 0.8 mg/dL (0.55-1.3)
[2022-08-08 13:14] LABS: BILIRUBIN,TOTAL 0.5 mg/dL (0.2-1); TOT PROT 6.2 g/dl (6.4-8.2)
[2022-08-08] MEDS: NICOTINE 10 MG CARTRIDGE (INHALER) IH PRN (15:17)
[2022-08-08] MEDS: diazePAM 5 MG TABLET PO SCH ×2 (17:24→22:06)
[2022-08-08] MEDS: diazePAM 5 MG TABLET PO PRN (18:56)
[2022-08-08] MEDS: TAMSULOSIN HCL 0.4 MG CAP PO SCH (22:06)
[2022-08-08] MEDS: THIAMINE HCL 100 MG TABLET (FP) PO SCH (22:06)
[2022-08-08] MEDS: QUEtiapine FUMARATE 400 MG TABLET PO SCH (22:06)
[2022-08-08] MEDS: cloNIDine HCL 0.1 MG TABLET PO SCH (22:06)
[2022-08-08] MEDS: DOCUSATE SODIUM 100 MG CAPSULE (FP) PO PRN (22:09)
[2022-08-08] MEDS: ACETAMINOPHEN 325 MG TABLET (FP) PO PRN (22:10)
[2022-08-08] MEDS: MELATONIN 5 MG TABLETS PO SCH (23:06)
[2022-08-09] MEDS: diazePAM 5 MG TABLET PO SCH ×4 (05:09→22:30)
[2022-08-09] MEDS: DOCUSATE SODIUM 100 MG CAPSULE (FP) PO PRN (10:24)
[2022-08-09] MEDS: hydrOXYzine PAMOATE 25 MG CAPSULE (FP) PO PRN (10:24)
[2022-08-09] MEDS: PRENATAL VITAMINS W/ FOLIC ACID TABLET (FP) PO SCH (10:24)
[2022-08-09] MEDS: cloNIDine HCL 0.1 MG TABLET PO SCH ×2 (10:24→22:29)
[2022-08-09] MEDS: ASPIRIN COATED 81 MG TABLET.EC PO SCH (10:24)
[2022-08-09] MEDS: NICOTINE 14 MG/24 HOURS TOPICAL PATCH TD SCH (10:25)
[2022-08-09] MEDS: LISINOPRIL 20 MG TABLET PO SCH (10:25)
[2022-08-09] MEDS: NICOTINE 10 MG CARTRIDGE (INHALER) IH PRN ×2 (10:30→17:54)
[2022-08-09] MEDS ORDERED: SODIUM PHOSPHATE/NA BIPHOS 133 ML ENEMA RC ONE (13:50)
[2022-08-09] MEDS: diazePAM 5 MG TABLET PO PRN (14:29)
[2022-08-09] MEDS: MAGNESIUM HYDROX 2400MG/30ML ORAL SUSPENSION 30 ML CUP PO PRN (17:53)
[2022-08-09] MEDS: THIAMINE HCL 100 MG TABLET (FP) PO SCH (22:29)
[2022-08-09] MEDS: QUEtiapine FUMARATE 400 MG TABLET PO SCH (22:29)
[2022-08-09] MEDS: TAMSULOSIN HCL 0.4 MG CAP PO SCH (22:29)
[2022-08-09] MEDS: MELATONIN 5 MG TABLETS PO SCH (22:31)
[2022-08-10] MEDS: diazePAM 5 MG TABLET PO PRN ×3 (03:42→18:22)
[2022-08-10] MEDS: NICOTINE 10 MG CARTRIDGE (INHALER) IH PRN ×3 (03:43→14:38)
[2022-08-10] MEDS: diazePAM 5 MG TABLET PO SCH ×3 (05:46→22:41)
[2022-08-10] MEDS: LISINOPRIL 20 MG TABLET PO SCH (10:27)
[2022-08-10] MEDS: ASPIRIN COATED 81 MG TABLET.EC PO SCH (10:27)
[2022-08-10] MEDS: cloNIDine HCL 0.1 MG TABLET PO SCH ×2 (10:27→22:44)
[2022-08-10] MEDS: PRENATAL VITAMINS W/ FOLIC ACID TABLET (FP) PO SCH (10:28)
[2022-08-10] MEDS: NICOTINE 14 MG/24 HOURS TOPICAL PATCH TD SCH (10:28)
[2022-08-10 11:43] LABS: BLOOD UREA NITROGEN 16.8 mg/dL (7-18)
[2022-08-10] MEDS: THIAMINE HCL 100 MG TABLET (FP) PO SCH (22:41)
[2022-08-10] MEDS: TAMSULOSIN HCL 0.4 MG CAP PO SCH (22:41)
[2022-08-10] MEDS: QUEtiapine FUMARATE 400 MG TABLET PO SCH (22:41)
[2022-08-10] MEDS: ACETAMINOPHEN 325 MG TABLET (FP) PO PRN (22:45)
[2022-08-10] MEDS: MAGNESIUM HYDROX 2400MG/30ML ORAL SUSPENSION 30 ML CUP PO PRN (23:06)
[2022-08-10] MEDS: MELATONIN 5 MG TABLETS PO SCH (23:07)
[2022-08-11] MEDS: diazePAM 5 MG TABLET PO SCH ×2 (05:36→17:29)
[2022-08-11] MEDS: NICOTINE 10 MG CARTRIDGE (INHALER) IH PRN ×5 (07:46→22:22)
[2022-08-11] MEDS: LISINOPRIL 20 MG TABLET PO SCH (10:07)
[2022-08-11] MEDS: ASPIRIN COATED 81 MG TABLET.EC PO SCH (10:07)
[2022-08-11] MEDS: hydrOXYzine PAMOATE 25 MG CAPSULE (FP) PO PRN (10:07)
[2022-08-11] MEDS: PRENATAL VITAMINS W/ FOLIC ACID TABLET (FP) PO SCH (10:07)
[2022-08-11] MEDS: cloNIDine HCL 0.1 MG TABLET PO SCH ×2 (10:07→22:20)
[2022-08-11] MEDS: NICOTINE 14 MG/24 HOURS TOPICAL PATCH TD SCH (10:08)
[2022-08-11] MEDS: diazePAM 5 MG TABLET PO PRN ×2 (10:10→15:57)
[2022-08-11 17:54] VITALS: RESP 18
[2022-08-11 21:32] VITALS: TEMP 97.3
[2022-08-11] MEDS: THIAMINE HCL 100 MG TABLET (FP) PO SCH (22:20)
[2022-08-11] MEDS: TAMSULOSIN HCL 0.4 MG CAP PO SCH (22:20)
[2022-08-11] MEDS: QUEtiapine FUMARATE 400 MG TABLET PO SCH (22:20)
[2022-08-11] MEDS: MELATONIN 5 MG TABLETS PO SCH (22:20)
[2022-08-11] MEDS: MAGNESIUM HYDROX 2400MG/30ML ORAL SUSPENSION 30 ML CUP PO PRN (22:21)
[2022-08-12] MEDS ORDERED: diazePAM 5 MG TABLET PO ONE (06:00)
[2022-08-12 06:46] VITALS: BP 129/75; PULSE 72
[2022-08-12] MEDS: ASPIRIN COATED 81 MG TABLET.EC PO SCH (09:16)
[2022-08-12] MEDS: cloNIDine HCL 0.1 MG TABLET PO SCH (09:16)
[2022-08-12] MEDS: PRENATAL VITAMINS W/ FOLIC ACID TABLET (FP) PO SCH (09:16)
[2022-08-12] MEDS: LISINOPRIL 20 MG TABLET PO SCH (09:16)
[2022-08-12] MEDS: NICOTINE 14 MG/24 HOURS TOPICAL PATCH TD SCH (09:16)
== END 2022-08-12 09:20 | disposition home or self-care (01) | DRG 897 ==
LOC: YASAS 22:53 → UNDOADMIN 23:57 → Y6N 23:57
PROVIDERS: ADMIT Allergy & Immunology; ATTEND Surgery
PROC: HZ2ZZZZ Detoxification Services for Substance Abuse Treatment (ICD-10-PCS; principal; 2022-08-07)
DX: F11.23 Opioid dependence with withdrawal (principal); F19.282 Other psychoactive substance dependence with psychoactive substance-induced sleep disorder; F19.280 Other psychoactive substance dependence with psychoactive substance-induced anxiety disorder; I69.851 Hemiplegia and hemiparesis following other cerebrovascular disease affecting right dominant side; F13.230 Sedative, hypnotic or anxiolytic dependence with withdrawal, uncomplicated; F17.210 Nicotine dependence, cigarettes, uncomplicated; F19.24 Other psychoactive substance dependence with psychoactive substance-induced mood disorder; F31.9 Bipolar disorder, unspecified; I10 Essential (primary) hypertension; J44.9 Chronic obstructive pulmonary disease, unspecified; G89.29 Other chronic pain; M54.50 Low back pain, unspecified; N40.0 Benign prostatic hyperplasia without lower urinary tract symptoms; Z62.810 Personal history of physical and sexual abuse in childhood; Z99.89 Dependence on other enabling machines and devices; Z91.14 Patient's other noncompliance with medication regimen
CPT/HCPCS: 36415; 80053; 82947; 84520; 85027; 86780; 87811; C9803-CS; U0003; U0005

== ENCOUNTER 2023-09-27 11:23 | Inpatient (IN) | payer OTHER ==
[2023-09-27 12:07] VITALS: BMI 32.8
[2023-09-27] MEDS ORDERED: MAGNESIUM HYDROX 2400MG/30ML ORAL SUSPENSION 30 ML CUP PO PRN (13:23)
[2023-09-27] MEDS ORDERED: NALOXONE HCL 0.4 MG/ML VIAL IM PRN (13:23)
[2023-09-27] MEDS ORDERED: NALOXONE HCL (KLOXXADO) 8 MG SPRAY NS PRN (13:23)
[2023-09-27] MEDS ORDERED: POLYETHYLENE GLYCOL (HEALTHYLAX) 3350 17 GM PACKET PO PRN (13:23)
[2023-09-27] MEDS ORDERED: BISMUTH SUBSALICYLATE 524 MG/30 ML PO PRN (13:23)
[2023-09-27] MEDS ORDERED: BENZOCAINE/MENTHOL (CHLORASEPTIC ) LOZENGE MM PRN (13:23)
[2023-09-27] MEDS ORDERED: LOPERAMIDE HCL 2 MG CAPSULE PO PRN (13:23)
[2023-09-27] MEDS ORDERED: MAG HYDROX/AL HYDROX/SIMETH 30 ML UNIT-DOSE CUP PO PRN (13:23)
[2023-09-27] MEDS ORDERED: ACETAMINOPHEN 325 MG TABLET (FP) PO PRN (13:23)
[2023-09-27] MEDS ORDERED: ONDANSETRON *ODT* 4 MG TABLET SL PRN (13:23)
[2023-09-27] MEDS ORDERED: DICYCLOMINE HCL 10 MG CAPSULE PO PRN (13:23)
[2023-09-27] MEDS ORDERED: BENZONATATE 200 MG CAPSULE PO PRN (13:23)
[2023-09-27] MEDS ORDERED: BISACODYL 5 MG TABLET.DR (FP) PO PRN (13:23)
[2023-09-27] MEDS ORDERED: guaiFENesin 600 MG TABLET.ER (FP) PO PRN (13:23)
[2023-09-27] MEDS ORDERED: IBUPROFEN 400 MG TABLET (FP) PO PRN (13:23)
[2023-09-27] MEDS ORDERED: PRENATAL VITAMINS W/ FOLIC ACID TABLET (FP) PO ONE (14:22)
[2023-09-27] MEDS: PRENATAL VITAMINS W/ FOLIC ACID TABLET (FP) PO SCH (14:37)
[2023-09-27] MEDS ORDERED: methaDONE HCL 10 MG TABLET (FOR DETOX USE ONLY) PO ONE (17:00)
[2023-09-27] MEDS: hydrOXYzine PAMOATE 25 MG CAPSULE (FP) PO PRN (17:58)
[2023-09-27] MEDS ORDERED: MELATONIN 5 MG TABLETS PO SCH (22:00)
[2023-09-27] MEDS: THIAMINE HCL 100 MG TABLET (FP) PO SCH (22:09)
[2023-09-27] MEDS: TAMSULOSIN HCL 0.4 MG CAP PO SCH (22:09)
[2023-09-27] MEDS: DOCUSATE SODIUM 100 MG CAPSULE (FP) PO SCH (22:09)
[2023-09-27] MEDS: METHOCARBAMOL 500 MG TABLET PO PRN (22:09)
[2023-09-28] MEDS: IBUPROFEN 600 MG TABLET (FP) PO PRN ×2 (05:35→16:26)
[2023-09-28 08:35] LABS: HEMATOCRIT 39.4 % (35.4-49); HEMOGLOBIN 13.1 GM/dL (11.7-16.9); MCH 29.9 pg (25.7-33.7); MCHC 33.2 g/dl (32.0-35.9); MEAN PLT VOLUME 8.1 fl (7.5-11.1); PLATELET COUNT 190 10^3/uL (134-434); RBC 4.37 M/mm3 (4.00-5.60); RDW 14.1 % (11.9-15.9); WHITE BLOOD COUNT 6.9 K/mm3 (4.0-10.0)
[2023-09-28 09:02] LABS: POTASSIUM 4.1 mmol/L (3.5-5.1)
[2023-09-28 09:10] LABS: CALCIUM 9.3 mg/dL (8.5-10.1)
[2023-09-28 09:11] LABS: ALBUMIN 3.5 g/dl (3.4-5.0); BLOOD UREA NITROGEN 27.6 mg/dL (7-18)
[2023-09-28 09:14] LABS: CREATININE 0.8 mg/dL (0.55-1.3)
[2023-09-28 09:15] LABS: BILIRUBIN,TOTAL 0.4 mg/dL (0.2-1); TOT PROT 6.2 g/dl (6.4-8.2)
[2023-09-28] MEDS: PRENATAL VITAMINS W/ FOLIC ACID TABLET (FP) PO SCH (10:14)
[2023-09-28] MEDS: METHOCARBAMOL 500 MG TABLET PO PRN ×2 (10:15→22:02)
[2023-09-28] MEDS: LISINOPRIL 20 MG TABLET PO SCH (10:15)
[2023-09-28] MEDS: ASPIRIN COATED 81 MG TABLET.EC PO SCH (10:15)
[2023-09-28] MEDS: hydrOXYzine PAMOATE 25 MG CAPSULE (FP) PO PRN ×2 (10:19→22:02)
[2023-09-28] MEDS: NICOTINE 14 MG/24 HOURS TOPICAL PATCH TD SCH (10:21)
[2023-09-28] MEDS ORDERED: SODIUM PHOSPHATE/NA BIPHOS 133 ML ENEMA RC ONE (10:49)
[2023-09-28] MEDS: diazePAM 5 MG TABLET PO PRN ×3 (12:08→21:59)
[2023-09-28 12:18] LABS: HIV INTERPRETATION NEGATIVE (NEGATIVE)
[2023-09-28] MEDS ORDERED: MINERAL OIL ENEMA 133 ML ENEMA RC ONE (12:43)
[2023-09-28] MEDS: amLODIPine BESYLATE 5 MG TABLET (FP) PO SCH (13:43)
[2023-09-28] MEDS: metFORMIN HCL 500 MG TABLET (FP) PO SCH (16:26)
[2023-09-28] MEDS ORDERED: TETRAHYDROZOLINE HCL EYE DROPS OU PRN (19:35)
[2023-09-28] MEDS: THIAMINE HCL 100 MG TABLET (FP) PO SCH (21:59)
[2023-09-28] MEDS: QUEtiapine FUMARATE 400 MG TABLET PO SCH (21:59)
[2023-09-28] MEDS: TAMSULOSIN HCL 0.4 MG CAP PO SCH (21:59)
[2023-09-28] MEDS: cloNIDine HCL 0.1 MG TABLET PO PRN (21:59)
[2023-09-28] MEDS: DOCUSATE SODIUM 100 MG CAPSULE (FP) PO SCH (21:59)
[2023-09-29] MEDS: metFORMIN HCL 500 MG TABLET (FP) PO SCH ×2 (07:10→17:00)
[2023-09-29] MEDS ORDERED: methaDONE HCL 10 MG TABLET (FOR DETOX USE ONLY) PO ONE (10:00)
[2023-09-29] MEDS: LISINOPRIL 20 MG TABLET PO SCH (10:51)
[2023-09-29] MEDS: amLODIPine BESYLATE 5 MG TABLET (FP) PO SCH (10:51)
[2023-09-29] MEDS: ASPIRIN COATED 81 MG TABLET.EC PO SCH (10:51)
[2023-09-29] MEDS: NICOTINE 14 MG/24 HOURS TOPICAL PATCH TD SCH (10:51)
[2023-09-29] MEDS: PRENATAL VITAMINS W/ FOLIC ACID TABLET (FP) PO SCH (10:52)
[2023-09-29] MEDS: hydrOXYzine PAMOATE 25 MG CAPSULE (FP) PO PRN ×2 (10:52→18:36)
[2023-09-29] MEDS: METHOCARBAMOL 500 MG TABLET PO PRN ×2 (10:52→18:35)
[2023-09-29] MEDS: cloNIDine HCL 0.1 MG TABLET PO PRN (18:36)
[2023-09-29] MEDS: QUEtiapine FUMARATE 400 MG TABLET PO SCH (22:43)
[2023-09-29] MEDS: THIAMINE HCL 100 MG TABLET (FP) PO SCH (22:43)
[2023-09-29] MEDS: TAMSULOSIN HCL 0.4 MG CAP PO SCH (22:43)
[2023-09-29] MEDS: DOCUSATE SODIUM 100 MG CAPSULE (FP) PO SCH (22:43)
[2023-09-30] MEDS: metFORMIN HCL 500 MG TABLET (FP) PO SCH ×2 (07:00→17:18)
[2023-09-30] MEDS: ASPIRIN COATED 81 MG TABLET.EC PO SCH (10:34)
[2023-09-30] MEDS: amLODIPine BESYLATE 5 MG TABLET (FP) PO SCH (10:34)
[2023-09-30] MEDS: NICOTINE 14 MG/24 HOURS TOPICAL PATCH TD SCH (10:34)
[2023-09-30] MEDS: PRENATAL VITAMINS W/ FOLIC ACID TABLET (FP) PO SCH (10:34)
[2023-09-30] MEDS: LISINOPRIL 20 MG TABLET PO SCH (10:36)
[2023-09-30] MEDS: METHOCARBAMOL 500 MG TABLET PO PRN (17:16)
[2023-09-30] MEDS: TAMSULOSIN HCL 0.4 MG CAP PO SCH (22:44)
[2023-09-30] MEDS: DOCUSATE SODIUM 100 MG CAPSULE (FP) PO SCH (22:44)
[2023-09-30] MEDS: QUEtiapine FUMARATE 400 MG TABLET PO SCH (22:44)
[2023-09-30] MEDS: THIAMINE HCL 100 MG TABLET (FP) PO SCH (22:44)
[2023-10-01] MEDS: metFORMIN HCL 500 MG TABLET (FP) PO SCH ×2 (06:17→17:28)
[2023-10-01] MEDS ORDERED: methaDONE HCL 10 MG TABLET (FOR DETOX USE ONLY) PO ONE (10:00)
[2023-10-01] MEDS: amLODIPine BESYLATE 5 MG TABLET (FP) PO SCH (10:41)
[2023-10-01] MEDS: ASPIRIN COATED 81 MG TABLET.EC PO SCH (10:41)
[2023-10-01] MEDS: LISINOPRIL 20 MG TABLET PO SCH (10:41)
[2023-10-01] MEDS: PRENATAL VITAMINS W/ FOLIC ACID TABLET (FP) PO SCH (10:41)
[2023-10-01] MEDS: NICOTINE 14 MG/24 HOURS TOPICAL PATCH TD SCH (10:41)
[2023-10-01] MEDS: METHOCARBAMOL 500 MG TABLET PO PRN (15:51)
[2023-10-01] MEDS: IBUPROFEN 600 MG TABLET (FP) PO PRN (15:52)
[2023-10-01] MEDS: THIAMINE HCL 100 MG TABLET (FP) PO SCH (21:57)
[2023-10-01] MEDS: TAMSULOSIN HCL 0.4 MG CAP PO SCH (21:58)
[2023-10-01] MEDS: DOCUSATE SODIUM 100 MG CAPSULE (FP) PO SCH (21:58)
[2023-10-01] MEDS: QUEtiapine FUMARATE 400 MG TABLET PO SCH (21:58)
[2023-10-02] MEDS: METHOCARBAMOL 500 MG TABLET PO PRN (02:47)
[2023-10-02] MEDS: IBUPROFEN 600 MG TABLET (FP) PO PRN (02:47)
[2023-10-02] MEDS: metFORMIN HCL 500 MG TABLET (FP) PO SCH ×2 (07:29→21:20)
[2023-10-02] MEDS: PRENATAL VITAMINS W/ FOLIC ACID TABLET (FP) PO SCH (09:39)
[2023-10-02] MEDS: ASPIRIN COATED 81 MG TABLET.EC PO SCH (09:39)
[2023-10-02] MEDS: LISINOPRIL 20 MG TABLET PO SCH (09:39)
[2023-10-02] MEDS: NICOTINE 14 MG/24 HOURS TOPICAL PATCH TD SCH (09:39)
[2023-10-02] MEDS ORDERED: amLODIPine BESYLATE 10 MG TABLET (FP) PO SCH (10:00)
[2023-10-02] MEDS ORDERED: amLODIPine BESYLATE 5 MG TABLET (FP) PO SCH (10:00)
[2023-10-02 13:20] VITALS: BP 137/80; PULSE 66; RESP 16; TEMP 97.5
== END 2023-10-02 17:30 | disposition home or self-care (01) | DRG 896 ==
LOC: YASAS 11:23 → Y6N 13:41
PROVIDERS: ADMIT Allergy & Immunology; ATTEND Surgery
PROC: HZ2ZZZZ Detoxification Services for Substance Abuse Treatment (ICD-10-PCS; principal; 2023-09-27)
DX: F11.23 Opioid dependence with withdrawal (principal); U07.1 COVID-19; F19.282 Other psychoactive substance dependence with psychoactive substance-induced sleep disorder; I69.851 Hemiplegia and hemiparesis following other cerebrovascular disease affecting right dominant side; F17.210 Nicotine dependence, cigarettes, uncomplicated; F25.9 Schizoaffective disorder, unspecified; F19.24 Other psychoactive substance dependence with psychoactive substance-induced mood disorder; I10 Essential (primary) hypertension; K59.03 Drug induced constipation; E11.9 Type 2 diabetes mellitus without complications; Z79.84 Long term (current) use of oral hypoglycemic drugs; M17.0 Bilateral primary osteoarthritis of knee; M54.50 Low back pain, unspecified; G89.29 Other chronic pain; N40.0 Benign prostatic hyperplasia without lower urinary tract symptoms; Z86.19 Personal history of other infectious and parasitic diseases; Z99.89 Dependence on other enabling machines and devices; Z62.810 Personal history of physical and sexual abuse in childhood
CPT/HCPCS: 36415; 80053; 82962; 85027; 86780; 87389; 87635; 87811

== ENCOUNTER 2023-11-20 06:22 | Day surgery (SDC) | payer OTHER ==
[2023-11-10 15:14] VITALS: BMI 32.8
[2023-11-20] MEDS ORDERED: oxyCODONE HCL 5 MG TABLET PO PRN (07:07)
[2023-11-20] MEDS ORDERED: VANCOMYCIN 1,000 MG VIAL (RESTRICTED TO ID ONLY) ONE ×2 (07:17→08:35)
[2023-11-20] MEDS ORDERED: TRANEXAMIC ACID 1000 MG/10 ML VIAL ONE (07:17)
[2023-11-20] MEDS ORDERED: BUPIVACAINE HCL/PF 0.5% (5 MG/ML) 30 ML VIAL IJ ONE (07:47)
[2023-11-20] MEDS ORDERED: MIDAZOLAM HCL 2 MG/2 ML SINGLE DOSE VIAL ONE (07:47)
[2023-11-20] MEDS ORDERED: FENTANYL CITRATE/PF 50 MCG/ML VIAL ONE (07:47)
[2023-11-20] MEDS ORDERED: BUPIVACAINE LIPOSOME/PF (EXPAREL) 266 MG/20 ML VIAL ONE (07:47)
[2023-11-20] MEDS ORDERED: ACETAMINOPHEN INJECTION 100 ML IVPB ONE (07:47)
[2023-11-20] MEDS ORDERED: PROPOFOL 20 ML ONE (08:04)
[2023-11-20] MEDS ORDERED: ONDANSETRON 4 MG/2 ML VIAL ONE ×2 (10:10→11:06)
[2023-11-20] MEDS ORDERED: KETOROLAC TROMETHAMINE 30 MG/1 ML VIAL ONE (10:39)
[2023-11-20] MEDS ORDERED: MAGNESIUM HYDROX 2400MG/30ML ORAL SUSPENSION 30 ML CUP PO PRN (10:49)
[2023-11-20] MEDS ORDERED: ONDANSETRON 4 MG/2 ML VIAL IVPUSH PRN (10:49)
[2023-11-20] MEDS ORDERED: MAG HYDROX/AL HYDROX/SIMETH 30 ML UNIT-DOSE CUP PO PRN (10:49)
[2023-11-20] MEDS: FENTANYL CITRATE/PF 50 MCG/ML VIAL ONE (11:10)
[2023-11-20] MEDS: ONDANSETRON 4 MG/2 ML VIAL IVPUSH PRN (11:12)
[2023-11-20] MEDS: oxyCODONE HCL 10 MG SUSTAINED ACTING TABLET ONE (11:27)
[2023-11-20] MEDS: NICOTINE 21 MG/24 HOURS TOPICAL PATCH TD SCH (16:36)
[2023-11-20] MEDS: metFORMIN HCL 500 MG TABLET (FP) PO SCH (16:36)
[2023-11-20] MEDS: CEFAZOLIN 2 GM in DEXTROSE 5%-WATER - 100 ML IVPB SCH (16:36)
[2023-11-20] MEDS: oxyCODONE HCL 5 MG TABLET PO PRN (16:36)
[2023-11-20 19:49] VITALS: RESP 17
[2023-11-20] MEDS: VANCOMYCIN/WATER FOR INJ (PEG) 1 GM/200 ML BAG IVPB ONE (19:53)
[2023-11-20] MEDS: DOCUSATE SODIUM 100 MG CAPSULE (FP) PO SCH (21:26)
[2023-11-20] MEDS: SENNOSIDES/DOCUSATE COMBO (SENNA PLUS) TABLET (UD) PO SCH (21:26)
[2023-11-20] MEDS: ESCITALOPRAM OXALATE 10 MG TABLET PO SCH (21:26)
[2023-11-20] MEDS: QUEtiapine FUMARATE 200 MG TABLET PO SCH (21:28)
[2023-11-21] MEDS: HYDROmorphone HCl 2 MG/ML VIAL IVPUSH PRN (00:06)
[2023-11-21] MEDS: TAMSULOSIN HCL 0.4 MG CAP PO SCH (07:59)
[2023-11-21] MEDS: CEFAZOLIN 2 GM in DEXTROSE 5%-WATER - 100 ML IVPB ONE (08:15)
[2023-11-21] MEDS: LACTATED RINGERS SOLUTION 1,000 ML IV SCH ×2 (08:15)
[2023-11-21 08:18] LABS: HEMATOCRIT 33.7 % (35.4-49); HEMOGLOBIN 11.3 G/dL (11.7-16.9); MCH 30.7 pg (25.7-33.7); MCHC 33.5 g/dl (32.0-35.9); MEAN CELL VOLUME 91.7 fl (80-96); PLATELET COUNT 211.3 10^3/uL (134-434); RBC 3.68 10^6/uL (4.00-5.60); RDW 14.8 % (11.9-15.9); WHITE BLOOD COUNT 9.2 10^3/uL (4.0-10.8)
[2023-11-21] MEDS: PANTOPRAZOLE 40 MG TABLET PO SCH (09:11)
[2023-11-21] MEDS: LISINOPRIL 20 MG TABLET PO SCH (09:11)
[2023-11-21] MEDS: ASPIRIN 81 MG CHEWABLE TABLETS PO SCH (09:11)
[2023-11-21] MEDS: MULTIVITAMINS (DAILY MVI) TABLET (FP) PO SCH (09:11)
[2023-11-21] MEDS: amLODIPine BESYLATE 5 MG TABLET (FP) PO SCH (09:11)
[2023-11-21 10:28] VITALS: BP 122/88; PULSE 92; TEMP 99.6
[2023-11-21 11:31] LABS: CALCIUM 8.7 mg/dl (8.5-10.1); CREATININE 0.8 mg/dl (0.6-1.3); POTASSIUM 3.9 mmol/L (3.5-5.1)
== END 2023-11-21 13:00 ==
LOC: FASUSAT 06:22 → FM/S 12:18 → FASUSAT 11-21 13:00
PROVIDERS: ATTEND Family Medicine
PROC: 0LS30ZZ Reposition Right Upper Arm Tendon, Open Approach (ICD-10-PCS; 2023-11-20)
PROC: 0RRJ0JZ Replacement of Right Shoulder Joint with Synthetic Substitute, Open Approach (ICD-10-PCS; principal; 2023-11-20 08:36)
DX: M19.011 Primary osteoarthritis, right shoulder (principal); M75.101 Unspecified rotator cuff tear or rupture of right shoulder, not specified as traumatic; M75.21 Bicipital tendinitis, right shoulder
CPT/HCPCS: 36415; 73030-TC-RT-FY; 80048; 82962; 85027; 88304-TC; 88305-TC; 88311-TC; 94760; 97116-GP; 97161-GP; C1713; C1757; C1776; J0131

== ENCOUNTER 2023-11-30 12:54 | Inpatient (IN) | payer OTHER ==
[2023-11-30] MEDS ORDERED: morphine SULFATE 4 MG/ML VIAL ONE (14:13)
[2023-11-30] MEDS ORDERED: ACETAMINOPHEN INJECTION 100 ML IVPB ONE (14:13)
[2023-11-30 14:18] LABS: INR 1.14 (0.83-1.09); PROTHROMBIN TIME (PATIENT) 13.2 SEC (9.7-13.0)
[2023-11-30 14:19] LABS: HEMOGLOBIN 11.4 G/dL (11.7-16.9); MCH 30.6 pg (25.7-33.7); MCHC 33.4 g/dl (32.0-35.9); MEAN CELL VOLUME 91.7 fl (80-96); MEAN PLT VOLUME 8.7 fl (7.5-11.1); PLATELET COUNT 317.4 10^3/uL (134-434); RBC 3.71 10^6/uL (4.00-5.60); RDW 14.8 % (11.9-15.9)
[2023-11-30] MEDS: morphine SULFATE 4 MG/ML VIAL IVPUSH ONE (14:19)
[2023-11-30] MEDS: ACETAMINOPHEN 1000 MG/100 ML BAG IVPB ONE (14:19)
[2023-11-30 14:21] LABS: ACTIVATED PTT 26.1 SECONDS (25.2-36.5)
[2023-11-30 14:27] LABS: ALBUMIN 4.3 g/dl (3.4-5.0); BILIRUBIN,TOTAL 0.4 mg/dl (0.2-1); CALCIUM 9.5 mg/dl (8.5-10.1); CREATININE 1.2 mg/dl (0.6-1.3); POTASSIUM 3.6 mmol/L (3.5-5.1); TOT PROT 6.8 g/dl (6.4-8.2)
[2023-11-30 14:58] LABS: PLATELET ESTIMATE ADEQUATE
[2023-11-30] MEDS ORDERED: PROPOFOL 20 ML ONE (15:33)
[2023-11-30] MEDS ORDERED: KETOROLAC TROMETHAMINE 30 MG/1 ML VIAL ONE (15:55)
[2023-11-30] MEDS: KETOROLAC TROMETHAMINE 15 MG/ML VIAL IVPUSH ONE (16:05)
[2023-11-30] MEDS: PROPOFOL 200 MG/20 ML VIAL IVPUSH ONE (16:40)
[2023-11-30] MEDS: SODIUM CHLORIDE 0.9% 500 ML INFUS.BAG IV ONE (17:00)
[2023-11-30] MEDS ORDERED: ACETAMINOPHEN 1000 MG/100 ML BAG IVPB PRN (17:48)
[2023-11-30 21:51] VITALS: BMI 31.6
[2023-11-30] MEDS: DOCUSATE SODIUM 100 MG CAPSULE (FP) PO SCH (22:32)
[2023-11-30] MEDS: QUEtiapine FUMARATE 200 MG TABLET PO SCH (22:33)
[2023-11-30] MEDS: SENNOSIDES 8.6MG TABLET (FP) PO SCH (22:33)
[2023-11-30] MEDS: oxyCODONE HCL 5 MG TABLET PO PRN (22:33)
[2023-12-01] MEDS: TAMSULOSIN HCL 0.4 MG CAP PO SCH (08:07)
[2023-12-01] MEDS: cloNIDine HCL 0.1 MG TABLET PO SCH (10:50)
[2023-12-01] MEDS ORDERED: FENTANYL CITRATE/PF 50 MCG/ML VIAL ONE (12:49)
[2023-12-01] MEDS ORDERED: MIDAZOLAM HCL 2 MG/2 ML SINGLE DOSE VIAL ONE (12:49)
[2023-12-01] MEDS ORDERED: ROPIVACAINE HCL 0.5% 30ML VIAL ONE (12:50)
[2023-12-01] MEDS ORDERED: ePHEDrine SULFATE 50 MG/1 ML AMPULE ONE (13:09)
[2023-12-01] MEDS ORDERED: VANCOMYCIN 1,000 MG VIAL (RESTRICTED TO ID ONLY) ONE (13:36)
[2023-12-01] MEDS ORDERED: TRANEXAMIC ACID 1000 MG/10 ML VIAL ONE (13:36)
[2023-12-01] MEDS ORDERED: PROPOFOL 20 ML ONE (13:48)
[2023-12-01] MEDS ORDERED: DEXAMETHASONE SOD PHOSPHATE 4 MG/1 ML VIAL ONE (13:48)
[2023-12-01] MEDS ORDERED: ONDANSETRON 4 MG/2 ML VIAL ONE (13:48)
[2023-12-01] MEDS ORDERED: SUCCINYLCHOLINE CHLORIDE 200 MG/10 ML SYRINGE ONE (13:48)
[2023-12-01] MEDS ORDERED: LIDOCAINE HCL/PF 2% SDV 5ML VIAL ONE (13:48)
[2023-12-01] MEDS ORDERED: ROCURONIUM BROMIDE 50 MG/5 ML SYRINGE ONE (13:48)
[2023-12-01] MEDS ORDERED: LACTATED RINGERS SOLUTION 1,000 ML IV SCH (15:00)
[2023-12-01] MEDS: ALPRAZolam 0.25 MG TABLET PO PRN (17:54)
[2023-12-02] MEDS ORDERED: MAGNESIUM HYDROX 2400MG/30ML ORAL SUSPENSION 30 ML CUP PO PRN (10:45)
[2023-12-02] MEDS: INSULIN ASPART SLIDING SCALE (NOVOLOG) 1 VIAL SQ SCH (11:23)
[2023-12-02] MEDS: ENOXAPARIN NA (PORCINE) 40 MG/0.4 ML DISP.SYRIN SQ SCH (11:25)
[2023-12-02] MEDS: ASPIRIN COATED 81 MG TABLET.EC PO SCH (11:26)
[2023-12-02 11:59] LABS: CALCIUM 8.8 mg/dl (8.5-10.1); CREATININE 1.1 mg/dl (0.6-1.3); MAGNESIUM 1.5 mg/dL (1.8-2.4); PHOSPHOROUS 3.5 (2.5-4.9); POTASSIUM 3.6 mmol/L (3.5-5.1)
[2023-12-02 12:00] LABS: HEMOGLOBIN 10.3 G/dL (11.7-16.9); MCH 30.3 pg (25.7-33.7); MCHC 33.2 g/dl (32.0-35.9); MEAN CELL VOLUME 91.2 fl (80-96); MEAN PLT VOLUME 8.1 fl (7.5-11.1); PLATELET COUNT 234.2 10^3/uL (134-434); RDW 15.2 % (11.9-15.9); WHITE BLOOD COUNT 7.4 10^3/uL (4.0-10.8)
[2023-12-02] MEDS ORDERED: MAGNESIUM SULF 50% (8.12 MEQ/2 ML-1 GM VIAL) IVPB ONE (13:13)
[2023-12-02] MEDS: MAGNESIUM OXIDE 400 MG TABLET (FP) PO SCH (15:26)
[2023-12-03] MEDS: SODIUM PHOSPHATE/NA BIPHOS 133 ML ENEMA RC ONE (09:14)
[2023-12-05] MEDS: ALPRAZolam 1 MG TABLET PO PRN ×2 (11:18→11:33)
[2023-12-05 12:49] VITALS: BP 134/54; PULSE 76; RESP 18; TEMP 98
[2023-12-05] MEDS: NICOTINE 14 MG/24 HOURS TOPICAL PATCH TD SCH (15:11)
== END 2023-12-05 19:56 | DRG 920 ==
LOC: FER 12:54 → FM/S 17:13
PROVIDERS: ADMIT Internal Medicine
PROC: 0RSJXZZ Reposition Right Shoulder Joint, External Approach (ICD-10-PCS; 2023-12-01)
PROC: 0R9J3ZX Drainage of Right Shoulder Joint, Percutaneous Approach, Diagnostic (ICD-10-PCS; principal; 2023-12-01 14:34)
DX: M96.842 Postprocedural seroma of a musculoskeletal structure following a musculoskeletal system procedure (principal); F11.20 Opioid dependence, uncomplicated; S43.084A Other dislocation of right shoulder joint, initial encounter; I10 Essential (primary) hypertension; E78.5 Hyperlipidemia, unspecified; J44.9 Chronic obstructive pulmonary disease, unspecified; N40.0 Benign prostatic hyperplasia without lower urinary tract symptoms; E83.42 Hypomagnesemia; F91.8 Other conduct disorders; F31.9 Bipolar disorder, unspecified; F41.8 Other specified anxiety disorders; E11.9 Type 2 diabetes mellitus without complications; F17.200 Nicotine dependence, unspecified, uncomplicated; Z86.73 Personal history of transient ischemic attack (TIA), and cerebral infarction without residual deficits; Y83.8 Other surgical procedures as the cause of abnormal reaction of the patient, or of later complication, without mention of misadventure at the time of the procedure
CPT/HCPCS: 0241U-QW; 36415; 73030-TC-RT-FY; 80048; 80053; 82962; 83036; 83735; 84100; 85025; 85027; 85610; 85730; 86850; 86900; 86901; 93005; 94760; 97116-GP; 97162-GP; 99285-25; J0131

== ENCOUNTER 2023-12-06 18:56 | Inpatient (IN) | payer OTHER ==
[2023-12-06 19:13] VITALS: BMI 31.4
[2023-12-06] MEDS ORDERED: PROPOFOL 20 ML ONE (19:50)
[2023-12-06] MEDS ORDERED: ACETAMINOPHEN INJECTION 100 ML IVPB ONE (20:18)
[2023-12-06] MEDS: ACETAMINOPHEN 1000 MG/100 ML BAG IVPB ONE (20:20)
[2023-12-06 20:35] LABS: HEMATOCRIT 24.9 % (35.4-49); HEMOGLOBIN 8.4 G/dL (11.7-16.9); MCH 30.5 pg (25.7-33.7); MCHC 33.7 g/dl (32.0-35.9); MEAN CELL VOLUME 90.5 fl (80-96); PLATELET COUNT 187.6 10^3/uL (134-434); RBC 2.75 10^6/uL (4.00-5.60); RDW 15.2 % (11.9-15.9)
[2023-12-06 20:40] LABS: INR 1.22 (0.83-1.09); PROTHROMBIN TIME (PATIENT) 14.1 SEC (9.7-13.0)
[2023-12-06 20:50] LABS: ALBUMIN 2.5 g/dl (3.4-5.0); BILIRUBIN,TOTAL 0.2 mg/dl (0.2-1); CREATININE 0.4 mg/dl (0.6-1.3); PLATELET ESTIMATE ADEQUATE; TOT PROT 3.8 g/dl (6.4-8.2)
[2023-12-06 20:54] LABS: CALCIUM 6.2 mg/dl (8.5-10.1); POTASSIUM 2.9 mmol/L (3.5-5.1)
[2023-12-06] MEDS ORDERED: POTASSIUM CHLORIDE TABS 20 MEQ TABLET.ER (FP) PO ONE (20:58)
[2023-12-06] MEDS: POTASSIUM CHLORIDE TABS 20 MEQ TABLET.ER (FP) PO ONE (21:04)
[2023-12-06] MEDS: KCL 10 MEQ IVPB 10 MEQ/100 ML INFUS.BAG IVPB SCH (21:04)
[2023-12-06] MEDS: ALPRAZolam 0.25 MG TABLET PO ONE (22:01)
[2023-12-06] MEDS: CALCIUM GLUCONATE 10% - 1,000 MG/10 ML VIAL IVPB ONE (22:04)
[2023-12-07] MEDS: oxyCODONE HCL 5 MG TABLET PO ONE (04:25)
[2023-12-07 08:42] LABS: CALCIUM 9.6 mg/dl (8.5-10.1); CREATININE 0.7 mg/dl (0.6-1.3); POTASSIUM 4.5 mmol/L (3.5-5.1)
[2023-12-07 10:11] LABS: BASO % 0.7 % (0-2.0); EOS % 2.9 % (0-4.5); HEMATOCRIT 34.2 % (35.4-49); HEMOGLOBIN 11.5 GM/dL (11.7-16.9); MCH 29.9 pg (25.7-33.7); MCHC 33.8 g/dl (32.0-35.9); MEAN CELL VOLUME 88.5 fl (80-96); MONO % 12.4 % (3.8-10.2); PLATELET COUNT 289 10^3/uL (134-434); RBC 3.86 M/mm3 (4.00-5.60); RDW 14.2 % (11.9-15.9); WHITE BLOOD COUNT 7.1 K/mm3 (4.0-10.0)
[2023-12-07] MEDS ORDERED: TRANEXAMIC ACID 1000 MG/10 ML VIAL ONE (12:21)
[2023-12-07] MEDS ORDERED: VANCOMYCIN 1,000 MG VIAL (RESTRICTED TO ID ONLY) ONE (12:21)
[2023-12-07] MEDS ORDERED: PROPOFOL 40 ML ONE ×2 (12:36→14:48)
[2023-12-07] MEDS ORDERED: MIDAZOLAM HCL 2 MG/2 ML SINGLE DOSE VIAL ONE ×3 (12:37→15:18)
[2023-12-07] MEDS ORDERED: DEXAMETHASONE SOD PHOSPHATE/PF 10 MG/ML SDV ONE (12:43)
[2023-12-07] MEDS ORDERED: ROPIVACAINE HCL 0.5% 30ML VIAL ONE (12:44)
[2023-12-07] MEDS ORDERED: Pregnancy Control Solution IV ONE (13:11)
[2023-12-07] MEDS ORDERED: ROCURONIUM BROMIDE 50 MG/5 ML SYRINGE ONE (14:00)
[2023-12-07] MEDS ORDERED: ePHEDrine SULFATE 50 MG/1 ML AMPULE ONE (14:16)
[2023-12-07] MEDS ORDERED: SUGAMMADEX SODIUM 200 MG/2 ML VIAL ONE (15:17)
[2023-12-07] MEDS ORDERED: ONDANSETRON 4 MG/2 ML VIAL IVPUSH PRN (15:50)
[2023-12-07] MEDS ORDERED: oxyCODONE HCL 5 MG TABLET PO PRN (15:50)
[2023-12-07] MEDS ORDERED: FENTANYL CITRATE/PF 50 MCG/ML VIAL ONE (16:00)
[2023-12-07] MEDS ORDERED: ACETAMINOPHEN INJECTION 100 ML IVPB ONE (16:00)
[2023-12-07] MEDS: ACETAMINOPHEN 1000 MG/100 ML BAG IVPB ONE (16:06)
[2023-12-07] MEDS: LACTATED RINGERS SOLUTION 1,000 ML IV SCH (17:02)
[2023-12-07] MEDS: CEFAZOLIN SODIUM 2 GM VIAL IVPB SCH ×2 (17:07→21:30)
[2023-12-07] MEDS: metFORMIN HCL 500 MG TABLET (FP) PO SCH (18:30)
[2023-12-07] MEDS: oxyCODONE HCL 5 MG TABLET PO PRN (18:30)
[2023-12-07] MEDS: cloNIDine HCL 0.1 MG TABLET PO SCH (21:21)
[2023-12-07] MEDS: SENNOSIDES 8.6MG TABLET (FP) PO SCH (21:21)
[2023-12-07] MEDS: QUEtiapine FUMARATE 200 MG TABLET PO SCH (21:21)
[2023-12-07] MEDS: DOCUSATE SODIUM 100 MG CAPSULE (FP) PO SCH (21:22)
[2023-12-07] MEDS: ALPRAZolam 0.25 MG TABLET PO SCH (21:22)
[2023-12-07 22:32] VITALS: RESP 17
[2023-12-08] MEDS: VANCOMYCIN/WATER FOR INJ (PEG) 1,000 MG/200 ML BAG IVPB ONE (03:08)
[2023-12-08 06:25] VITALS: BP 121/63; PULSE 72; TEMP 97.5
[2023-12-08] MEDS ORDERED: ACETAMINOPHEN 325 MG TABLET (FP) PO ONE (07:30)
[2023-12-08] MEDS: ACETAMINOPHEN 500 MG TABLET (FP) PO PRN (07:30)
[2023-12-08] MEDS ORDERED: SODIUM PHOSPHATE/NA BIPHOS 133 ML ENEMA RC ONE (07:51)
[2023-12-08] MEDS: SODIUM PHOSPHATE/NA BIPHOS 133 ML ENEMA PR ONE (07:57)
[2023-12-08] MEDS: TAMSULOSIN HCL 0.4 MG CAP PO SCH (08:02)
[2023-12-08] MEDS: ASPIRIN 81 MG CHEWABLE TABLETS PO SCH (09:02)
== END 2023-12-08 14:37 | disposition home or self-care (01) | DRG 517 ==
LOC: FER 18:56 → FM/S 21:49 → OBSVTOIN 12-08 09:16
PROVIDERS: ADMIT Internal Medicine; ATTEND Psychiatry & Neurology Pain Medicine
PROC: 0RW Upper Joints, Revision (ICD-10-PCS; principal; 2023-12-07 12:00)
DX: T84.028A Dislocation of other internal joint prosthesis, initial encounter (principal); Y83.9 Surgical procedure, unspecified as the cause of abnormal reaction of the patient, or of later complication, without mention of misadventure at the time of the procedure; Y92.89 Other specified places as the place of occurrence of the external cause; Z96.619 Presence of unspecified artificial shoulder joint; I10 Essential (primary) hypertension; J44.9 Chronic obstructive pulmonary disease, unspecified; E11.9 Type 2 diabetes mellitus without complications; F31.9 Bipolar disorder, unspecified; D64.9 Anemia, unspecified; E78.5 Hyperlipidemia, unspecified; F41.8 Other specified anxiety disorders; F17.200 Nicotine dependence, unspecified, uncomplicated
CPT/HCPCS: 36415; 36430; 73030-TC-RT-FY; 80048; 80053; 81003; 84484; 85025; 85027; 85610; 86850; 86900; 86901; 87086; 94760; 97116-GP; 97162-GP; 99285-25; C1776; G0378; J0131

== ENCOUNTER 2024-07-15 03:50 | Day surgery (SDC) | payer OTHER ==
[2024-07-12 12:25] VITALS: BMI 29.5
[2024-07-15 12:00] VITALS: TEMP 97.8
[2024-07-15 12:22] VITALS: BP 120/71; PULSE 77; RESP 16
== END 2024-07-15 12:20 | disposition home or self-care (01) ==
LOC: JASU-ENDO 03:50
PROVIDERS: ATTEND Student in an Organized Health Care Education/Training Program
PROC: 0DP68UZ Removal of Feeding Device from Stomach, Via Natural or Artificial Opening Endoscopic (ICD-10-PCS; principal; 2024-07-15 12:00)
DX: Z46.59 Encounter for fitting and adjustment of other gastrointestinal appliance and device (principal)